=== PATIENT | male | born 1960 | race Caucasian/White ===

== ENCOUNTER 2016-10-02 20:46 | Emergency (ER) | payer BC ==
[~2016-10-02] VITALS: Ht 185.4 cm; Wt 85.0 kg
[~2016-10-02 20:46] MED LIST: OMEP10CA2 PO; PRAV10TA39 PO
[2016-10-02 20:50] VITALS: TEMP 37.3; Ht 185.4 cm; Wt 85.0 kg
[2016-10-02 20:58] VITALS: O2SAT 99
[2016-10-02] MEDS ORDERED: METOPROLOL TARTRATE 1 MG/ML VIAL ONE (21:09)
[2016-10-02] MEDS ORDERED: METOPROLOL TARTRATE 1 MG/ML VIAL IV STA ×2 (21:12→21:55)
[2016-10-02 21:28] LABS: BASO % 0.2 %; BASO ABS # 0.02 K/uL (0-0.2); COMPLETE YES; EOS % 3.9 %; HEMATOCRIT 45.5 % (42-52); IG% 0.4 %; LYMPH % 32.9 %; LYMPH ABS # 2.82 K/uL (1.2-3.4); MEAN CELL VOLUME 83.9 fL (80-100); MEAN CORPUSCULAR HEMOGLOBIN 29.9 pg (25-34); MEAN CORPUSCULAR HGB CONC 35.6 g/dl (32-36); MEAN PLATELET VOLUME 9.3 fL (7.4-10.4); MONO % 6.8 %; NEUT % 55.8 %; PLATELET COUNT 241 K/uL (130-400); RED BLOOD COUNT 5.42 M/uL (4.7-6.1); WHITE BLOOD COUNT 8.56 K/uL (4.8-10.8)
[2016-10-02 21:29] LABS: PROTHROMBIN TIME (PATIENT) 10.9 SECONDS (9.0-12.0)
[2016-10-02 21:34] LABS: CALCIUM 9.6 mg/dl (8.5-10.1); CARBON DIOXIDE 28 mmol/L (21-32); CHLORIDE 106 mmol/L (98-107); GLUCOSE 188 mg/dl (70-99); POTASSIUM 3.9 mmol/L (3.5-5.1); SODIUM 143 mmol/L (136-145)
[2016-10-02 21:37] LABS: ALT/SGPT 33 U/L (12-78); BLOOD UREA NITROGEN 27 mg/dl (7-18); BUN/CREATININE RATIO 22.1 (10-20); MAGNESIUM 2.2 mg/dl (1.8-2.4)
--- NOTE | 2016-10-02 21:43 | EMERGENCY ROOM VISIT NOTE ---
History Report prepared by Alice: Hawa Marion Under the Supervision of: Dr. Nia Mathew M.D. First contact with patient: 20:53 Chief Complaint: TACHYCARDIA Stated Complaint: TACHYCARDIA Nursing Triage Summary: Pt c/o heart fluttering since 1400. "It's done that before, but if I hold my breath it would go away". pt denies pain. "it's a weird sensation". History of Present Illness The patient is a 55 year old male who presents to the Emergency Room with complaints of constant tachycardia for the past 7 hours. He describes his symptoms as a feeling of "fluttering or racing" in his chest. He has had this sensation in the past and it has gone away if he holds his breath. This did not work today. The patient denies fever, cough, shortness of breath, congestion, and recent illness. Source of History: patient Onset: 7 hours ago Position: chest Quality: other (fluttering/racing) Timing: constant Associated Symptoms: No SOB, No cough, No fevers Review of Systems See HPI for pertinent positives & negatives. A total of 10 systems reviewed and were otherwise negative. Past Medical & Surgical Medical Problems: (1) Systolic murmur Family History Patient reports no known family medical history. Social History Smoking Status: Never Smoker Alcohol Use: none Drug Use: none Marital Status: single Housing Status: lives with family Occupation Status: employed Current/Historical Medications Scheduled Metoprolol Succinate (Toprol Xl), 25 MG PO DAILY Multiple Vitamins W/ Minerals (Preservision Areds 2), 2 CAP PO HS Omeprazole Magnesium (Prilosec Otc), 20 MG PO HS Pravastatin Sodium (Pravastatin Sodium), 10 MG PO HS Allergies Coded Allergies: Penicillins (Verified Allergy, Unknown, ., 07/22/14) Physical Exam Vital Signs Date Time Temp Pulse Resp B/P Pulse Ox O2 Delivery O2 Flow Rate FiO2 10/02/16 22:18 86 18 128/84 97 Room Air 10/02/16 21:28 104 20 131/101 99 Room Air 10/02/16 21:17 135 129/104 10/02/16 21:08 125 10/02/16 21:01 135 18 129/104 99 Room Air 10/02/16 20:59 98 Room Air 10/02/16 20:58 99 Room Air 10/02/16 20:50 37.3 128 18 174/115 98 Room Air Physical Exam Vital signs reviewed. General: Well-appearing 55 year old male, in no significant distress. HEENT: No scleral icterus, PERRLA, neck supple. Atraumatic. Cardiovascular: Rapid rate and irregular rhythm, no extra sounds. Pulmonary: Clear to auscultation bilaterally, normal work of breathing. Abdomen: Soft, nontender, nondistended, positive bowel sounds. Musculoskeletal: Atraumatic, no peripheral edema. Neurologic: Patient awake alert and oriented x 3, full strength in all 4 extremities. Cranial nerves 2 through 12 grossly intact. Skin: Warm, dry, no rash Medical Decision & Procedures ER Provider Diagnostic Interpretation: A repeat ECG revealed NSR at 89, no acute ischemic changes, no ectopy. Radiology results as stated below per my review and radiologist interpretation: SINGLE VIEW CHEST CLINICAL HISTORY: Atrial fibrillation. FINDINGS: An AP, portable, upright chest radiograph is compared to study dated 07/22/2014. The examination is mildly degraded by portable technique and patient rotation. The heart is top normal for projection. The pulmonary vasculature is noncongested. Chronic interstitial thickening is similar to previous. Minimal scarring versus atelectasis is seen at the left lung base. No airspace consolidation, large pleural effusion, or pneumothorax is seen. The bony thorax is grossly intact. IMPRESSION: No acute cardiopulmonary abnormality. Electronically signed by: Alexandre De La Cruz M.D. 10/02/2016 9:50 PM Dictated Date/Time: 10/02/2016 9:50 PM Laboratory Results 10/02/16 21:00 Red Blood Count 5.42, Mean Corpuscular Volume 83.9, Mean Corpuscular Hemoglobin 29.9, Mean Corpuscular Hemoglobin Concent 35.6, Mean Platelet Volume 9.3, Neutrophils (%) (Auto) 55.8, Lymphocytes (%) (Auto) 32.9, Monocytes (%) (Auto) 6.8, Eosinophils (%) (Auto) 3.9, Basophils (%) (Auto) 0.2, Neutrophils # (Auto) 4.78, Lymphocytes # (Auto) 2.82, Monocytes # (Auto) 0.58, Eosinophils # (Auto) 0.33, Basophils # (Auto) 0.02 10/02/16 21:00 Test 3/25/17 21:00 White Blood Count 8.56 K/uL (4.8-10.8) Red Blood Count 5.42 M/uL (4.7-6.1) Hemoglobin 16.2 g/dL (14.0-18.0) Hematocrit 45.5 % (42-52) Mean Corpuscular Volume 83.9 fL (80-100) Mean Corpuscular Hemoglobin 29.9 pg (25-34) Mean Corpuscular Hemoglobin Concent 35.6 g/dl (32-36) Platelet Count 241 K/uL (130-400) Mean Platelet Volume 9.3 fL (7.4-10.4) Neutrophils (%) (Auto) 55.8 % Lymphocytes (%) (Auto) 32.9 % Monocytes (%) (Auto) 6.8 % Eosinophils (%) (Auto) 3.9 % Basophils (%) (Auto) 0.2 % Neutrophils # (Auto) 4.78 K/uL (1.4-6.5) Lymphocytes # (Auto) 2.82 K/uL (1.2-3.4) Monocytes # (Auto) 0.58 K/uL (0.11-0.59) Eosinophils # (Auto) 0.33 K/uL (0-0.5) Basophils # (Auto) 0.02 K/uL (0-0.2) RDW Standard Deviation 40.1 fL (36.4-46.3) RDW Coefficient of Variation 13.3 % (11.5-14.5) Immature Granulocyte % (Auto) 0.4 % Immature Granulocyte # (Auto) 0.03 K/uL (0.00-0.02) Prothrombin Time 10.9 SECONDS (9.0-12.0) Prothromb Time International Ratio 1.0 (0.9-1.1) Activated Partial Thromboplast Time 27.1 SECONDS (21.0-31.0) Partial Thromboplastin Ratio 1.0 Anion Gap 9.0 mmol/L (3-11) Est Creatinine Clear Calc Drug Dose 79.5 ml/min Estimated GFR () 79.0 Estimated GFR (Non- 68.1 BUN/Creatinine Ratio 22.1 (10-20) Calcium Level 9.6 mg/dl (8.5-10.1) Magnesium Level 2.2 mg/dl (1.8-2.4) Total Bilirubin 0.5 mg/dl (0.2-1) Direct Bilirubin 0.1 mg/dl (0-0.2) Aspartate Amino Transf (AST/SGOT) 24 U/L (15-37) Alanine Aminotransferase (ALT/SGPT) 33 U/L (12-78) Alkaline Phosphatase 83 U/L (45-117) Total Creatine Kinase 331 U/L (39-308) Creatine Kinase MB 2.3 ng/ml (0.5-3.6) Creatine Kinase MB Ratio 0.7 (0-3.0) Troponin I < 0.015 ng/ml (0-0.045) Total Protein 8.0 gm/dl (6.4-8.2) Albumin 4.6 gm/dl (3.4-5.0) Thyroid Stimulating Hormone (TSH) 1.350 uIu/ml (0.300-4.500) Medications Administered Medications (Trade) Dose Ordered Sig/Mahamed Route Start Time Stop Time Status Last Admin Dose Admin Metoprolol Tartrate (Lopressor Iv) 5 mg STK-MED ONCE .ROUTE 10/02/16 21:09 10/02/16 21:13 DC 10/02/16 21:17 5 MG Aspirin (Aspirin Chew) 81 mg NOW STAT PO 10/02/16 22:08 10/02/16 22:09 DC 10/02/16 22:08 81 MG Metoprolol Succinate (Toprol Xl Tab) 25 mg NOW STAT PO 10/02/16 22:17 10/02/16 22:18 DC 10/02/16 22:17 25 MG ECG Indication: palpitations Rate (beats per minute): 144 Rhythm: atrial fibrillation Findings: no acute ischemic change, other (QTC 393) ED Course 2110: Past medical records reviewed. The patient was evaluated in room A10. A complete history and physical examination was performed. 2111: Lopressor 5 mg IV 2154: Lopressor 5 mg IV 2158: I reassessed the patient. He is doing well and I discussed the results and treatment plan with him. 2207: Aspirin 81 mg PO 2216: Toprol Xl tab 25 mg PO 2237: The patient was discharged home. Medical Decision Differential diagnosis: Etiologies such as premature contractions, electrolyte abnormality, cardiac dysrhythmia, thyroid dysfunction, pulmonary embolism, infection, gastrointestinal, as well as others were entertained. This patient was evaluated and appeared to be in no significant distress. IV access was obtained and he was placed on sales training manager. He is found be in a rapid atrial fibrillation. Patient was given 5 mg of IV metoprolol. Laboratory work is fairly unrevealing. The patient converted to a normal sinus rhythm. Chest x-ray is clear. EKG was repeated and is nonischemic and a sinus rhythm. Patient was informed of the findings. He was given aspirin. He will continue aspirin 81 mg a day and metoprolol succinate 25 mg daily. He will follow-up with his physician this week for reevaluation and consideration of further cardiac testing. He will return to the ER for worsening of symptoms or any medical concerns. Impression Primary Impression: Rapid atrial fibrillation Scribe Attestation The scribe's documentation has been prepared under my direction and personally reviewed by me in its entirety. I confirm that the note above accurately reflects all work, treatment, procedures, and medical decision making performed by me. Departure Information Dispostion Home / Self-Care Prescriptions Metoprolol Succinate (TOPROL XL) 25 Mg Tabcr 25 MG PO DAILY, #30 TAB Prov: Nia Mathew M.D. 10/02/16 Referrals Nupur Juan M.D. (PCP) Forms HOME CARE DOCUMENTATION FORM, IMPORTANT VISIT INFORMATION, WORK / SCHOOL INSTRUCTIONS Patient Instructions Atrial Fibrillation Drew, My [facility] Additional Instructions Diagnosis: Rapid atrial fibrillation Metoprolol 25 mg once daily. Aspirin 81 mg daily. Follow-up with your primary care physician within the next several days for reevaluation and further testing. Return to the emergency department for worsening of symptoms or any medical concerns.
[2016-10-02 21:47] LABS: ALKALINE PHOSPHATASE 83 U/L (45-117); AST/SGOT 24 U/L (15-37); CKMB/CK RATIO 0.7 (0-3.0)
--- NOTE | 2016-10-02 21:52 | DIAGNOSTIC IMAGING REPORT ---
SINGLE VIEW CHEST CLINICAL HISTORY: Atrial fibrillation. FINDINGS: An AP, portable, upright chest radiograph is compared to study dated 07/22/2014. The examination is mildly degraded by portable technique and patient rotation. The heart is top normal for projection. The pulmonary vasculature is noncongested. Chronic interstitial thickening is similar to previous. Minimal scarring versus atelectasis is seen at the left lung base. No airspace consolidation, large pleural effusion, or pneumothorax is seen. The bony thorax is grossly intact. IMPRESSION: No acute cardiopulmonary abnormality. Electronically signed by: Alexandre De La Cruz M.D. 10/02/2016 9:50 PM Dictated Date/Time: 10/02/2016 9:50 PM
[2016-10-02] MEDS ORDERED: MULT60CA PO (21:58)
[2016-10-02] MEDS ORDERED: OMEP20TA14 PO (21:58)
[2016-10-02] MEDS ORDERED: ASPIRIN 81 MG CHEW PO STA (22:08)
[2016-10-02] MEDS ORDERED: METOPROLOL SUCC 25MG EXT REL TAB PO STA (22:17)
[2016-10-02 22:18] VITALS: BP 128/84; PULSE 86; O2SAT 97
[2016-10-02] MEDS ORDERED: METO25TA3 PO (22:19)
== END 2016-10-02 22:38 | disposition home or self-care (01) ==
LOC: C.EDB 20:47 → C.EDA 22:38
DX: I48.91 Unspecified atrial fibrillation (principal); Z79.899 Other long term (current) drug therapy; Z88.0 Allergy status to penicillin

== ENCOUNTER 2016-10-08 16:30 | Emergency (ER) | payer BC ==
[~2016-10-08] VITALS: Ht 182.9 cm; Wt 79.4 kg
[~2016-10-08 16:30] MED LIST changes: +METO25TA3 PO; +MULT60CA PO; -OMEP10CA2 PO; +OMEP20TA14 PO
[2016-10-08 16:43] VITALS: TEMP 37.1; Ht 182.9 cm; Wt 79.4 kg
[2016-10-08] MEDS ORDERED: ASPI81TA28 PO (17:15)
[2016-10-08 17:47] LABS: MEAN CORPUSCULAR HGB CONC 35.7 g/dl (32-36); MEAN PLATELET VOLUME 9.2 fL (7.4-10.4); PLATELET COUNT 248 K/uL (130-400); RED BLOOD COUNT 5.24 M/uL (4.7-6.1)
--- NOTE | 2016-10-08 17:50 | DIAGNOSTIC IMAGING REPORT ---
CHEST ONE VIEW PORTABLE CLINICAL HISTORY: Atypical chest pain COMPARISON STUDY: 10/02/2016 FINDINGS: The cardiac and mediastinal contours are normal. There is no evidence of focal pulmonary consolidation. There is no evidence of failure. No pleural effusions are visualized.[ An electronic device projects over the left hemithorax. There is a stable linear opacity at the left lung base, likely representing subsegmental atelectasis/scar IMPRESSION: No active disease in the chest. Electronically signed by: Roberth Lyles M.D. 10/08/2016 5:48 PM Dictated Date/Time: 10/08/2016 5:48 PM
[2016-10-08 18:00] LABS: PROTHROMBIN TIME (PATIENT) 10.2 SECONDS (9.0-12.0)
[2016-10-08 18:24] LABS: CALCIUM 8.6 mg/dl (8.5-10.1); CKMB/CK RATIO 1.2 (0-3.0); CREATININE 1.3 mg/dl (0.60-1.40); POTASSIUM 3.8 mmol/L (3.5-5.1)
[2016-10-08 18:30] LABS: BUN/CREATININE RATIO 19.7 (10-20)
[2016-10-08 18:36] LABS: ALB/GLOB RATIO 1.2 (0.9-2)
--- NOTE | 2016-10-08 19:17 | EMERGENCY ROOM VISIT NOTE ---
History Report prepared by Alice: Mechelle Bell Under the Supervision of: Dr. Selvin Barboza D.O. First contact with patient: 17:50 Chief Complaint: CARDIAC ASSESSMENT Stated Complaint: MOMENTARY STABBING CHEST PAIN AROUND 3PM Nursing Triage Summary: Patient reports an episode of chest pain substernal that lasted approximatley 30 seconds. Patient was recently evaluated for Atrial fib, currently NSR. Negative SOB, nausea, vomiting, diaphoresis. History of Present Illness The patient is a 55 year old male who presents to the Emergency Room with complaints of an episode of stabbing chest pain earlier today around 1400. The pain lasted for about 10 minutes. He states that the pain might have been positional. He was diagnosed with A fib 1 week ago. He did not experience this pain with A fib. He had a heart monitor fitted this morning. He is currently not experiencing this pain anymore. He denies any other complaints. Source of History: patient Onset: 1400 today Position: chest Quality: stabbing Timing: resolved Note: Pt denies any other complaints. Review of Systems See HPI for pertinent positives & negatives. A total of 10 systems reviewed and were otherwise negative. Past Medical & Surgical Medical Problems: (1) Systolic murmur Family History Patient reports no known family medical history. Social History Smoking Status: Former Smoker Alcohol Use: none Drug Use: none Marital Status: single Housing Status: lives with family Occupation Status: employed Current/Historical Medications Scheduled Aspirin (Aspirin Ec), 81 MG PO DAILY Metoprolol Succinate (Toprol Xl), 25 MG PO DAILY Multiple Vitamins W/ Minerals (Preservision Areds 2), 2 CAP PO HS Omeprazole Magnesium (Prilosec Otc), 20 MG PO HS Pravastatin Sodium (Pravastatin Sodium), 10 MG PO HS Allergies Coded Allergies: Penicillins (Verified Allergy, Unknown, ., 07/22/14) Physical Exam Vital Signs Date Time Temp Pulse Resp B/P Pulse Ox O2 Delivery O2 Flow Rate FiO2 10/08/16 19:36 74 20 143/79 98 10/08/16 17:18 87 10/08/16 16:43 37.1 93 20 169/92 94 Room Air Physical Exam CONSTITUTIONAL/VITAL SIGNS: Reviewed / noted above. GENERAL: Non-toxic in appearance. INTEGUMENTARY: Warm, dry, and [place]. HEAD: Normocephalic. EYES: without scleral icterus or trauma. ENT/OROPHARYNX: clear and moist. LYMPHADENOPATHY/NECK: Is supple without lymphadenopathy or meningismus. RESPIRATORY: Lungs clear and equal. CARDIOVASCULAR: Regular rate and rhythm. GI/ABDOMEN: Soft and nontender. No organomegaly or pulsatile mass. No rebound or guarding. Normal bowel sounds. EXTREMITIES: Warm and well perfused. BACK: No CVA tenderness. NEUROLOGICAL: Intact without focal deficits. PSYCHIATRIC: normal affect. MUSCULOSKELETAL: Normally developed with good muscle tone. Medical Decision & Procedures ER Provider Diagnostic Interpretation: X ray results and stated below per my interpretation and radiology interpretation. CHEST ONE VIEW PORTABLE CLINICAL HISTORY: Atypical chest pain COMPARISON STUDY: 10/02/2016 FINDINGS: The cardiac and mediastinal contours are normal. There is no evidence of focal pulmonary consolidation. There is no evidence of failure. No pleural effusions are visualized.[ An electronic device projects over the left hemithorax. There is a stable linear opacity at the left lung base, likely representing subsegmental atelectasis/scar IMPRESSION: No active disease in the chest. Electronically signed by: Roberth Lyles M.D. 10/08/2016 5:48 PM Dictated Date/Time: 10/08/2016 5:48 PM Laboratory Results 10/08/16 17:02 10/08/16 17:02 Test 10/08/16 17:02 10/08/16 17:49 Red Blood Count 5.24 M/uL (4.7-6.1) Mean Corpuscular Volume 84.0 fL (80-100) Mean Corpuscular Hemoglobin 30.0 pg (25-34) Mean Corpuscular Hemoglobin Concent 35.7 g/dl (32-36) RDW Standard Deviation 38.9 fL (36.4-46.3) RDW Coefficient of Variation 12.9 % (11.5-14.5) Mean Platelet Volume 9.2 fL (7.4-10.4) Nucleated RBC Absolute Count (auto) 0.04 K/uL (0-0) Nucleated Red Blood Cells % 0.7 % Prothrombin Time 10.2 SECONDS (9.0-12.0) Prothromb Time International Ratio 1.0 (0.9-1.1) Activated Partial Thromboplast Time 26.4 SECONDS (21.0-31.0) Partial Thromboplastin Ratio 1.0 Anion Gap 8.0 mmol/L (3-11) Est Creatinine Clear Calc Drug Dose 71.3 ml/min Estimated GFR () 71.7 Estimated GFR (Non- 61.9 BUN/Creatinine Ratio 19.7 (10-20) Calcium Level 8.6 mg/dl (8.5-10.1) Total Bilirubin 0.5 mg/dl (0.2-1) Aspartate Amino Transf (AST/SGOT) 22 U/L (15-37) Alanine Aminotransferase (ALT/SGPT) 35 U/L (12-78) Alkaline Phosphatase 80 U/L (45-117) Total Creatine Kinase 101 U/L (39-308) Creatine Kinase MB 1.2 ng/ml (0.5-3.6) Creatine Kinase MB Ratio 1.2 (0-3.0) Troponin I < 0.015 ng/ml (0-0.045) Total Protein 7.7 gm/dl (6.4-8.2) Albumin 4.2 gm/dl (3.4-5.0) Globulin 3.5 gm/dl (2.5-4.0) Albumin/Globulin Ratio 1.2 (0.9-2) Chemistry Specimen Hemolysis Bedside Troponin I 0.000 ng/ml (0-0.045) Laboratory results as stated above per my review. ECG Indication: chest pain Rate (beats per minute): 83 Rhythm: normal sinus Findings: no ectopy, other (no acute injury) ED Course 175: Previous medical records were reviewed. The patient was evaluated in room B4. A complete history and physical examination was performed. 1920: On reevaluation, the patient is resting comfortably. I discussed the results and findings with the patient. He verbalized agreement of the treatment plan. He was discharged home. Medical Decision the differential was considered includes acute myocardial infarction, acute coronary syndrome, myocarditis, pericarditis, pericardial effusions /tamponad, esophageal perforation, thoracic aortic dissection, pulmonary embolism, pneumonia, pneumothorax, pancreatitis, shingles, acute cholecystitis, perforated abdominal viscus. This is a 55-year-old male who presents to the ED with a chief complaint of a transient left-sided chest pain that occurred around 2 PM. He described as a stabbing pain gutierrez eating. He recently was diagnosed with atrial fibrillation with RVR and spontaneously converted on his last ED visit. He is on a beta adrian. He currently is not having symptoms. The patient's exam was normal. Vital signs are normal. Chest x-ray was negative for acute disease. CBC is normal. Complete metabolic panel was unremarkable. The BUN is 26 and a glucose is 188. Troponin is negative. The patient was told the results the test. He is felt to be stable for discharge and outpatient follow-up. He is currently wearing a event type monitor. Impression Primary Impression: Left sided chest pain Scribe Attestation The scribe's documentation has been prepared under my direction and personally reviewed by me in its entirety. I confirm that the note above accurately reflects all work, treatment, procedures, and medical decision making performed by me. Departure Information Dispostion Home / Self-Care Referrals No Doctor, Assigned (PCP) Patient Instructions My [facility] Additional Instructions Follow-up with your doctor for further care and evaluation in 1-2 days. Return to the emergency department for worsening or new symptoms or any concerns. You have been examined and treated today on an emergency basis only. This is not a substitute for, or an effort to provide, complete comprehensive medical care. It is impossible to recognize and treat all injuries or illnesses in a single emergency department visit. It is therefore important that you follow up closely with your doctor. Call as soon as possible for an appointment.
[2016-10-08 19:36] VITALS: BP 143/79; PULSE 74; O2SAT 98
== END 2016-10-08 19:37 | disposition home or self-care (01) ==
LOC: C.EDB 16:32
DX: R07.9 Chest pain, unspecified (principal); I48.91 Unspecified atrial fibrillation; Z87.891 Personal history of nicotine dependence; Z79.82 Long term (current) use of aspirin; Z79.899 Other long term (current) drug therapy; Z88.0 Allergy status to penicillin

== ENCOUNTER 2016-11-13 01:06 | Emergency (ER) | payer BC ==
[~2016-11-13] VITALS: Ht 190.5 cm; Wt 80.5 kg
[~2016-11-13 01:06] MED LIST changes: +ASPI81TA28 PO
[2016-11-13 01:16] VITALS: TEMP 36.4; Ht 190.5 cm; Wt 80.5 kg
--- NOTE | 2016-11-13 01:32 | EMERGENCY ROOM VISIT NOTE ---
History Report prepared by Alice: Brenda Butts Under the Supervision of: Dr. Veronica Dorsey D.O. First contact with patient: :23 Chief Complaint: CARDIAC ASSESSMENT Stated Complaint: AFIB History of Present Illness The patient is a 56 year old male who presents to the Emergency Room with complaints of a sudden irregular heart rate and rhythm that began around 1929 this evening. The patient notes a history of atrial fibrillation, noting that one month ago he went into atrial fibrillation for eight hours. He states that he has been placed on Metoprolol 25 mg daily. The patient states that he was doing well and saw his cardiology on Tuesday. He states that he was instructed to taking 12.5 mg of Metoprolol daily. The patient states that he went back into atrial fibrillation this evening. He states that he tried everything to convert himself back to normal sinus rhythm, including taking metoprolol and 81 mg of Aspirin. The patient denies any chest pain, shortness of breath, cough, cold, sore throat, chills, fever, leg cramping or swelling. Source of History: patient Onset: 1929 this evening Position: other (global) Quality: other (irregular heart rate and rhythm) Timing: other (sudden) Associated Symptoms: No SOB, No chest pain, No chills, No cough, No fevers, No sorethroat Review of Systems See HPI for pertinent positives & negatives. A total of 10 systems reviewed and were otherwise negative. Past Medical & Surgical Medical Problems: (1) Atrial fibrillation (2) Systolic murmur Family History Patient reports no known family medical history. Social History Smoking Status: Former Smoker Alcohol Use: none Drug Use: none Marital Status: single Housing Status: lives with family Occupation Status: employed Current/Historical Medications Scheduled Aspirin (Aspirin Ec), 81 MG PO DAILY Metoprolol Succinate (Toprol Xl), 25 MG PO DAILY Multiple Vitamins W/ Minerals (Preservision Areds 2), 1 CAP PO HS Omeprazole Magnesium (Prilosec Otc), 20 MG PO HS Pravastatin Sodium (Pravastatin Sodium), 10 MG PO HS Allergies Coded Allergies: Penicillins (Verified Allergy, Unknown, ., 11/13/16) Physical Exam Vital Signs Date Time Temp Pulse Resp B/P Pulse Ox O2 Delivery O2 Flow Rate FiO2 11/13/16 03:53 77 18 114/68 98 11/13/16 02:56 71 11/13/16 02:55 78 11/13/16 02:30 88 101/73 11/13/16 01:42 128 11/13/16 01:16 36.4 129 18 144/92 95 Room Air Physical Exam HEENT: Head - normocephalic and atraumatic Pupils are equal, round, and reactive to light. Extraocular eye muscles are intact, and sclera are anicteric. Nose - moist nasal mucosa without discharge. Mouth - moist buccal mucosa. Oropharynx is nonerythematous and there is no tonsillar exudate or edema noted. Neck: Supple; no JVD, nuchal rigidity, cervical lymphadenopathy. Heart: Irregularly irregular and tachycardic. There is a normal S1 and S2 with no murmurs, clicks, or gallops appreciated. Lungs: Clear to auscultation bilaterally with no wheezes, rales, or rhonchi. Abdomen: Soft, completely nontender, nondistended, with good bowel sounds. There are no palpable pulsatile masses or hepatosplenomegaly. There is no guarding, rigidity, or rebound noted. Extremities: No evidence of cyanosis, clubbing, or edema. There are easily palpable peripheral pulses. Skin: warm and dry with good turgor and no rashes. Medical Decision & Procedures ER Provider Diagnostic Interpretation: 1 view chest x-ray interpreted by me: no evidence of chf no cardiomegaly Laboratory Results 11/13/16 01:36 Red Blood Count 5.58, Mean Corpuscular Volume 86.4, Mean Corpuscular Hemoglobin 30.3, Mean Corpuscular Hemoglobin Concent 35.1, Mean Platelet Volume 9.1, Neutrophils (%) (Auto) 45.3, Lymphocytes (%) (Auto) 40.7, Monocytes (%) (Auto) 10.1, Eosinophils (%) (Auto) 3.7, Basophils (%) (Auto) 0.2, Neutrophils # (Auto ) 2.90, Lymphocytes # (Auto) 2.61, Monocytes # (Auto) 0.65, Eosinophils # (Auto ) 0.24, Basophils # (Auto) 0.01 11/13/16 01:36 Test 11/13/16 01:36 White Blood Count 6.41 K/uL (4.8-10.8) Red Blood Count 5.58 M/uL (4.7-6.1) Hemoglobin 16.9 g/dL (14.0-18.0) Hematocrit 48.2 % (42-52) Mean Corpuscular Volume 86.4 fL (80-100) Mean Corpuscular Hemoglobin 30.3 pg (25-34) Mean Corpuscular Hemoglobin Concent 35.1 g/dl (32-36) Platelet Count 205 K/uL (130-400) Mean Platelet Volume 9.1 fL (7.4-10.4) Neutrophils (%) (Auto) 45.3 % Lymphocytes (%) (Auto) 40.7 % Monocytes (%) (Auto) 10.1 % Eosinophils (%) (Auto) 3.7 % Basophils (%) (Auto) 0.2 % Neutrophils # (Auto) 2.90 K/uL (1.4-6.5) Lymphocytes # (Auto) 2.61 K/uL (1.2-3.4) Monocytes # (Auto) 0.65 K/uL (0.11-0.59) Eosinophils # (Auto) 0.24 K/uL (0-0.5) Basophils # (Auto) 0.01 K/uL (0-0.2) RDW Standard Deviation 41.4 fL (36.4-46.3) RDW Coefficient of Variation 13.0 % (11.5-14.5) Immature Granulocyte % (Auto) 0.0 % Immature Granulocyte # (Auto) 0.00 K/uL (0.00-0.02) Prothrombin Time 10.4 SECONDS (9.0-12.0) Prothromb Time International Ratio 1.0 (0.9-1.1) Activated Partial Thromboplast Time 26.9 SECONDS (21.0-31.0) Partial Thromboplastin Ratio 1.0 Anion Gap 5.0 mmol/L (3-11) Est Creatinine Clear Calc Drug Dose 73.1 ml/min Estimated GFR () 71.2 Estimated GFR (Non- 61.4 BUN/Creatinine Ratio 19.6 (10-20) Calcium Level 9.1 mg/dl (8.5-10.1) Total Bilirubin 0.4 mg/dl (0.2-1) Direct Bilirubin 0.1 mg/dl (0-0.2) Aspartate Amino Transf (AST/SGOT) 16 U/L (15-37) Alanine Aminotransferase (ALT/SGPT) 36 U/L (12-78) Alkaline Phosphatase 79 U/L (45-117) Total Creatine Kinase 131 U/L (39-308) Creatine Kinase MB 1.3 ng/ml (0.5-3.6) Creatine Kinase MB Ratio 1.0 (0-3.0) Troponin I < 0.015 ng/ml (0-0.045) Pro-B-Type Natriuretic Peptide 185 pg/ml (0-900) Total Protein 7.6 gm/dl (6.4-8.2) Albumin 4.4 gm/dl (3.4-5.0) Thyroid Stimulating Hormone (TSH) 1.670 uIu/ml (0.300-4.500) Laboratory results per my review. Medications Administered Medications (Trade) Dose Ordered Sig/Mahamed Route Start Time Stop Time Status Last Admin Dose Admin Diltiazem HCl (Cardizem Inj) 20 mg NOW STAT IV 11/13/16 01:33 11/13/16 01:34 DC 11/13/16 02:09 20 MG Procedure The patient was treated with Cardizem 20 mg IV. ECG Indication: other (irregular heart rate and rhythm) Rate (beats per minute): 129 Rhythm: atrial fibrillation (with RVR) Findings: RBBB (incomplete), no acute ischemic change Change: Repeat EKG #1: Atrial fibrillation at 80 beats per minute, no ischemia, no ectopy. Repeat EKG #2: normal sinus rhythm 68 beats per minute, no ischemia no ectopy. ED Course An IV lock was initiated and labs were drawn as above. He twelve-lead EKG was obtained as described above. 0125: Past medical records reviewed. The patient was evaluated in room C4. A complete history and physical exam was performed. 0133: Ordered Cardizem Inj 20 mg IV. The patient had chest x-ray as described above. 0304: The patient had a four second sinus pause and is now in a normal sinus rhythm. 0313: I reevaluated the patient and he is resting comfortably. I discussed the exam findings with him and I discussed the treatment plan. He verbalized complete understanding and agreement. He is ready to go home. Medical Decision The patient is a 56 year old male who presents to the ED with irregular heart rate and rhythm. Differential diagnosis includes acute coronary syndrome, atrial fibrillation with RVR, congestive heart failure. Lab interpretation: no leukocytosis, stable H&H, normal TSH and LFTs, normal troponin and BNP, BUN 25 and creatinine 1.3, normal Coags. This is a 56-year-old male patient who presents to the emergency department with recurrent atrial fibrillation. The patient did try taking extra beta adrian at home with no relief. He was given IV Cardizem here in the emergency department and after a period of time, seemed to convert. Patient no evidence of fluid overload or congestive heart failure. He was symptom-free when he converted back into a normal sinus rhythm. Cardiac enzymes were negative. I have asked the patient to go back to his original 25 mg dose daily of metoprolol. He will follow up with cardiology. If he develops recurrent A. fib with RVR, he was directed to take a second dose of his metoprolol and weight 60-90 minutes. If the rate did not decrease, he should come back to the emergency department. Impression Primary Impression: Atrial fibrillation with rapid ventricular response Critical Care I have personally spent greater than 30 minutes of critical care time in the direct management of this patient. This includes bedside care, interpretation of diagnostic studies, and testing, discussion with consultants, patient, and family members, and other required patient management activities. This 30 minutes is in excess of all separately billable procedures. Scribe Attestation The scribe's documentation has been prepared under my direction and personally reviewed by me in its entirety. I confirm that the note above accurately reflects all work, treatment, procedures, and medical decision making performed by me. Departure Information Dispostion Home / Self-Care Referrals Cesario Mckeon M.D.([facility]) (PCP) Forms IMPORTANT VISIT INFORMATION Patient Instructions Atrial Fibrillation Dc, My [facility] [employer] Additional Instructions Please take a full pill of the metoprolol starting today. If you develop a rapid heart rate, you can take another dose. If rapid rate continues, return to the ER. Follow up with cardiology
[2016-11-13] MEDS ORDERED: DILTIAZEM HCL 5 MG/ML 5 ML VIAL IV STA (01:33)
[2016-11-13 01:53] LABS: BASO % 0.2 %; BASO ABS # 0.01 K/uL (0-0.2); COMPLETE YES; EOS % 3.7 %; HEMATOCRIT 48.2 % (42-52); LYMPH % 40.7 %; LYMPH ABS # 2.61 K/uL (1.2-3.4); MEAN CELL VOLUME 86.4 fL (80-100); MEAN CORPUSCULAR HEMOGLOBIN 30.3 pg (25-34); MEAN CORPUSCULAR HGB CONC 35.1 g/dl (32-36); MEAN PLATELET VOLUME 9.1 fL (7.4-10.4); MONO % 10.1 %; NEUT % 45.3 %; PLATELET COUNT 205 K/uL (130-400); RED BLOOD COUNT 5.58 M/uL (4.7-6.1); WHITE BLOOD COUNT 6.41 K/uL (4.8-10.8)
[2016-11-13 02:03] LABS: PROTHROMBIN TIME (PATIENT) 10.4 SECONDS (9.0-12.0)
[2016-11-13 02:15] LABS: ALT/SGPT 36 U/L (12-78); AST/SGOT 16 U/L (15-37); BLOOD UREA NITROGEN 25 mg/dl (7-18); BUN/CREATININE RATIO 19.6 (10-20); CALCIUM 9.1 mg/dl (8.5-10.1); CARBON DIOXIDE 30 mmol/L (21-32); CHLORIDE 108 mmol/L (98-107); GLUCOSE 185 mg/dl (70-99); SODIUM 143 mmol/L (136-145)
[2016-11-13 02:25] LABS: ALKALINE PHOSPHATASE 79 U/L (45-117)
[2016-11-13 03:53] VITALS: BP 114/68; PULSE 77; O2SAT 98
--- NOTE | 2016-11-13 06:05 | DIAGNOSTIC IMAGING REPORT ---
CHEST ONE VIEW PORTABLE CLINICAL HISTORY: a-fib cardiac arrhythmia COMPARISON STUDY: 10/08/2016 FINDINGS: The bones soft tissues and hemidiaphragms are normal. The cardiomediastinal silhouette is normal. The lungs are clear. The pulmonary vasculature is normal. IMPRESSION: Negative chest. Electronically signed by: Rivas Whyte M.D. 11/13/2016 6:03 AM Dictated Date/Time: 11/13/2016 6:03 AM
== END 2016-11-13 04:05 | disposition home or self-care (01) ==
LOC: C.EDB 01:07 → C.EDC 04:05
DX: I48.91 Unspecified atrial fibrillation (principal); Z87.891 Personal history of nicotine dependence; Z79.82 Long term (current) use of aspirin

== ENCOUNTER 2022-05-01 00:35 | Inpatient (IN) ==
[2022-05-01] MEDS ORDERED: dilTIAZem HCl 5 MG/ML 5 ML VIAL IV ONE (00:52)
[2022-05-01] MEDS ORDERED: dilTIAZem HCl 5 MG/ML 5 ML VIAL IV STA (00:54)
[2022-05-01] MEDS ORDERED: SODIUM CHLORIDE 0.9% 500 ML IV STA (00:54)
[2022-05-01 01:16] LABS: Basophils # (auto) 0.02 K/uL (0-0.2); Basophils % (auto) 0.2 %; Eosinophils # (auto) 0.12 K/uL (0-0.50); Eosinophils % (auto) 1.5 %; Hematocrit (blood only) 46.2 % (40.1-51.0); Hemoglobin 16.3 g/dl (14.0-18.0); Immature Granulocytes # (auto) 0.01 K/uL (0.00-0.02); Immature Granulocytes % (auto) 0.1 %; Lymphocytes # (auto) 2.94 K/uL (1.2-3.4); Lymphocytes % (auto) 35.9 %; Mean Corpuscular Hemoglobin 30.8 pg (25.0-34.0); Mean Corpuscular Hgb Conc 35.3 g/dL (32.0-36.0); Mean Corpuscular Volume 87.2 fL (80.0-100.0); Mean Platelet Volume 9.2 fL (9.4-12.4); Monocytes % (auto) 7.3 %; Platelet Count 239 K/uL (130-400); RDW Coefficient of Variation 12.9 % (11.5-14.5); RDW Standard Deviation 40.4 fL (36.4-46.3); White Blood Count 8.19 K/ul (4.8-10.8)
--- NOTE | 2022-05-01 01:16 | Emergency Department Note ---
History of Present Illness General Chief complaint: Tachycardia Stated complaint: A-FIB ATTACK,HEART RACING, Time Seen by Provider: 05/01/22 00:44 History of Present Illness This 61-year-old presents to the ER complaining of racing heart who is a history of A. fib Location: Chest Quality: Racing Severity: Moderate Duration: Tonight Timing: Tonight Context: Patient was concerned and came in Modifying factors: better with metoprolol; worse with activity Patient states he feels like he is back in A. fib. Patient denies fever, chills, vomiting, diarrhea, flulike illness. He does have some chest di scomfort. He sees [facility] cardiology. Home Medications Medication Instructions Recorded Confirmed Type aspirin 81 mg tablet,delayed 81 mg PO DAILY 05/01/22 05/01/22 History release escitalopram oxalate 10 mg tablet 5 mg PO DAILY 05/01/22 05/01/22 History ibuprofen 200 mg tablet (Advil) 200 mg PO DIRECTED PRN Pain 05/01/22 05/01/22 History metoprolol succinate 25 mg 25 mg PO DAILY 05/01/22 05/01/22 History tablet,extended release 24 hr omeprazole 20 mg capsule,delayed 20 mg PO DAILY 05/01/22 05/01/22 History release pravastatin 10 mg tablet 10 mg PO DAILY 05/01/22 05/01/22 History propafenone 150 mg tablet 150 mg PO BID 05/01/22 05/01/22 History tamsulosin 0.4 mg capsule 0.4 mg PO DAILY 05/01/22 05/01/22 History vit C 250 mg-vit E 90 mg-zinc 40 1 tab PO DAILY 05/01/22 05/01/22 History mg-copper 1 [id number] capsule (PreserVision AREDS-2) Allergies Allergy/AdvReac Type Severity Reaction Status Date / Time Penicillins Allergy Unknown PT'S Verified 05/01/22 01:09 FATHER HAD SEVERE REACTION Past Med/Surg History Medical History A-fib Surgical History No pertinent past surgical history Social History Smoking Status: Never smoker Preferred Language: Malawian Feels Safe at Home: Yes Review of Systems A total of 10 systems reviewed and were otherwise negative Physical Exam Vital Signs Vital Signs - 24 hr 05/01/22 00:40 05/01/22 01:03 05/01/22 01:03 Temperature 36.8 C Temperature Source Temporal Artery Scan Pulse Rate 136 H Pulse Rate [Finger] 85 Respiratory Rate 18 23 Respiratory Depth Normal Blood Pressure 181/99 H Blood Pressure [Right Arm] 133/90 Blood Pressure Mean 126 Blood Pressure Mean [Right Arm] 104 Pulse Oximetry 98 100 Oxygen Delivery Method Room Air Room Air Room Air Sepsis Recent Fever Within 48 Hours No Sepsis New/Unexplained Change in Mental Status N/A Sepsis Action Taken by Nursing No Action Required VITALS: Vitals are noted on the nurse's note and reviewed by myself. Vital signs tachycardic. GENERAL: Pleasant gentleman, in no acute distress, nondiaphoretic, well- developed well-nourished. SKIN: The skin was without rashes, erythema, edema, or bruising. There is no tenting of the skin. Capillary reflex less than 2 seconds. HEAD: Normocephalic atraumatic. EARS: External auditory canals clear, EYES: Pupils equal round and reactive to light and accommodation. Conjunctivae without injection, sclerae without icterus. Extraocular movements intact. NOSE: Patent, turbinates without inflammation or discharge. MOUTH: Mucous membranes moist. Pharynx without erythema or exudate. Uvula midline. Airway patent. Tongue does not deviate. NECK: Supple without nuchal rigidity. No lymphadenopathy. No thyromegaly. Cervical spine is nontender. No JVD. HEART: Tachycardic irregularly irregular concerning for A. fib. LUNGS: Clear to auscultation bilaterally without wheezes, rales or rhonchi. No retractions or accessory muscle use. ABDOMEN: Positive bowel sounds x 4. Normal tympanic percussion. Soft, nontender, without masses or organomegaly. Davis sign negative. No guarding or rebound tenderness. No CVA tenderness MUSCULOSKELETAL: No muscle atrophy, erythema, or edema noted. NEURO: Patient was alert and oriented to person place and time. Normal sensation to light and sharp touch. No focal neurological deficits. Course Administered Medications Diltiazem HCl 125 mg/ Dextrose 125 mls @ 5 mls/hr IV .Q24H YOSSI; Protocol Stop: 05/31/22 01:29 Last Admin: 05/01/22 01:47 Dose: 5 mg/hr, 5 mls/hr Documented By: CASEY Co-signed By: Lactated Ringer's (Lr) 1,000 mls @ 60 mls/hr IV .[id number] ONE Stop: 05/01/22 18:50 Last Admin: 05/01/22 02:21 Dose: 60 mls/hr Documented By: CASEY Discontinued Medications Diltiazem HCl (Diltiazem Hcl 5 Mg/Ml 5 Ml Vial) Confirm Administered Dose 25 mg IV .STK-MED ONE Stop: 05/01/22 00:53 Last Admin: 05/01/22 01:00 Dose: Not Given Documented By: CASEY Diltiazem HCl (Diltiazem Hcl 5 Mg/Ml 5 Ml Vial) 20 mg IV NOW STA Stop: 05/01/22 00:55 Last Admin: 05/01/22 01:00 Dose: 20 mg Documented By: CASEY Co-signed By: LISA Sodium Chloride (Nss) 500 mls @ 999 mls/hr IV .Q31M STA Stop: 05/01/22 01:24 Last Infusion: 05/01/22 01:48 Dose: 0 mls/hr Documented By: Admin: 05/01/22 01:03 Dose: 999 mls/hr Documented By: CASEY Potassium Chloride (Potassium Chloride Crtab 20 Meq Tabcr) 40 meq PO NOW STA Stop: 05/01/22 02:06 Last Admin: 05/01/22 02:11 Dose: 40 meq Documented By: CASEY Critical Care Time Critical Care Time: Yes Total Critical Care Time: 35 I have personally spent 35 minutes of critical care time in the direct management of this patient. This includes bedside care, interpretation of di agnostic studies, and testing, discussion with consultants, patient, and family members, and other required patient management activities. This 35 minutes is in excess of all separately billable procedures. Medical Decision Making Medical Records Attestation: I reviewed the patient's medical records. Home Medications Current Medication List: was personally reviewed by me Laboratory Data Attestation: I reviewed the patient's lab results. Result diagrams: 05/01/22 01:03 05/01/22 01:03 Lab Results 05/01/22 05/01/22 05/01/22 Range/Units 01:03 01:03 01:03 WBC 8.19 (4.8-10.8) K/ul RBC 5.30 (4.63-6.08) M/uL Hgb 16.3 (14.0-18.0) g/dl Hct 46.2 (40.1-51.0) % MCV 87.2 (80.0-100.0) fL MCH 30.8 (25.0-34.0) pg MCHC 35.3 (32.0-36.0) g/dL RDW Std Deviation 40.4 (36.4-46.3) fL RDW Coeff of Maverick 12.9 (11.5-14.5) % Plt Count 239 (130-400) K/uL MPV 9.2 L (9.4-12.4) fL Immature Gran % (Auto) 0.1 % Neut % (Auto) 55.0 % Lymph % (Auto) 35.9 % [place] % (Auto) 7.3 % Eos % (Auto) 1.5 % Baso % (Auto) 0.2 % Neut # (Auto) 4.50 (1.4-6.5) K/uL Lymph # (Auto) 2.94 (1.2-3.4) K/uL [place] # (Auto) 0.60 (0.24-0.82) K/uL Eos # (Auto) 0.12 (0-0.50) K/uL Baso # (Auto) 0.02 (0-0.2) K/uL Immature Gran # (Auto) 0.01 (0.00-0.02) K/uL Sodium 138 (136-145) mmol/L Potassium 3.5 (3.5-5.1) mmol/L Chloride 100 (98-107) mmol/L Carbon Dioxide 28 (21-32) mmol/L Anion Gap 10 (3-11) BUN 24 H (6-23) mg/dl Creatinine 1.12 (0.6-1.4) mg/dl Est Cr Clr Drug Dosing 77.0 ml/min Est GFR ( Amer) 82.3 ml/min Est GFR (Non-Af Amer) 71.0 ml/min BUN/Creatinine Ratio 21.4 H (10-20) Glucose 172 H (70-99(Fasting)) mg/dl Calcium 9.9 (8.5-10.1) mg/dl Magnesium 2.0 (1.7-2.4) mg/dl Total Bilirubin 0.7 (0.2-1.0) mg/dl AST 25 (13-39) U/L ALT 31 (7-52) U/L Alkaline Phosphatase 93 (34-104) U/L Troponin I High Sens 5.9 (0-20) pg/ml Total Protein 8.1 (6.0-8.3) gm/dl Albumin 4.8 (3.4-5.0) gm/dl Globulin 3.3 (2.5-4.0) gm/dl Albumin/Globulin Ratio 1.5 (0.9-2) TSH 3.234 (0.300-4.500) uIu/ml SARS-CoV-2, RNA, NAAT (NEGATIVE) 05/01/22 Range/Units 01:43 WBC (4.8-10.8) K/ul RBC (4.63-6.08) M/uL Hgb (14.0-18.0) g/dl Hct (40.1-51.0) % MCV (80.0-100.0) fL MCH (25.0-34.0) pg MCHC (32.0-36.0) g/dL RDW Std Deviation (36.4-46.3) fL RDW Coeff of Maverick (11.5-14.5) % Plt Count (130-400) K/uL MPV (9.4-12.4) fL Immature Gran % (Auto) % Neut % (Auto) % Lymph % (Auto) % [place] % (Auto) % Eos % (Auto) % Baso % (Auto) % Neut # (Auto) (1.4-6.5) K/uL Lymph # (Auto) (1.2-3.4) K/uL [place] # (Auto) (0.24-0.82) K/uL Eos # (Auto) (0-0.50) K/uL Baso # (Auto) (0-0.2) K/uL Immature Gran # (Auto) (0.00-0.02) K/uL Sodium (136-145) mmol/L Potassium (3.5-5.1) mmol/L Chloride (98-107) mmol/L Carbon Dioxide (21-32) mmol/L Anion Gap (3-11) BUN (6-23) mg/dl Creatinine (0.6-1.4) mg/dl Est Cr Clr Drug Dosing ml/min Est GFR ( Amer) ml/min Est GFR (Non-Af Amer) ml/min BUN/Creatinine Ratio (10-20) Glucose (70-99(Fasting)) mg/dl Calcium (8.5-10.1) mg/dl Magnesium (1.7-2.4) mg/dl Total Bilirubin (0.2-1.0) mg/dl AST (13-39) U/L ALT (7-52) U/L Alkaline Phosphatase (34-104) U/L Troponin I High Sens (0-20) pg/ml Total Protein (6.0-8.3) gm/dl Albumin (3.4-5.0) gm/dl Globulin (2.5-4.0) gm/dl Albumin/Globulin Ratio (0.9-2) TSH (0.300-4.500) uIu/ml SARS-CoV-2, RNA, NAAT NEGATIVE (NEGATIVE) Imaging Data Attestation: I personally reviewed and interpreted this imaging study as follows: Radiologist's Impression: Chest X-Ray 05/01/22 00:54 SINGLE VIEW CHEST CLINICAL HISTORY: Dysrhythmia FINDINGS: An AP, portable, upright chest radiograph is compared to study dated 11/13/2016. The cardiomediastinal silhouette is top normal for projection. The lungs and pleural spaces are clear noting mild bibasilar atelectasis. No pneumothorax is seen. The bony thorax is grossly intact. IMPRESSION: No acute cardiopulmonary abnormality. ACT 112: Negative or not required by law. Electronically signed by: Alexandre De La Cruz M.D. 05/01/2022 1:43 AM [facility] Narrative Prior records/ancillary studies reviewed. Triage Nursing notes reviewed. Additional history obtained from nursing. The patient's history was concerning for tachycardia and chest pain. Differential diagnosis: Etiologies such as A. fib, cardiac ischemia, aortic dissection, pulmonary embolism, pneumonia, pneumothorax, musculoskeletal, infections, pericarditis, myocarditis, esophageal rupture, gastrointestinal, as well as others were entertained. Physical examination: As above. ER treatment provided: An order was placed for continuous cardiac monitoring. The monitor shows a rate of 60-1 80 with a A. fib rhythm. Cardizem, IV fluids On reassessment the patient felt better. Diagnostic interpretation by me: The electrocardiogram was ordered for tachycardia EKG: Irregularly irregular, rate of 129, no acute ST-T wave changes, impression A. fib with RVR interpreted by myself EKG shows no interval abnormalities such as QT prolongation or WPW. There are no findings to suggest Brugada syndrome. Hypertrophic cardiomyopathy was considered but there are no clear historical elements pointing toward this. EKG is not suggestive. The QRS voltage is not extremely large The labs revealed negative troponin and repeat was ordered Imaging studies: Chest x-ray as above HEART SCORE: Hx: high/mod/low suspicion: 0 ECG: ST depression/nonspecific changes/normal: 0 Age: Greater than 65/45-64/less than 45: 1 Risk factors: (Hypertension, hyperlipidemia, diabetes, coronary disease, tobacco use, cocaine use): 1 Troponin: Greater than 2 times normal limits/1-2 times normal limits/normal: 0 Total: 2 Consultation: A consultation was placed with the hospitalist. The case was discussed and diagnostics were reviewed. The patient was evaluated in the ER for further treatment. Exam and history seem consistent with A. fib with RVR. Patient required a drip. Medicine is consulted. He will be evaluated for admission. Initial troponin was negative. Repeat was ordered. By the evaluation outlined above emergent etiologies such as aortic dissection, pulmonary embolism, pneumonia, pneumothorax, infections, pericarditis, myocarditis, gastrointestinal, as well as others were deemed relatively unlikely. The pt informed about the findings as listed above. All questions were answered and pleased with the treatment. The chart was completed utilizing [employer] Speech voice recognition software. Grammatical errors, random word insertions, pronoun errors, and incomplete sentences are an occassional consequence of this system due to software limitations, ambient noise, and hardware issues. Any formal questions or concerns about the content, text, or information contained within the body of this dictation should be directly addressed to the physician starch treating assistant for clarification. Impression & Plan Atrial fibrillation with rapid ventricular response Discharge Plan Visit Data Chief Complaint: Tachycardia Stated Complaint: A-FIB ATTACK,HEART RACING, ED Provider: Veronica Dorsey ED Midlevel Provider: Mercedes Ybarra Discharge Problem: Atrial fibrillation with rapid ventricular response Patient Disposition: Admitted As Inpatient Condition: Good Forms Stand Alone Forms: My [facility] Prescriptions Prescriptions: No Action propafenone 150 mg tablet 150 mg PO BID aspirin 81 mg Tablet,Delayed Release (Dr/Ec) 81 mg PO DAILY pravastatin 10 mg tablet 10 mg PO DAILY tamsulosin 0.4 mg capsule 0.4 mg PO DAILY ibuprofen [Advil] 200 mg Tablet 200 mg PO DIRECTED PRN (Reason: Pain) omeprazole 20 mg capsule,delayed release(DR/EC) 20 mg PO DAILY metoprolol succinate 25 mg tablet extended release 24 hr 25 mg PO DAILY escitalopram oxalate 10 mg tablet 5 mg PO DAILY PreserVision AREDS-2 250-90-40-1 mg Capsule 1 tab PO DAILY Referrals Referrals: Cesario Mckeon MD [Physician] -
[2022-05-01] MEDS ORDERED: STAT IV Infusion **Titration per Protocol STA (01:23)
[2022-05-01] MEDS ORDERED: dilTIAZem HCL 125 MG in DEXTROSE 5% 100 ML IV SCH (01:30)
--- NOTE | 2022-05-01 01:45 | XRay Report ---
SINGLE VIEW CHEST CLINICAL HISTORY: Dysrhythmia FINDINGS: An AP, portable, upright chest radiograph is compared to study dated 11/13/2016. The cardiome diastinal silhouette is top normal for projection. The lungs and pleural spaces are clear noting mild bibasilar atelectasis. No pneumothorax is seen. The bony thorax is grossly intact. IMPRESSION: No acute cardiopulmonary abnormality. ACT 112: Negative or not required by law. Electronically signed by: Alexandre De La Cruz M.D. 05/01/2022 1:43 AM
[2022-05-01 01:55] LABS: Troponin I High Sensitivity 5.9 pg/ml (0-20)
[2022-05-01 02:00] LABS: Albumin Globulin Ratio 1.5 (0.9-2); Albumin Level 4.8 gm/dl (3.4-5.0); BUN Creatinine Ratio 21.4 (10-20); Bilirubin,Total 0.7 mg/dl (0.2-1.0); Calcium 9.9 mg/dl (8.5-10.1); Est GFR (African American) 82.3 ml/min; Globulin 3.3 gm/dl (2.5-4.0); Potassium 3.5 mmol/L (3.5-5.1); Total Protein 8.1 gm/dl (6.0-8.3)
[2022-05-01] MEDS ORDERED: POTASSIUM CHLORIDE CRTAB 20 MEQ TABCR PO STA ×3 (02:05→02:55)
[2022-05-01] MEDS ORDERED: LACTATED RINGER'S 1,000 ML IV ONE (02:11)
[2022-05-01] MEDS ORDERED: METOPROLOL TARTRATE 1 MG/ML VIAL IV STA (02:34)
[2022-05-01] MEDS ORDERED: LORazepam 2 MG/2 ML SYR IV STA (02:34)
--- NOTE | 2022-05-01 02:35 | History & Physical Report ---
Date of Service May 01, 2022 Assessment & Plan (1) Atrial fibrillation: Plan: Recurrent AF Multifactorial: Missed antiarrhythmic dose Elevated BP, anxiety contributory hypertension, currently stable hyperlipidemia on statin Rx anxiety/mood disorder, suboptimal prediabetes, hemoglobin A1c of 6.1 last March 2021 hx GERD/history esophageal stricture, stable on PPI PCU Continue propafenone and beta-adrian Titrate beta-adrian as needed Wean off Cardizem drip TTE, Cardiology consult Re: Recurrent AF Hold off on therapeutic anticoagulation for thromboembolic prophylaxis for now as patient certain regarding onset of arrhythmia (less than 6 hours) Anxiolytic as needed Patient agreeable to going back to original home SSRI dose prior to patient's father's demise. Update hemoglobin A1c DVT prophylaxis per Lovenox subcu Full code Text document was generated using [employer] voice recognition software. It may contain grammatical or spelling errors. Kindly contact undersigned for clarification of any documentation item in question. History of Present Illness Chief Complaint: A. fib Primary Care Provider: TRINA Anglin History obtained from patient and records. Medical history significant for PAF, hypertension, hyperlipidemia, anxiety/mood disorder, prediabetes, GERD/history esophageal stricture, BPH. Patient noted palpitations last night reminiscent of A. fib episode. Fluttering sensation without chest pain or shortness of breath. Denies headache symptoms. Patient missed noontime dose of propafenone which usually does not happen. Some stress and anxiety over the last month with father's demise. Patient uncomfortable assuming will executor role as his sister lives out of state. Depression not the best, patient denies suicidality. Escitalopram pill decreased in half since last month after patient discussed concerns about not being able to cry over father's with PCP. A. fib confirmed by patient's personal EKG device ([employer]). Last episode may have been months ago but not as prolonged as per patient. 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 Patient consulted ER for evaluation. Initial SBP 180s. Noted to be in rapid A. fib, heart rate 130s. IV Cardizem initiated at the ER. Medical History as above Surgical History : None Family History : Dementia, hyperlipidemia, osteoporosis Personal/Social history : Non-smoker, no EtOH intake for a number of years now secondary to esophageal stricture, unemployed, prior work as a [employer] Allergies Allergy/AdvReac Type Severity Reaction Status Date / Time Penicillins Allergy Unknown PT'S Verified 05/01/22 01:09 FATHER HAD SEVERE REACTION Home Medications Medication Instructions Recorded Confirmed Type aspirin 81 mg tablet,delayed 81 mg PO DAILY 05/01/22 05/01/22 History release escitalopram oxalate 10 mg tablet 5 mg PO DAILY 05/01/22 05/01/22 History ibuprofen 200 mg tablet (Advil) 200 mg PO DIRECTED PRN Pain 05/01/22 05/01/22 History metoprolol succinate 25 mg 25 mg PO DAILY 05/01/22 05/01/22 History tablet,extended release 24 hr omeprazole 20 mg capsule,delayed 20 mg PO DAILY 05/01/22 05/01/22 History release pravastatin 10 mg tablet 10 mg PO DAILY 05/01/22 05/01/22 History propafenone 150 mg tablet 150 mg PO BID 05/01/22 05/01/22 History tamsulosin 0.4 mg capsule 0.4 mg PO DAILY 05/01/22 05/01/22 History vit C 250 mg-vit E 90 mg-zinc 40 1 tab PO DAILY 05/01/22 05/01/22 History mg-copper 1 [id number] capsule (PreserVision AREDS-2) Past Med/Surg History Medical History A-fib Surgical History No pertinent past surgical history Social History Smoking Status: Never smoker Second Hand Exposure: Yes; Do You Dip or Chew Tobacco: No; Hx Alcohol Use: Yes Hx Substance Use: No Preferred Language: Korean Communication Ability: Effective Maintenance Pipefitter Required: No Beliefs That Will Affect Care: None Current Living Situation: Family Current Living Situation Comment: lives with brother who has special needs Other Information That Helps Us Care for You: No Feels Safe at Home: Yes Assistive Devices: Glasses Review of Systems Review of Systems: As per HPI, all other systems reviewed and negative Physical Exam Physical Exam: GENERAL: Anxious, no respiratory distress SKIN: Normal color, warm HEENT: Bespectacled, Heber palpebral conjunctivae, no ptosis, dry buccal mucosa NECK : Supple, no tenderness CHEST : CTA, no tenderness HEART : Irregular, no obvious murmurs ABDOMEN: Some distention, nontender EXTREMITIES : No LE swelling/tenderness, no other conspicuous deformities noted NEUROLOGIC : Coherent, no facial asymmetry, no other gross focality Results & Data Results & Data ([facility]) Vital Signs (Past 12 Hours) Vital Signs Temp Pulse Pulse Resp BP BP Pulse Ox 05/01/22 01:03 85 23 133/90 100 05/01/22 01:03 05/01/22 00:40 36.8 C 136 H 18 181/99 H 98 O2 Del Method 05/01/22 01:03 Room Air 05/01/22 01:03 Room Air 05/01/22 00:40 Room Air Laboratory Results Laboratory Results WBC 8.19 K/ul (4.8-10.8) 05/01/22 01:03 RBC 5.30 M/uL (4.63-6.08) 05/01/22 01:03 Hgb 16.3 g/dl (14.0-18.0) 05/01/22 01:03 Hct 46.2 % (40.1-51.0) 05/01/22 01:03 MCV 87.2 fL (80.0-100.0) 05/01/22 01:03 MCH 30.8 pg (25.0-34.0) 05/01/22 01:03 MCHC 35.3 g/dL (32.0-36.0) 05/01/22 01:03 RDW Std Deviation 40.4 fL (36.4-46.3) 05/01/22 01:03 RDW Coeff of Maverick 12.9 % (11.5-14.5) 05/01/22 01:03 Plt Count 239 K/uL (130-400) 05/01/22 01:03 MPV 9.2 fL (9.4-12.4) L 05/01/22 01:03 Immature Gran % (Auto) 0.1 % 05/01/22 01:03 Neut % (Auto) 55.0 % 05/01/22 01:03 Lymph % (Auto) 35.9 % 05/01/22 01:03 [place] % (Auto) 7.3 % 05/01/22 01:03 Eos % (Auto) 1.5 % 05/01/22 01:03 Baso % (Auto) 0.2 % 05/01/22 01:03 Neut # (Auto) 4.50 K/uL (1.4-6.5) 05/01/22 01:03 Lymph # (Auto) 2.94 K/uL (1.2-3.4) 05/01/22 01:03 [place] # (Auto) 0.60 K/uL (0.24-0.82) 05/01/22 01:03 Eos # (Auto) 0.12 K/uL (0-0.50) 05/01/22 01:03 Baso # (Auto) 0.02 K/uL (0-0.2) 05/01/22 01:03 Immature Gran # (Auto) 0.01 K/uL (0.00-0.02) 05/01/22 01:03 Sodium 138 mmol/L (136-145) 05/01/22 01:03 Potassium 3.5 mmol/L (3.5-5.1) 05/01/22 01:03 Chloride 100 mmol/L (98-107) 05/01/22 01:03 Carbon Dioxide 28 mmol/L (21-32) 05/01/22 01:03 Anion Gap 10 (3-11) 05/01/22 01:03 BUN 24 mg/dl (6-23) H 05/01/22 01:03 Creatinine 1.12 mg/dl (0.6-1.4) 05/01/22 01:03 Est Cr Clr Drug Dosing 77.0 ml/min 05/01/22 01:03 Est GFR ( Amer) 82.3 ml/min 05/01/22 01:03 Est GFR (Non-Af Amer) 71.0 ml/min 05/01/22 01:03 BUN/Creatinine Ratio 21.4 (10-20) H 05/01/22 01:03 Glucose 172 mg/dl (70-99(Fasting)) H 05/01/22 01:03 Calcium 9.9 mg/dl (8.5-10.1) 05/01/22 01:03 Magnesium 2.0 mg/dl (1.7-2.4) 05/01/22 01:03 Total Bilirubin 0.7 mg/dl (0.2-1.0) 05/01/22 01:03 AST 25 U/L (13-39) 05/01/22 01:03 ALT 31 U/L (7-52) 05/01/22 01:03 Alkaline Phosphatase 93 U/L (34-104) 05/01/22 01:03 Troponin I High Sens 5.9 pg/ml (0-20) 05/01/22 01:03 Total Protein 8.1 gm/dl (6.0-8.3) 05/01/22 01:03 Albumin 4.8 gm/dl (3.4-5.0) 05/01/22 01:03 Globulin 3.3 gm/dl (2.5-4.0) 05/01/22 01:03 Albumin/Globulin Ratio 1.5 (0.9-2) 05/01/22 01:03 TSH 3.234 uIu/ml (0.300-4.500) 05/01/22 01:03 SARS-CoV-2, RNA, NAAT NEGATIVE (NEGATIVE) 05/01/22 01:43 Impressions Chest X-Ray 05/01/22 00:54 SINGLE VIEW CHEST CLINICAL HISTORY: Dysrhythmia FINDINGS: An AP, portable, upright chest radiograph is compared to study dated 11/13/2016. The cardiomediastinal silhouette is top normal for projection. The lungs and pleural spaces are clear noting mild bibasilar atelectasis. No pneumothorax is seen. The bony thorax is grossly intact. IMPRESSION: No acute cardiopulmonary abnormality. ACT 112: Negative or not required by law. Electronically signed by: Alexandre De La Cruz M.D. 05/01/2022 1:43 AM Diagnostic Findings EKG as per my interpretation :Rate 130, A. fib, LAD, LAFB, RBBB, no ischemia
[2022-05-01] MEDS ORDERED: LORazepam 0.5 MG TAB PO PRN (02:40)
[2022-05-01] MEDS ORDERED: POTASSIUM CHLORIDE CRTAB 20 MEQ TABCR PO SCH (02:55)
[2022-05-01 03:46] LABS: Partial Thromboplastin Ratio 1.5; Partial Thromboplastin Time 40.4 Seconds (21.0-31.0)
[2022-05-01] MEDS ORDERED: ACETAMINOPHEN 325 MG TAB PO PRN (04:35)
[2022-05-01] MEDS ORDERED: NITROGLYCERIN SL 0.4 MG/TAB TAB SL PRN (04:35)
[2022-05-01] MEDS ORDERED: traMADol HCL 50 MG TABLET PO PRN (04:35)
[2022-05-01] MEDS ORDERED: PROMETHAZINE HCL 12.5 MG in SODIUM CHLORIDE 0.9% 50 ML IV PRN (04:35)
[2022-05-01 08:40] LABS: Estimated Average Glucose 143 mg/dl; Hemoglobin A1C 6.6 % (4.5-5.6)
[2022-05-01] MEDS ORDERED: Flu Vaccine (Fluarix) 0.5mL SYR (Standard Dose) IM ONE (09:00)
[2022-05-01] MEDS ORDERED: PROPAFENONE HCL 150 MG TABLET PO SCH (09:00)
[2022-05-01] MEDS ORDERED: PNEUMOCOCCAL Polysaccharide Vaccine 25mcg/0.5mL vial/Syr IM ONE (09:00)
[2022-05-01] MEDS: PANTOprazole 40 MG TAB PO SCH (09:24)
[2022-05-01] MEDS: ENOXAPARIN INJ 40 MG/0.4 ML SYR SQ SCH (09:24)
[2022-05-01] MEDS: METOPROLOL SUCC 25MG EXT REL TAB PO SCH (09:24)
[2022-05-01] MEDS: ASPIRIN 81 MG ECTAB PO SCH (09:24)
[2022-05-01] MEDS: PRAVASTATIN SOD 10 MG TAB PO SCH (09:25)
[2022-05-01] MEDS: TAMSULOSIN HCL 0.4 MG CAP PO SCH (09:25)
--- NOTE | 2022-05-01 09:46 | Electrocardiogram Report ---
Test Reason : Blood Pressure : / mmHG Vent. Rate : 129 BPM Atrial Rate : 107 BPM P-R Int : 224 ms QRS Dur : 092 ms QT Int : 298 ms P-R-T Axes : 000 -25 022 degrees QTc Int : 436 ms Atrial fibrillation Incomplete right bundle branch block Nonspecific ST abnormality Abnormal ECG When compared with ECG of 13-NOV-2016 03:00, Atrial fibrillation has replaced sinus rhythm Vent. rate has increased BY [address] now depressed in Inferior leads ST now depressed in Anterolateral leads Confirmed by Sandoval Bustos ([id number]) on 05/01/2022 9:46:10 AM Referred By: REFERRED SELF Confirmed By:Chance Bustos
--- NOTE | 2022-05-01 10:24 | Cardiology Consultation ---
Date of Consultation May 01, 2022 Assessment & Plan (1) Atrial fibrillation with rapid ventricular response: Plan 61-year-old patient admitted with paroxysmal atrial fibrillation rapid ventricular response due to noncompliance with antiarrhythmic therapy. His [id number] score is 0. 4-second conversion pause noted during sleep. Remains in sinus rhythm this morning. Total duration of atrial fibrillation 5 hours. He typically monitors episodes of A. fib via cardia mobile device. Episodes typically last less than 10 seconds. Recommend titration of propafenone to 150 mg 3 times daily pending review of repeat ECG this AM. Preliminary review of bedside 2D transthoracic echocardiogram reveals normal LV systolic function, wall thickness, and no significant valvular pathology. Continue metoprolol succinate 25 mg daily. Overall stroke risk remains low. We discussed the risk versus benefit of adding DOAC. Patient would consider addition of anticoagulation in the future if episodes of atrial fibrillation become more frequent or persistent. All questions answered to patient satisfaction. Monitor telemetry this morning. If patient remains in sinus rhythm he may be discharged home this afternoon. Outpatient follow-up with Dr. Montejo in 1 to 2 weeks. History of Present Illness Reason for Consultation: Atrial fibrillation rapid ventricular Requesting Physician: Dr. Castro Attending Physician: Adriana Castro MD History of Present Illness 61-year-old patient with history of paroxysmal atrial fibrillation presented to the emergency department with palpitations and tachycardia. ECG confirming atrial fibrillation with rapid ventricular response. 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 At approximately midnight he noted palpitations and rapid heart rates. He had not taken his morning dose of p ropafenone nor his evening dose at that time. He proceeded to take 150 mg of short acting propafenone and 2 doses of 25 mg Toprol-XL. After approximately 1 hour his symptoms did not subside and he came to the emergency department for further evaluation and treatment. Treated with IV diltiazem. Subsequently converted to sinus rhythm with a 4.1-second conversion pause during sleep. Currently feeling well. Telemetry reveals sinus rhythm. Previously treated with 450 mg of propafenone daily, however, due to difficulty remembering to take his midday dose, propafenone reduced to 150 mg twice daily. Insurance will not cover the extended release formulation. He is not chronically anticoagulated. Duration of A. fib approximately 5 hours. Allergies Allergy/AdvReac Type Severity Reaction Status Date / Time Penicillins Allergy Unknown PT'S Verified 05/01/22 01:09 FATHER HAD SEVERE REACTION Home Medications Medication Instructions Recorded Confirmed Type aspirin 81 mg tablet,delayed 81 mg PO DAILY 05/01/22 05/01/22 History release escitalopram oxalate 10 mg tablet 5 mg PO DAILY 05/01/22 05/01/22 History ibuprofen 200 mg tablet (Advil) 200 mg PO DIRECTED PRN Pain 05/01/22 05/01/22 History metoprolol succinate 25 mg 25 mg PO DAILY 05/01/22 05/01/22 History tablet,extended release 24 hr omeprazole 20 mg capsule,delayed 20 mg PO DAILY 05/01/22 05/01/22 History release pravastatin 10 mg tablet 10 mg PO DAILY 05/01/22 05/01/22 History propafenone 150 mg tablet 150 mg PO BID 05/01/22 05/01/22 History tamsulosin 0.4 mg capsule 0.4 mg PO DAILY 05/01/22 05/01/22 History vit C 250 mg-vit E 90 mg-zinc 40 1 tab PO DAILY 05/01/22 05/01/22 History mg-copper 1 [id number] capsule (PreserVision AREDS-2) Patient History Medical History A-fib Surgical History No pertinent past surgical history Social History Smoking Status: Never smoker Second Hand Exposure: Yes; Do You Dip or Chew Tobacco: No; Hx Alcohol Use: Yes Hx Substance Use: No Preferred Language: Pashto Communication Ability: Effective Goring Cutter Required: No Beliefs That Will Affect Care: None Current Living Situation: Family Current Living Situation Comment: lives with brother who has special needs Other Information That Helps Us Care for You: No Feels Safe at Home: Yes Assistive Devices: Glasses Review of Systems Review of Systems: All systems reviewed & are unremarkable except as noted in Subjective Physical Exam Constitutional: well nourished; no acute distress and not ill appearing Respiratory: normal respiratory effort; no respiratory distress, no labored breathing and no retractions Auscultation: lungs clear to auscultation bilaterally; no crackles, no rales, no rhonchi and no wheezes Cardiovascular: Rate/Rhythm: regular rate and regular rhythm Heart Sounds: normal S1 and normal S2; no murmur Vessels: radial pulses present; no JVD and no carotid bruit Extremities: no edema Gastrointestinal (Abdomen): Inspection/Auscultation: abdomen normal to inspection and normal bowel sounds; abdomen not distended Percussion/Palpation: abdomen soft; abdomen nontender, no guarding and abdomen not rigid Neurologic: CN's II-XI intact bilaterally and moves all extremities; no focal motor deficits Motor/Sensory: + tremor Psychiatric: A+Ox3, euthymic affect Results & Data ([facility]) Vital Signs (Past 12 Hours) Vital Signs Temp Pulse Pulse Resp BP BP BP 05/01/22 09:20 36.8 C 64 18 101/61 05/01/22 06:11 37.4 C 59 L 20 102/50 L 05/01/22 04:35 37.4 C 86 20 137/89 05/01/22 04:35 05/01/22 04:37 37.4 C 89 20 137/89 05/01/22 03:58 109 H 22 113/80 05/01/22 01:03 85 23 133/90 05/01/22 01:03 05/01/22 00:40 36.8 C 136 H 18 181/99 H Pulse Ox Pulse Ox O2 Del Method O2 Del Method 05/01/22 09:20 98 Room Air 05/01/22 06:11 96 Room Air 05/01/22 04:35 96 Room Air 05/01/22 04:35 96 Room Air 05/01/22 04:37 96 Room Air 05/01/22 03:58 98 05/01/22 01:03 100 Room Air 05/01/22 01:03 Room Air 05/01/22 00:40 98 Room Air
[2022-05-01] MEDS: PROPAFENONE HCL 150 MG TABLET PO SCH ×2 (14:14→22:15)
--- NOTE | 2022-05-01 15:24 | Hospitalist Progress Note ---
Date of Service May 01, 2022 Assessment & Plan (1) Atrial fibrillation: Plan: Recurrent AF Multifactorial: Missed antiarrhythmic dose -- Cardiology was consulted Propafenone increased from 150 mg twice daily to 3 times daily Metoprolol XL 25 mg p.o. daily continued [id number] score 0, anticoagulation not recommended at this time Echocardiogram ordered next Continue to monitor hypertension, currently stable hyperlipidemia on statin Rx anxiety/mood disorder, suboptimal --Continue Lexapro prediabetes, hemoglobin A1c of 6.1 last March 2021 --A1c now 6.6 Follow-up as an outpatient hx GERD/history esophageal stricture, stable on PPI DVT prophylaxis per Lovenox subcu Full code Disposition Anticipate discharge to home medically stable Admission and Anticipated Discharge Date Admission Date: May 01, 2022 Subjective Follow-up for paroxysmal atrial fibrillation, etc. Back to sinus rhythm Seen resting in bed, sitting up, no distress Comfortable States he feels fine overall no chest pain, dyspnea, palpitations, dizziness No other symptoms Review of Systems Review of Systems: all noted and negative except for above Physical Exam Physical Exam: General- oriented x 3, not in distress, speaks in sentences with no effort or accessory muscle use Eyes- anicteric Neck- no JVD Lungs- clear breath sounds bilaterally, no rales/wheezes Heart- normal rate, regular rhythm; no murmurs Abdomen- normal bowel sounds, nondistended, soft, nontender Extremities- no pretibial edema, no calf tenderness Neuro- alert, oriented x 3; no gross focal neurologic deficits Skin- warm & dry Results & Data Results & Data ([facility]) Vital Signs (Past 12 Hours) Vital Signs Temp Pulse Pulse Pulse Resp BP BP 05/01/22 14:14 102/64 05/01/22 14:11 65 05/01/22 11:29 36.9 C 63 17 93/46 L 05/01/22 08:00 58 L 05/01/22 09:20 36.8 C 64 18 101/61 05/01/22 06:11 37.4 C 59 L 20 102/50 L 05/01/22 04:35 37.4 C 86 20 137/89 05/01/22 04:35 05/01/22 04:37 37.4 C 89 20 137/89 05/01/22 03:58 109 H 22 113/80 Pulse Ox Pulse Ox O2 Del Method O2 Del Method 05/01/22 14:14 05/01/22 14:11 05/01/22 11:29 97 Room Air 05/01/22 08:00 05/01/22 09:20 98 Room Air 05/01/22 06:11 96 Room Air 05/01/22 04:35 96 Room Air 05/01/22 04:35 96 Room Air 05/01/22 04:37 96 Room Air 05/01/22 03:58 98 all noted and reviewed including below
[2022-05-02] MEDS: PROPAFENONE HCL 150 MG TABLET PO SCH ×2 (06:05→14:05)
--- NOTE | 2022-05-02 07:06 | Electrocardiogram Report ---
Test Reason : Blood Pressure : / mmHG Vent. Rate : 063 BPM Atrial Rate : 063 BPM P-R Int : 174 ms QRS Dur : 096 ms QT Int : 392 ms P-R-T Axes : 069 -12 003 degrees QTc Int : 401 ms Normal sinus rhythm Incomplete right bundle branch block Borderline ECG When compared with ECG of 01-MAY-2022 00:51, Sinus rhythm has replaced Atrial fibrillation Vent. rate has decreased BY [address] no longer depressed in Anterior leads Confirmed by Sandoval Bustos ([id number]) on 05/02/2022 7:06:17 AM Referred By: REFERRED SELF Confirmed By:Chance Bustos
[2022-05-02 07:11] LABS: Basophils # (auto) 0.02 K/uL (0-0.2); Basophils % (auto) 0.4 %; Eosinophils # (auto) 0.13 K/uL (0-0.50); Eosinophils % (auto) 2.5 %; Hematocrit (blood only) 40.7 % (40.1-51.0); Hemoglobin 14.3 g/dl (14.0-18.0); Lymphocytes # (auto) 2.29 K/uL (1.2-3.4); Lymphocytes % (auto) 43.2 %; Mean Corpuscular Hemoglobin 30.3 pg (25.0-34.0); Mean Corpuscular Hgb Conc 35.1 g/dL (32.0-36.0); Mean Corpuscular Volume 86.2 fL (80.0-100.0); Monocytes % (auto) 7.5 %; Neutrophils # (auto) 2.46 K/uL (1.4-6.5); Neutrophils % (auto) 46.4 %; Platelet Count 183 K/uL (130-400); RDW Coefficient of Variation 12.8 % (11.5-14.5); RDW Standard Deviation 40.3 fL (36.4-46.3); Red Blood Count 4.72 M/uL (4.63-6.08)
[2022-05-02 07:47] LABS: BUN Creatinine Ratio 21.3 (10-20); Calcium 9.1 mg/dl (8.5-10.1); Creatinine Clr Calc Pharmacy 99.8 ml/min; Est GFR (African American) 107.7 ml/min; Est GFR (Non-African American) 92.9 ml/min
[2022-05-02] MEDS ORDERED: ESCITALOPRAM OXALATE 10 MG TAB PO SCH (09:00)
[2022-05-02] MEDS: ENOXAPARIN INJ 40 MG/0.4 ML SYR SQ SCH (09:12)
[2022-05-02] MEDS: ASPIRIN 81 MG ECTAB PO SCH (09:12)
[2022-05-02] MEDS: METOPROLOL SUCC 25MG EXT REL TAB PO SCH (09:13)
[2022-05-02] MEDS: PANTOprazole 40 MG TAB PO SCH (09:14)
[2022-05-02] MEDS: TAMSULOSIN HCL 0.4 MG CAP PO SCH (09:14)
[2022-05-02] MEDS: PRAVASTATIN SOD 10 MG TAB PO SCH (09:14)
--- NOTE | 2022-05-02 10:09 | Cardiology Progress Note ---
Date of Service May 02, 2022 Assessment & Plan (1) Atrial fibrillation with rapid ventricular response: Plan 61-year-old patient admitted with paroxysmal atrial fibrillation rapid ventricular response due to noncompliance with antiarrhythmic therapy. His [id number] score is 0. 4-second conversion pause noted during sleep. Remains in sinus rhythm overnight. Continue propafenone 150 mg 3 times daily. (Titrated from outpatient dose of 150 mg twice daily). Continue metoprolol succinate 25 mg daily. Overall stroke risk remains low. We discussed the risk versus benefit of adding DOAC. Patient would consider addition of anticoagulation in the future if episodes of atrial fibrillation become more frequent or persistent. All questions answered to patient satisfaction. Outpatient follow-up with Dr. Montejo in 1 to 2 weeks. Admission and Anticipated Discharge Date Admission Date: May 01, 2022 Subjective Patient seen examined the bedside. Feeling well overnight. Remains in sinus rhythm. No recurrent palpitations. Review of Systems Review of Systems: All systems reviewed & are unremarkable except as noted in Subjective Physical Exam Constitutional: well nourished; no acute distress and not ill appearing Respiratory: normal respiratory effort; no respiratory distress, no labored breathing and no retractions Auscultation: lungs clear to auscultation bilaterally; no crackles, no rales, no rhonchi and no wheezes Cardiovascular: Rate/Rhythm: regular rate and regular rhythm Heart Sounds: normal S1 and normal S2; no murmur Vessels: radial pulses present; no JVD and no carotid bruit Extremities: no edema Gastrointestinal (Abdomen): Inspection/Auscultation: abdomen normal to inspection and normal bowel sounds; abdomen not distended Percussion/Palpation: abdomen soft; abdomen nontender, no guarding and abdomen not rigid Neurologic: CN's II-XI intact bilaterally and moves all extremities; no focal motor deficits Motor/Sensory: + tremor Psychiatric: A+Ox3, euthymic affect Results & Data ([facility]) Vital Signs (Past 12 Hours) Vital Signs Temp Pulse Pulse Pulse Resp BP Pulse Ox 05/02/22 07:42 36.7 C 71 16 110/67 98 05/02/22 07:25 73 05/02/22 04:35 05/02/22 03:28 36.9 C 66 18 119/67 98 05/01/22 23:35 66 05/01/22 23:23 36.9 C 67 18 113/64 97 Pulse Ox O2 Del Method O2 Del Method 05/02/22 07:42 Room Air 05/02/22 07:25 05/02/22 04:35 98 Room Air 05/02/22 03:28 Room Air 05/01/22 23:35 05/01/22 23:23 Room Air
--- NOTE | 2022-05-02 14:43 | Hospitalist Progress Note ---
Date of Service May 02, 2022 Assessment & Plan (1) Atrial fibrillation: Plan: Recurrent AF Multifactorial: Missed antiarrhythmic dose -- Cardiology was consulted Propafenone increased from 150 mg twice daily to 3 times daily Metoprolol XL 25 mg p.o. daily continued [id number] score 0, anticoagulation not recommended at this time Patient would consider addition of anticoagulation in the future if episodes of atrial fibrillation become more frequent or persistent. Follow-up with production line solderer in 2 weeks hypertension, currently stable hyperlipidemia on statin Rx anxiety/mood disorder, suboptimal --Continue Lexapro prediabetes, hemoglobin A1c of 6.1 last March 2021 --A1c now 6.6 Follow-up with PCP in 1 week hx GERD/history esophageal stricture, stable on PPI DVT prophylaxis per Lovenox subcu Full code Disposition Discharge to home Follow-up with PCP in 1 week Follow-up production line solderer in 2 weeks Admission and Anticipated Discharge Date Admission Date: May 01, 2022 Subjective Follow-up for atrial fibrillation recurrence, etc. Remains in sinus rhythm Seen sitting up in bed, comfortable, not in distress in good spirits States he feels fine overall no chest pain, dyspnea, palpitations, dizziness Ambulating with no problems States he is ready for discharge today Review of Systems Review of Systems: all noted and negative except for above Physical Exam Physical Exam: General- oriented x 3, not in distress, speaks in sentences with no effort or accessory muscle use Eyes- anicteric Neck- no JVD Lungs- clear breath sounds bilaterally Heart- normal rate, regular rhythm; no murmurs Abdomen- normal bowel sounds, nondistended, soft, no tenderness Extremities- no pretibial edema, no calf tenderness Neuro- alert, oriented x 3; no gross focal neurologic deficits Skin- warm & dry Results & Data Results & Data ([facility]) Vital Signs (Past 12 Hours) Vital Signs Temp Pulse Pulse Pulse Resp BP Pulse Ox 05/02/22 12:03 36.7 C 82 18 120/77 98 05/02/22 07:42 36.7 C 71 16 110/67 98 05/02/22 07:25 73 05/02/22 04:35 05/02/22 03:28 36.9 C 66 18 119/67 98 Pulse Ox O2 Del Method O2 Del Method 05/02/22 12:03 Room Air 05/02/22 07:42 Room Air 05/02/22 07:25 05/02/22 04:35 98 Room Air 05/02/22 03:28 Room Air all noted and reviewed including below
--- NOTE | 2022-05-02 14:44 | Discharge Summary ---
Discharge Summary Date of Service May 02, 2022 Notes For Next Care Provider Propofol increased by cardiology service Cardiology follow-up in 2 weeks Medication Changes From Visit Propafenone 150 mg increased from twice daily to 3 times daily Admission HPI Per Admitting Provider History obtained from patient and records. Medical history significant for PAF, hypertension, hyperlipidemia, anxiety/mood disorder, prediabetes, GERD/history esophageal stricture, BPH. Patient noted palpitations last night reminiscent of A. fib episode. Fluttering sensation without chest pain or shortness of breath. Denies headache symptoms. Patient missed noontime dose of propafenone which usually does not happen. Some stress and anxiety over the last month with father's demise. Patient uncomfortable assuming will executor role as his sister lives out of state. Depression not the best, patient denies suicidality. Escitalopram pill decreased in half since last month after patient discussed concerns about not being able to cry over father's with PCP. A. fib confirmed by patient's personal EKG device ([employer]). Last episode may have been months ago but not as prolonged as per patient. No improvement in symptoms despite taking nighttime beta-adrian and propafenone medications followed by extra beta-adrian pill as per recommendation by patient's composition floor setter. Patient consulted ER for evaluation. Initial SBP 180s. Noted to be in rapid A. fib, heart rate 130s. IV Cardizem initiated at the ER. Medical History as above Surgical History : None Family History : Dementia, hyperlipidemia, osteoporosis Personal/Social history : Non-smoker, no EtOH intake for a number of years now secondary to esophageal stricture, unemployed, prior work as a [employer] tech Admission Exam Per Admitting Provider GENERAL: Anxious, no respiratory distress SKIN: Normal color, warm HEENT: Bespectacled, [place] palpebral conjunctivae, no ptosis, dry buccal mucosa NECK : Supple, no tenderness CHEST : CTA, no tenderness HEART : Irregular, no obvious murmurs ABDOMEN: Some distention, nontender EXTREMITIES : No LE swelling/tenderness, no other conspicuous deformities noted NEUROLOGIC : Coherent, no facial asymmetry, no other gross focality Principal Dx & Hospital Course #1 = Principal Diagnosis (1) Atrial fibrillation: Recurrent AF Multifactorial: Missed antiarrhythmic dose -- Cardiology was consulted Propafenone increased from 150 mg twice daily to 3 times daily Metoprolol XL 25 mg p.o. daily continued [id number] score 0, anticoagulation not recommended at this time Patient would consider addition of anticoagulation in the future if episodes of atrial fibrillation become more frequent or persistent. Follow-up with composition floor setter in 2 weeks hypertension, currently stable hyperlipidemia on statin Rx anxiety/mood disorder, suboptimal --Continue Lexapro prediabetes, hemoglobin A1c of 6.1 last March 2021 --A1c now 6.6 Follow-up with PCP in 1 week hx GERD/history esophageal stricture, stable on PPI DVT prophylaxis per Lovenox subcu Full code Disposition Discharge to home Follow-up with PCP in 1 week Follow-up composition floor setter in 2 weeks Discharge Exam General- oriented x 3, not in distress, speaks in sentences with no effort or accessory muscle use Eyes- anicteric Neck- no JVD Lungs- clear breath sounds bilaterally Heart- normal rate, regular rhythm; no murmurs Abdomen- normal bowel sounds, nondistended, soft, no tenderness Extremities- no pretibial edema, no calf tenderness Neuro- alert, oriented x 3; no gross focal neurologic deficits Skin- warm & dry Updated Medication List Medication Instructions Recorded Confirmed Type aspirin 81 mg tablet,delayed 81 mg PO DAILY 05/01/22 05/01/22 History release escitalopram oxalate 10 mg tablet 5 mg PO DAILY 05/01/22 05/01/22 History ibuprofen 200 mg tablet (Advil) 200 mg PO DIRECTED PRN Pain 05/01/22 05/01/22 History metoprolol succinate 25 mg 25 mg PO DAILY 05/01/22 05/01/22 History tablet,extended release 24 hr omeprazole 20 mg capsule,delayed 20 mg PO DAILY 05/01/22 05/01/22 History release pravastatin 10 mg tablet 10 mg PO DAILY 05/01/22 05/01/22 History propafenone 150 mg tablet 150 mg PO BID 05/01/22 05/01/22 History tamsulosin 0.4 mg capsule 0.4 mg PO DAILY 05/01/22 05/01/22 History vit C 250 mg-vit E 90 mg-zinc 40 1 tab PO DAILY 05/01/22 05/01/22 History mg-copper 1 er-taizyn-hzamto capsule (PreserVision AREDS-2) Hospital Stay Data Consultations 05/01/22 02:04 ED Decision to Admit Stat 05/01/22 04:35 Consult Cardiology Routine Pending Results Patient Have Any Pending Studies at Discharge: No Discharge Instructions Given to Patient (Per Discharging Provider) Increase Propafenone 150 mg to 3 times a day. Please resume your other usual medications. PLEASE CALL YOUR PRIMARY CARE PHYSICIAN OR RETURN TO THE ER IF WITH WORSENING OF SYMPTOMS, INCLUDING Chest pain, shortness of breath, palpitations, dizziness, weakness, etc. FOLLOW UP WITH PRIMARY CARE PHYSICIAN in 1 week. Follow-up with your [facility] composition floor setter in 2 weeks. The clinic will be calling you soon for the appointment. Total Time Total Time Spent Total Time Spent (In Minutes): >30 minutes
== END 2022-05-02 16:07 | disposition home or self-care (01) | DRG 310 ==
LOC: ED 00:35 → 2E 02:38 → SUATTDRO 02:38 → 2E 04:15

== ENCOUNTER 2023-04-25 18:51 | Inpatient (IN) ==
--- NOTE | 2023-04-25 18:58 | ED Triage Note ---
Date of Service April 25, 2023 History of Present Illness This patient was briefly evaluated while in triage. An abbreviated physical exam was performed. This patient is a 62-year-old Male who presents to the ED for evaluation of having an episode of afib started at 1815 this evening took Metoprolol 25 mg without relief no CP or SOB, L/D on Eliquis Physical Exam GENERAL: NAD CARDIOVASCULAR: RRR RESPIRATORY: CTA ABDOMEN: BS x 4. Nontender to palpation. Initial orders for labs and / or imaging were placed and patient was placed in the waiting area until a bed is available. Please see further documentation for the full ED course.
[2023-04-25 19:19] LABS: Basophils # (auto) 0.02 K/uL (0.00-0.20); Basophils % (auto) 0.4 %; Eosinophils # (auto) 0.13 K/uL (0.00-0.50); Eosinophils % (auto) 2.4 %; Hematocrit (blood only) 43.8 % (42.0-52.0); Hemoglobin 15.1 g/dl (14.0-18.0); Immature Granulocytes # (auto) 0.01 K/uL (0.01-0.20); Immature Granulocytes % (auto) 0.2 %; Lymphocytes # (auto) 2.01 K/uL (1.20-3.40); Lymphocytes % (auto) 37.9 %; Mean Corpuscular Hemoglobin 29.7 pg (25.0-34.0); Mean Corpuscular Hgb Conc 34.5 g/dL (32.0-36.0); Mean Corpuscular Volume 86.2 fL (80.0-100.0); Mean Platelet Volume 9.5 fL (9.4-12.4); Monocytes # (auto) 0.58 K/uL (0.11-0.59); Monocytes % (auto) 10.9 %; Neutrophils # (auto) 2.56 K/uL (1.40-6.50); Neutrophils % (auto) 48.2 %; Platelet Count 165 K/uL (130-400); RDW Coefficient of Variation 13.2 % (11.5-14.5); RDW Standard Deviation 41.5 fL (36.4-46.3); Red Blood Count 5.08 M/uL (4.70-6.10); White Blood Count 5.31 K/ul (4.8-10.8)
[2023-04-25] MEDS ORDERED: SODIUM CHLORIDE 0.9% 500 ML IV ONE ×2 (19:28→20:08)
[2023-04-25 19:38] LABS: Alanine Aminotransferase 34 U/L (7-52); Albumin Globulin Ratio 1.5 (0.9-2); Albumin Level 4.8 gm/dl (3.4-5.0); Alkaline Phosphatase 93 U/L (34-104); Anion Gap 8 (3-11); Aspartate Aminotransferase 32 U/L (13-39); BUN Creatinine Ratio 19.7 (10-20); Bilirubin,Total 0.8 mg/dl (0.2-1.0); Blood Urea Nitrogen 24 mg/dl (6-23); Carbon Dioxide 27 mmol/L (21-32); Chloride 102 mmol/L (98-107); Est GFR (African American) 73.7 ml/min; Est GFR (Non-African American) 63.6 ml/min; Globulin 3.3 gm/dl (2.5-4.0); Glucose 185 mg/dl (70-99(Fasting)); Potassium 3.8 mmol/L (3.5-5.1); Sodium 137 mmol/L (136-145); Total Protein 8.1 gm/dl (6.0-8.3)
[2023-04-25 19:44] LABS: Troponin I High Sensitivity 4.5 pg/ml (0-20)
[2023-04-25 19:53] LABS: Thyroid Stimulating Hormone 2.836 uIu/ml (0.300-4.500)
[2023-04-25 20:01] LABS: Partial Thromboplastin Ratio 1.8; Prothrombin Time 10.9 Seconds (9.0-12.0)
[2023-04-25] MEDS ORDERED: guaiFENesin 600 MG TABCR PO STA (20:06)
[2023-04-25] MEDS ORDERED: SODIUM CHLORIDE 0.65% NA SOLN 45 ML (OCEAN) ONE (20:06)
[2023-04-25 20:07] LABS: Partial Thromboplastin Time 50.3 Seconds (21.0-31.0)
[2023-04-25] MEDS ORDERED: ACETAMINOPHEN 1,000 MG/100 ML VIAL IV STA (20:08)
[2023-04-25 21:45] LABS: Adenovirus PCR Not Detected (NotDetected); Bordetella parapertussis PCR Not Detected (NotDetected); Bordetella pertussis PCR Not Detected (NotDetected); Chlamydia pneumoniae PCR Not Detected (NotDetected); Coronavirus 229E PCR Not Detected (NotDetected); Coronavirus HKU1 PCR Not Detected (NotDetected); Coronavirus NL63 PCR Not Detected (NotDetected); Coronavirus OC43PCR Not Detected (NotDetected); Human Metapneumovirus PCR Not Detected (NotDetected); Influenza A PCR Not Detected (NotDetected); Influenza B PCR Not Detected (NotDetected); Mycoplasma pneumoniae PCR Not Detected (NotDetected); Parainfluenza Virus 1 PCR Not Detected (NotDetected); Parainfluenza Virus 2 PCR Not Detected (NotDetected); Parainfluenza Virus 3 PCR Not Detected (NotDetected); Parainfluenza Virus 4 PCR Not Detected (NotDetected); Respiratory Syncytial VirusPCR Not Detected (NotDetected); Rhinovirus/Enterovirus PCR Not Detected (NotDetected)
[2023-04-25 22:00] LABS: Coronavirus CoV-2 (COVID19)PCR DETECTED (NotDetected)
[2023-04-26] MEDS ORDERED: METOPROLOL TARTRATE 1 MG/ML VIAL IV STA ×2 (00:26→01:11)
--- NOTE | 2023-04-26 00:47 | Emergency Department Note ---
Impression & Plan COVID-19, Paroxysmal atrial fibrillation with rapid ventricular response, On apixaban therapy ED Provider Note NAME: GAEL WILEY AGE: 62 SEX: M ARRIVES VIA: Walk-In INFORMANT: Patient ED PROVIDER(S): Lukasz Davis MD CHIEF COMPLAINT: Atrial fibrillation. PLAN: Disposition: Admit MEDICAL DECISION MAKING: The patient is a pleasant 62-year-old gentleman with a past medical history of paroxysmal atrial fibrillation on Eliquis, hyperlipidemia, type 2 diabetes who presents to emergency department via walk-in for evaluation of recurrence of atrial fibrillation which she felt occurred around 6 PM this evening in the setting of having upper respiratory cough and congestion over the past 6-7 days. He reports she has taken a home COVID-19 test and this has been negative. He denies any worsening of his cough congestion but has not had any significant im provement as of yet. He denies vomiting but reports some upset stomach. Denies diarrhea. He admits he may have missed dosing his medications this week due to his respiratory symptoms. The patient takes 25 mg of metoprolol succinate daily and 150 mg of propafenone three times daily. On my evaluation the patient is no acute distress, afebrile with heart rate in the 110-130s in atrial fibrillation and blood pressure and vital signs otherwise stable. He appears clinically dry. EKG demonstrates atrial fibrillation with RVR without overt acute ischemia. Chest x-ray negative for acute cardiopulmonary process. Per my preliminary review. WBC, H/H and platelets within normal limits. Chemistry without metabolic acidosis. BUN 24, consistent with the patient's clinically dry appearance. Electrolytes without significant abnormality. LFTs are unremarkable. High-sensitivity troponin 4.5, within normal limits. TSH within normal notes. Respiratory viral panel/[employer] was positive for COVID-19. On evaluation the patient was improved following IV fluid hydration, APAP, nasal saline and guaifenesin. Patient has spontaneously cardioverted to normal sinus rhythm. Given the patient's improvement reassuring valuation unlikely of emergent process at this time. Symptoms likely related to his COVID-19 infection triggering recurrence of his paroxysmal A-fib. We did agree to proceed with plan for outpatient follow-up. However prior to discharge patient was noted to return to atrial fibrillation with RVR in the 130s. Thus he was given 5 mg of IV Lopressor x 2. Patient's heart rate overall did show some improvement to the 100s-110s though intermittently to 120s and so patient agree with plan for admission for further management of his paroxysmal atrial fibrillation with RVR in the setting of COVID-19 infection. Evening home dose of propafenone ordered. Case was discussed with Dr. Heaton, [facility] hospitalist, who will evaluate the patient for admission. Further management per admitting team. Triage Nursing notes reviewed and agree them. Prior/outside medical records reviewed Vital Signs: reviewed Differential diagnosis: Premature contractions, electrolyte abnormality, cardiac dysrhythmia, thyroid dysfunction, pulmonary embolism, infection, gastrointestinal, as well as other pathologies. ER treatment provided: See below. Diagnostics interpreted by me: ECG 2238: Normal sinus rhythm, 82 bpm, no ectopy, no overt ST elevation or depression, incomplete right bundle branch block, QTc 14, qrs 96 Cardiac Monitoring: An order for continuous cardiac monitoring was placed and demonstrated Normal sinus rhythm, 82 bpm, no ectopy. Laboratory studies: See below Imaging studies: See below Consultation(s): [facility]. HPI: The patient is a pleasant 62-year-old gentleman with a past medical history of paroxysmal atrial fibrillation on Eliquis, hyperlipidemia, type 2 diabetes who presents to emergency department via walk-in for evaluation of recurrence of atrial fibrillation which she felt occurred around 6 PM this evening in the setting of having upper respiratory cough and congestion over the past 6-7 days. He reports she has taken a home COVID-19 test and this has been negative. He denies any worsening of his cough congestion but has not had any significant improvement as of yet. He denies vomiting but reports some upset stomach. Denies diarrhea. He admits he may have missed dosing his medications this week due to his respiratory symptoms. The patient takes 25 mg of metoprolol succinate daily and 150 mg of propafenone three times daily. ROS: See above HPI for pertinent positives & negatives. A total of 10 systems reviewed and were otherwise negative. VITALS:See Below PHYSICAL EXAMINATION: GENERAL: Awake, alert, fatigued but well-appearing, in no distress HENT: Normocephalic, atraumatic. Boggy nasal turbinates. Oropharynx with dry mucous membranes and otherwise unremarkable. EYES: Normal conjunctiva. Sclera non-icteric. NECK: Supple. No nuchal rigidity. FROM. No JVD. RESPIRATORY: Clear to auscultation. CARDIAC: Tachycardic rate, irregular rhythm. Extremities warm and well perfused. Pulses equal. ABDOMEN: Soft, non-distended. No tenderness to palpation. No rebound or guarding. No masses. RECTAL: Deferred. MUSCULOSKELETAL: Chest examination reveals no tenderness. The back is symmetr ical on inspection without obvious abnormality. There is no CVA tenderness to palpation. No joint edema. LOWER EXTREMITIES: Calves are equal size bilaterally and non-tender. No edema. No discoloration. NEURO: Normal sensorium. No sensory or motor deficits noted. SKIN: No rash or jaundice noted. ED COURSE: Critical Care: I have personally spent greater than 45 minutes of critical care time in the direct management of this patient. This includes bedside care, interpretation of diagnostic studies, and testing, discussion with consultants, patient, and family members, and other required patient management activities. This 45 minutes is in excess of all separately billable procedures. Lukasz Davis MD Past Med/Surg History Medical History A-fib Hyperlipidemia On apixaban therapy Surgical History No pertinent past surgical history Social History Smoking Status: Never smoker Second Hand Exposure: Yes; Do You Dip or Chew Tobacco: No; Hx Alcohol Use: No Hx Substance Use: No Preferred Language: Chilean Communication Ability: Effective Technical Writer Required: No Beliefs That Will Affect Care: Spiritual Current Living Situation: Family Current Living Situation Comment: lives with brother who has special needs Feels Safe at Home: Yes Assistive Devices: Glasses Allergies Allergies Allergy/AdvReac Type Severity Reaction Status Date / Time Penicillins Allergy Unknown PT'S Verified 01/28/23 10:15 FATHER HAD SEVERE REACTION grass pollen Allergy Rash Verified 01/28/23 10:15 Home Meds Home Medications Medication Instructions Recorded Confirmed aspirin 81 mg tablet,delayed 81 mg PO DAILY 05/01/22 04/26/23 release ibuprofen 200 mg tablet (Advil) 200 mg PO DIRECTED PRN Pain 05/01/22 04/26/23 metoprolol succinate 25 mg 25 mg PO DAILY 05/01/22 04/26/23 tablet,extended release 24 hr omeprazole 20 mg capsule,delayed 20 mg PO DAILY 05/01/22 04/26/23 release pravastatin 10 mg tablet 10 mg PO QPM 05/01/22 04/26/23 tamsulosin 0.4 mg capsule 0.4 mg PO DAILY 05/01/22 04/26/23 vit C 250 mg-vit E 90 mg-zinc 40 1 tab PO DAILY 05/01/22 04/26/23 mg-copper 1 [id number] capsule (PreserVision AREDS-2) metformin 500 mg tablet,extended 500 mg PO DAILY 01/28/23 04/26/23 release 24 hr propafenone 150 mg tablet 150 mg PO BID 01/28/23 04/26/23 sertraline 100 mg tablet 100 mg PO HS 01/28/23 04/26/23 apixaban 5 mg tablet (Eliquis) 5 mg PO AMHS 04/26/23 04/26/23 Results & Data (ED) Vital Signs Vital Signs - 24 hr 04/25/23 18:55 04/25/23 19:24 04/25/23 19:24 Temperature 36.5 C Temperature Source Temporal Artery Scan Pulse Rate 122 H 106 H Pulse Rate [Left Apical] 118 H Pulse Rate from SpO2 Sensor Respiratory Rate 20 15 16 Respiratory Effort / Characteristics Non-Labored Respiratory Depth Normal Respiratory Pattern Blood Pressure 135/71 144/88 H Blood Pressure [Right Arm] 144/88 H Blood Pressure Mean 92 106 Blood Pressure Mean [Right Arm] 106 Pulse Oximetry 99 98 96 Oxygen Delivery Method Room Air Room Air Room Air Sepsis Recent Fever Within 48 Hours No Sepsis New/Unexplained Change in Mental Status N/A Sepsis Action Taken by Nursing No Action Required 04/25/23 19:30 04/25/23 20:00 04/25/23 20:30 Temperature Temperature Source Pulse Rate 131 H 108 H 105 H Pulse Rate [Left Apical] Pulse Rate from SpO2 Sensor Respiratory Rate 21 18 19 Respiratory Effort / Characteristics Respiratory Depth Respiratory Pattern Blood Pressure 120/87 105/72 112/82 Blood Pressure [Right Arm] Blood Pressure Mean 98 83 92 Blood Pressure Mean [Right Arm] Pulse Oximetry 95 99 99 Oxygen Delivery Method Room Air Room Air Room Air Sepsis Recent Fever Within 48 Hours Sepsis New/Unexplained Change in Mental Status Sepsis Action Taken by Nursing 04/25/23 21:10 04/25/23 21:31 04/25/23 22:00 Temperature Temperature Source Pulse Rate 97 H 80 81 Pulse Rate [Left Apical] Pulse Rate from SpO2 Sensor Respiratory Rate 17 22 22 Respiratory Effort / Characteristics Respiratory Depth Respiratory Pattern Blood Pressure 110/86 134/61 124/69 Blood Pressure [Right Arm] Blood Pressure Mean 94 85 87 Blood Pressure Mean [Right Arm] Pulse Oximetry 99 98 97 Oxygen Delivery Method Room Air Room Air Room Air Sepsis Recent Fever Within 48 Hours Sepsis New/Unexplained Change in Mental Status Sepsis Action Taken by Nursing 04/25/23 22:30 04/25/23 23:00 04/26/23 00:00 Temperature Temperature Source Pulse Rate 80 80 Pulse Rate [Left Apical] 70 Pulse Rate from SpO2 Sensor Respiratory Rate 21 21 16 Respiratory Effort / Characteristics Non-Labored Respiratory Depth Normal Respiratory Pattern Regular Blood Pressure 122/61 126/72 Blood Pressure [Right Arm] 123/75 Blood Pressure Mean 81 90 Blood Pressure Mean [Right Arm] 91 Pulse Oximetry 97 97 97 Oxygen Delivery Method Room Air Room Air Room Air Sepsis Recent Fever Within 48 Hours Sepsis New/Unexplained Change in Mental Status Sepsis Action Taken by Nursing 04/26/23 00:29 04/25/23 23:10 04/25/23 23:20 Temperature Temperature Source Pulse Rate 134 H 77 81 Pulse Rate [Left Apical] Pulse Rate from SpO2 Sensor 77 81 Respiratory Rate 20 17 Respiratory Effort / Characteristics Respiratory Depth Respiratory Pattern Blood Pressure 143/95 H Blood Pressure [Right Arm] Blood Pressure Mean Blood Pressure Mean [Right Arm] Pulse Oximetry 97 98 Oxygen Delivery Method Sepsis Recent Fever Within 48 Hours Sepsis New/Unexplained Change in Mental Status Sepsis Action Taken by Nursing 04/25/23 23:30 04/25/23 23:30 04/25/23 23:40 Temperature Temperature Source Pulse Rate 76 73 Pulse Rate [Left Apical] Pulse Rate from SpO2 Sensor 75 73 Respiratory Rate 23 22 Respiratory Effort / Characteristics Respiratory Depth Respiratory Pattern Blood Pressure 114/62 Blood Pressure [Right Arm] Blood Pressure Mean 80 Blood Pressure Mean [Right Arm] Pulse Oximetry 97 98 Oxygen Delivery Method Sepsis Recent Fever Within 48 Hours Sepsis New/Unexplained Change in Mental Status Sepsis Action Taken by Nursing 04/25/23 23:50 04/26/23 00:00 04/26/23 00:00 Temperature Temperature Source Pulse Rate 71 70 Pulse Rate [Left Apical] Pulse Rate from SpO2 Sensor 71 69 Respiratory Rate 23 17 Respiratory Effort / Characteristics Respiratory Depth Respiratory Pattern Blood Pressure 123/75 Blood Pressure [Right Arm] Blood Pressure Mean 94 Blood Pressure Mean [Right Arm] Pulse Oximetry 98 97 Oxygen Delivery Method Sepsis Recent Fever Within 48 Hours Sepsis New/Unexplained Change in Mental Status Sepsis Action Taken by Nursing 04/26/23 00:10 04/26/23 00:20 04/26/23 00:29 Temperature Temperature Source Pulse Rate 70 71 Pulse Rate [Left Apical] Pulse Rate from SpO2 Sensor 69 71 Respiratory Rate 19 21 Respiratory Effort / Characteristics Respiratory Depth Respiratory Pattern Blood Pressure 143/95 H Blood Pressure [Right Arm] Blood Pressure Mean 103 Blood Pressure Mean [Right Arm] Pulse Oximetry 98 98 Oxygen Delivery Method Sepsis Recent Fever Within 48 Hours Sepsis New/Unexplained Change in Mental Status Sepsis Action Taken by Nursing 04/26/23 00:29 04/26/23 00:30 04/26/23 00:30 Temperature Temperature Source Pulse Rate 133 H 134 H Pulse Rate [Left Apical] Pulse Rate from SpO2 Sensor 134 H 135 H Respiratory Rate 18 16 Respiratory Effort / Characteristics Respiratory Depth Respiratory Pattern Blood Pressure 132/93 Blood Pressure [Right Arm] Blood Pressure Mean 109 Blood Pressure Mean [Right Arm] Pulse Oximetry 99 99 Oxygen Delivery Method Sepsis Recent Fever Within 48 Hours Sepsis New/Unexplained Change in Mental Status Sepsis Action Taken by Nursing 04/26/23 00:40 04/26/23 00:40 04/26/23 00:50 Temperature Temperature Source Pulse Rate 87 102 H Pulse Rate [Left Apical] Pulse Rate from SpO2 Sensor 116 H 105 H Respiratory Rate 17 20 Respiratory Effort / Characteristics Respiratory Depth Respiratory Pattern Blood Pressure 152/108 H Blood Pressure [Right Arm] Blood Pressure Mean 113 Blood Pressure Mean [Right Arm] Pulse Oximetry 95 97 Oxygen Delivery Method Sepsis Recent Fever Within 48 Hours Sepsis New/Unexplained Change in Mental Status Sepsis Action Taken by Nursing 04/26/23 00:51 04/26/23 00:51 04/26/23 01:00 Temperature Temperature Source Pulse Rate 119 H 103 H Pulse Rate [Left Apical] Pulse Rate from SpO2 Sensor 121 H 105 H Respiratory Rate 18 16 Respiratory Effort / Characteristics Respiratory Depth Respiratory Pattern Blood Pressure 126/83 Blood Pressure [Right Arm] Blood Pressure Mean 107 Blood Pressure Mean [Right Arm] Pulse Oximetry 98 94 Oxygen Delivery Method Sepsis Recent Fever Within 48 Hours Sepsis New/Unexplained Change in Mental Status Sepsis Action Taken by Nursing 04/26/23 01:01 04/26/23 01:01 04/26/23 01:17 Temperature Temperature Source Pulse Rate 114 H 120 H Pulse Rate [Left Apical] Pulse Rate from SpO2 Sensor 98 H Respiratory Rate 18 Respiratory Effort / Characteristics Respiratory Depth Respiratory Pattern Blood Pressure 124/94 108/88 Blood Pressure [Right Arm] Blood Pressure Mean 108 Blood Pressure Mean [Right Arm] Pulse Oximetry 97 Oxygen Delivery Method Sepsis Recent Fever Within 48 Hours Sepsis New/Unexplained Change in Mental Status Sepsis Action Taken by Nursing 04/26/23 00:44 04/26/23 01:53 04/25/23 19:15 Temperature Temperature Source Pulse Rate 108 H 119 H 110 H Pulse Rate [Left Apical] Pulse Rate from SpO2 Sensor Respiratory Rate Respiratory Effort / Characteristics Respiratory Depth Respiratory Pattern Blood Pressure 135/95 Blood Pressure [Right Arm] Blood Pressure Mean Blood Pressure Mean [Right Arm] Pulse Oximetry Oxygen Delivery Method Sepsis Recent Fever Within 48 Hours Sepsis New/Unexplained Change in Mental Status Sepsis Action Taken by Nursing 04/25/23 23:15 04/26/23 01:10 04/26/23 01:10 Temperature Temperature Source Pulse Rate 76 108 H Pulse Rate [Left Apical] Pulse Rate from SpO2 Sensor 108 H Respiratory Rate 15 Respiratory Effort / Characteristics Respiratory Depth Respiratory Pattern Blood Pressure 108/88 Blood Pressure [Right Arm] Blood Pressure Mean 102 Blood Pressure Mean [Right Arm] Pulse Oximetry 98 Oxygen Delivery Method Sepsis Recent Fever Within 48 Hours Sepsis New/Unexplained Change in Mental Status Sepsis Action Taken by Nursing 04/26/23 01:20 04/26/23 01:21 04/26/23 01:21 Temperature Temperature Source Pulse Rate 103 H 99 H Pulse Rate [Left Apical] Pulse Rate from SpO2 Sensor 101 H 120 H Respiratory Rate 15 18 Respiratory Effort / Characteristics Respiratory Depth Respiratory Pattern Blood Pressure 131/69 Blood Pressure [Right Arm] Blood Pressure Mean 100 Blood Pressure Mean [Right Arm] Pulse Oximetry 96 98 Oxygen Delivery Method Sepsis Recent Fever Within 48 Hours Sepsis New/Unexplained Change in Mental Status Sepsis Action Taken by Nursing 04/26/23 01:30 04/26/23 01:30 04/26/23 01:40 Temperature Temperature Source Pulse Rate 113 H Pulse Rate [Left Apical] Pulse Rate from SpO2 Sensor 105 H Respiratory Rate 17 Respiratory Effort / Characteristics Respiratory Depth Respiratory Pattern Blood Pressure 106/88 123/86 Blood Pressure [Right Arm] Blood Pressure Mean 98 105 Blood Pressure Mean [Right Arm] Pulse Oximetry 94 Oxygen Delivery Method Sepsis Recent Fever Within 48 Hours Sepsis New/Unexplained Change in Mental Status Sepsis Action Taken by Nursing 04/26/23 01:40 04/26/23 01:50 04/26/23 01:50 Temperature Temperature Source Pulse Rate 116 H 111 H Pulse Rate [Left Apical] Pulse Rate from SpO2 Sensor 96 H 105 H Respiratory Rate 18 22 Respiratory Effort / Characteristics Respiratory Depth Respiratory Pattern Blood Pressure 135/95 Blood Pressure [Right Arm] Blood Pressure Mean 109 Blood Pressure Mean [Right Arm] Pulse Oximetry 95 96 Oxygen Delivery Method Sepsis Recent Fever Within 48 Hours Sepsis New/Unexplained Change in Mental Status Sepsis Action Taken by Nursing 04/26/23 02:00 04/26/23 02:00 04/26/23 02:10 Temperature Temperature Source Pulse Rate 135 H Pulse Rate [Left Apical] Pulse Rate from SpO2 Sensor 110 H Respiratory Rate 19 Respiratory Effort / Characteristics Respiratory Depth Respiratory Pattern Blood Pressure 115/77 117/82 Blood Pressure [Right Arm] Blood Pressure Mean 80 92 Blood Pressure Mean [Right Arm] Pulse Oximetry 95 Oxygen Delivery Method Sepsis Recent Fever Within 48 Hours Sepsis New/Unexplained Change in Mental Status Sepsis Action Taken by Nursing 04/26/23 02:10 04/26/23 02:20 04/26/23 02:20 Temperature Temperature Source Pulse Rate 114 H 130 H Pulse Rate [Left Apical] Pulse Rate from SpO2 Sensor 93 H 135 H Respiratory Rate 17 14 Respiratory Effort / Characteristics Respiratory Depth Respiratory Pattern Blood Pressure 102/75 Blood Pressure [Right Arm] Blood Pressure Mean 89 Blood Pressure Mean [Right Arm] Pulse Oximetry 97 97 Oxygen Delivery Method Sepsis Recent Fever Within 48 Hours Sepsis New/Unexplained Change in Mental Status Sepsis Action Taken by Nursing 04/26/23 02:30 04/26/23 02:40 04/26/23 02:50 Temperature Temperature Source Pulse Rate 97 H Pulse Rate [Left Apical] Pulse Rate from SpO2 Sensor 92 H Respiratory Rate 20 Respiratory Effort / Characteristics Respiratory Depth Respiratory Pattern Blood Pressure 105/64 105/69 Blood Pressure [Right Arm] Blood Pressure Mean 82 74 Blood Pressure Mean [Right Arm] Pulse Oximetry 97 Oxygen Delivery Method Sepsis Recent Fever Within 48 Hours Sepsis New/Unexplained Change in Mental Status Sepsis Action Taken by Nursing 04/26/23 02:50 04/26/23 03:00 Temperature Temperature Source Pulse Rate 97 H 98 H Pulse Rate [Left Apical] Pulse Rate from SpO2 Sensor 95 H 94 H Respiratory Rate 17 17 Respiratory Effort / Characteristics Respiratory Depth Respiratory Pattern Blood Pressure 106/76 Blood Pressure [Right Arm] Blood Pressure Mean 86 Blood Pressure Mean [Right Arm] Pulse Oximetry 97 96 Oxygen Delivery Method Room Air Sepsis Recent Fever Within 48 Hours Sepsis New/Unexplained Change in Mental Status Sepsis Action Taken by Nursing Laboratory Data Attestation: I reviewed the patient's lab results. 04/25/23 19:03 04/25/23 19:03 Lab Results 04/25/23 04/25/23 04/25/23 Range/Units 19:03 19:03 19:03 WBC 5.31 (4.8-10.8) K/ul RBC 5.08 (4.70-6.10) M/uL Hgb 15.1 (14.0-18.0) g/dl Hct 43.8 (42.0-52.0) % MCV 86.2 (80.0-100.0) fL MCH 29.7 (25.0-34.0) pg MCHC 34.5 (32.0-36.0) g/dL RDW Std Deviation 41.5 (36.4-46.3) fL RDW Coeff of [place]ver[place] 13.2 (11.5-14.5) % Plt Count 165 (130-400) K/uL MPV 9.5 (9.4-12.4) fL Immature Gran % (Auto) 0.2 % Neut % (Auto) 48.2 % Lymph % (Auto) 37.9 % [place] % (Auto) 10.9 % Eos % (Auto) 2.4 % Baso % (Auto) 0.4 % Neut # (Auto) 2.56 (1.40-6.50) K/uL Lymph # (Auto) 2.01 (1.20-3.40) K/uL [place] # (Auto) 0.58 (0.11-0.59) K/uL Eos # (Auto) 0.13 (0.00-0.50) K/uL Baso # (Auto) 0.02 (0.00-0.20) K/uL Immature Gran # (Auto) 0.01 (0.01-0.20) K/uL PT 10.9 (9.0-12.0) Seconds INR 1.0 (0.9-1.1) APTT 50.3 H* (21.0-31.0) Seconds PTT Ratio 1.8 Sodium 137 (136-145) mmol/L Potassium 3.8 (3.5-5.1) mmol/L Chloride 102 (98-107) mmol/L Carbon Dioxide 27 (21-32) mmol/L Anion Gap 8 (3-11) BUN 24 H (6-23) mg/dl Creatinine 1.22 (0.6-1.4) mg/dl Est Cr Clr Drug Dosing Not Reportable Est GFR ( Amer) 73.7 ml/min Est GFR (Non-Af Amer) 63.6 ml/min BUN/Creatinine Ratio 19.7 (10-20) Glucose 185 H (70-99(Fasting)) mg/dl Calcium 10.0 (8.6-10.3) mg/dl Magnesium 2.0 (1.7-2.4) mg/dl Total Bilirubin 0.8 (0.2-1.0) mg/dl AST 32 (13-39) U/L ALT 34 (7-52) U/L Alkaline Phosphatase 93 (34-104) U/L Troponin I High Sens 4.5 (0-20) pg/ml Total Protein 8.1 (6.0-8.3) gm/dl Albumin 4.8 (3.4-5.0) gm/dl Globulin 3.3 (2.5-4.0) gm/dl Albumin/Globulin Ratio 1.5 (0.9-2) TSH 2.836 (0.300-4.500) uIu/ml Adenovirus (PCR) (NotDetected) B. pertussis DNA (PCR) (NotDetected) B.parapertussis DNA PCR (NotDetected) C. pneumoniae DNA (PCR) (NotDetected) Coronavirus OC43 (PCR) (NotDetected) Coronavirus HKU1 (PCR) (NotDetected) Coronavirus 229E (PCR) (NotDetected) SARS-CoV-2 (PCR) (NotDetected) Coronavirus NL63 (PCR) (NotDetected) Human Metapneumovir PCR (NotDetected) Influenza Type A (PCR) (NotDetected) Influenza Type B (PCR) (NotDetected) M. pneumoniae (PCR) (NotDetected) Parainfluenza 1 (PCR) (NotDetected) Parainfluenza 2 (PCR) (NotDetected) Parainfluenza 3 (PCR) (NotDetected) Parainfluenza 4 (PCR) (NotDetected) RSV (PCR) (NotDetected) Entero/Rhino (PCR) (NotDetected) 04/25/23 Range/Units 20:33 WBC (4.8-10.8) K/ul RBC (4.70-6.10) M/uL Hgb (14.0-18.0) g/dl Hct (42.0-52.0) % MCV (80.0-100.0) fL MCH (25.0-34.0) pg MCHC (32.0-36.0) g/dL RDW Std Deviation (36.4-46.3) fL RDW Coeff of [place] (11.5-14.5) % Plt Count (130-400) K/uL MPV (9.4-12.4) fL Immature Gran % (Auto) % Neut % (Auto) % Lymph % (Auto) % [place] % (Auto) % Eos % (Auto) % Baso % (Auto) % Neut # (Auto) (1.40-6.50) K/uL Lymph # (Auto) (1.20-3.40) K/uL [place] # (Auto) (0.11-0.59) K/uL Eos # (Auto) (0.00-0.50) K/uL Baso # (Auto) (0.00-0.20) K/uL Immature Gran # (Auto) (0.01-0.20) K/uL PT (9.0-12.0) Seconds INR (0.9-1.1) APTT (21.0-31.0) Seconds PTT Ratio Sodium (136-145) mmol/L Potassium (3.5-5.1) mmol/L Chloride (98-107) mmol/L Carbon Dioxide (21-32) mmol/L Anion Gap (3-11) BUN (6-23) mg/dl Creatinine (0.6-1.4) mg/dl Est Cr Clr Drug Dosing Est GFR ( Amer) ml/min Est GFR (Non-Af Amer) ml/min BUN/Creatinine Ratio (10-20) Glucose (70-99(Fasting)) mg/dl Calcium (8.6-10.3) mg/dl Magnesium (1.7-2.4) mg/dl Total Bilirubin (0.2-1.0) mg/dl AST (13-39) U/L ALT (7-52) U/L Alkaline Phosphatase (34-104) U/L Troponin I High Sens (0-20) pg/ml Total Protein (6.0-8.3) gm/dl Albumin (3.4-5.0) gm/dl Globulin (2.5-4.0) gm/dl Albumin/Globulin Ratio (0.9-2) TSH (0.300-4.500) uIu/ml Adenovirus (PCR) Not Detected (NotDetected) B. pertussis DNA (PCR) Not Detected (NotDetected) B.parapertussis DNA PCR Not Detected (NotDetected) C. pneumoniae DNA (PCR) Not Detected (NotDetected) Coronavirus OC43 (PCR) Not Detected (NotDetected) Coronavirus HKU1 (PCR) Not Detected (NotDetected) Coronavirus 229E (PCR) Not Detected (NotDetected) SARS-CoV-2 (PCR) DETECTED A* (NotDetected) Coronavirus NL63 (PCR) Not Detected (NotDetected) Human Metapneumovir PCR Not Detected (NotDetected) Influenza Type A (PCR) Not Detected (NotDetected) Influenza Type B (PCR) Not Detected (NotDetected) M. pneumoniae (PCR) Not Detected (NotDetected) Parainfluenza 1 (PCR) Not Detected (NotDetected) Parainfluenza 2 (PCR) Not Detected (NotDetected) Parainfluenza 3 (PCR) Not Detected (NotDetected) Parainfluenza 4 (PCR) Not Detected (NotDetected) RSV (PCR) Not Detected (NotDetected) Entero/Rhino (PCR) Not Detected (NotDetected) Administered Medications Discontinued Medications Guaifenesin (Guaifenesin 600 Mg Tabcr) 1,200 mg PO NOW STA Stop: 04/25/23 20:07 Last Admin: 04/25/23 21:10 Dose: 1,200 mg Documented By: KEISHA Sodium Chloride (Nss) 500 mls @ 999 mls/hr IV .Q31M ONE Stop: 04/25/23 19:58 Last Infusion: 04/25/23 20:24 Dose: 0 mls/hr Documented By: Admin: 04/25/23 19:53 Dose: 999 mls/hr Documented By: CLAYTON Acetaminophen (Ofirmev) 1,000 mg in 100 mls @ 400 mls/hr IV NOW STA Stop: 04/25/23 20:22 Last Infusion: 04/25/23 21:26 Dose: 0 mls/hr Documented By: Admin: 04/25/23 21:11 Dose: 400 mls/hr Documented By: KEISHA Sodium Chloride (Nss) 500 mls @ 999 mls/hr IV .Q31M ONE Stop: 04/25/23 20:38 Last Infusion: 04/25/23 21:44 Dose: 0 mls/hr Documented By: Admin: 04/25/23 21:13 Dose: 999 mls/hr Documented By: KEISHA Metoprolol Tartrate (Metoprolol Tartrate 1 Mg/Ml Vial) 5 mg IV NOW STA Stop: 04/26/23 00:27 Last Admin: 04/26/23 00:29 Dose: 5 mg Documented By: KENNY Metoprolol Tartrate (Metoprolol Tartrate 1 Mg/Ml Vial) 5 mg IV NOW STA Stop: 04/26/23 01:12 Last Admin: 04/26/23 01:17 Dose: 5 mg Documented By: KENNY Propafenone HCl (Propafenone Hcl 150 Mg Tablet) 150 mg PO NOW STA Stop: 04/26/23 01:54 Last Admin: 04/26/23 02:10 Dose: 150 mg Documented By: DANIEL Sodium Chloride (Sodium Chloride 0.65% Na Soln 45 Ml ([place])) 2 sprays NA NOW ONE Stop: 04/25/23 20:07 Last Admin: 04/25/23 21:10 Dose: 2 sprays Documented By: KEISHA Discharge Plan Visit Data Chief Complaint: Arrhythmia/Palpitations Stated Complaint: AFIB ED Provider: Lukasz Davis Discharge Problem: COVID-19, Paroxysmal atrial fibrillation with rapid ventricular response, On apixaban therapy Patient Disposition: Home - Self-Care Discharge Instructions Interventions: ED Discharge Assessment Last Done: 04/26/23 03:57
[2023-04-26] MEDS ORDERED: PROPAFENONE HCL 150 MG TABLET PO STA (01:53)
[2023-04-26] MEDS ORDERED: ACETAMINOPHEN 325 MG TAB PO PRN (03:58)
[2023-04-26] MEDS ORDERED: NITROGLYCERIN SL 0.4 MG/TAB TAB SL PRN (03:58)
[2023-04-26] MEDS ORDERED: guaiFENesin/CODEINE 100MG/10MG 5ML UDC PO PRN (03:58)
[2023-04-26] MEDS ORDERED: METOPROLOL TARTRATE 1 MG/ML VIAL IV PRN (03:58)
[2023-04-26] MEDS ORDERED: SODIUM CHLORIDE 0.9% 1,000 ML IV SCH (03:58)
--- NOTE | 2023-04-26 07:41 | XRay Report ---
XR chest 1V not portable HISTORY: 62 years-old Male afib acute chest pain with atrial fibrillation COMPARISON: 01/28/2023 TECHNIQUE: AP view of the chest FINDINGS: Cardiomediastinal and hilar silhouettes are unchanged. No pneumothorax, pleural effusion, airspace co nsolidation or pulmonary edema. Bones appear grossly intact. IMPRESSION: No acute process. ACT 112: Negative or not required by law. The above report was generated using voice recognition software. It may contain grammatical, syntax o r spelling errors. Electronically signed by: Edil Marrero M.D. 04/26/2023 7:39 AM
[2023-04-26 08:08] LABS: Basophils # (auto) 0.01 K/uL (0.00-0.20); Basophils % (auto) 0.2 %; Eosinophils # (auto) 0.15 K/uL (0.00-0.50); Eosinophils % (auto) 3.3 %; Hematocrit (blood only) 39.6 % (42.0-52.0); Hemoglobin 13.8 g/dl (14.0-18.0); Immature Granulocytes # (auto) 0.01 K/uL (0.01-0.20); Immature Granulocytes % (auto) 0.2 %; Lymphocytes # (auto) 2.14 K/uL (1.20-3.40); Lymphocytes % (auto) 46.4 %; Mean Corpuscular Hemoglobin 29.8 pg (25.0-34.0); Mean Corpuscular Hgb Conc 34.8 g/dL (32.0-36.0); Mean Corpuscular Volume 85.5 fL (80.0-100.0); Mean Platelet Volume 9.2 fL (9.4-12.4); Monocytes # (auto) 0.52 K/uL (0.11-0.59); Monocytes % (auto) 11.3 %; Neutrophils # (auto) 1.78 K/uL (1.40-6.50); Neutrophils % (auto) 38.6 %; Platelet Count 142 K/uL (130-400); RDW Coefficient of Variation 13.2 % (11.5-14.5); RDW Standard Deviation 40.9 fL (36.4-46.3); Red Blood Count 4.63 M/uL (4.70-6.10); White Blood Count 4.61 K/ul (4.8-10.8)
[2023-04-26] MEDS: ASPIRIN 81 MG ECTAB PO SCH (08:17)
[2023-04-26] MEDS: PANTOprazole 40 MG TAB PO SCH (08:17)
[2023-04-26] MEDS: CEROVITE ADV FORMULA TAB PO SCH (08:17)
[2023-04-26] MEDS: TAMSULOSIN HCL 0.4 MG CAP PO SCH (08:17)
[2023-04-26] MEDS: APIXABAN 5 MG TABLET PO SCH ×2 (08:17→22:34)
--- NOTE | 2023-04-26 08:22 | Electrocardiogram Report ---
Test Reason : Blood Pressure : / mmHG Vent. Rate : 136 BPM Atrial Rate : 000 BPM P-R Int : 000 ms QRS Dur : 086 ms QT Int : 294 ms P-R-T Axes : 000 -43 008 degrees QTc Int : 442 ms Atrial fibrillation with rapid ventricular response Left axis deviation Pulmonary disease pattern Abnormal ECG When compared with ECG of 28-JAN-2023 12:56, Atrial fibrillation has replaced Sinus rhythm Vent. rate has increased BY 58 BPM Confirmed by Marcus Arriola ([id number]) on 04/26/2023 8:21:42 AM Referred By: REFERRED SELF Confirmed By:Marcus Arriola
[2023-04-26 08:24] LABS: BUN Creatinine Ratio 26.4 (10-20); Calcium 8.9 mg/dl (8.6-10.3); Creatinine Clr Calc Pharmacy 97.9 ml/min; Est GFR (Non-African American) 93.2 ml/min; Potassium 4.3 mmol/L (3.5-5.1)
[2023-04-26 08:30] LABS: Troponin I High Sensitivity 5.6 pg/ml (0-20)
--- NOTE | 2023-04-26 08:47 | History & Physical Report ---
Date of Service April 26, 2023 Assessment & Plan (1) Atrial fibrillation with rapid ventricular response: Plan: 62-year-old male with past medical significant for type 2 diabetes, hyperlipidemia, paroxysmal atrial fibrillation, history of sinus bradycardia, hypertension, history of oesophageal stricture, GERD, BPH, depression, generalized anxiety disorder, presents with palpitations and found to be in rapid A-fib and also COVID came back positive. Rapid A-fib Improved after IV Lopressor in the ER Continue with home metoprolol succinate and Eliquis and propafenone IV Lopressor as needed Monitor telemetry Echo Cardiac consult COVID-19 States vaccinated and boosted but did not took current booster Saturating okay COVID precautions Diabetes Hold metformin Sliding scale Follow blood sugars and HbA1c levels Hyperlipidemia On statin Hypertension On Toprol XL GERD omeprazole BPH Flomax Depression Zoloft DVT prophylaxis Eliquis Disposition Telemetry floor Full code History of Present Illness Chief Complaint: Rapid A-fib and COVID Primary Care Provider: TRINA Anglin 62-year-old male with past medical significant for type 2 diabetes, hyperlipidemia, paroxysmal atrial fibrillation, history of sinus bradycardia, hypertension, history of oesophageal stricture, GERD, BPH, depression, generalized anxiety disorder, presents with palpitations and found to be in rapid A-fib and also COVID came back positive. Patient states he had some runny nose cough feeling weak for about a week. He checked last Tuesday at home for COVID and was negative. Last Tuesday and Tuesday for 1 day he had a fever but that got resolved. Tuesday 6 PM he started to feel palpitations which prompted h im to come to the ER. Denies any chest pain or shortness of breath. No nausea or vomiting. No abdominal pain. No diarrhea or constipation. Normal bladder movements. No headaches. No blurred visions. Past medical history. As mentioned above Past surgical history. Colonoscopy. Esophageal dilatation. Social history. No smoking. Alcohol occasional wine. No drug use. Family history. Father elevated cholesterol. Mother history of elevated cholesterol. Dementia. Osteoporosis. Allergies Allergy/AdvReac Type Severity Reaction Status Date / Time Penicillins Allergy Unknown PT'S Verified 01/28/23 10:15 FATHER HAD SEVERE REACTION grass pollen Allergy Rash Verified 01/28/23 10:15 Home Medications Medication Instructions Recorded Confirmed Type aspirin 81 mg tablet,delayed 81 mg PO DAILY 05/01/22 04/26/23 History release ibuprofen 200 mg tablet (Advil) 200 mg PO DIRECTED PRN Pain 05/01/22 04/26/23 History metoprolol succinate 25 mg 25 mg PO DAILY 05/01/22 04/26/23 History tablet,extended release 24 hr omeprazole 20 mg capsule,delayed 20 mg PO DAILY 05/01/22 04/26/23 History release pravastatin 10 mg tablet 10 mg PO QPM 05/01/22 04/26/23 History tamsulosin 0.4 mg capsule 0.4 mg PO DAILY 05/01/22 04/26/23 History vit C 250 mg-vit E 90 mg-zinc 40 1 tab PO DAILY 05/01/22 04/26/23 History mg-copper 1 mp-wklipe-eeltmi capsule (PreserVision AREDS-2) metformin 500 mg tablet,extended 500 mg PO DAILY 01/28/23 04/26/23 History release 24 hr propafenone 150 mg tablet 150 mg PO BID 01/28/23 04/26/23 History sertraline 100 mg tablet 100 mg PO HS 01/28/23 04/26/23 History apixaban 5 mg tablet (Eliquis) 5 mg PO AMHS 04/26/23 04/26/23 History Past Med/Surg History Medical History A-fib Hyperlipidemia On apixaban therapy Surgical History No pertinent past surgical history Social History Smoking Status: Never smoker Second Hand Exposure: Yes; Do You Dip or Chew Tobacco: No; Hx Alcohol Use: No Hx Substance Use: No Preferred Language: Kiswahili Communication Ability: Effective Home Inspector Required: No Beliefs That Will Affect Care: Spiritual Current Living Situation: Family Current Living Situation Comment: lives with brother who has special needs Feels Safe at Home: Yes Assistive Devices: Glasses Review of Systems Review of Systems: All systems reviewed & are unremarkable except as noted in HPI & below Physical Exam Physical Exam: General- Not in distress Head- atraumatic Eyes- PERRL. ENT- oropharynx clear Neck- supple, no JVD Lungs- clear to auscultation no wheezing or crackles Heart- irregular rhythm; no murmur, no gallop,. Abdomen- normal bowel sounds, soft, nontender, no distension Extremities- no pretibial edema, no erythema seen. Neuro- alert, oriented x 3; PERRL, no facial palsy; no dysarthria; moves extremities Skin- warm & dry Results & Data Results & Data Vital Signs (Past 12 Hours) Vital Signs Temp Pulse Pulse Resp BP BP Pulse Ox 04/26/23 02:50 97 H 17 97 04/26/23 02:50 105/69 04/26/23 02:40 105/64 04/26/23 02:30 97 H 20 97 04/26/23 02:20 130 H 14 97 04/26/23 02:20 102/75 04/26/23 02:10 114 H 17 97 04/26/23 02:10 117/82 04/26/23 02:00 135 H 19 95 04/26/23 02:00 115/77 04/26/23 01:50 111 H 22 96 04/26/23 01:50 135/95 04/26/23 01:40 116 H 18 95 04/26/23 01:40 123/86 04/26/23 01:30 113 H 17 94 04/26/23 01:30 106/88 04/26/23 01:21 99 H 18 98 04/26/23 01:21 131/69 04/26/23 01:20 103 H 15 96 04/26/23 01:10 108 H 15 98 04/26/23 01:10 108/88 04/25/23 23:15 76 04/25/23 19:15 110 H 04/26/23 01:53 119 H 135/95 04/26/23 00:44 108 H 04/26/23 01:17 120 H 108/88 04/26/23 01:01 124/94 04/26/23 01:01 114 H 18 97 04/26/23 01:00 103 H 16 94 04/26/23 00:51 119 H 18 98 04/26/23 00:51 126/83 04/26/23 00:50 102 H 20 97 04/26/23 00:40 87 17 95 04/26/23 00:40 152/108 H 04/26/23 00:30 134 H 16 99 04/26/23 00:30 132/93 04/26/23 00:29 133 H 18 99 04/26/23 00:29 143/95 H 04/26/23 00:20 71 21 98 04/26/23 00:10 70 19 98 04/26/23 00:00 70 17 97 04/26/23 00:00 123/75 04/25/23 23:50 71 23 98 04/25/23 23:40 73 22 98 04/25/23 23:30 76 23 97 04/25/23 23:30 114/62 04/25/23 23:20 81 17 98 04/25/23 23:10 77 20 97 04/26/23 00:29 134 H 143/95 H 04/26/23 00:00 70 16 123/75 97 04/25/23 23:00 80 21 126/72 97 04/25/23 22:30 80 21 122/61 97 04/25/23 22:00 81 22 124/69 97 04/25/23 21:31 80 22 134/61 98 04/25/23 21:10 97 H 17 110/86 99 04/25/23 20:30 105 H 19 112/82 99 04/25/23 20:00 108 H 18 105/72 99 04/25/23 19:30 131 H 21 120/87 95 04/25/23 19:24 106 H 16 144/88 H 96 04/25/23 19:24 118 H 15 144/88 H 98 04/25/23 18:55 36.5 C 122 H 20 135/71 99 O2 Del Method 04/26/23 02:50 04/26/23 02:50 04/26/23 02:40 04/26/23 02:30 04/26/23 02:20 04/26/23 02:20 04/26/23 02:10 04/26/23 02:10 04/26/23 02:00 04/26/23 02:00 04/26/23 01:50 04/26/23 01:50 04/26/23 01:40 04/26/23 01:40 04/26/23 01:30 04/26/23 01:30 04/26/23 01:21 04/26/23 01:21 04/26/23 01:20 04/26/23 01:10 04/26/23 01:10 04/25/23 23:15 04/25/23 19:15 04/26/23 01:53 04/26/23 00:44 04/26/23 01:17 04/26/23 01:01 04/26/23 01:01 04/26/23 01:00 04/26/23 00:51 04/26/23 00:51 04/26/23 00:50 04/26/23 00:40 04/26/23 00:40 04/26/23 00:30 04/26/23 00:30 04/26/23 00:29 04/26/23 00:29 04/26/23 00:20 04/26/23 00:10 04/26/23 00:00 04/26/23 00:00 04/25/23 23:50 04/25/23 23:40 04/25/23 23:30 04/25/23 23:30 04/25/23 23:20 04/25/23 23:10 04/26/23 00:29 04/26/23 00:00 Room Air 04/25/23 23:00 Room Air 04/25/23 22:30 Room Air 04/25/23 22:00 Room Air 04/25/23 21:31 Room Air 04/25/23 21:10 Room Air 04/25/23 20:30 Room Air 04/25/23 20:00 Room Air 04/25/23 19:30 Room Air 04/25/23 19:24 Room Air 04/25/23 19:24 Room Air 04/25/23 18:55 Room Air Diagnostic Findings Laboratory Results WBC 4.61 K/ul (4.8-10.8) L 04/26/23 07:48 RBC 4.63 M/uL (4.70-6.10) L 04/26/23 07:48 Hgb 13.8 g/dl (14.0-18.0) L 04/26/23 07:48 Hct 39.6 % (42.0-52.0) L 04/26/23 07:48 MCV 85.5 fL (80.0-100.0) 04/26/23 07:48 MCH 29.8 pg (25.0-34.0) 04/26/23 07:48 MCHC 34.8 g/dL (32.0-36.0) 04/26/23 07:48 RDW Std Deviation 40.9 fL (36.4-46.3) 04/26/23 07:48 RDW Coeff of [place] 13.2 % (11.5-14.5) 04/26/23 07:48 Plt Count 142 K/uL (130-400) 04/26/23 07:48 MPV 9.2 fL (9.4-12.4) L 04/26/23 07:48 Immature Gran % (Auto) 0.2 % 04/26/23 07:48 Neut % (Auto) 38.6 % 04/26/23 07:48 Lymph % (Auto) 46.4 % 04/26/23 07:48 [place] % (Auto) 11.3 % 04/26/23 07:48 Eos % (Auto) 3.3 % 04/26/23 07:48 Baso % (Auto) 0.2 % 04/26/23 07:48 Neut # (Auto) 1.78 K/uL (1.40-6.50) 04/26/23 07:48 Lymph # (Auto) 2.14 K/uL (1.20-3.40) 04/26/23 07:48 [place] # (Auto) 0.52 K/uL (0.11-0.59) 04/26/23 07:48 Eos # (Auto) 0.15 K/uL (0.00-0.50) 04/26/23 07:48 Baso # (Auto) 0.01 K/uL (0.00-0.20) 04/26/23 07:48 Immature Gran # (Auto) 0.01 K/uL (0.01-0.20) 04/26/23 07:48 PT 10.9 Seconds (9.0-12.0) 04/25/23 19:03 INR 1.0 (0.9-1.1) 04/25/23 19:03 APTT 50.3 Seconds (21.0-31.0) H* 04/25/23 19:03 PTT Ratio 1.8 04/25/23 19:03 Sodium 139 mmol/L (136-145) 04/26/23 07:48 Potassium 4.3 mmol/L (3.5-5.1) 04/26/23 07:48 Chloride 107 mmol/L (98-107) 04/26/23 07:48 Carbon Dioxide 26 mmol/L (21-32) 04/26/23 07:48 Anion Gap 6 (3-11) 04/26/23 07:48 BUN 23 mg/dl (6-23) 04/26/23 07:48 Creatinine 0.87 mg/dl (0.6-1.4) D 04/26/23 07:48 Est Cr Clr Drug Dosing 97.9 ml/min 04/26/23 07:48 Est GFR ( Amer) 108.0 ml/min 04/26/23 07:48 Est GFR (Non-Af Amer) 93.2 ml/min 04/26/23 07:48 BUN/Creatinine Ratio 26.4 (10-20) H 04/26/23 07:48 Glucose 170 mg/dl (70-99(Fasting)) H 04/26/23 07:48 Calcium 8.9 mg/dl (8.6-10.3) 04/26/23 07:48 Magnesium 2.0 mg/dl (1.7-2.4) 04/26/23 07:48 Total Bilirubin 0.8 mg/dl (0.2-1.0) 04/25/23 19:03 AST 32 U/L (13-39) 04/25/23 19:03 ALT 34 U/L (7-52) 04/25/23 19:03 Alkaline Phosphatase 93 U/L (34-104) 04/25/23 19:03 Troponin I High Sens 5.6 pg/ml (0-20) 04/26/23 07:48 Total Protein 8.1 gm/dl (6.0-8.3) 04/25/23 19:03 Albumin 4.8 gm/dl (3.4-5.0) 04/25/23 19:03 Globulin 3.3 gm/dl (2.5-4.0) 04/25/23 19:03 Albumin/Globulin Ratio 1.5 (0.9-2) 04/25/23 19:03 TSH 2.836 uIu/ml (0.300-4.500) 04/25/23 19:03 Adenovirus (PCR) Not Detected (NotDetected) 04/25/23 20:33 B. pertussis DNA (PCR) Not Detected (NotDetected) 04/25/23 20:33 B.parapertussis DNA PCR Not Detected (NotDetected) 04/25/23 20:33 C. pneumoniae DNA (PCR) Not Detected (NotDetected) 04/25/23 20:33 Coronavirus OC43 (PCR) Not Detected (NotDetected) 04/25/23 20:33 Coronavirus HKU1 (PCR) Not Detected (NotDetected) 04/25/23 20:33 Coronavirus 229E (PCR) Not Detected (NotDetected) 04/25/23 20:33 SARS-CoV-2 (PCR) DETECTED (NotDetected) A* 04/25/23 20:33 Coronavirus NL63 (PCR) Not Detected (NotDetected) 04/25/23 20:33 Human Metapneumovir PCR Not Detected (NotDetected) 04/25/23 20:33 Influenza Type A (PCR) Not Detected (NotDetected) 04/25/23 20:33 Influenza Type B (PCR) Not Detected (NotDetected) 04/25/23 20:33 M. pneumoniae (PCR) Not Detected (NotDetected) 04/25/23 20:33 Parainfluenza 1 (PCR) Not Detected (NotDetected) 04/25/23 20:33 Parainfluenza 2 (PCR) Not Detected (NotDetected) 04/25/23 20:33 Parainfluenza 3 (PCR) Not Detected (NotDetected) 04/25/23 20:33 Parainfluenza 4 (PCR) Not Detected (NotDetected) 04/25/23 20:33 RSV (PCR) Not Detected (NotDetected) 04/25/23 20:33 Entero/Rhino (PCR) Not Detected (NotDetected) 04/25/23 20:33 Impressions Chest X-Ray 04/25/23 18:57 XR chest 1V not portable HISTORY: 62 years-old Male afib acute chest pain with atrial fibrillation COMPARISON: 01/28/2023 TECHNIQUE: AP view of the chest FINDINGS: Cardiomediastinal and hilar silhouettes are unchanged. No pneumothorax, pleural effusion, airspace consolidation or pulmonary edema. Bones appear grossly intact. IMPRESSION: No acute process. ACT 112: Negative or not required by law. The above report was generated using voice recognition software. It may contain grammatical, syntax or spelling errors. Electronically signed by: Edil Marrero M.D. 04/26/2023 7:39 AM ECG Additional Comments: ECG. Atrial fibrillation with rapid ventricle response rate of 136. Left axis deviation. Code Status & VTE Plan VTE Prophylaxis Plan VTE Prophylaxis will be ordered: Yes
--- NOTE | 2023-04-26 08:50 | Electrocardiogram Report ---
Test Reason : Blood Pressure : / mmHG Vent. Rate : 082 BPM Atrial Rate : 082 BPM P-R Int : 172 ms QRS Dur : 096 ms QT Int : 358 ms P-R-T Axes : 054 -35 002 degrees QTc Int : 418 ms Normal sinus rhythm Left axis deviation Pulmonary disease pattern Incomplete right bundle branch block Abnormal ECG When compared with ECG of 28-JAN-2023 12:56, No significant change was found Confirmed by Marcus Arriola ([id number] on 04/26/2023 8:50:25 AM Referred By: REFERRED SELF Confirmed By:Marcus Arriola
[2023-04-26] MEDS ORDERED: METOPROLOL SUCC 25MG EXT REL TAB PO SCH (09:00)
[2023-04-26] MEDS ORDERED: PROPAFENONE HCL 150 MG TABLET PO SCH (09:00)
--- NOTE | 2023-04-26 09:10 | Cardiology Consultation ---
Date of Consultation April 26, 2023 Assessment & Plan (1) Paroxysmal atrial fibrillation with rapid ventricular response: (2) COVID-19: Plan Patient seen/examined today in collaboration with attending utility engineer, Dr. Eric Guallpa. See supervising physician's documentation for recommendations and plan of care. Emily Robles PA-C [facility] Supervising Physician Co-Signing Physician Notes Pt seen and examined with AP Staff Concur with observations and plans 62 yo man presenting with palpitations + fever + sinus congestion * COVID -19 + * No hypoxia - 96% on RA * CXR - no major Pulmonary Edema; no infiltrates * Noted to be in afib * Rx with Lopressor * Conversion to NSR; ultimately reverted to Afib c/w Paroxysmal Afib * Hx of afib * On DOAC + Metoprolol + Propafenone * LVEF 60-65% (01/2023); No , No major MR * K+ -3.8 on admission * Mag on admission 2.0 * TSH - 2.8 Plans: * Pt has reverted to NSR * Pt has Paroxysmal Afib * Change Propafenone to 150 mg po TID * K+ goal 4.5-5 * Mag goal > 2 * TSH - WNL * Continue Apixiban 5 mg po BID - no major bleeding reported * No evidence of CHF on examination * Continue Toprol XL - increase to 25 mg po BID * Pt should follow up with Dr Gray - consideration for afib ablation as an outpt * Supportive treatment for COVID-19 infection Eric Guallpa History of Present Illness Reason for Consultation: Atrial fibrillation with RVR Requesting Physician: Dr. Heaton Attending Physician: Dr. Eric Guallpa History of Present Illness Patient is a 62 year old male known to [facility], Dr. Gray History includes: 1. pAF, newly diagnosed 10/02/2016;started on metoprolol [id number] 1 (DM II); recurrent episode 11/12/2016 went to [facility] ED had 3.5 second conversion pause with IV bolus of cardizem; started on Rythmol 11/2016, again 01/28/23 at [facility] treated with DCCV 2. HLD 3. Dyslipidemia 4. DM type II 5. HTN Patient reports cough, weakness and sinus congestion x1 week. Had a fever over the weekend for several days. Home COVID was negative last week. yesterday patient began to notice increased palpitations and came to the ER for evaluation. Upon arrival to the ER he was found to be COVID positive. He was started on IV fluids due to dehydration. HS troponin negative. EKG demonstrated atrial fibrillation with RVR. he was treated with several doses of IV Lopressor and converted spontaneously to NSR. He was to be discharged but then reverted back to afib, so admission recommended to aid with arrhythmia. The patient takes 25 mg of metoprolol succinate daily and 150 mg of propafenone three times daily. He is anticoagulated with Eliquis. upon admission he was only prescribed Rythmol BID. This was increased to home dose. At time of consult, patient was back in NSR in the 70's on telemetry Given COVID + status and limit exposure, chart and telemetry rounds only completed at this time. Allergies Allergy/AdvReac Type Severity Reaction Status Date / Time Penicillins Allergy Unknown PT'S Verified 01/28/23 10:15 FATHER HAD SEVERE REACTION grass pollen Allergy Rash Verified 01/28/23 10:15 Home Medications Medication Instructions Recorded Confirmed Type aspirin 81 mg tablet,delayed 81 mg PO DAILY 05/01/22 04/26/23 History release ibuprofen 200 mg tablet (Advil) 200 mg PO DIRECTED PRN Pain 05/01/22 04/26/23 History metoprolol succinate 25 mg 25 mg PO DAILY 05/01/22 04/26/23 History tablet,extended release 24 hr omeprazole 20 mg capsule,delayed 20 mg PO DAILY 05/01/22 04/26/23 History release pravastatin 10 mg tablet 10 mg PO QPM 05/01/22 04/26/23 History tamsulosin 0.4 mg capsule 0.4 mg PO DAILY 05/01/22 04/26/23 History vit C 250 mg-vit E 90 mg-zinc 40 1 tab PO DAILY 05/01/22 04/26/23 History mg-copper 1 qe-jiphik-hllovd capsule (PreserVision AREDS-2) metformin 500 mg tablet,extended 500 mg PO DAILY 01/28/23 04/26/23 History release 24 hr propafenone 150 mg tablet 150 mg PO BID 01/28/23 04/26/23 History sertraline 100 mg tablet 100 mg PO HS 01/28/23 04/26/23 History apixaban 5 mg tablet (Eliquis) 5 mg PO AMHS 04/26/23 04/26/23 History Patient History Medical History A-fib Hyperlipidemia On apixaban therapy Surgical History No pertinent past surgical history Social History Smoking Status: Never smoker Second Hand Exposure: Yes; Do You Dip or Chew Tobacco: No; Hx Alcohol Use: No Hx Substance Use: No Preferred Language: Tristanian Communication Ability: Effective Bung Driver Required: No Beliefs That Will Affect Care: Spiritual Current Living Situation: Family Current Living Situation Comment: lives with brother who has special needs Feels Safe at Home: Yes Assistive Devices: Glasses Review of Systems Review of Systems: Not performed due to COVID + status Results & Data Vital Signs (Past 12 Hours) Vital Signs Pulse Pulse Resp BP BP Pulse Ox O2 Del Method 04/26/23 07:32 74 16 115/72 96 Room Air 04/26/23 06:30 65 15 105/75 97 04/26/23 06:00 66 17 97/68 L 97 04/26/23 05:30 69 19 104/77 96 Room Air 04/26/23 05:01 80 17 128/84 98 Room Air 04/26/23 04:30 122 H 19 105/79 97 Room Air 04/26/23 03:40 132 H 23 102/77 98 Room Air 04/26/23 03:31 108 H 23 105/72 98 Room Air 04/26/23 03:40 132 H 04/26/23 03:21 127 H 18 115/82 97 Room Air 04/26/23 03:00 98 H 17 106/76 96 Room Air 04/26/23 02:50 97 H 17 97 04/26/23 02:50 105/69 04/26/23 02:40 105/64 04/26/23 02:30 97 H 20 97 04/26/23 02:20 130 H 14 97 04/26/23 02:20 102/75 04/26/23 02:10 114 H 17 97 04/26/23 02:10 117/82 04/26/23 02:00 135 H 19 95 04/26/23 02:00 115/77 04/26/23 01:50 111 H 22 96 04/26/23 01:50 135/95 04/26/23 01:40 116 H 18 95 04/26/23 01:40 123/86 04/26/23 01:30 113 H 17 94 04/26/23 01:30 106/88 04/26/23 01:21 99 H 18 98 04/26/23 01:21 131/69 04/26/23 01:20 103 H 15 96 04/26/23 01:10 108 H 15 98 04/26/23 01:10 108/88 04/25/23 23:15 76 04/26/23 01:53 119 H 135/95 04/26/23 00:44 108 H 04/26/23 01:17 120 H 108/88 04/26/23 01:01 124/94 04/26/23 01:01 114 H 18 97 04/26/23 01:00 103 H 16 94 04/26/23 00:51 119 H 18 98 04/26/23 00:51 126/83 04/26/23 00:50 102 H 20 97 04/26/23 00:40 87 17 95 04/26/23 00:40 152/108 H 04/26/23 00:30 134 H 16 99 04/26/23 00:30 132/93 04/26/23 00:29 133 H 18 99 04/26/23 00:29 143/95 H 04/26/23 00:20 71 21 98 04/26/23 00:10 70 19 98 04/26/23 00:00 70 17 97 04/26/23 00:00 123/75 04/25/23 23:50 71 23 98 04/25/23 23:40 73 22 98 04/25/23 23:30 76 23 97 04/25/23 23:30 114/62 04/25/23 23:20 81 17 98 04/25/23 23:10 77 20 97 04/26/23 00:29 134 H 143/95 H 04/26/23 00:00 70 16 123/75 97 Room Air 04/25/23 23:00 80 21 126/72 97 Room Air 04/25/23 22:30 80 21 122/61 97 Room Air 04/25/23 22:00 81 22 124/69 97 Room Air 04/25/23 21:31 80 22 134/61 98 Room Air 04/25/23 21:10 97 H 17 110/86 99 Room Air Laboratory Results Cardiac Enzymes 04/25/23 04/26/23 Range/Units 19:03 07:48 AST 32 (13-39) U/L Troponin I High Sens 4.5 5.6 (0-20) pg/ml Coagulation 04/25/23 Range/Units 19:03 PT 10.9 (9.0-12.0) Seconds APTT 50.3 H* (21.0-31.0) Seconds CBC 04/25/23 04/26/23 Range/Units 19:03 07:48 WBC 5.31 4.61 L (4.8-10.8) K/ul RBC 5.08 4.63 L (4.70-6.10) M/uL Hgb 15.1 13.8 L (14.0-18.0) g/dl Hct 43.8 39.6 L (42.0-52.0) % Plt Count 165 142 (130-400) K/uL Neut # (Auto) 2.56 1.78 (1.40-6.50) K/uL Lymph # (Auto) 2.01 2.14 (1.20-3.40) K/uL C[place]shaw # (Auto) 0.58 0.52 (0.11-0.59) K/uL Eos # (Auto) 0.13 0.15 (0.00-0.50) K/uL Baso # (Auto) 0.02 0.01 (0.00-0.20) K/uL Comprehensive Metabolic Panel 04/25/23 04/26/23 Range/Units 19:03 07:48 Sodium 137 139 (136-145) mmol/L Potassium 3.8 4.3 (3.5-5.1) mmol/L Chloride 102 107 (98-107) mmol/L Carbon Dioxide 27 26 (21-32) mmol/L BUN 24 H 23 (6-23) mg/dl Creatinine 1.22 0.87 D (0.6-1.4) mg/dl Glucose 185 H 170 H (70-99(Fasting)) mg/dl Calcium 10.0 8.9 (8.6-10.3) mg/dl AST 32 (13-39) U/L ALT 34 (7-52) U/L Alkaline Phosphatase 93 (34-104) U/L Total Protein 8.1 (6.0-8.3) gm/dl Albumin 4.8 (3.4-5.0) gm/dl Intake and Output 04/25/23 04/26/23 04/26/23 22:59 06:59 14:59 Intake Total 1100 / 1100 Output Total 400 / 400 Balance 1100 / 1100 -400 / -400 Intake: IV 1100 / 1100 Acetaminophen 1,000 mg In 100 100 / 100 ml @ 400 mls/hr IV NOW STA Rx#: [id number] Sodium Chloride 0.9% 500 ml @ 1000 / 1000 999 mls/hr IV .Q31M ONE Rx#: [id number] Output: Urine 400 / 400 Other: Weight 78.2 kg 78.2 kg Weight Measurement Method Chair Scale Diagnostic Findings Telemetry reviewed: Converted to NSR this morning. Currently NSR in the 70s EKG reviewed 04/25/23: NSR at 82 bmp LAD incomplete RBBB No change from previous EKG reviewed from 04/25/23 on admission; Atrial fibrillation with RVR LAD Incomplete RBBB Chest xray report reviewed 04/25/23: IMPRESSION: No acute process SANTIAGO report reviewed dated January 2023: Normal wall motion. Normal LV size Borderline concentric LVH EF 60-65% LA size is normal No thrombus in LA appendage No valvular disease Medications Administered Current Inpatient Medications Acetaminophen (Acetaminophen 325 Mg Tab) 650 mg PO Q4H PRN PRN Reason: Pain or Fever Stop: 05/26/23 03:57 Apixaban (Apixaban 5 Mg Tablet) 5 mg PO AMHS [facility] Stop: 05/26/23 08:59 Last Admin: 04/26/23 08:17 Dose: 5 mg Aspirin (Aspirin 81 Mg Ectab) 81 mg PO DAILY [facility] Stop: 05/26/23 08:59 Last Admin: 04/26/23 08:17 Dose: 81 mg Guaifenesin/Codeine Phosphate (Guaifenesin/Codeine 100mg/10mg 5ml Udc) 5 ml PO Q6H PRN PRN Reason: Cough Stop: 05/26/23 03:57 Sodium Chloride (Nss) 1,000 mls @ 75 mls/hr IV .[id number] [facility]OSSI Stop: 04/26/23 17:17 Last Admin: 04/26/23 04:30 Dose: 75 mls/hr Metoprolol Succinate (Metoprolol Succ 25mg Ext Rel Tab) 25 mg PO DAILY [facility]OS[facility] Stop: 05/26/23 08:59 Last Admin: 04/26/23 08:17 Dose: 25 mg Metoprolol Tartrate (Metoprolol Tartrate 1 Mg/Ml Vial) 5 mg IV Q6 PRN PRN Reason: Tachycardia Stop: 05/26/23 03:57 Multivitamins/Minerals (Cerovite Adv Formula Tab) 1 tab PO DAILY [facility]OSSI Stop: 05/26/23 08:59 Last Admin: 04/26/23 08:17 Dose: 1 tab Nitroglycerin (Nitroglycerin Sl 0.4 Mg/Tab Tab) 0.4 mg SL Q5M PRN PRN Reason: Chest Pain Stop: 05/26/23 03:57 Pantoprazole Sodium (Pantoprazole 40 Mg Tab) 40 mg PO DAILY [facility]OSSI Stop: 05/26/23 08:59 Last Admin: 04/26/23 08:17 Dose: 40 mg Pravastatin Sodium (Pravastatin Sod 10 Mg Tab) 10 mg PO QPM [facility]OS[facility] Stop: 05/26/23 20:59 Propafenone HCl (Propafenone Hcl 150 Mg Tablet) 150 mg PO BID [facility]OSSI Stop: 05/26/23 08:59 Last Admin: 04/26/23 08:17 Dose: 150 mg Sertraline HCl (Sertraline Hcl 100 Mg Tablet) 100 mg PO HS [facility]OSSI Stop: 05/26/23 20:59 Tamsulosin HCl (Tamsulosin Hcl 0.4 Mg Cap) 0.4 mg PO DAILY [facility] Stop: 05/26/23 08:59 Last Admin: 04/26/23 08:17 Dose: 0.4 mg
--- NOTE | 2023-04-26 14:31 | Electrocardiogram Report ---
Test Reason : Blood Pressure : / mmHG Vent. Rate : 067 BPM Atrial Rate : 067 BPM P-R Int : 174 ms QRS Dur : 096 ms QT Int : 378 ms P-R-T Axes : 066 014 008 degrees QTc Int : 399 ms Normal sinus rhythm Cannot rule out Old Anterior infarct Abnormal ECG When compared with ECG of 25-APR-2023 22:38, Borderline Criteria for Anterior infarct is now Present Confirmed by Marcus Arriola ([id number] on 04/26/2023 2:31:49 PM Referred By: REFERRED SELF Confirmed By:Marcus Arriola
[2023-04-26] MEDS: PROPAFENONE HCL 150 MG TABLET PO SCH ×2 (17:21→22:34)
[2023-04-26] MEDS ORDERED: PRAVASTATIN SOD 10 MG TAB PO SCH (21:00)
[2023-04-26] MEDS ORDERED: SERTRALINE HCL 100 MG TABLET PO SCH (21:00)
[2023-04-26] MEDS: METOPROLOL SUCC 25MG EXT REL TAB PO SCH (22:33)
[2023-04-27 07:27] LABS: Hematocrit (blood only) 39.7 % (42.0-52.0); Hemoglobin 13.5 g/dl (14.0-18.0); Mean Corpuscular Hemoglobin 29.6 pg (25.0-34.0); Mean Corpuscular Volume 87.1 fL (80.0-100.0); Mean Platelet Volume 9.4 fL (9.4-12.4); Platelet Count 144 K/uL (130-400); RDW Coefficient of Variation 13.2 % (11.5-14.5); RDW Standard Deviation 42.2 fL (36.4-46.3); Red Blood Count 4.56 M/uL (4.70-6.10); White Blood Count 4.77 K/ul (4.8-10.8)
[2023-04-27 07:37] LABS: BUN Creatinine Ratio 24.2 (10-20); Calcium 8.9 mg/dl (8.6-10.3); Creatinine Clr Calc Pharmacy 89.6 ml/min; Est GFR (African American) 99.7 ml/min; Est GFR (Non-African American) 86.1 ml/min; Magnesium 2.1 mg/dl (1.7-2.4); Phosphorus 3.1 mg/dl (2.5-4.9); Potassium 4.3 mmol/L (3.5-5.1)
[2023-04-27] MEDS: PROPAFENONE HCL 150 MG TABLET PO SCH ×2 (08:28→13:57)
[2023-04-27] MEDS: TAMSULOSIN HCL 0.4 MG CAP PO SCH (08:28)
[2023-04-27] MEDS: APIXABAN 5 MG TABLET PO SCH (08:28)
[2023-04-27] MEDS: CEROVITE ADV FORMULA TAB PO SCH (08:28)
[2023-04-27] MEDS: PANTOprazole 40 MG TAB PO SCH (08:29)
[2023-04-27] MEDS: ASPIRIN 81 MG ECTAB PO SCH (08:29)
[2023-04-27] MEDS: METOPROLOL SUCC 25MG EXT REL TAB PO SCH (08:29)
--- NOTE | 2023-04-27 09:10 | Cardiology Progress Note ---
Date of Service April 27, 2023 Assessment & Plan Admission and Anticipated Discharge Date Admission Date: April 26, 2023 Supervising Physician Co-Signing Physician Notes Pt seen and examined with AP Staff Concur with observations and plans 62 yo man presenting with palpitations + fever + sinus congestion * COVID -19 + * No hypoxia - 96% on RA * CXR - no major Pulmonary Edema; no infiltrates * Noted to be in afib * Rx with Lopressor * Conversion to NSR; ultimately reverted to Afib c/w Paroxysmal Afib * Hx of afib * On DOAC + Metoprolol + Propafenone * LVEF 60-65% (01/2023); No , No major MR * K+ -3.8 on admission * Mag on admission 2.0 * TSH - 2.8 Plans: * Pt has reverted to NSR * Pt has Paroxysmal Afib * Change Propafenone to 150 mg po TID * K+ goal 4.5-5 * Mag goal > 2 * TSH - WNL * Continue Apixiban 5 mg po BID - no major bleeding reported * No evidence of CHF on examination * Continue Toprol XL - increase to 25 mg po BID * Pt should follow up with Dr Gray - consideration for afib ablation as an outpt * Supportive treatment for COVID-19 infection Eric Guallpa Subjective Events overnight: Subjective: Review of Systems Review of Systems: All systems reviewed & are unremarkable except as noted in HPI & below Results & Data Vital Signs (Past 12 Hours) Vital Signs Temp Pulse Pulse Resp BP Pulse Ox O2 Del Method 04/27/23 08:25 36.6 C 80 18 111/66 98 Room Air 04/27/23 03:40 37.1 C 66 20 121/78 98 Room Air 04/26/23 23:04 71 04/26/23 22:32 36.9 C 81 20 142/77 H 97 Room Air Laboratory Results Cardiac Enzymes 04/26/23 Range/Units 12:58 Troponin I High Sens 4.5 (0-20) pg/ml CBC 04/27/23 Range/Units 06:50 WBC 4.77 L (4.8-10.8) K/ul RBC 4.56 L (4.70-6.10) M/uL Hgb 13.5 L (14.0-18.0) g/dl Hct 39.7 L (42.0-52.0) % Plt Count 144 (130-400) K/uL Comprehensive Metabolic Panel 04/27/23 Range/Units 06:50 Sodium 139 (136-145) mmol/L Potassium 4.3 (3.5-5.1) mmol/L Chloride 106 (98-107) mmol/L Carbon Dioxide 30 (21-32) mmol/L BUN 23 (6-23) mg/dl Creatinine 0.95 (0.6-1.4) mg/dl Glucose 143 H (70-99(Fasting)) mg/dl Calcium 8.9 (8.6-10.3) mg/dl Intake and Output 04/26/23 04/27/23 04/27/23 22:59 06:59 14:59 Intake Total 1000 / 1000 Output Total 400 / 800 Balance 1000 / 200 -400 / 200 Intake: IV 1000 / 1000 Sodium Chloride 0.9% 1,000 ml @ 1000 / 1000 75 mls/hr IV .[id number] [facility] Rx#: [id number] Output: Urine 400 / 800 Other: Weight 85.4 kg Weight Measurement Method [facility] Medications Administered Current Inpatient Medications Acetaminophen (Acetaminophen 325 Mg Tab) 650 mg PO Q4H PRN PRN Reason: Pain or Fever Stop: 05/26/23 03:57 Apixaban (Apixaban 5 Mg Tablet) 5 mg PO AMHS [facility] Stop: 05/26/23 08:59 Last Admin: 04/27/23 08:28 Dose: 5 mg Aspirin (Aspirin 81 Mg Ectab) 81 mg PO DAILY [facility] Stop: 05/26/23 08:59 Last Admin: 04/27/23 08:29 Dose: 81 mg Guaifenesin/Codeine Phosphate (Guaifenesin/Codeine 100mg/10mg 5ml Udc) 5 ml PO Q6H PRN PRN Reason: Cough Stop: 05/26/23 03:57 Metoprolol Succinate (Metoprolol Succ 25mg Ext Rel Tab) 25 mg PO BID [facility] Stop: 05/26/23 20:59 Last Admin: 04/27/23 08:29 Dose: 25 mg Metoprolol Tartrate (Metoprolol Tartrate 1 Mg/Ml Vial) 5 mg IV Q6 PRN PRN Reason: Tachycardia Stop: 05/26/23 03:57 Multivitamins/Minerals (Cerovite Adv Formula Tab) 1 tab PO DAILY [facility] Stop: 05/26/23 08:59 Last Admin: 04/27/23 08:28 Dose: 1 tab Nitroglycerin (Nitroglycerin Sl 0.4 Mg/Tab Tab) 0.4 mg SL Q5M PRN PRN Reason: Chest Pain Stop: 05/26/23 03:57 Pantoprazole Sodium (Pantoprazole 40 Mg Tab) 40 mg PO DAILY [facility] Stop: 05/26/23 08:59 Last Admin: 04/27/23 08:29 Dose: 40 mg Pravastatin Sodium (Pravastatin Sod 10 Mg Tab) 10 mg PO QPM [facility] Stop: 05/26/23 20:59 Last Admin: 04/26/23 22:34 Dose: 10 mg Propafenone HCl (Propafenone Hcl 150 Mg Tablet) 150 mg PO TID [facility] Stop: 05/26/23 13:59 Last Admin: 04/27/23 08:28 Dose: 150 mg Sertraline HCl (Sertraline Hcl 100 Mg Tablet) 100 mg PO HS [facility] Stop: 05/26/23 20:59 Last Admin: 04/26/23 22:34 Dose: 100 mg Tamsulosin HCl (Tamsulosin Hcl 0.4 Mg Cap) 0.4 mg PO DAILY [facility] Stop: 05/26/23 08:59 Last Admin: 04/27/23 08:28 Dose: 0.4 mg
--- NOTE | 2023-04-27 11:55 | Discharge Summary ---
Date of Service April 27, 2023 Admission HPI Per Admitting Provider 62-year-old male with past medical significant for type 2 diabetes, hyperlipidemia, paroxysmal atrial fibrillation, history of sinus bradycardia, hypertension, history of oesophageal stricture, GERD, BPH, depression, generalized anxiety disorder, presents with palpitations and found to be in rapid A-fib and also COVID came back positive. Patient states he had some runny nose cough feeling weak for about a week. He checked last Tuesday at home for COVID and was negative. Last Tuesday and Tuesday for 1 day he had a fever but that got resolved. Tuesday 6 PM he started to feel palpitations which prompted him to come to the ER. Denies any chest pain or shortness of breath. No nausea or vomiting. No abdominal pain. No diarrhea or constipation. Normal bladder movements. No headaches. No blurred visions. Past medical history. As mentioned above Past surgical history. Colonoscopy. Esophageal dilatation. Social history. No smoking. Alcohol occasional wine. No drug use. Family history. Father elevated cholesterol. Mother history of elevated cholesterol. Dementia. Osteoporosis. Admission Exam Per Admitting Provider General- Not in distress Head- atraumatic Eyes- PERRL. ENT- oropharynx clear Neck- supple, no JVD Lungs- clear to auscultation no wheezing or crackles Heart- irregular rhythm; no murmur, no gallop,. Abdomen- normal bowel sounds, soft, nontender, no distension Extremities- no pretibial edema, no erythema seen. Neuro- alert, oriented x 3; PERRL, no facial palsy; no dysarthria; moves extremities Skin- warm & dry Principal Diagnosis Atrial fibrillation w/ RVR + COVID Discharge Exam General- WD/WN M in NAD Head- atraumatic Eyes- PERRL. ENT- oropharynx clear Neck- supple, no JVD Lungs- clear to auscultation no wheezing , rhonchi or crackles Heart- rrr, no murmur, no gallop,. Abdomen- normal bowel sounds, soft, nontender, no distension Extremities- no pretibial edema, no erythema seen. Neuro- alert, oriented x 3; PERRL, no facial palsy; no dysarthria; moves e xtremities Skin- warm & dry Discharge Data Allergies Allergy/AdvReac Type Severity Reaction Status Date / Time Penicillins Allergy Unknown PT'S Verified 01/28/23 10:15 FATHER HAD SEVERE REACTION grass pollen Allergy Rash Verified 01/28/23 10:15 Consultations 04/26/23 01:53 ED Decision to Admit Stat 04/26/23 08:00 Consult Cardiology Routine Hospital Course (1) Atrial fibrillation with rapid ventricular response: 62-year-old male with past medical significant for type 2 diabetes, hyperlipidemia, paroxysmal atrial fibrillation, history of sinus bradycardia, hypertension, history of oesophageal stricture, GERD, BPH, depression, generalized anxiety disorder, presents with palpitations and found to be in rapid A-fib and also COVID came back positive. Rapid A-fib in ED Improved after IV Lopressor in the ER Converted to NSR Echo obtained - no significant change from prior study. EF 60-65%. There is borderline concentric LVH. Mild mitral regurg. Mild tricuspid regur. Doppler findings do not suggest pulmonary hypertension. Cardiology consulted - recommend increase Propafenone to 150 mg TID and Toprol XL to 25 mg po BID. Continue Eliquis. Pt should follow up with Dr. Gray - consideration for afib ablation as an outpt. +COVID-19 / sinus congestion States vaccinated and boosted but did not took current booster Saturating well on RA CXR w/o any opacity or pulm. edema COVID precautions Diabetes Held metformin while inpt Sliding scale Current HbA1c level 6.5% Follow blood sugars Hyperlipidemia On statin Hypertension On Toprol XL GERD omeprazole BPH Flomax Depression Zoloft Total Time Total Time Spent Total Time Spent (In Minutes): 40 Discharge Plan Discharge Items Patient Disposition: Home - Self-Care Reason For Visit: RAPID AFIB, COVID Discharge Diagnosis: Atrial fibrillation w/ RVR + COVID Activity: Per Instructions section Non-emergency contact: Primary Care Provider and Hardboard Supervisor Call non-emergency contact if: you have any medication questions and your symptoms worsen Follow-up/Referrals: Osiris Estrada CRNP [Primary Care Provider] - (Date & Time 05/03/2023 8:40 AM Provider [facility] Department [facility] ) Diet: Carb Consistent or DM2 and Heart Healthy Addtl Attending Provider Instructions: Follow up with your primary care physician and foxpro developer. The appointment was scheduled for you for May 03. Your heart medication was adjusted - take metoprolol 25 mg twice a day (instead of daily), and propafenone 150 mg three times a day (instead of twice a day). It is recommended that you follow up with cardiology - Dr. Gray - for possible Afib ablation. To help with symptoms of congestion/ covid - recommend taking guaifenesin/mucinex , and continue using a nasal spray for next several days. Addtl Import Dispatcher Provider Instructions: Home Isolation COVID-19 Instructions The following information about Home Isolation is from the CDC Website: https://www.cdc.gov/coronavirus/2019-ncov/hcp/jtkjyyqu-kltdnzf-rcppaq.html Stay home except to get medical care People who are mildly ill with COVID-19 are able to isolate at home during their illness. You should restrict activities outside your home, except for getting medical care. Do not go to work, school, or public areas. Avoid using public transportation, ride-sharing, or taxis. Separate yourself from other people and animals in your home People: As much as possible, you should stay in a specific room and away from other people in your home. Also, you should use a separate bathroom, if available. Animals: You should restrict contact with pets and other animals while you are sick with COVID-19, just like you would around other people. Although there have not been reports of pets or other animals becoming sick with COVID-19, it is still recommended that people sick with COVID-19 limit contact with animals until more information is known about the virus. When possible, have another member of your household care for your animals while you are sick. If you are sick with COVID-19, avoid contact with your pet, including petting, snuggling, being kissed or licked, and sharing food. If you must care for your pet or be around animals while you are sick, wash your hands before and after you interact with pets and wear a face mask. Call ahead before visiting your doctor If you have a medical appointment, call the healthcare provider and tell them that you have or may have COVID-19. This will help the healthcare providers office take steps to keep other people from getting infected or exposed. Wear a face mask You should wear a face mask when you are around other people (e.g., sharing a room or vehicle) or pets and before you enter a healthcare providers office. If you are not able to wear a face mask (for example, because it causes trouble breathing), then people who live with you should not stay in the same room with you, or they should wear a face mask if they enter your room. Cover your coughs and sneezes Cover your mouth and nose with a tissue when you cough or sneeze. Throw used tissues in a lined trash can. Immediately wash your hands with soap and water for at least 20 seconds or, if soap and water are not available, clean your hands with an alcohol-based hand professor of sport management that contains at least 60% alcohol. Clean your hands often Wash your hands often with soap and water for at least 20 seconds, especially after blowing your nose, coughing, or sneezing; going to the bathroom; and before eating or preparing food. If soap and water are not readily available, use an alcohol-based hand professor of sport management with at least 60% alcohol, covering all surfaces of your hands and rubbing them together until they feel dry. Soap and water are the best option if hands are visibly dirty. Avoid touching your eyes, nose, and mouth with unwashed hands. Avoid sharing personal household items You should not share dishes, drinking glasses, cups, eating utensils, towels, or bedding with other people or pets in your home. After using these items, they should be washed thoroughly with soap and water. Clean all high-touch surfaces everyday High touch surfaces include counters, tabletops, doorknobs, bathroom fixtures, toilets, phones, keyboards, tablets, and bedside tables. Also, clean any surfaces that may have blood, stool, or body fluids on them. Use a household cleaning spray or wipe, according to the label instructions. Labels contain instructions for safe and effective use of the cleaning product including precautions you should take when applying the product, such as wearing gloves and making sure you have good ventilation during use of the product. Monitor your symptoms Seek prompt medical attention if your illness is worsening (e.g., difficulty breathing).Beforeseeking care, call your healthcare provider and tell them that you have, or are being evaluated for, COVID-19. Put on a face mask before you enter the facility. These steps will help the healthcare providers office to keep other people in the office or waiting room from getting infected or exposed. Ask your healthcare provider to call the local or state health department. Persons who are placed under active monitoring or facilitated self- monitoring should follow instructions provided by their local health department or occupational health professionals, as appropriate. When working with your local health department check their available hours. If you have a medical emergency and need to call 911, notify the dispatch personnel that you have, or are being evaluated for COVID-19. If possible, put on a face mask before emergency medical services arrive. Discontinuing home isolation Patients with confirmed COVID-19 should remain under home isolation precautions until the risk of secondary transmission to others is thought to be low. The decision to discontinue home isolation precautions should be made on a [id number] basis, in consultation with healthcare providers and state and local health departments. Coronavirus disease 2019 (COVID-19) is a virus that causes a respiratory illness. It is caused by a coronavirus called 2019 novel coronavirus (2019- nCoV). There are many types of coronavirus. Coronaviruses are a very common cause of bronchitis. They may sometimes cause lung infection(pneumonia). Symptoms can range from mild to severe respiratory illness. These viruses are also foundin some animals. COVID-19 was first found in people in [facility], in late 2019. In 2020, several cases of COVID-19 have been confirmed in the [place] Public health officials are working to find the source. How the virus spreads is not yet fully known. It may be spread through droplets of fluid that a person coughs or sneezes into the air. It may be spread if you touch a surface with virus on it, such as a handle or object, and then touch your mouth. What are the symptoms of COVID-19? Some people have no symptoms or mild symptoms. Symptoms may appear 2 to 14 days after contact with the virus. Symptoms can include: Fever Coughing Trouble breathing What are possible complications from COVID-19? In many cases, this virus can cause infection (pneumonia) in both lungs. In some cases, this can cause . How is COVID-19 diagnosed? Your healthcare provider will ask about your symptoms. He or she will also ask about your recent travel and contact with sick people. Testing for the virus is only done through the [facility]. If yourhealthcare provider thinks you may have COVID- 19, he or she will work with your local health department and the CDC on testing. Follow all instructions from your healthcare provider. COVID-19 is diagnosed by: Nasal and throat swab. A cotton-tipped swab is wiped inside your nose or throat. This is done to check for viruses in your nasal mucus. Sputum culture. A small sample of mucus coughed from your lungs (sputum) is collected if you have a cough. It is checked for the virus. How is COVID-19 treated? There is currently no medicine to treat the virus. Treatment is done to help you r body while it fights the virus. This is known as supportive care. Supportive care may include: Pain medicine. These include acetaminophen and ibuprofen. They are used to help ease pain and reduce fever. Bed rest. This helps your body fight the illness. For severe illness, you may need to stay in the hospital. Care during severe illness may include: IV (intravenous) fluids.These are given through a vein to help keep your body hydrated. Oxygen. Supplemental oxygen or ventilation with a breathing machine (ventilator) may be given. This is done to keep enough oxygen in your body. Are you at risk for COVID-19? If youve been to a place where people have been sick with this virus, you are at risk for infection. You are at risk if you: Recently traveled to an affected area Had contact with a sick person who recently traveled to this area Had contact with a person who was diagnosed with COVID-19 How can COVID-19 be prevented? There is no vaccine yet. The best prevention is to not have contact with the virus. The CDC advises that people should not travel to areas where there are COVID-19 outbreaks right now for any reason that is not urgent. To help prevent spreading the infection, wash your hands often, or use an alcohol-basedhand professor of sport management. If you are in an area with COVID-19: Wash your hands often. Or use an alcohol-based hand professor of sport management often. Only touch your eyes, nose, or mouth with clean hands. Dont have contact with people who are sick. Follow local instructions about being in public. For example, you may be told to not use public transport for a period of time. Stay away from markets that have live or animals. Wash your hands after touching any animals. Don't touch animals that may be sick. Dont share eating or drinking tools with sick people. Dont kiss someone who is sick. Clean surfaces often with disinfectant. If you were in an area with COVID-19 in the last 14 days: Call your healthcare provider. He or she can talk with local health staff to see what action may be needed. Follow all instructions from your provider. Take your temperature every morning and evening for at least 14 days. This is to check for fever. Keep a record of the readings. Keep watch for symptoms of the virus. Tell your provider right away if you have symptoms. If you were in an area with COVID-19 and have a fever or other symptoms: Dont panic. Keep in mind that other illnesses can cause similar symptoms. Stay away from work, school, and public places. Limit physical contact with family members. Don't kiss anyone or share eating or drinking utensils. Clean surfaces you touch with disinfectant. This is to help prevent the virus from spreading. Call your healthcare provider. Explain that you have been exposed to COVID-19 and have symptoms. Do this before going to any hospital. Wait for instructions. Keep in mind that healthcare staff may wear protective equipment such as masks, gowns, gloves, and eye protection. You may be put in a separate room. This is to prevent the possible virus from spreading. Tell the healthcare staff about recent travel. This includes local travel on p ublic transport. Staff may need to find other people you have been in contact with. Follow all instructions the healthcare staff give you. If you have been diagnosed with COVID-19 Follow all instructions from your healthcare provider. Dont leave your home, except to get medical care. Call your healthcare providers office before going. They can prepare and give you instructions. This will help prevent the virus from spreading. Dont go to work, school, or public areas. Dont use public transport or taxis. Stay away from other people in your home. Have them wear face masks around you. Dont share household items or food. Wear a face mask if you can. This includes at home or in a medical facility. Cover your face with a tissue when you cough or sneeze. Throw the tissue away. Wash your hands. Wash your hands often. Caregivers should: Follow all instructions from healthcare staff. Wear a face mask and protective clothing as advised. Wash hands often. Keep track of the sick persons symptoms. Clean surfaces, fabrics, and laundry thoroughly. Keep other people away from the sick person. When to call your healthcare provider Call your healthcare provider: If youve recently traveled and have symptoms If you have been diagnosed with COVID-19 and your symptoms are worse To learn more To find out more about COVID-19, visit the CDC website at www.cdc.gov/coronavirus/2019-ncov/index.html. 8258-[address] [employer]. [address] [place] [address], [place] [address]. All rights reserved. This information is not intended as a substitute for professional medical care. Always follow your healthcare professional's instructions. This information has been adapted from [employer] Pending Studies at Discharge: No Stand-Alone Forms: My [facility] [employer], Smoking Cessation Medications and DC Order Prescriptions: New metoprolol succinate 25 mg Tablet Extended Release 24 Hr 25 mg PO BID 30 Days Qty: 60 0RF propafenone 150 mg Tablet 150 mg PO TID 30 Days Qty: 90 0RF guaifenesin 600 mg tablet extended release 12hr 600 mg PO BID 7 Days Qty: 14 0RF Continued aspirin 81 mg Tablet,Delayed Release (Dr/Ec) 81 mg PO DAILY pravastatin 10 mg tablet 10 mg PO QPM tamsulosin 0.4 mg capsule 0.4 mg PO DAILY ibuprofen [Advil] 200 mg Tablet 200 mg PO DIRECTED PRN (Reason: Pain) omeprazole 20 mg capsule,delayed release(DR/EC) 20 mg PO DAILY PreserVision AREDS-2 250-90-40-1 mg Capsule 1 tab PO DAILY sertraline 100 mg tablet 100 mg PO HS metformin 500 mg tablet extended release 24 hr 500 mg PO DAILY Eliquis 5 mg tablet 5 mg PO AMHS Discontinued metoprolol succinate 25 mg tablet extended release 24 hr 25 mg PO DAILY propafenone 150 mg tablet 150 mg PO BID Discharge Orders: Discharge Order (Routine); Ordered 04/27/23 Ordered By: Gabe Carney Admission Data Admit Date/Time: 04/26/23 03:10 Attending Provider: Gabe Carney Admit Provider: Jaspreet Heaton Primary Care Provider: Osiris Estrada Other Providers: Jaspreet Heaton ; Cyndi Corbett ; Aristeo Cuello ; Monty Guzman ; Noah Barahona ; Jerardo Buck. ; Rivas Hicks ; Emily Robles ; Ashly Gray ; Cyndi Anderson ; Romel Funk ; Noé Alonzo ; Jazzy Negron ; Ivy Gonzalez ; Delio Alicea ; Eric Guallpa
--- NOTE | 2023-04-27 16:42 | Electrocardiogram Report ---
Test Reason : Blood Pressure : / mmHG Vent. Rate : 063 BPM Atrial Rate : 063 BPM P-R Int : 188 ms QRS Dur : 100 ms QT Int : 396 ms P-R-T Axes : 053 -27 000 degrees QTc Int : 405 ms Normal sinus rhythm Incomplete right bundle branch block Borderline ECG When compared with ECG of 26-APR-2023 07:27, QRS axis Shifted left Criteria for Anterior infarct are no longer Present Confirmed by Caleb Avila ([id number]) on 04/27/2023 4:41:46 PM Referred By: REFERRED SELF Confirmed By:Caleb Avila
== END 2023-04-27 14:27 | disposition home or self-care (01) | DRG 308 ==
LOC: ED 18:51 → EDINP 04-26 03:10 → 2S 04-26 03:57

== ENCOUNTER 2023-05-21 20:08 | Observation (INO) ==
[2023-05-21 20:55] LABS: Basophils # (auto) 0.01 K/uL (0.00-0.20); Basophils % (auto) 0.1 %; Eosinophils # (auto) 0.18 K/uL (0.00-0.50); Eosinophils % (auto) 2.7 %; Hematocrit (blood only) 44.4 % (42.0-52.0); Hemoglobin 15.2 g/dl (14.0-18.0); Immature Granulocytes # (auto) 0.01 K/uL (0.01-0.20); Immature Granulocytes % (auto) 0.1 %; Lymphocytes # (auto) 1.99 K/uL (1.20-3.40); Lymphocytes % (auto) 29.4 %; Mean Corpuscular Hemoglobin 29.7 pg (25.0-34.0); Mean Corpuscular Hgb Conc 34.2 g/dL (32.0-36.0); Mean Corpuscular Volume 86.7 fL (80.0-100.0); Mean Platelet Volume 9.3 fL (9.4-12.4); Monocytes # (auto) 0.57 K/uL (0.11-0.59); Monocytes % (auto) 8.4 %; Neutrophils # (auto) 4.02 K/uL (1.40-6.50); Neutrophils % (auto) 59.3 %; Platelet Count 183 K/uL (130-400); RDW Coefficient of Variation 13.4 % (11.5-14.5); RDW Standard Deviation 42.5 fL (36.4-46.3); Red Blood Count 5.12 M/uL (4.70-6.10); White Blood Count 6.78 K/ul (4.8-10.8)
[2023-05-21 21:06] LABS: Albumin Globulin Ratio 1.7 (0.9-2); BUN Creatinine Ratio 22.8 (10-20); Bilirubin,Total 0.7 mg/dl (0.2-1.0); Creatinine Clr Calc Pharmacy 84.3 ml/min; Est GFR (African American) 92.6 ml/min; Est GFR (Non-African American) 79.9 ml/min; Potassium 3.7 mmol/L (3.5-5.1)
[2023-05-21] MEDS ORDERED: dilTIAZem HCl 5 MG/ML 5 ML VIAL IV STA (21:12)
[2023-05-21] MEDS ORDERED: POTASSIUM CHLORIDE / WTR 10 MEQ/100 ML PLCT IV ONE (21:12)
[2023-05-21 21:19] LABS: Magnesium 1.9 mg/dl (1.7-2.4)
[2023-05-21 21:31] LABS: Partial Thromboplastin Ratio 1.6; Prothrombin Time 11.1 Seconds (9.0-12.0)
[2023-05-21 21:42] LABS: Partial Thromboplastin Time 45.3 Seconds (21.0-31.0)
--- NOTE | 2023-05-21 21:42 | Emergency Department Note ---
Impression & Plan Atrial fibrillation with rapid ventricular response, Hypokalemia ED Provider Note HISTORY OF PRESENT ILLNESS: Patient is a 62-year-old male presenting with palpitations. Patient reports that around 7 PM he was in the shower when he felt like his heart was racing. He used an at home monitor and it said that he was in sinus rhythm and his heart rate was normal. He states that this occurred multiple times over the next hour, but around 9 PM he had persistent palpitations on his monitor showed A-fib with RVR. He is on Eliquis. He has a history of paroxysmal A-fib. He took an extra dose of metoprolol 25 mg prior to coming into the hospital. Denies any recent cough or fevers. Denies any chest pain. Denies any DVT or PE history. He reports that since his heart rate has been elevated, anytime he walks he does feel short of breath. ROS: as above PHYSICAL EXAM: Constitutional: Patient appears in no acute distress. HENT: Head: Normocephalic and atraumatic. Eyes: EOMI, PERRL Mouth/Throat: Mucous membranes moist. Neck: Trachea midline. Neck supple. Cardiovascular: Tachycardic with irregularly irregular rhythm. No murmurs, rubs or gallops. Intact distal pulses. Pulmonary/Chest: No respiratory distress. Breath sounds clear and equal bilaterally. No wheezes or rales. No chest wall tenderness to palpation. Abdominal: Abdomen soft, no tenderness, rebound or guarding. Musculoskeletal: No edema, tenderness or deformity noted. Skin: Warm and dry. No rash, erythema, pallor or cyanosis Psychiatric: Appropriate mood and affect for situation. Neurological: Alert and keenly responsive. CN II-XII grossly intact, moving all extremities equally and fully. MDM: - Vitals signs showed tachycardia - History obtained via patient. Patient presents with palpitations. Patient reports that he believes he flipped into atrial fibrillation earlier this evening. He was having intermittent palpitations for about an hour and then on his home monitoring and evaluation advisor was seen to be in A-fib with RVR. He is on Eliquis and has not missed any doses. He took an extra dose of metoprolol 25 mg prior to coming into the ER. Denies any chest pain. Reports short of breath with exertion. - Chronic conditions affecting care: paroxysmal Afib; HLD - Differential diagnoses include, but are not limited to: electrolyte abnormality; ACS; pneumonia; pneumothorax; PE - Order placed for continuous cardiac monitoring. At this time, monitor showed rate of 120 bpm with irregular rhythm, per my interpretation. - External medical records reviewed. Cardiology progress note dated 04/27/2023 was reviewed. Patient was diagnosed with paroxysmal A-fib. Potassium goal 4.5- 5. Mag goal greater than 2. He was prescribed Toprol XL 25 mg twice daily. - EKG reviewed by myself showed atrial fibrillation. Rate rapid at 124 bpm. QTc 393. No acute ischemic changes. - Laboratory workup interpreted by myself showed normal WBC; stable electrolytes, but potassium is below goal at 3.7; normal troponin - CXR negative for pneumonia, per my interpretation - Patient initially given 1L NS and 10 mg IV cardizem bolus. However, his HR remained tachycardic and irregular. - Cardizem drip ordered. - 10 mEq IV potassium ordered for replacement. - Discussion was had with social science teacher about patient's case and need for admission - Hospitalist consulted for admission - Patient admitted to [facility] Hospitalist service for further evaluation and management. I provided 36 minutes of critical care time to this patient's care outside of billable procedures. ASSESSMENT AND PLAN: Diagnosis: A-fib with RVR; hypokalemia Plan: Admit Past Med/Surg History Medical History A-fib Hyperlipidemia On apixaban therapy Surgical History No pertinent past surgical history Social History Smoking Status: Never smoker Second Hand Exposure: Yes; Do You Dip or Chew Tobacco: No; Hx Alcohol Use: No Hx Substance Use: No Preferred Language: Khmer Communication Ability: Effective Chair Required: No Beliefs That Will Affect Care: None Current Living Situation: Family Current Living Situation Comment: lives with brother who has special needs Feels Safe at Home: Yes Assistive Devices: Glasses Allergies Allergies Allergy/AdvReac Type Severity Reaction Status Date / Time grass pollen Allergy Intermediate Rash Verified 05/21/23 21:06 Penicillins Allergy Unknown PT'S Verified 05/21/23 21:06 FATHER HAD SEVERE REACTION Home Meds Home Medications Medication Instructions Recorded Confirmed ibuprofen 200 mg tablet (Advil) 200 mg PO DIRECTED PRN Pain 05/01/22 05/21/23 omeprazole 20 mg capsule,delayed 20 mg PO DAILY 05/01/22 05/21/23 release pravastatin 10 mg tablet 10 mg PO QPM 05/01/22 05/21/23 tamsulosin 0.4 mg capsule 0.4 mg PO DAILY 05/01/22 05/21/23 vit C 250 mg-vit E 90 mg-zinc 40 1 tab PO DAILY 05/01/22 05/21/23 mg-copper 1 [id number]-[id number] capsule (PreserVision AREDS-2) metformin 500 mg tablet,extended 500 mg PO DAILY 01/28/23 05/21/23 release 24 hr sertraline 100 mg tablet 100 mg PO HS 01/28/23 05/21/23 apixaban 5 mg tablet (Eliquis) 5 mg PO AMHS 04/26/23 05/21/23 ciclopirox 8 % topical solution 1 applic topical DIRECTED 05/21/23 05/21/23 guaifenesin 600 mg tablet, 600 mg PO DAILY 05/21/23 05/21/23 extended release 12 hr metoprolol succinate 25 mg 25 mg PO DAILY 05/21/23 05/21/23 tablet,extended release 24 hr zkbjoupjucrk-cbczmitg-dxibhi tablet 1 tab PO DAILY 05/21/23 05/21/23 Previous Rx's Medication Instructions Recorded propafenone 150 mg tablet 150 mg PO TID 30 days #90 tabs 04/27/23 Results & Data (ED) Vital Signs Vital Signs - 24 hr 05/21/23 20:11 05/21/23 20:32 05/21/23 21:19 Temperature 36.7 C Temperature Source Temporal Artery Scan Pulse Rate 130 H Pulse Rate [Apical] 121 H 117 H Respiratory Rate 20 18 18 Respiratory Effort / Characteristics Non-Labored Spontaneous Respiratory Depth Normal Respiratory Pattern Regular Blood Pressure 169/96 H Blood Pressure [Right Arm] 130/98 137/84 Blood Pressure Mean 120 Blood Pressure Mean [Right Arm] 108 101 Pulse Oximetry 99 99 95 Oxygen Delivery Method Room Air Room Air Room Air Sepsis Recent Fever Within 48 Hours No Sepsis New/Unexplained Change in Mental Status No Sepsis Action Taken by Nursing No Action Required 05/21/23 21:47 Temperature Temperature Source Pulse Rate Pulse Rate [Apical] 121 H Respiratory Rate 16 Respiratory Effort / Characteristics Respiratory Depth Respiratory Pattern Blood Pressure Blood Pressure [Right Arm] 140/105 H Blood Pressure Mean Blood Pressure Mean [Right Arm] 116 Pulse Oximetry 99 Oxygen Delivery Method Room Air Sepsis Recent Fever Within 48 Hours Sepsis New/Unexplained Change in Mental Status Sepsis Action Taken by Nursing Laboratory Data 05/21/23 20:20 05/21/23 20:20 Lab Results 05/21/23 Range/Units 20:20 WBC 6.78 (4.8-10.8) K/ul RBC 5.12 (4.70-6.10) M/uL Hgb 15.2 (14.0-18.0) g/dl Hct 44.4 (42.0-52.0) % MCV 86.7 (80.0-100.0) fL MCH 29.7 (25.0-34.0) pg MCHC 34.2 (32.0-36.0) g/dL RDW Std Deviation 42.5 (36.4-46.3) fL RDW Coeff of Maverick 13.4 (11.5-14.5) % Plt Count 183 (130-400) K/uL MPV 9.3 L (9.4-12.4) fL Immature Gran % (Auto) 0.1 % Neut % (Auto) 59.3 % Lymph % (Auto) 29.4 % [place] % (Auto) 8.4 % Eos % (Auto) 2.7 % Baso % (Auto) 0.1 % Neut # (Auto) 4.02 (1.40-6.50) K/uL Lymph # (Auto) 1.99 (1.20-3.40) K/uL [place] # (Auto) 0.57 (0.11-0.59) K/uL Eos # (Auto) 0.18 (0.00-0.50) K/uL Baso # (Auto) 0.01 (0.00-0.20) K/uL Immature Gran # (Auto) 0.01 (0.01-0.20) K/uL PT 11.1 (9.0-12.0) Seconds INR 1.0 (0.9-1.1) APTT 45.3 H* (21.0-31.0) Seconds PTT Ratio 1.6 Sodium 136 (136-145) mmol/L Potassium 3.7 (3.5-5.1) mmol/L Chloride 100 (98-107) mmol/L Carbon Dioxide 26 (21-32) mmol/L Anion Gap 10 (3-11) BUN 23 (6-23) mg/dl Creatinine 1.01 (0.6-1.4) mg/dl Est Cr Clr Drug Dosing 84.3 ml/min Est GFR ( Amer) 92.6 ml/min Est GFR (Non-Af Amer) 79.9 ml/min BUN/Creatinine Ratio 22.8 H (10-20) Glucose 217 H (70-99(Fasting)) mg/dl Calcium 10.0 (8.6-10.3) mg/dl Magnesium 1.9 (1.7-2.4) mg/dl Total Bilirubin 0.7 (0.2-1.0) mg/dl AST 28 (13-39) U/L ALT 35 (7-52) U/L Alkaline Phosphatase 100 (34-104) U/L Troponin I High Sens 4.0 (0-20) pg/ml Total Protein 8.0 (6.0-8.3) gm/dl Albumin 5.0 (3.4-5.0) gm/dl Globulin 3.0 (2.5-4.0) gm/dl Albumin/Globulin Ratio 1.7 (0.9-2) Administered Medications Discontinued Medications Diltiazem HCl (Diltiazem Hcl 5 Mg/Ml 5 Ml Vial) 10 mg IV NOW STA Stop: 05/21/23 21:13 Last Admin: 05/21/23 21:22 Dose: 10 mg Documented By: EVELYN Co-signed By: FERNANDO Potassium Chloride ([place] / Wtr) 10 meq in 100 mls @ 100 mls/hr IV ONE ONE Stop: 05/21/23 22:11 Last Admin: 05/21/23 21:23 Dose: 100 mls/hr Documented By: EVELYN Discharge Plan Visit Data Chief Complaint: Arrhythmia/Palpitations Stated Complaint: AFIB ED Provider: Chanel Chambers Discharge Problem: Atrial fibrillation with rapid ventricular response, Hypokalemia Forms Stand Alone Forms: [facility] Prescriptions Prescriptions: No Action pravastatin 10 mg tablet 10 mg PO QPM tamsulosin 0.4 mg capsule 0.4 mg PO DAILY ibuprofen [Advil] 200 mg Tablet 200 mg PO DIRECTED PRN (Reason: Pain) omeprazole 20 mg capsule,delayed release(DR/EC) 20 mg PO DAILY PreserVision AREDS-2 250-90-40-1 mg Capsule 1 tab PO DAILY sertraline 100 mg tablet 100 mg PO HS metformin 500 mg tablet extended release 24 hr 500 mg PO DAILY ciclopirox 8 % solution 1 applic TOPICAL DIRECTED Centrum Silver Tablet 1 tab PO DAILY guaifenesin 600 mg Tablet Extended Release 12hr 600 mg PO DAILY metoprolol succinate 25 mg tablet extended release 24 hr 25 mg PO DAILY Rx Instructions: PER PT "TOOK A SECOND DOSE THIS PM"05/21/23. Eliquis 5 mg tablet 5 mg PO AMHS propafenone 150 mg Tablet 150 mg PO TID 30 Days Qty: 90 0RF Referrals Referrals: Osiris Estrada CRNP [Primary Care Provider] -
[2023-05-21] MEDS ORDERED: STAT IV Infusion **Titration per Protocol STA (21:49)
[2023-05-21] MEDS ORDERED: dilTIAZem HCL 125 MG in DEXTROSE 5% 100 ML IV SCH (22:00)
--- NOTE | 2023-05-21 22:45 | XRay Report ---
XR chest 1V portable HISTORY: Chest pain, nonspecific COMPARISON: Chest 04/25/2023. FINDINGS: There are low lung volumes. A few bibasilar linear densities favor subsegmental atelectasis or scarring. Otherwise, lungs are clear. The heart remains mildly enlarged. No pleural effusions. No pneumothorax. No evidence for pulmonary edema. IMPRESSION: No significant change compared to the prior study. No acute process. ACT 112: Negative or not required by law. Electronically signed by: Jan Quijano M.D. 05/21/2023 10:43 PM
--- NOTE | 2023-05-22 01:19 | History & Physical Report ---
Date of Service May 22, 2023 Assessment & Plan (1) Atrial fibrillation with rapid ventricular response: Plan: 62-year-old male with past medical history significant for type 2 diabetes, hyperlipidemia, paroxysmal atrial fibrillation, history of sinus bradycardia, hypertension, history of oesophageal stricture, GERD, BPH, depression, generalized anxiety disorder, presents with palpitations and found to be in rapid A-fib. Rapid A-fib Er started on Cardizem drip which continued Continue home propoxyphene and metoprolol succinate and Eliquis Follow labs N.p.o. for now Cardiology consult in a.m. Later had long pause and converted to sinus rhythm. Stopped Cardizem. He was somewhat lightheaded when he had pause. Type 2 diabetes Hold metformin Insulin sliding scale Hyperlipidemia On statin Hypertension On metoprolol We will monitor BPH Flomax Depression GERD anxiety disorder On Zoloft GERD On omeprazole DVT prophylaxis On Eliquis Disposition Telemetry floor Full code History of Present Illness Chief Complaint: Rapid A-fib Primary Care Provider: TRINA Anglin 62-year-old male with past medical history significant for type 2 diabetes, hyperlipidemia, paroxysmal atrial fibrillation, history of sinus bradycardia, hypertension, history of oesophageal stricture, GERD, BPH, depression, generalized anxiety disorder, presents with palpitations and found to be in rapid A-fib. Patient was having palpitations at home when he checked initially was in sinus rhythm later was in A-fib. He took his extra dose of metoprolol and also took his propafenone but did not subsided so came to the ER. Currently is on Cardizem drip. Denies any chest pain. Was short of breath earlier. No fevers. No cough. No runny nose. No headaches. No nausea. No abdominal pain. Normal bowel and bladder movements. Stools where darker today. Currently resting comfortably and hemodynamic stable. Patient was recently in the hospital in April with rapid A-fib. At that time is his propafenone was increased to 150 mg 3 times daily and Toprol-XL was increased to twice daily. He followed outpatient with EP and is Toprol-XL was reduced back to once daily as he was having some side effects and also there is plan for ablation if happens again. Last admission he was tested COVID-positive on April 25. Currently has no COVID symptoms. Past medical history. As mentioned above. Past surgical history. Colonoscopy. Esophageal dilatation. Social history. No smoking. Alcohol occasional wine. No drug use. Family history. Father elevated cholesterol. Mother history of elevated cholesterol. Dementia. Osteoporosis. Allergies Allergy/AdvReac Type Severity Reaction Status Date / Time grass pollen Allergy Intermediate Rash Verified 05/21/23 21:06 Penicillins Allergy Unknown PT'S Verified 05/21/23 21:06 FATHER HAD SEVERE REACTION Home Medications Medication Instructions Recorded Confirmed Type ibuprofen 200 mg tablet (Advil) 200 mg PO DIRECTED PRN Pain 05/01/22 05/21/23 History omeprazole 20 mg capsule,delayed 20 mg PO DAILY 05/01/22 05/21/23 History release pravastatin 10 mg tablet 10 mg PO QPM 05/01/22 05/21/23 History tamsulosin 0.4 mg capsule 0.4 mg PO DAILY 05/01/22 05/21/23 History vit C 250 mg-vit E 90 mg-zinc 40 1 tab PO DAILY 05/01/22 05/21/23 History mg-copper 1 pe-qofgxh-grdvpp capsule (PreserVision AREDS-2) metformin 500 mg tablet,extended 500 mg PO DAILY 01/28/23 05/21/23 History release 24 hr sertraline 100 mg tablet 100 mg PO HS 01/28/23 05/21/23 History apixaban 5 mg tablet (Eliquis) 5 mg PO AMHS 04/26/23 05/21/23 History propafenone 150 mg tablet 150 mg PO TID 30 days #90 tabs 04/27/23 05/21/23 Rx ciclopirox 8 % topical solution 1 applic topical DIRECTED 05/21/23 05/21/23 History guaifenesin 600 mg tablet, 600 mg PO DAILY 05/21/23 05/21/23 History extended release 12 hr metoprolol succinate 25 mg 25 mg PO DAILY 05/21/23 05/21/23 History tablet,extended release 24 hr aukgfmkbnisn-xzqqurxv-akmcnm tablet 1 tab PO DAILY 05/21/23 05/21/23 History Past Med/Surg History Medical History A-fib Hyperlipidemia On apixaban therapy Surgical History No pertinent past surgical history Social History Smoking Status: Never smoker Second Hand Exposure: No; Do You Dip or Chew Tobacco: No; Tobacco Cessation Education Requested by Patient: No Hx Alcohol Use: No Hx Substance Use: No Preferred Language: Irish Communication Ability: Effective Refrigeration Brazer/Solderer Required: No Beliefs That Will Affect Care: None Current Living Situation: Family Current Living Situation Comment: lives with his brother Other Information That Helps Us Care for You: No Feels Safe at Home: No Is there a partner from a previous relationship who is making you feel unsafe now?: No Any Concerns about Your Family Situation: Yes (sibling turmoil causing stress) Would You Like to Speak to Someone About Your Situation: No Safety Concerns: Feels Safe At This Time Assistive Devices: None Review of Systems Review of Systems: All systems reviewed & are unremarkable except as noted in HPI & below Physical Exam Constitutional: General-Not in distress. Head- atraumatic Eyes- PERRL. ENT- oropharynx clear Neck- supple, no JVD. Lungs- clear to auscultation no wheezing or crackles. Heart- irregular rhythm; no murmur, no gallop. Abdomen- normal bowel sounds, soft, nontender, no distension. Extremities- no pretibial edema, no erythema seen. Neuro- alert, oriented x 3; PERRL, no facial palsy; no dysarthria. Skin- warm & dry Results & Data Results & Data Vital Signs (Past 12 Hours) Vital Signs Temp Pulse Pulse Resp BP BP Pulse Ox 05/22/23 00:00 127 H 14 135/93 98 05/21/23 23:30 128 H 16 136/93 99 05/21/23 23:00 102 H 18 133/98 99 05/21/23 22:55 97 H 18 137/87 100 05/21/23 22:31 104 H 22 115/98 100 05/21/23 21:47 121 H 16 140/105 H 99 05/21/23 21:19 117 H 18 137/84 95 05/21/23 20:32 121 H 18 130/98 99 05/21/23 20:30 138 H 05/21/23 20:11 36.7 C 130 H 20 169/96 H 99 O2 Del Method 05/22/23 00:00 Room Air 05/21/23 23:30 Room Air 05/21/23 23:00 Room Air 05/21/23 22:55 Room Air 05/21/23 22:31 Room Air 05/21/23 21:47 Room Air 05/21/23 21:19 Room Air 05/21/23 20:32 Room Air 05/21/23 20:30 05/21/23 20:11 Room Air Diagnostic Findings Laboratory Results WBC 6.78 K/ul (4.8-10.8) 05/21/23 20:20 RBC 5.12 M/uL (4.70-6.10) 05/21/23 20:20 Hgb 15.2 g/dl (14.0-18.0) 05/21/23 20:20 Hct 44.4 % (42.0-52.0) 05/21/23 20:20 MCV 86.7 fL (80.0-100.0) 05/21/23 20:20 MCH 29.7 pg (25.0-34.0) 05/21/23 20:20 MCHC 34.2 g/dL (32.0-36.0) 05/21/23 20:20 RDW Std Deviation 42.5 fL (36.4-46.3) 05/21/23 20:20 RDW Coeff of Maverick 13.4 % (11.5-14.5) 05/21/23 20:20 Plt Count 183 K/uL (130-400) 05/21/23 20:20 MPV 9.3 fL (9.4-12.4) L 05/21/23 20:20 Immature Gran % (Auto) 0.1 % 05/21/23 20:20 Neut % (Auto) 59.3 % 05/21/23 20:20 Lymph % (Auto) 29.4 % 05/21/23 20:20 [place] % (Auto) 8.4 % 05/21/23 20:20 Eos % (Auto) 2.7 % 05/21/23 20:20 Baso % (Auto) 0.1 % 05/21/23 20:20 Neut # (Auto) 4.02 K/uL (1.40-6.50) 05/21/23 20:20 Lymph # (Auto) 1.99 K/uL (1.20-3.40) 05/21/23 20:20 [place] # (Auto) 0.57 K/uL (0.11-0.59) 05/21/23 20:20 Eos # (Auto) 0.18 K/uL (0.00-0.50) 05/21/23 20:20 Baso # (Auto) 0.01 K/uL (0.00-0.20) 05/21/23 20:20 Immature Gran # (Auto) 0.01 K/uL (0.01-0.20) 05/21/23 20:20 PT 11.1 Seconds (9.0-12.0) 05/21/23 20:20 INR 1.0 (0.9-1.1) 05/21/23 20:20 APTT 45.3 Seconds (21.0-31.0) H* 05/21/23 20:20 PTT Ratio 1.6 05/21/23 20:20 Sodium 136 mmol/L (136-145) 05/21/23 20:20 Potassium 3.7 mmol/L (3.5-5.1) 05/21/23 20:20 Chloride 100 mmol/L (98-107) 05/21/23 20:20 Carbon Dioxide 26 mmol/L (21-32) 05/21/23 20:20 Anion Gap 10 (3-11) 05/21/23 20:20 BUN 23 mg/dl (6-23) 05/21/23 20:20 Creatinine 1.01 mg/dl (0.6-1.4) 05/21/23 20:20 Est Cr Clr Drug Dosing 84.3 ml/min 05/21/23 20:20 Est GFR ( Amer) 92.6 ml/min 05/21/23 20:20 Est GFR (Non-Af Amer) 79.9 ml/min 05/21/23 20:20 BUN/Creatinine Ratio 22.8 (10-20) H 05/21/23 20:20 Glucose 217 mg/dl (70-99(Fasting)) H 05/21/23 20:20 Calcium 10.0 mg/dl (8.6-10.3) 05/21/23 20:20 Magnesium 1.9 mg/dl (1.7-2.4) 05/21/23 20:20 Total Bilirubin 0.7 mg/dl (0.2-1.0) 05/21/23 20:20 AST 28 U/L (13-39) 05/21/23 20:20 ALT 35 U/L (7-52) 05/21/23 20:20 Alkaline Phosphatase 100 U/L (34-104) 05/21/23 20:20 Troponin I High Sens 4.0 pg/ml (0-20) 05/21/23 20:20 Total Protein 8.0 gm/dl (6.0-8.3) 05/21/23 20:20 Albumin 5.0 gm/dl (3.4-5.0) 05/21/23 20:20 Globulin 3.0 gm/dl (2.5-4.0) 05/21/23 20:20 Albumin/Globulin Ratio 1.7 (0.9-2) 05/21/23 20:20 Impressions Chest X-Ray 05/21/23 20:16 XR chest 1V portable HISTORY: Chest pain, nonspecific COMPARISON: Chest 04/25/2023. FINDINGS: There are low lung volumes. A few bibasilar linear densities favor subsegmental atelectasis or scarring. Otherwise, lungs are clear. The heart remains mildly enlarged. No pleural effusions. No pneumothorax. No evidence for pulmonary edema. IMPRESSION: No significant change compared to the prior study. No acute process. ACT 112: Negative or not required by law. Electronically signed by: Jan Quijano M.D. 05/21/2023 10:43 PM Code Status & VTE Plan VTE Prophylaxis Plan VTE Prophylaxis will be ordered: Yes
[2023-05-22] MEDS ORDERED: GLUCAGON FOR INJ 1 MG VIAL SQ PRN (03:30)
[2023-05-22] MEDS ORDERED: NITROGLYCERIN SL 0.4 MG/TAB TAB SL PRN (03:30)
[2023-05-22] MEDS ORDERED: POLYETHYLENE (MIRALAX) 17 GM PACK PO PRN (03:30)
[2023-05-22] MEDS ORDERED: CARBOHYDRATES FOR HYPOGLYCEMIA PO PRN (03:30)
[2023-05-22] MEDS ORDERED: GLUCOSE 40% GEL 15 GM TUBE PO PRN (03:30)
[2023-05-22] MEDS ORDERED: DEXTROSE 50% 50 ML SYRINGE IV PRN (03:30)
[2023-05-22] MEDS ORDERED: GLUCOSE 10 TAB/TUBE PO PRN (03:30)
[2023-05-22] MEDS ORDERED: ACETAMINOPHEN 325 MG TAB PO PRN (03:30)
[2023-05-22] MEDS: INSULIN ASPART PER UNIT CHARGE SC SCH ×3 (04:31→14:28)
[2023-05-22] MEDS ORDERED: PNEUMOCOCCAL VACCINE (PCV20) 20-VAL CONJ-DIP CRM/PF 0.5 ML SYR IM ONE (04:36)
[2023-05-22 04:54] LABS: Basophils # (auto) 0.02 K/uL (0.00-0.20); Basophils % (auto) 0.3 %; Eosinophils # (auto) 0.19 K/uL (0.00-0.50); Eosinophils % (auto) 2.9 %; Hematocrit (blood only) 41.4 % (42.0-52.0); Hemoglobin 14.6 g/dl (14.0-18.0); Immature Granulocytes # (auto) 0.02 K/uL (0.01-0.20); Immature Granulocytes % (auto) 0.3 %; Lymphocytes # (auto) 2.52 K/uL (1.20-3.40); Lymphocytes % (auto) 37.9 %; Mean Corpuscular Hemoglobin 29.7 pg (25.0-34.0); Mean Corpuscular Hgb Conc 35.3 g/dL (32.0-36.0); Mean Corpuscular Volume 84.1 fL (80.0-100.0); Mean Platelet Volume 9.1 fL (9.4-12.4); Neutrophils % (auto) 49.6 %; Platelet Count 169 K/uL (130-400); RDW Coefficient of Variation 13.5 % (11.5-14.5); RDW Standard Deviation 41.4 fL (36.4-46.3); Red Blood Count 4.92 M/uL (4.70-6.10); White Blood Count 6.65 K/ul (4.8-10.8)
[2023-05-22 05:00] LABS: Calcium 9.5 mg/dl (8.6-10.3); Creatinine Clr Calc Pharmacy 100.2 ml/min; Magnesium 2.1 mg/dl (1.7-2.4); Potassium 4.2 mmol/L (3.5-5.1)
[2023-05-22 05:04] LABS: Troponin I High Sensitivity 6.6 pg/ml (0-20)
[2023-05-22] MEDS ORDERED: PANTOprazole 40 MG TAB PO SCH (09:00)
[2023-05-22] MEDS ORDERED: APIXABAN 5 MG TABLET PO SCH (09:00)
[2023-05-22] MEDS ORDERED: TAMSULOSIN HCL 0.4 MG CAP PO SCH (09:00)
[2023-05-22] MEDS ORDERED: CEROVITE ADV FORMULA TAB PO SCH (09:00)
[2023-05-22] MEDS ORDERED: guaiFENesin 600 MG TABCR PO SCH (09:00)
[2023-05-22] MEDS ORDERED: METOPROLOL SUCC 25MG EXT REL TAB PO SCH (09:00)
[2023-05-22] MEDS ORDERED: NON-FORMULARY MEDICATION (Vit C,E-Zn-Coppr-Lutein-Zeaxan [Preservision Areds-2] 250-90-40- PO SCH (09:00)
[2023-05-22] MEDS: PROPAFENONE HCL 150 MG TABLET PO SCH ×2 (09:17→17:26)
--- NOTE | 2023-05-22 13:16 | Cardiology Consultation ---
Date of Consultation May 22, 2023 Assessment & Plan (1) Paroxysmal atrial fibrillation with rapid ventricular response: * highly symptomatic recurrent AF , RVR * now in SR after conversion on dilitazem infusion * advance diet * Stable for discharge in [employer] dose of metoprolol, propafenone, and eliquis. * add KCL 10 meq daily. Outpt EP follow up with Dr Gray. PVI ablation has previously been discussed. History of Present Illness Attending Physician: Gabe Carney MD History of Present Illness Mr Puckett is a 62 year male seen in cardiology consultation per the request of Dr Heaton for the evaluation of atrial fibrillation. He states he was feeling relatively well until just after 6 PM last evening when he started noticing some flutters. He had a shower and a snack and by 730 his symptoms progressed and he noted a rapid and irregular heart rate on his home pvc monitor. He presented to the emergency department and his initial EKG which was performed last evening at 20: 18 hours revealed atrial fibrillation with rapid ventricular response at 124 bpm with mild nonspecific repolarization changes. The patient was noted to have a potassium level of 3.7 mmol/L. He received a dose of IV potassium replacement and was placed on IV diltiazem with a 10 mg bolus followed by an infusion and at 2:05 AM he spontaneously converted to sinus rhythm and remains in sinus rhythm in the 60s. This is the patient's fourth recent hospital stay in the last calendar year at this institution for atrial fibrillation having been assessed in April,, he underwent direct-current cardioversion in January,, and presented again in April,. At the time of his most recent visit last month he had been counseled to increase his metoprolol to 25 mg twice daily however this was met with debilitating fatigue and in the meantime he had reduced his dose back to its previous dose of 25 mg 1 time per day. In the past he had been on extended release propafenone on a 2 time per day schedule. Due to a change in his insurance however due to cost concerns that he had to transition to short acting propafenone which he is to take 150 mg 3 times per day and he notes that he has been used to the 2 times per day regimen for so long but sometimes he has missed the middle of the day dose. Allergies Allergy/AdvReac Type Severity Reaction Status Date / Time grass pollen Allergy Intermediate Rash Verified 05/21/23 21:06 Penicillins Allergy Unknown PT'S Verified 05/21/23 21:06 FATHER HAD SEVERE REACTION Home Medications Medication Instructions Recorded Confirmed Type ibuprofen 200 mg tablet (Advil) 200 mg PO DIRECTED PRN Pain 05/01/22 05/21/23 History omeprazole 20 mg capsule,delayed 20 mg PO DAILY 05/01/22 05/21/23 History release pravastatin 10 mg tablet 10 mg PO QPM 05/01/22 05/21/23 History tamsulosin 0.4 mg capsule 0.4 mg PO DAILY 05/01/22 05/21/23 History vit C 250 mg-vit E 90 mg-zinc 40 1 tab PO DAILY 05/01/22 05/21/23 History mg-copper 1 up-affpsb-neygtl capsule (PreserVision AREDS-2) metformin 500 mg tablet,extended 500 mg PO DAILY 01/28/23 05/21/23 History release 24 hr sertraline 100 mg tablet 100 mg PO HS 01/28/23 05/21/23 History apixaban 5 mg tablet (Eliquis) 5 mg PO AMHS 04/26/23 05/21/23 History propafenone 150 mg tablet 150 mg PO TID 30 days #90 tabs 04/27/23 05/21/23 Rx ciclopirox 8 % topical solution 1 applic topical DIRECTED 05/21/23 05/21/23 History guaifenesin 600 mg tablet, 600 mg PO DAILY 05/21/23 05/21/23 History extended release 12 hr metoprolol succinate 25 mg 25 mg PO DAILY 05/21/23 05/21/23 History tablet,extended release 24 hr spyxqmktnayw-witogoos-vihefh tablet 1 tab PO DAILY 05/21/23 05/21/23 History Patient History Medical History Hyperlipidemia On apixaban therapy A-fib Surgical History No pertinent past surgical history Social History Smoking Status: Never smoker Second Hand Exposure: No; Do You Dip or Chew Tobacco: No; Tobacco Cessation Education Requested by Patient: No Hx Alcohol Use: No Hx Substance Use: No Preferred Language: Turkmen Communication Ability: Effective Needle Grader Required: No Beliefs That Will Affect Care: None Current Living Situation: Family Current Living Situation Comment: lives with his brother Other Information That Helps Us Care for You: No Feels Safe at Home: No Is there a partner from a previous relationship who is making you feel unsafe now?: No Any Concerns about Your Family Situation: Yes (sibling turmoil causing stress) Would You Like to Speak to Someone About Your Situation: No Safety Concerns: Feels Safe At This Time Assistive Devices: None Review of Systems Review of Systems: All systems reviewed & are unremarkable except as noted in HPI & below Physical Exam Constitutional: WD/WN, vitals as above Eyes: PERRL, conjunctivae normal, anicteric sclerae Respiratory: normal respiratory effort, lungs clear to auscultation Cardiovascular: RRR, no murmur, no edema Gastrointestinal (Abdomen): normal bowel sounds, soft, nontender, no hepatosplenomegaly Neurologic: PERRL, EOMI, accommodation nl, no face palsy, no dysarthria Results & Data Vital Signs (Past 12 Hours) Vital Signs Temp Pulse Pulse Resp BP BP Pulse Ox 05/22/23 09:15 36.8 C 63 16 106/55 L 97 05/22/23 06:57 62 05/22/23 06:00 104/59 L 05/22/23 06:00 66 18 97 05/22/23 05:30 64 12 97 05/22/23 05:00 94/56 L 05/22/23 05:00 70 18 98 05/22/23 04:30 66 18 99 05/22/23 04:00 120/79 05/22/23 04:00 66 15 97 05/22/23 03:30 66 13 96 05/22/23 03:00 124/79 05/22/23 03:00 63 21 98 05/22/23 02:30 60 22 99 05/22/23 02:27 120/72 05/22/23 02:27 57 L 19 99 05/22/23 02:05 0 L 05/22/23 02:00 119/66 05/22/23 02:00 65 16 98 05/22/23 01:30 111/59 L 05/22/23 01:30 79 15 97 O2 Del Method 05/22/23 09:15 Room Air 05/22/23 06:57 05/22/23 06:00 05/22/23 06:00 05/22/23 05:30 05/22/23 05:00 05/22/23 05:00 05/22/23 04:30 05/22/23 04:00 05/22/23 04:00 05/22/23 03:30 05/22/23 03:00 05/22/23 03:00 05/22/23 02:30 05/22/23 02:27 05/22/23 02:27 05/22/23 02:05 05/22/23 02:00 05/22/23 02:00 05/22/23 01:30 05/22/23 01:30 Laboratory Results Cardiac Enzymes 05/21/23 05/22/23 05/22/23 Range/Units 20:20 04:29 10:55 AST 28 (13-39) U/L Troponin I High Sens 4.0 6.6 5.3 (0-20) pg/ml Coagulation 05/21/23 Range/Units 20:20 PT 11.1 (9.0-12.0) Seconds APTT 45.3 H* (21.0-31.0) Seconds CBC 05/21/23 05/22/23 Range/Units 20:20 04:29 WBC 6.78 6.65 (4.8-10.8) K/ul RBC 5.12 4.92 (4.70-6.10) M/uL Hgb 15.2 14.6 (14.0-18.0) g/dl Hct 44.4 41.4 L (42.0-52.0) % Plt Count 183 169 (130-400) K/uL Neut # (Auto) 4.02 3.30 (1.40-6.50) K/uL Lymph # (Auto) 1.99 2.52 (1.20-3.40) K/uL Emery # (Auto) 0.57 0.60 H (0.11-0.59) K/uL Eos # (Auto) 0.18 0.19 (0.00-0.50) K/uL Baso # (Auto) 0.01 0.02 (0.00-0.20) K/uL Comprehensive Metabolic Panel 05/21/23 05/22/23 Range/Units 20:20 04:29 Sodium 136 139 (136-145) mmol/L Potassium 3.7 4.2 (3.5-5.1) mmol/L Chloride 100 108 H (98-107) mmol/L Carbon Dioxide 26 24 (21-32) mmol/L BUN 23 17 (6-23) mg/dl Creatinine 1.01 0.85 (0.6-1.4) mg/dl Glucose 217 H 123 H (70-99(Fasting)) mg/dl Calcium 10.0 9.5 (8.6-10.3) mg/dl AST 28 (13-39) U/L ALT 35 (7-52) U/L Alkaline Phosphatase 100 (34-104) U/L Total Protein 8.0 (6.0-8.3) gm/dl Albumin 5.0 (3.4-5.0) gm/dl Intake and Output 05/21/23 05/22/23 05/22/23 22:59 06:59 14:59 Intake Total 100 / 128.083 28.083 / 128.083 Balance 100 / 128.083 28.083 / 128.083 Intake: IV 100 / 128.083 28.083 / 128.083 Potassium Chloride / Wtr 10 meq 100 / 100 In 100 ml @ 100 mls/hr IV ONE ONE Rx#:[id number] dilTIAZem HCL 125 mg In 28.083 / 28.083 Dextrose 5% 100 ml @ 5 MG/HR 5 mls/hr IV .Q24H [facility] Rx#: [id number] Other: Weight 90.7 kg 90.9 kg Weight Measurement Method Built in [facility] Diagnostic Findings TTecho: LVEF 60-65% , borderline concentric LVH mild MR, Mild TR EKG at 2:24 am: sinus bradycardia incomplete RBBB, QTc 384 ms.
--- NOTE | 2023-05-22 14:11 | Discharge Summary ---
Date of Service May 22, 2023 Admission HPI Per Admitting Provider 62-year-old male with past medical history significant for type 2 diabetes, hyperlipidemia, paroxysmal atrial fibrillation, history of sinus bradycardia, hypertension, history of oesophageal stricture, GERD, BPH, depression, generalized anxiety disorder, presents with palpitations and found to be in rapid A-fib. Patient was having palpitations at home when he checked initially was in sinus rhythm later was in A-fib. He took his extra dose of metoprolol and also took his propafenone but did not subsided so came to the ER. Currently is on Cardizem drip. Denies any chest pain. Was short of breath earlier. No fevers. No cough. No runny nose. No headaches. No nausea. No abdominal pain. Normal bowel and bladder movements. Stools where darker today. Currently resting comfortably and hemodynamic stable. Patient was recently in the hospital in April with rapid A-fib. At that time is his propafenone was increased to 150 mg 3 times daily and Toprol-XL was increased to twice daily. He followed outpatient with EP and is Toprol-XL was reduced back to once daily as he was having some side effects and also there is plan for ablation if happens again. Last admission he was tested COVID-positive on April 25. Currently has no COVID symptoms. Past medical history. As mentioned above. Past surgical history. Colonoscopy. Esophageal dilatation. Social history. No smoking. Alcohol occasional wine. No drug use. Family history. Father elevated cholesterol. Mother history of elevated cholesterol. Dementia. Osteoporosis. Admission Exam Per Admitting Provider General-Not in distress. Head- atraumatic Eyes- PERRL. ENT- oropharynx clear Neck- supple, no JVD. Lungs- clear to auscultation no wheezing or crackles. Heart- irregular rhythm; no murmur, no gallop. Abdomen- normal bowel sounds, soft, nontender, no distension. Extremities- no pretibial edema, no erythema seen. Neuro- alert, oriented x 3; PERRL, no facial palsy; no dysarthria. Skin- warm & dry Principal Diagnosis Afib w/ RVR Discharge Exam General- elderly WD/WN in NAD Head- atraumatic Eyes- PERRL. ENT- oropharynx clear Neck- supple, no JVD. Lungs- clear to auscultation no wheezing or crackles. Heart- RRR; no murmur, no gallop. Abdomen- normal bowel sounds, soft, nontender, no distension. Extremities- no pretibial edema, no erythema seen. Neuro- alert, oriented x 3; PERRL, no facial palsy; no dysarthria, moves extremities. Skin- warm & dry Discharge Data Allergies Allergy/AdvReac Type Severity Reaction Status Date / Time grass pollen Allergy Intermediate Rash Verified 05/21/23 21:06 Penicillins Allergy Unknown PT'S Verified 05/21/23 21:06 FATHER HAD SEVERE REACTION Consultations 05/21/23 22:12 ED Decision to Admit Stat 05/22/23 08:00 Consult Cardiology Routine Hospital Course (1) Atrial fibrillation with rapid ventricular response: 62-year-old male with past medical history significant for type 2 diabetes, hyperlipidemia, paroxysmal atrial fibrillation, history of sinus bradycardia, hypertension, history of oesophageal stricture, GERD, BPH, depression, generalized anxiety disorder, presents with palpitations and found to be in rapid A-fib. Rapid A-fib ER started on Cardizem drip -> patient converted to NSR Continue home propoxyphene and metoprolol succinate and Eliquis Cardiology consulted and discussed with - plan to discharge home on home medications. Add potassium supplement. Close follow up with Dr. Gray - EP cardiology. 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 Gray. You will be contacted about the appointment. Continue your current medications as prescribed - metoprolol succinate 25 mg daily, propafenone 150 mg three times a day and eliquis 5 mg twice a day. In addition, it was recommended to take potassium supplement - take it as prescribed. Pending Studies at Discharge: No Stand-Alone Forms: My [facility], Smoking Cessation Medications and DC Order Prescriptions: New potassium chloride 10 mEq Tablet,Er Particles/Crystals 10 meq PO DAILY Qty: 30 0RF Continued pravastatin 10 mg tablet 10 mg PO QPM tamsulosin 0.4 mg capsule 0.4 mg PO DAILY ibuprofen [Advil] 200 mg Tablet 200 mg PO DIRECTED PRN (Reason: Pain) omeprazole 20 mg capsule,delayed release(DR/EC) 20 mg PO DAILY PreserVision AREDS-2 250-90-40-1 mg Capsule 1 tab PO DAILY sertraline 100 mg tablet 100 mg PO HS metformin 500 mg tablet extended release 24 hr 500 mg PO DAILY ciclopirox 8 % solution 1 applic TOPICAL DIRECTED Centrum Silver Tablet 1 tab PO DAILY guaifenesin 600 mg Tablet Extended Release 12hr 600 mg PO DAILY metoprolol succinate 25 mg tablet extended release 24 hr 25 mg PO DAILY Rx Instructions: PER PT "TOOK A SECOND DOSE THIS PM"05/21/23. Eliquis 5 mg tablet 5 mg PO AMHS propafenone 150 mg Tablet 150 mg PO TID 30 Days Qty: 90 0RF Discharge Orders: Discharge Order (Routine); Ordered 05/22/23 Ordered By: Gabe Carney Admission Data Admit Date/Time: 05/22/23 01:07 Attending Provider: Gabe Carney Admit Provider: Jaspreet Heaton Primary Care Provider: Osiris Estrada Other Providers: Jaspreet Heaton; Aristeo Cuello
[2023-05-22] MEDS ORDERED: SERTRALINE HCL 100 MG TABLET PO SCH (21:00)
[2023-05-22] MEDS ORDERED: PRAVASTATIN SOD 10 MG TAB PO SCH (21:00)
--- NOTE | 2023-05-23 05:57 | Electrocardiogram Report ---
Test Reason : Blood Pressure : / mmHG Vent. Rate : 124 BPM Atrial Rate : 000 BPM P-R Int : 000 ms QRS Dur : 092 ms QT Int : 274 ms P-R-T Axes : 000 -25 038 degrees QTc Int : 393 ms Atrial fibrillation with rapid ventricular response Nonspecific ST abnormality Abnormal ECG When compared with ECG of 27-APR-2023 05:09, Atrial fibrillation has replaced Sinus rhythm Vent. rate has increased BY 61 BPM T wave inversion no longer evident in Inferior leads Confirmed by Caleb Avila ([id number]) on 05/23/2023 5:56:51 AM Referred By: REFERRED SELF Confirmed By:Caleb Avila
--- NOTE | 2023-05-23 06:03 | Electrocardiogram Report ---
Test Reason : Blood Pressure : / mmHG Vent. Rate : 058 BPM Atrial Rate : 058 BPM P-R Int : 172 ms QRS Dur : 098 ms QT Int : 392 ms P-R-T Axes : 013 -31 007 degrees QTc Int : 384 ms Sinus bradycardia Left axis deviation Incomplete right bundle branch block Anterior infarct , age undetermined Abnormal ECG When compared with ECG of 27-APR-2023 05:09, No significant change was found Confirmed by Caleb Avila ([id number]) on 05/23/2023 6:02:48 AM Referred By: REFERRED SELF Confirmed By:Caleb Avila
[2023-05-23] MEDS ORDERED: POTASSIUM CHLORIDE 10 MEQ TABCR PO SCH (09:00)
--- OUTSIDE RECORDS SUMMARY | 2023-05-24 21:31 | External Medical Summary | Summary of Care ---
Author Name Unknown Organization [facility] Address [address] [place] [address] Phone [phone] Care Team Providers Care Catapult And Arresting Gear Officer Name Role Phone Osiris Estrada Tawanna TRINA Primary Care Provider Reason for Visit * Reason Onset Date Comments [facility] Care Coordination Services 05/19/2023 Encounter Details Date Type Department Care Team (Late st Contact Info) Description 05/19/2023 Telephone Care Coordination [address], [place] [id number] Kendra Bahena, [facility] Aircraft Refueler [address], [place] [phone] [facility] Care Coordination Services Allergies Active Allergy Reactions Criticality Noted Date Comments Pollen 01/31/2023 Grass pollen - rash Penicillins 05/25/2006 Father was allergic Other Reaction(s): PT'S FATHER HAD SEVERE REACTION documented as of this encounter (statuses as of 05/19/2023) Medications Medication Sig Dispensed Refills Start Date End Date Status Multiple Vitamins-Minerals (PRESERVISION AREDS 2) Capsule Take 1 Capsule by mouth at bedtime. 0 Active Ibuprofen 200 MG Oral Tablet Take 1 Tablet by mouth every 4 hours as needed for Pain. 0 Active Tamsulosin HCl 0.4 MG Oral Capsule (Flomax)Indication s:Urinary urgency,Weak urinary stream,Nocturia TAKE 1 CAPSULE BY MOUTH EVERY DAY IN THE MORNING 90 Capsule 3 06/23/2022 Active Additional Information Patient taking differently: HS, Reported on 04/04/2023 Ciclopirox 8 % External Solution Apply over nail and surrounding skin. Apply daily over previous coat. After seven (7) days, may remove with alcohol and continue cycle. 6.6 mL 3 12/23/2022 Active Sertraline HCl 100 MG Oral Tablet (Zoloft) Take 1.5 Tablets by mouth in the morning. 90 Tablet 3 12/23/2022 Active Additional Information Patient taking differently:150 mg OralHS, Reported on 04/04/2023 Omeprazole 20 MG Oral Capsule Delayed Release (PriLOSEC)Indicati ons:Esophageal stricture TAKE 1 CAPSULE BY MOUTH EVERY DAY 90 Capsule 3 01/12/2023 Active Additional Information Patient taking differently: HS, Reported on 04/04/2023 Eliquis 5 MG Oral Tablet Take 1 Tablet by mouth in the morning and 1 Tablet before bedtime. 180 Tablet 1 03/04/2023 Active Propafenone HCl 150 MG Oral Tablet (Rythmol)Indicatio ns:PAF (paroxysmal atrial fibrillation) (HCC) TAKE 1 TABLET BY MOUTH IN THE MORNING AND 1 TABLET AT AT NOON AND 1 TABLET BEFORE BEDTIME 270 Tablet 3 03/19/2023 Active Centrum Silver 50+Men Oral TabletIndications: in am Take by mouth. 0 Active metFORMIN HCl ER 500 MG Oral Tablet Extended Release 24 Hour (Glucophage XR) TAKE 1 TABLET BY MOUTH EVERY DAY IN THE MORNING 90 Tablet 1 04/29/2023 Active Pravastatin Sodium 10 MG Oral Tablet (Pravachol)Indicat ions:Dyslipidemia, goal LDL below 100 TAKE ONE TABLET BY MOUTH EVERY DAY FOR CHOLESTEROL 90 Tablet 1 04/29/2023 Active guaiFENesin ER 600 MG Oral Tablet Extended Release 12 Hour (Humibid LA) 1 Tablet. 0 04/27/2023 Active Metoprolol Succinate ER 25 MG Oral Tablet Extended Release 24 Hour (toPROL XL)Indications:PAF (paroxysmal atrial fibrillation) (HCC) Take 1 Tablet by mouth daily. 90 Tablet 3 05/10/2023 Active documented as of this encounter (statuses as of 05/19/2023) Active Problems Problem Noted Date Diagnosed Date Atrial fibrillation with RVR 05/03/2023 COVID-19 virus infection 05/03/2023 Hypokalemia 02/03/2023 Hospital discharge follow-up 02/03/2023 Type 2 diabetes mellitus without complication Severe episode of recurrent major depressive disorder, without psychotic features 11/23/2022 Essential (primary) hypertension 11/23/2022 Moderate episode of recurrent major depressive d isorder 05/11/2022 Type 2 diabetes mellitus wit h diabetic mononeuropathy, without long-term current use of insulin 05/11/2022 ASHISH (generalized anxiety disorder) 03/19/2021 Need for prophylactic vaccin ation and inoculation against influenza 03/19/2021 Gastroesophageal reflux disease without esophagi tis 03/19/2021 BPH with obstruction/lower urinary tract symptom s 02/19/2020 Bradycardia, sinus 04/20/2019 Incomplete RBBB 04/20/2019 PAF (paroxysmal atrial fibrillation) 10/08/2016 Depression 05/10/2012 Dyslipidemia, goal LDL below 100 10/24/2009 Esophageal stricture documented as of this encounter (statuses as of 05/19/2023) Resolved Problems Problem Noted Date Diagnosed Date Resolved Date Prediabetes 03/18/2020 05/11/2022 Overview: Per Prediabetes protocol Metabolon Quantose IR Resear Study*[id number] 02/06/2014 05/01/2014 Overview: METABOLON QUANTOSE IR STUDY. PROJECT: #[id number], PROGRAM ARRANGER: Hector Lundy MD/ Monty Guzman MD. SUMMARY: The Use of a Novel Insulin Resistance Test as a Monitoring Indicator of Glycemic Control in Prediabetics and Diabetics treated with metformin combined with lifestyle intervention. CONTACTS: During normal business hours, contact Medina Ruano RN, BSN at ; after hours Sterile Tech via the [facility] head stock operator Dyslipidemia, goal to be determined 06/26/2009 10/24/2009 Overview: Per Lipid Taxonomy. PURE HYPERCHOLESTEROLEM 06/10 Overview: Per Lipid Taxonomy. documented as of this encounter (statuses as of 05/19/2023) Immunizations Name Administration Dates Next Due COVID-19 mRNA, LNP-s, No Pre serve, 2-Dose Series ([employer]) 06/17/2021,10/01/2020,09/10/2020 Covid-19, Mrna, Lnp-s, Pf, B ivalent, 30 Mcg, IM, 12 yrs and above (Pfizer) 05/26/2022 SEASONAL INFLUENZA, PF, 6 M & Above, IM , (FLULAVAL or FLUZONE) 03/25/2023,03/19/2021,04/12/2020,2018,04/14/2018 Seasonal Influenza Virus Vac cine, Unspecified Formulation 05/05/2022,03/19/2021,04/27/2020,2019,03/30/2019,04/14/2018,03/22/2017,1 ,03/20/2014,08/13/2013, 012,04/10/2011,05/29/2007,05/25/2006,,07/25/2002 Seasonal Influenza, Quadriva lent, No Preserve, IM 03/22/2017,04/14/2016,04/22/2015 Seasonal Influenza, Split, I IV3, With Preserve, Inj 03/20/2014,08/13/2013,03/25/2012,2010,05/29/2007,05/25/2006 TD, Preservative Free 05/11/2022,09/22/2001 TDAP (age 11 and older)(Adacel) 09/21/2011 Varicella Zoster Vaccine (Adult) 06/20/2015 documented as of this encounter Social History Tobacco Use Types Packs/Day Years Used Date Smoking Tobacco: Never Smokeless Tobacco: Never Alcohol Use Standard Drinks/Week Comments Yes 0 (1 standard drink = 0.6 oz pur e alcohol) occ wine PHQ-2 Answer Date Recorded PHQ Adult Total Score 0 11/23/2022 Hunger Vital Sign Answer Date Recorded Within the past 12 months, y ou worried that your food would run out before you got the money to buy more. Never true 12/10/19 23 Within the past 12 months, t he food you bought just didn't last and you didn't have money to get more. Never true 12/09/2022 Sex and Gender Information Value Date Recorded Sex Assigned at Male 03/18/2021 12:55 PM EDT Gender Identity Male 03/18/2021 12:55 PM EDT Sexual Orientation Straight 03/18/2021 12 :55 PM EDT Job Start Date Occupation Industry Not on file Not on file Not on file documented as of this encounter Miscellaneous Notes * Telephone Encounter - Kendra Bahena, [facility] Aircraft Refueler - 05/19/2023 2:22 PM EST PAULINO-A: - Disenrolling from [facility]. Enrollment completed. GOLDIE Gaston PAULINO-A [phone] documented in this encounter Plan of Treatment Upcoming Encounters Date Type Department Care Team (Late st Contact Info) Description 06/24/2023 1:00 PM EST Office Visit Family [facility] [address] [facility] [place] [address] Osiris Estrada CRNP [address] [facility] [place] [address] 08/03/2023 2:20 PM EST Office Visit [facility] [place] [address] Osiris Estrada CRNP [address] [facility] [place] [address] 08/09/2023 2:30 PM EST Office Visit Cardiology, [facility] [address] [facility] [place] [address] Cyndi Corbett CRNP [address] [place] [address] 01/05/2024 3:00 PM EDT Office Visit Allergy/Immunology [facility] [place] [address] [place] [address] Ian Schilling MD [address] [place] [address] Scheduled Procedures Name Priority Associated Diagnoses Date/Ti me COLONOSCOPY FLEXIBLE PROXIMA L DIAGNOSTIC Recall History of colonic polyps Health Maintenance Due Date Last Done Comments Pneumococcal Vaccine: Pediatrics (0 to 5 Years) and At-Risk Patients (6 to 64 Years) (1 - PCV) 11/06/1967 Diabetic Foot Exam 11/06/1979 Zoster Vaccines (2 of 3) 08/15/2015 06/20/2015 Hepatitis B (1 of 3 - Risk 3-dose series) 2021 COVID-19 Vaccine ( - season) 2023 05/26/2022, 06/17/2021, 10/01/2020, Additional history exists HbA1c 05/26/2023 11/23/2022, 090 03/2021, 02/22/2020, Additional history exists Albumin/Creatinine Ratio 11/24/2023 11/23/2022 Depression Screening 11/24/2023 11/23/2022, 10/22/19 15 GFR 02/04/2024 02/03/2023, 11/08, 03/19/2021, Additional history exists Diabetic Eye Exam 05/03/2024 05/03/2023, 05/11/2022 Lipid Panel 11/24/2027 11/23/2022, 09/0 03/2021, 02/22/2020, Additional history exists COLONOSCOPY-EVERY 5 YRS AGES 18-100 04/05/2028 04/05/2023, 04/05/2023, 11/29/2011 DTaP,Tdap,and Td Vaccines (3 - Td or Tdap) 05/11/2032 05/11/2022, 09/21/2011, 09/22/2001, Additional history exists Influenza Vaccine (FLU shot) Completed 03/25/2023, 05/05/2022, 03/19/2021, Additional history exists Colonoscopy Discontinued 04/05/2023, 03/12, 11/29/2011 Colorectal Cancer Screening Discontinued Fecal Occult Blood Test Discontinued 04/07/2023 Cologuard Discontinued GARDASIL-HPV IMMUNIZATION SERIES Aged Out No longer eligible based on patient's age to complete this topic MENINGOCOCCAL (MENACTRA/MENVEO) Aged Out No longer eligible based on patient's age to complete this topic Sigmoidoscopy Discontinued documented as of this encounter Medical Devices Not on filedocumented as of this encounter Care Teams Catapult And Arresting Gear Officer Relationship Specialty Start Date End Date Osiris Estrada CRNP [address] [place] [address] PCP - General Nurse Practitioner 12/03/21 documented as of this encounter
--- OUTSIDE RECORDS SUMMARY | 2023-05-24 21:32 | External Medical Summary | Summary of Care ---
Author Name Unknown Organization [facility] Address [address] [place] [address] Phone [phone] Care Team Providers Care Inspector Aide Name Role Phone Osiris Estrada Tawanna TRINA Primary Care Provider Encounter Details Date Type Department Care Team Description 04/29/2023 Computer Field Technician Care Coordination [address], [place] [phone] Renee Yusuf LPN [address] [place], [place] [phone] Medical home patient encounter* Allergies Active Allergy Reactions Severity Noted Date Comments Pollen 01/31/2023 Grass pollen - rash Penicillins 05/25/2006 Father was allergic Other Reaction(s): PT'S FATHER HAD SEVERE REACTION documented as of this encounter (statuses as of 04/29/2023) Medications Medication Sig Dispensed Refills Start Date End Date Status Multiple Vitamins-Minerals (PRESERVISION AREDS 2) Capsule Take 1 Capsule by mouth at bedtime. 0 Active Ibuprofen 200 MG Oral Tablet Take 1 Tablet by mouth every 4 hours as needed for Pain. 0 Active Tamsulosin HCl 0.4 MG Oral Capsule (Flomax)Indications: Urinary urgency,Weak urinary stream,Nocturia TAKE 1 CAPSULE BY [...] Omeprazole 20 MG Oral Capsule Delayed Release (PriLOSEC)Indication s:Esophageal stricture TAKE 1 CAPSULE BY MOUTH EVERY DAY 90 Capsule 3 01/12/2023 Active Additional Information Patient taking differently: HS, Reported on 04/04/2023 Metoprolol Succinate ER 25 MG Oral Tablet Extended Release 24 Hour (toPROL XL)Indications:PAF (paroxysmal atrial fibrillation) (HCC) TAKE 1 TABLET BY MOUTH EVERY DAY 90 Tablet 3 01/14/2023 Active Additional Information Patient taking differently: HS, Reported on 04/04/2023 Eliquis 5 MG Oral Tablet Take 1 Tablet by mouth in the morning and 1 Tablet before bedtime. 180 Tablet 1 03/04/2023 Active Propafenone HCl 150 MG Oral Tablet (Rythmol)Indications :PAF (paroxysmal atrial fibrillation) (HCC) TAKE 1 TABLET BY MOUTH IN THE MORNING AND 1 TABLET AT AT NOON AND 1 TABLET BEFORE BEDTIME 270 Tablet 3 03/19/2023 Active diazePAM 5 MG Oral Tablet (Valium)Indications: Memory loss,Balance disorder Take 1 Tablet by mouth every 6 hours as needed for Anxiety. TAKE 1 TABLET 30-60 MINUTES BEFORE PROCEDURE 1 Tablet 0 03/25/2023 Active Additional Information Patient not taking.Reported on 04/04/2023 Zoster Vac Recomb Adjuvanted 50 MCG/0.5ML Intramuscular Suspension Reconstituted (Shingrix) Inject 0.5 mL into a large muscle now and repeat dose in 60 to 180 days 1 Each 1 03/25/2023 Active Centrum Silver 50+Men Oral TabletIndications:in am Take by mouth. 0 Active metFORMIN HCl ER 500 MG Oral Tablet Extended Release 24 Hour (Glucophage XR) TAKE 1 TABLET BY MOUTH EVERY DAY IN THE MORNING 90 Tablet 1 04/29/2023 Active Pravastatin Sodium 10 MG Oral Tablet (Pravachol)Indicatio ns:Dyslipidemia, goal LDL below 100 TAKE ONE TABLET BY MOUTH EVERY DAY FOR CHOLESTEROL 90 Tablet 1 04/29/2023 Active guaiFENesin ER 600 MG Oral Tablet Extended Release 12 Hour (Humibid LA) 1 Tablet. 0 04/27/2023 Active documented as of this encounter (statuses as of 04/29/2023) Active Problems Problem Noted Date Hypokalemia 02/03/2023 Type 2 diabetes mellitus without complic ation 11/23/2022 Severe episode of recurrent major depressive disorder, without psychotic features 11/23/2022 Essential (primary) hypertension 023 Moderate episode of recurrent major depr essive disorder 05/11/2022 Type 2 diabetes mellitus wit h diabetic mononeuropathy, without long-term current use of insulin 05/11/2022 ASHISH (generalized anxiety disorder) 03/19 Need for prophylactic vaccination and in oculation against influenza 03/19/2021 Gastroesophageal reflux disease without esophagitis 03/19/2021 BPH with obstruction/lower urinary tract symptoms 02/19/2020 Bradycardia, sinus 04/20/2019 Incomplete RBBB 04/20/2019 PAF (paroxysmal atrial fibrillation) Depression 05/10/2012 Dyslipidemia, goal LDL below 100 010 Esophageal stricture documented as of this encounter (statuses as of 04/29/2023) Resolved Problems Problem Noted Date Resolved Date Hospital discharge follow-up 02/03/2023 Prediabetes 03/18/2020 05/11/2022 Overview: Per Prediabetes protocol Metabolon Quantose IR Research Study*[id number] 02/06/2014 05/01/2014 Overview: METABOLON QUANTOSE IR STUDY. PROJECT: #[id number], MUSKRAT TRAPPER: Hector Lundy MD/ Monty Guzman MD. SUMMARY: The Use of a Novel Insulin Resistance Test as a Monitoring Indicator of Glycemic Control in Prediabetics and Diabetics treated with metformin combined with lifestyle intervention. CONTACTS: During normal business hours, contact Medina Ruano RN, BSN at ; after hours Hogshead Stripper via the [facility] hospital laser printing operator Dyslipidemia, goal to be determined 06/26/2009 10/24/2009 Overview: Per Lipid Taxonomy. PURE HYPERCHOLESTEROLEM 06/26/20 Overview: Per Lipid Taxonomy. documented as of this encounter (statuses as of 04/29/2023) Immunizations Name Administration Dates Next Due COVID-19 mRNA, LNP-s, No Pre serve, 2-Dose Series (Pfizer) 06/17/2021,10/01/2020,09/10/2020 Covid-19, Mrna, Lnp-s, Pf, B ivalent, [...] 0.6 oz pur e alcohol) occ wine Food Insecurity Answer Date Recorded Within the past 12 months, y ou worried that your food would run out before you got money to buy more. Never true 12/09/2022 Within the past 12 months, t he food you bought just didn't last and you didn't have money to get more. Never true 12/09/2022 Sex Assigned at Date Recorded Male 03/18/2021 12:55 PM EDT Job Start Date Occupation Industry Not on file Not on file Not on file documented as of this encounter Progress Notes * Renee Yusuf LPN - 04/29/2023 10:37 AM EDT Is this call for a hospital, alf or rehab facility discharge to home? Yes Ziggy Nelson; 04/26-04/27 Summary of Call: Dx: A-fib Contacted Pt, says he is fine. Has no issues with a-fib. Says he still has cough and congestion; tested positive for Covid. Says he still did not get meds as he was having a hard time "adding Mucinexto my cart". Advised to just call over and speak with them. Pt state he has decreased appetite, taste has changed, but he has not lost it. Denies nausea, vomiting, or diarrhea. Pt encouraged to push f luids and do deep breathing exercises. Pt did not want to get up to do med rec. Pt to call CM back to review. Discussed red flag sx's and Pt was able to teach back. Placing in IVR for the remainder of the PAULINO period. Has PCP appt 05/06. Red flags patient will report: Red Flag 1: worsening of cough or congestion Red Flag 2: fever Red Flag 3: chest tightness/pain in ribs Transition Plan: PCP or specialty appointment reviewed, Medication management follow-up, Follow-up (labs, DME, OT, OT), and IVR Enrollment Contact information provided and will follow-up in: As needed for IVR triggers documented in this encounter Plan of Treatment Upcoming Encounters Date Type Specialty Care Team Description 05/03/2023 Office Visit Family Medicine Osiris Estrada CRNP [address] [place] [address] 05/05/2023 Imaging Radiology 05/31/2023 Office Visit Cardiology Cyndi Corbett CRNP [address] [facility] [place] [address] 06/24/2023 Office Visit Family Medicine Osiris Estrada CRNP [address] [place] [address] 08/09/2023 Office Visit Cardiology Cyndi Corebtt CRNP [address] [place] [address] 01/05/2024 Office Visit Allergy & Immunology Ian Schilling MD [address] [place] [address] Scheduled Procedures Name Priority Associated Diagnoses Date/Ti me COLONOSCOPY FLEXIBLE PROXIMA L DIAGNOSTIC Recall History of colonic polyps Health Maintenance Due Date Last Done Comments Pneumococcal Vaccine: Pediatrics (0 to 5 Years) and At-Risk Patients (6 to 64 Years) (1 - PCV) 11/06/1967 Diabetic Foot Exam 11/06/1979 Zoster Vaccines (2 of 3) 08/15/2015 06/20/2015 COVID-19 Vaccine ( - 2022- season) 2023 05/26/2022, 06/17/2021, 10/01/2020, Additional history exists DIABETES-EYE EXAM 05/11/2023 05/11/2022 HbA1c 05/26/2023 11/23/2022, 0 03/2021, 02/22/2020, Additional history exists Albumin/Creatinine Ratio 11/24/2023 11/23/2022 Depression Screening 11/24/2023 11/23/2022, 10/22/19 15 GFR 02/04/2024 02/03/2023, 11/08, 03/19/2021, Additional history exists Lipid Panel 11/24/2027 11/23/2022, 090 03/2021, 02/22/2020, Additional history exists COLONOSCOPY-EVERY 5 [...] on patient's age to complete this topic Hepatitis B Aged Out No longer eligi ble based on patient's age to complete this topic MENINGOCOCCAL (MENACTRA/MENVEO) Aged Out No longer eligible based on patient's age to complete this topic Sigmoidoscopy Discontinued documented as of this encounter Medical Devices Not on filedocumented as of this encounter Visit Diagnoses Diagnosis Medical home patient encounter- Primary Other specified examination documented in this encounter Care Teams Inspector Aide Relationship Specialty Start Date End Date Osiris Estrada CRNP [address] [place] [address] PCP - General Nurse Practitioner 12/03/21 documented as of this encounter
--- OUTSIDE RECORDS SUMMARY | 2023-05-24 21:32 | External Medical Summary | Summary of Care ---
Author Name Unknown Organization [facility] Address [address] [place] [address] Phone [phone] Care Team Providers Care Soft Sugar Operator Head Name Role Phone Osiris Estrada Tawanna TRINA Primary Care Provider Reason for Visit * Reason Onset Date Comments Appointment 05/02/2023 Encounter Details Date Type Department Care Team (Late st Contact Info) Description 05/02/2023 Telephone Rad[address] [place] [address] Silvina Allison TECH Appointment Allergies Active Allergy Reactions Criticality Noted Date Comments Pollen 01/31/2023 Grass pollen - rash Penicillins 05/25/2006 Father was allergic Other Reaction(s): PT'S FATHER HAD SEVERE REACTION documented as of this encounter (statuses as of 05/02/2023) Medications Medication Sig Dispensed Refills Start Date [...] 24 Hour (toPROL XL)Indications:PAF (paroxysmal atrial fibrillation) ([facility]) TAKE 1 TABLET BY MOUTH EVERY DAY 90 Tablet 3 01/14/2023 Active Additional Information Patient taking differently: HS, Reported on 04/04/2023 Eliquis 5 MG Oral Tablet Take 1 Tablet by mouth in the morning and 1 Tablet before bedtime. 180 Tablet 1 03/04/2023 Active Propafenone HCl 150 MG Oral Tablet (Rythmol)Indications :PAF (paroxysmal atrial fibrillation) ([facility]) TAKE 1 TABLET BY MOUTH IN THE [...] as of this encounter (statuses as of 05/02/2023) Active Problems Problem Noted Date Diagnosed Date Hypokalemia 02/03/2023 Type 2 diabetes mellitus without complication [...] as of this encounter (statuses as of 05/02/2023) Resolved Problems Problem Noted Date Diagnosed Date Resolved Date Hospital discharge follow-up 02/03/2023 03/25/2023 Prediabetes 03/18/2020 05/11/2022 Overview: Per Prediabetes protocol Metabolon Quantose IR Resear Study*[id number] 02/06/2014 05/01/2014 Overview: METABOLON QUANTOSE IR STUDY. PROJECT: #[id number], SPECIAL PROCEDURES TECH: Hector Lundy MD/ Monty Guzman MD. SUMMARY: The Use of a Novel Insulin Resistance Test as a Monitoring Indicator of Glycemic Control in Prediabetics and Diabetics treated with metformin combined with lifestyle intervention. CONTACTS: During normal business hours, contact Medina Ruano RN, BSN at ; after hours Journeyman Apprentice Electricians via the [facility] high energy forming equipment operator Dyslipidemia, goal to be determined 06/26/2009 10/24/2009 Overview: Per Lipid Taxonomy. PURE HYPERCHOLESTEROLEM 06/10 Overview: Per Lipid Taxonomy. documented as of this encounter (statuses as of 05/02/2023) Immunizations Name Administration Dates Next Due COVID-19 [...] encounter Miscellaneous Notes * Telephone Encounter - HENOK Robbins - 05/02/2023 4:47 PM EDT Name: Giovanni Puckett Do you have any of the following: Pacemaker, stents, heart valves, aneurysm clips? No Have you ever worked with metal or have you ever gotten metal in your eyes? No Have you had a colonoscopy in the last 30 days? Yes-2-3 weeks ago On dialysis? No Do you have any dermals or body piercing's? No or ? Do you wear an insulin pump or diabetic monitor? no HENOK Robbins documented in this encounter Plan of Treatment Upcoming Encounters Date Type Department Care Team (Late st Contact Info) Description 05/03/2023 8:40 AM EDT Office Visit Family Practice [facility] [address] [facility] [place] [address] Osiris Estrada CRNP [address] [place] [address] 05/05/2023 3:15 PM EDT Imaging Radiology [facility] [address] [facility] [address] [place] [address] 05/31/2023 8:00 AM EST Office Visit Cardiology, [facility] [address] [facility] [place] [address] Cyndi Corbett CRNP [address] [place] [address] 06/24/2023 1:00 PM EST Office Visit Family [facility] [address] [facility] [id number] 08/09/2023 2:30 PM EST Office Visit Cardiology, [facility] [address] Cyndi Corbett CRNP [address] [facility] [place] [phone] 01/05/2024 3:00 PM EDT Office Visit Allergy/Immunology [facility] 200 [facility] [address] Ian Schilling MD [address] [place] [address] Scheduled Procedures Name Priority Associated Diagnoses Date/Ti [...] Risk 3-dose series) 2021 COVID-19 Vaccine ( season) 2023 05/26/2022, 06/17/2021, 10/01/2020, Additional history exists DIABETES-EYE EXAM 05/11/2023 05/11/2022 HbA1c 05/26/2023 11/23/2022, 09/0 03/2021, 02/22/2020, Additional history exists Albumin/Creatinine Ratio [...] filedocumented as of this encounter Care Teams Soft Sugar Operator Head Relationship Specialty Start Date End Date Osiris Estrada CRNP [address] [place] [address] PCP - General Nurse Practitioner 12/03/21 documented as of this encounter
--- OUTSIDE RECORDS SUMMARY | 2023-05-24 21:32 | External Medical Summary | Summary of Care ---
Author Name Unknown Organization [facility] Address [address] [place] [address] Phone [phone] Care Team Providers Care Hop Weigher Name Role Phone Osiris Estrada Tawanna MENA Primary Care Provider Encounter Details Date Type Department Care Team (Late st Contact Info) Description 04/28/2023 Exchange Administrator Care Coordination [address], [place] [phone] Renee Yusuf LPN [address] [place], [place] [phone] Medical home patient encounter* Allergies Active Allergy Reactions Criticality Noted Date [...] TabletIndications:in am Take by mouth. 0 Active documented as of this encounter (statuses [...] Per Prediabetes protocol Metabolon Quantose IR Resear Study*[id number] 02/06/2014 05/01/2014 Overview: METABOLON QUANTOSE IR STUDY. PROJECT: #[id number], ENVIRONMENTAL PROTECTION INSPECTOR: Hector Lundy MD/ Monty Guzman MD. SUMMARY: The Use of a Novel Insulin Resistance Test as a Monitoring Indicator of Glycemic Control in Prediabetics and Diabetics treated with metformin combined with lifestyle intervention. CONTACTS: During normal business hours, contact Medina Ruano RN, BSN at ; after hours Parking Meter Servicer via the [facility] hospital flame annealing machine operator Dyslipidemia, goal to be determined 06/26/2009 10/24/2009 Overview: Per Lipid Taxonomy. PURE HYPERCHOLESTEROLEM 06/10 Overview: Per Lipid Taxonomy. documented as of this encounter (statuses as of 05/02/2023) Immunizations Name Administration Dates Next Due COVID-19 mRNA, LNP-s, No Pre serve, 2-Dose Series ([employer]) 06/17/2021,10/01/2020,09/10/2020 Covid-19, Mrna, Lnp-s, Pf, B ivalent, [...] Progress Notes * Renee Yusuf LPN - 04/28/2023 2:43 PM EDT Contacted Pt, says he is having a stressful day. Says it feels like "everything is against him". Isstruggling with getting his brother to an appt at 4 pm and getting his medications delivered from [facility] and having computer difficulties. CM to return call at later time. documented in this encounter Plan of Treatment Upcoming Encounters Date Type Department Care Team (Late st Contact Info) Description 05/03/2023 8:40 AM EDT Office Visit Family [facility] [address] [facility] [place] [address] Osiris Estrada CRNP [address] [place] [address] 05/05/2023 3:15 PM EDT Imaging Radiology [facility] 1st Floor, [place] [address] [place] [address] 05/31/2023 8:00 AM EST Office Visit Cardiology, [facility] [address] [facility] [place] [address] Cyndi Corbett CRNP [address] [place] [address] [place] [phone] 06/24/2023 1:00 PM EST Office Visit [facility] [address] [facility] [place] [address] Osiris Estrada CRNP [address] [place] [address] 08/09/2023 2:30 PM EST Office Visit Cardiology, [facility] [address] [place] [address] Cyndi Corbett CRNP [address] [facility] [place] [address] 01/05/2024 3:00 PM EDT Office Visit Allergy/Immunology [facility] [address] [facility] [place] [address] Ian Schilling MD [address] [facility] [place] [address] Scheduled Procedures Name Priority Associated Diagnoses Date/Ti [...] - Risk 3-dose series) 2021 COVID-19 Vaccine (2022- season) 2023 05/26/2022, 06/17/2021, 10/01/2020, Additional history exists DIABETES-EYE EXAM 05/11/2023 05/11/2022 HbA1c 05/26/2023 11/23/2022, 03/2021, 02/22/2020, Additional history exists Albumin/Creatinine Ratio 11/24/2023 11/23/2022 Depression Screening 11/24/2023 11/23/2022, 10/22/19 15 GFR 02/04/2024 02/03/2023, 11/08, 03/19/2021, Additional history exists Lipid Panel 11/24/2027 11/23/2022, 03/2021, 02/22/2020, Additional history exists COLONOSCOPY-EVERY 5 [...] examination documented in this encounter Care Teams Hop Weigher Relationship Specialty Start Date End Date Osiris Estrada CRNP [address] [place] [address] PCP - General Nurse Practitioner 12/03/21 documented as of this encounter
--- OUTSIDE RECORDS SUMMARY | 2023-05-24 21:32 | External Medical Summary | Summary of Care ---
Author Name Unknown Organization [facility] Address [address] [place] [address] Phone [phone] Care Team Providers Care Operators Teacher Name Role Phone Osiris Estrada Tawanna TRINA Primary Care Provider Reason for Visit * Reason Onset Date Comments [facility] Care Coordination Services 05/19/2023 Encounter Details Date Type Department Care Team (Late st Contact Info) Description 05/19/2023 Telephone Care Coordination [address] [place], [place] [phone] Kendra Bahena, Community Health Recreation Programmer [address] [place], [place] [phone] [facility] Care Coordination Services Allergies Active [...] Per Prediabetes protocol Metabolon Quantose IR Resear Study*[id number] 02/06/2014 05/01/2014 Overview: METABOLON QUANTOSE IR STUDY. PROJECT: #[id number], PACKAGING COORDINATOR: Hector Lundy MD/ Monty Guzman MD. SUMMARY: The Use of a Novel Insulin Resistance Test as a Monitoring Indicator of Glycemic Control in Prediabetics and Diabetics treated with metformin combined with lifestyle intervention. CONTACTS: During normal business hours, contact Medina Ruano RN, BSN at ; after hours Imaging Account Manager via the [facility] carroting machine operator Dyslipidemia, goal to be determined 06/26/2009 10/24/2009 Overview: Per Lipid Taxonomy. PURE HYPERCHOLESTEROLEM 06/10 Overview: Per Lipid Taxonomy. documented as of this encounter (statuses as of 05/19/2023) Immunizations Name Administration Dates Next Due COVID-19 mRNA, LNP-s, No Pre serve, 2-Dose Series ([email or web address]) 06/17/2021,10/01/2020,09/10/2020 Covid-19, Mrna, Lnp-s, Pf, B ivalent, [...] Telephone Encounter - Kendra Bahena, Community Health Recreation Programmer - 05/19/2023 2:22 PM EST [facility]: - Disenrolling from [facility]. Enrollment completed. GOLDIE Gaston PAUL[facility]-A [phone] documented in this encounter Plan of Treatment Upcoming Encounters Date Type Department Care Team (Late st Contact Info) Description 06/24/2023 1:00 PM EST Office Visit Family [facility] [address] [facility] [place] [address] Osiris Estrada CRNP [address] [facility] [place] [address] 08/03/2023 2:20 PM EST Office [facility] [place] [address] Osiris Estrada CRNP [address] [facility] [place] [address] 08/09/2023 2:30 PM EST Office Visit Cardiology, [facility] [address] [facility] [place] [address] Cyndi Corbett CRNP [address] [place] [address] 01/05/2024 3:00 PM EDT Office Visit Allergy/Immunology [facility] [address] [place] [address] Ian Schilling MD [address] [place] [address] Scheduled Procedures Name Priority Associated Diagnoses Date/Ti [...] filedocumented as of this encounter Care Teams Operators Teacher Relationship Specialty Start Date End Date Osiris Estrada CRNP [address] [place] [address] PCP - General Nurse Practitioner 12/03/21 documented as of this encounter
--- OUTSIDE RECORDS SUMMARY | 2023-05-24 21:32 | External Medical Summary | Summary of Care ---
Author Name Unknown Organization [facility] Address [address] [place] [address] Phone [phone] Care Team Providers Care Supervisor Fleshing Name Role Phone Osiris Estrada Tawanna MENA Primary Care Provider Reason for Visit * Reason Onset Date Comments Advice 05/09/2023 Issues with incr ease dosage of Metoprolol Encounter Details Date Type Department Care Team (Late st Contact Info) Description 05/09/2023 Telephone Cardiology Danny Martin [address] [place] [address] Ashly Gray DO [address] [place] [phone] Advice (Issues with increase dosage of Met... Allergies Active Allergy Reactions Criticality Noted Date Comments Pollen 01/31/2023 Grass pollen - rash Penicillins 05/25/2006 Father was allergic Other Reaction(s): PT'S FATHER HAD SEVERE REACTION documented as of this encounter (statuses as of 05/17/2023) Medications Medication Sig Dispensed Refills Start Date [...] as of this encounter (statuses as of 05/17/2023) Active Problems Problem Noted Date Diagnosed Date [...] as of this encounter (statuses as of 05/17/2023) Resolved Problems Problem Noted Date Diagnosed Date Resolved Date Prediabetes 03/18/2020 05/11/2022 Overview: Per Prediabetes protocol Metabolon Quantose IR Resear Study*[id number] 02/06/2014 05/01/2014 Overview: METABOLON QUANTOSE IR STUDY. PROJECT: #[id number], SCALE OPERATOR: Hector Lundy MD/ Monty Guzman MD. SUMMARY: The Use of a Novel Insulin Resistance Test as a Monitoring Indicator of Glycemic Control in Prediabetics and Diabetics treated with metformin combined with lifestyle intervention. CONTACTS: During normal business hours, contact Medina Ruano RN, BSN at ; after hours Grain Manager via the [facility] hospital bullet slug casting machine operator Dyslipidemia, goal to be determined 06/26/2009 10/24/2009 Overview: Per Lipid Taxonomy. PURE HYPERCHOLESTEROLEM 06/10 Overview: Per Lipid Taxonomy. documented as of this encounter (statuses as of 05/17/2023) Immunizations Name Administration Dates Next Due COVID-19 mRNA, LNP-s, No Pre serve, 2-Dose Series ([employer]) 06/17/2021,10/01/2020,09/10/2020 Covid-19, Mrna, Lnp-s, Pf, B ivalent, [...] encounter Miscellaneous Notes * Telephone Encounter - Hawa Trevino LPN - 05/17/2023 12:27 PM EST Reduced at 05/10/23 office visit. Spoke to patient by phone feeling much better on reduced dose. * Telephone Encounter - Arti Daily OSA - 05/09/2023 12:23 PM EDT Pt calling looking for advise. A couple of weeks ago was admitted with covid and afib issues. They increased his metoprolol from once a day to twice. He states the increase in dose has made him extremely tired. Looking for some directions regarding this. Please call him at [phone]. CHRISTIANO, pt does have an appt with Phyllis on 05/31 but nothing sooner avail. Thanks, ALINA Merchant documented in this encounter Plan of Treatment Upcoming Encounters Date Type Department Care Team (Late st Contact Info) Description 06/24/2023 1:00 PM EST Office Visit [facility] [address] Osiris Estrada CRNP [address] [place] [address] 08/03/2023 2:20 PM EST Office Visit [facility] [address] [facility] [place] [address] Osiris Estrada CRNP [address] [place] [address] 08/09/2023 2:30 PM EST Office Visit Cardiology, [facility] [address] [place] [address] Cyndi Corbett CRNP [address] [facility] [place] [address] 01/05/2024 3:00 PM EDT Office Visit [facility]Immun[facility] 200 [facility] [place] [address] Ian Schilling MD 200 [facility] [place] [address] Scheduled Procedures Name Priority Associated Diagnoses Date/Ti [...] 10/01/2020, Additional history exists HbA1c 05/26/2023 11/23/2022, 03/2021, 02/22/2020, Additional history exists Albumin/Creatinine Ratio 11/24/2023 11/23/2022 Depression Screening 11/24/2023 11/23/2022, 10/22/19 15 GFR 02/04/2024 02/03/2023, 11/08, 03/19/2021, Additional history exists Diabetic Eye Exam 05/03/2024 05/03/2023, 05/11/2022 Lipid Panel 11/24/2027 11/23/2022, 03/2021, 02/22/2020, Additional [...] filedocumented as of this encounter Care Teams Supervisor Fleshing Relationship Specialty Start Date End Date Osiris Estrada CRNP [address] [place] [address] PCP - General Nurse Practitioner 12/03/21 documented as of this encounter
--- OUTSIDE RECORDS SUMMARY | 2023-05-24 21:32 | External Medical Summary | Summary of Care ---
Author Name Unknown Organization [facility] Address [address] [place] [address] Phone [phone] Care Team Providers Care Bingo Attendant Name Role Phone Osiris Estrada Primary Care Provider Reason for Referral * Evaluate & Treat - Unlimited Visits (Within 3 days (urgent)) - Authorized Specialty Diagnoses / Procedures Referred By Clementine sandoval Referred To Contact Wheel Installer Diagnoses A-fib ([facility]) [facility] Medical Certification Specialist [address] [place] [address] Referral ID Status Reason Start Date Expiration Date Visits Requested Visits Authorized [id number] Authorized Specialty Services Required 3 [phone] Question Answer Referral Priority Within 3 days (urgent) Where should this appointment be scheduled? [facility] Program Type Case Management Complex Case Management [facility] Device(s) Requested Other (See Comment) Reason for Visit * Reason Comments [facility] Care Coordination Services Encounter Details Date Type Department Care Team Description 04/29/2023 Documentation Care Coordination [address] [place], [place] [phone] [facility] Medical Certification Specialist [address] [place] [address] A-fib ([facility])* Allergies Active Allergy Reactions Severity Noted Date [...] 24 Hour (toPROL XL)Indications:PAF (paroxysmal atrial fibrillation) ([facility]) TAKE 1 TABLET BY MOUTH EVERY [...] Per Prediabetes protocol Metabolon Quantose IR Research Study*[id number] 02/06/2014 05/01/2014 Overview: METABOLON QUANTOSE IR STUDY. PROJECT: #[id number], CROSSING SUPERVISOR: Hector Lundy MD/ Monty Guzman MD. SUMMARY: The Use of a Novel Insulin Resistance Test as a Monitoring Indicator of Glycemic Control in Prediabetics and Diabetics treated with metformin combined with lifestyle intervention. CONTACTS: During normal business hours, contact Medina Ruano RN, BSN at ; after hours Sharepoint Analyst via the [facility] hospital asphalt paving machine operator Dyslipidemia, goal to be determined 06/26/2009 10/24/2009 Overview: Per Lipid Taxonomy. PURE HYPERCHOLESTEROLEM 06/26/20 Overview: Per Lipid Taxonomy. documented as of this encounter (statuses as of 04/29/2023) Immunizations Name Administration Dates Next Due COVID-19 mRNA, LNP-s, No Pre serve, 2-Dose Series ([employer]) 06/17/2021,10/01/2020,09/10/2020 Covid-19, Mrna, Lnp-s, Pf, B ivalent, 30 Mcg, IM, 12 yrs and above ([employer]) 05/26/2022 SEASONAL INFLUENZA, PF, 6 M & [...] as of this encounter Progress Notes * [facility] Medical Certification Specialist - 04/29/2023 1:47 PM EDT PAUL[facility] - A Please Enroll in NON-COMPLEX [facility] IVR weekly x 3 weeks. Begin calls the week of 05/04/23. CTN: [phone] PCP: Osiris Estrada Dx: a-fib Thank you. documented in this encounter Plan of Treatment Upcoming Encounters Date Type Specialty Care Team Description 05/03/2023 Office Visit Family Medicine Osiris Estrada CRNP [address] [place] [address] 05/05/2023 Imaging Radiology 05/31/2023 Office Visit Cardiology Cyndi Corbett CRNP [address] [place] [address] 06/24/2023 Office Visit Family Medicine Osiris Estrada CRNP [address] [place] [phone] 08/09/2023 Office Visit Cardiology Cyndi Corbett CRNP [address] [place] [address] 01/05/2024 Office Visit Allergy & Immunology Ian Schilling MD 200 [place] [address] Scheduled Procedures Name Priority Associated Diagnoses Date/Ti me COLONOSCOPY FLEXIBLE PROXIMA L DIAGNOSTIC Recall History of colonic polyps Scheduled Referrals Name Type Priority Associated Diagnoses Orde r Schedule REMOTE PATIENT MONITORING REFERRAL Referral Within 3 days (urgent) A-fib (HCC) Ordered: 04/29/2023 Health Maintenance Due Date Last Done Comments [...] as of this encounter Visit Diagnoses Diagnosis A-fib (HCC)- Primary Atrial fibrillation documented in this encounter Care Teams Bingo Attendant Relationship Specialty Start Date End Date Osiris Estrada CRNP [address] [place] [address] PCP - General Nurse Practitioner 12/03/21 documented as of this encounter
--- OUTSIDE RECORDS SUMMARY | 2023-05-24 21:32 | External Medical Summary | Summary of Care ---
Author Name Unknown Organization [facility] Address [address] [place] [address] Phone [phone] Care Team Providers Care Inside Horticultural Specialty Grower Name Role Phone Osiris Estrada Primary Care Provider Reason for Visit * Reason Comments Hospital Follow-Up WAS IN HOSPITAL FOR A-FIB AND WHILE THERE FOUND OUT HE HAD COVID. HE WAS NEGATIVE AT HOME, BUT AT HOSPITAL TESTED POSITIVE, BUT NOT THE SAME DAY. Encounter Details Date Type Department Care Team (Late st Contact Info) Description 05/03/2023 8:40 AM EDT Office Visit Family Practice [facility] [place] [address] [place] [address] Osiris Estrada CRNP [address] [facility] [address] Hospital discharge follow-up*; Atrial fibrillation with RVR ([facility]); COVID-19 virus infection; Type 2 diabetes mellitus with diabetic mononeuropathy, without long-term current use of insulin ([facility]); DM type 2 nursing care encounter ([facility]) Allergies Active Allergy Reactions Criticality Noted Date Comments Pollen 01/31/2023 Grass pollen - rash Penicillins 05/25/2006 Father was allergic Other Reaction(s): PT'S FATHER HAD SEVERE REACTION documented as of this encounter (statuses as of 05/03/2023) Medications Medication Sig Dispensed Refills Start Date [...] DAY IN THE MORNING 90 Capsule 3 2 Active Additional Information Patient taking differently: HS, Reported on 04/04/2023 Ciclopirox 8 % External Solution Apply over nail and surrounding skin. Apply daily over previous coat. After seven (7) days, may remove with alcohol and continue cycle. 6.6 mL 3 3 Active Sertraline HCl 100 MG Oral Tablet (Zoloft) Take 1.5 Tablets by mouth in the morning. 90 Tablet 3 3 Active Additional Information Patient taking differently:150 mg OralHS, Reported on 04/04/2023 Omeprazole 20 MG Oral Capsule Delayed Release (PriLOSEC)Indicati ons:Esophageal stricture TAKE 1 CAPSULE BY MOUTH EVERY DAY 90 Capsule 3 3 Active Additional Information Patient taking differently: HS, Reported on 04/04/2023 Metoprolol Succinate ER 25 MG Oral Tablet Extended Release 24 Hour (toPROL XL)Indications:PAF (paroxysmal atrial fibrillation) (HCC) TAKE 1 TABLET BY MOUTH EVERY DAY 90 Tablet 3 3 Active Additional Information Patient taking differently: BID (.AM/PM), Reported on 05/03/2023 Eliquis 5 MG Oral Tablet Take 1 Tablet by mouth in the morning and 1 Tablet before bedtime. 180 Tablet 1 3 Active Propafenone HCl 150 MG Oral Tablet (Rythmol)Indicatio ns:PAF (paroxysmal atrial fibrillation) (HCC) TAKE 1 TABLET BY MOUTH IN THE MORNING AND 1 TABLET AT AT NOON AND 1 TABLET BEFORE BEDTIME 270 Tablet 3 3 Active Centrum Silver 50+Men Oral TabletIndications: in am Take by mouth. 0 Active metFORMIN HCl ER 500 MG Oral Tablet Extended Release 24 Hour (Glucophage XR) TAKE 1 TABLET BY MOUTH EVERY DAY IN THE MORNING 90 Tablet 1 3 Active Pravastatin Sodium 10 MG Oral Tablet (Pravachol)Indicat ions:Dyslipidemia, goal LDL below 100 TAKE ONE TABLET BY MOUTH EVERY DAY FOR CHOLESTEROL 90 Tablet 1 3 Active guaiFENesin ER 600 MG Oral Tablet Extended Release 12 Hour (Humibid LA) 1 Tablet. 0 3 Active diazePAM 5 MG Oral Tablet (Valium)Indication s:Memory loss,Balance disorder Take 1 Tablet by mouth every 6 hours as needed for Anxiety. TAKE 1 TABLET 30-60 MINUTES BEFORE PROCEDURE 1 Tablet 0 3 05/03/20 23 Discontinued Zoster Vac Recomb Adjuvanted 50 MCG/0.5ML Intramuscular Suspension Reconstituted (Shingrix) Inject 0.5 mL into a large muscle now and repeat dose in 60 to 180 days 1 Each 1 3 05/03/20 23 Discontinued documented as of this encounter (statuses as of 05/03/2023) Active Problems Problem Noted Date Diagnosed Date [...] as of this encounter (statuses as of 05/03/2023) Resolved Problems Problem Noted Date Diagnosed Date Resolved Date Prediabetes 03/18/2020 05/11/2022 Overview: Per Prediabetes protocol Metabolon Quantose IR Resear ch Study*[id number] 02/06/2014 05/01/2014 Overview: METABOLON QUANTOSE IR STUDY. PROJECT: #[id number], RECONNAISSANCE CREWMEMBER: Hector Lundy MD/ Monty Guzman MD. SUMMARY: The Use of a Novel Insulin Resistance Test as a Monitoring Indicator of Glycemic Control in Prediabetics and Diabetics treated with metformin combined with lifestyle intervention. CONTACTS: During normal business hours, contact Medina Ruano RN, BSN at ; after hours Environmental Education Specialist via the [facility] hospital corrugated box machine operator Dyslipidemia, goal to be determined 06/26/2009 10/24/2009 Overview: Per Lipid Taxonomy. PURE HYPERCHOLESTEROLEM 06/10 Overview: Per Lipid Taxonomy. documented as of this encounter (statuses as of 05/03/2023) Immunizations Name Administration Dates Next Due COVID-19 mRNA, LNP-s, No Pre serve, 2-Dose Series ([employer]) 06/17/2021,10/01/2020,09/10/2020 Covid-19, Mrna, Lnp-s, Pf, B ivalent, 30 Mcg, IM, 12 yrs and above ([employer]) 05/26/2022 SEASONAL INFLUENZA, PF, 6 M & [...] on file documented as of this encounter Last Filed Vital Signs Vital Sign Reading Time Taken Comments Blood Pressure 102/60 05/03/2023 8:40 AM EDT Pulse 64 05/03/2023 8:40 AM EDT Temperature - - Respiratory Rate - - Oxygen Saturation - - Inhaled Oxygen Concentration - - Weight 88.6 kg (195 lb 5 oz) 05/03/2023 8:40 AM EDT Height - - Body Mass Index 26.49 04/05/2023 10:10 AM EDT documented in this encounter Patient Instructions * Patient Instructions* Shyann Martinez LPN - 05/03/2023 8:57 AM EDT Dear Giovanni Puckett, The care of your Diabetes is very important to us. A yearly diabetic eye exam is important to protect your vision. If youre getting an eye exam done outside of [facility] please tell your Eye Doctor to fax or mail us the results of your Diabetic Eye Exam at your next visit. Our Address and Fax Number are listed below to help. Thank you for helping us to improve your Diabetes Care Our Office Address and Fax Number: TRINA Mai [address] [place] [address] Diabetic Retinopathy: Evaluating Your Eyes Diabetic retinopathy is a condition that happens when diabetes damages blood vessels in the rear ofthe eye. It can lead to vision loss. To help catch it early, have a complete dilated eye exam at least once a year. During the exam, the eye healthcare provider will review your medical history, examine your eyes, and check your vision. Women who are and have pre-existing type 1 or type 2 diabetes have an increased risk of retinopathy. Women with diabetes should have an eye exam before or in the first trimester. They should continue to be monitored every trimester and for 1 year after delivery, depending on the severity of the retinopathy. The retina is the light-sensitive part of the eye that allows you to see. High blood sugar can damage blood vessels of the retina and cause them to leak or bleed. This damage can lead to abnormal blood vessel growth. This condition is called diabetic retinopathy. You may not have symptoms early in the disease. Later, there may be floaters, blurred vision, or poor night vision. There may also be partial or complete vision loss. Early cases of diabetic retinopathy can be treated by carefully controlling blood sugar, blood pressure, and cholesterol. Surgery or laser treatments may help restore lost vision. Laser surgery can shrink abnormal blood vessels or close ones that are leaking. Medicines injected in the eye can help decrease swelling of the retina. Home care Take all medicines, including insulin or oral diabetic medicine, exactly as prescribed. Follow the diet advised by your healthcare provider. If you have high cholesterol, follow a low-fat, low-cholesterol diet. Monitor blood sugars as advised. Try to achieve your ideal weight. If you smoke, quit smoking. Tobacco use worsens the effect of diabetes on your blood vessels. If you have high blood pressure, consider buying an automatic blood pressure machine. These are available at most pharmacies. Use this to monitor your blood pressure. Report your blood pressure readings to your healthcare provider. Exercise regularly. Follow-up care Follow up with your healthcare provider, or as advised. You must have a complete eye exam at least once a year, more often if needed. Untreated diabetic retinopathy can lead to complete loss of vision. Occupational therapists can help you adapt to any vision loss you have, including learning techniques to safely administer insulin. When to seek medical advice Call your healthcare provider right away if any of these occur. Increasing blurriness or any sudden changes in your vision Sudden flashes of light inside your eye New floaters (small dots or strings that seem to be moving across your field of vision) Eye pain, redness, or discharge from your eyelid New dark spots appearing in your field of vision Halos around lights Dimness of vision Partial or complete loss of vision Women with diabetes should have a complete eye exam before becoming , or as soon as possible when they find out they are . Retinopathy sometimes worsens during . Your eye exam Your eye healthcare provider uses an eye chart and other tools to check your vision. Then he or sheexamines your eyes for signs of disease. You are given eye drops to widen (dilate) your pupils. Youmay have one or more of the following tests: Tonometry to measure fluid pressure inside the eye. Slit lamp exam to allow the healthcare provider to view the structures of your eye. Ultrasound to create an image of the eye using sound waves. Ultrasound may be used if blood is found in the clear gel that fills the eye (vitreous). Ocular coherence tomography (OCT) to create an image of the retina using light waves. This shows ifthere is fluid leaking into certain parts of the eye. It can also measure the thickness of the retina. Fluorescein angiography This test may be done to check the health of the inside lining of the eye (retina). It also checks the tiny blood vessels (capillaries) that carry blood to the retina. During the test: Photographs are taken of the retina. A dye is then injected into the bloodstream through the arm or hand. The dye travels to the capillaries in the eye. More photographs are taken of the retina. The dye causes the capillaries to stand out on the photographs. You may feel brief nausea during the procedure. For a few hours after the test, your skin, eyes, and urine may appear yellow. Talk with your healthcare provider for more information about this test. Date Last Reviewed: 12/10/201519993427-7523 [employer]. [address] [place] [address], [place] [address]. All rights reserved. This information is not intended as a substitute for professional medical care. Always follow your healthcare professional's instructions. documented in this encounter Progress Notes * Shyann Martinez LPN - 05/03/2023 8:57 AM EDT The importance of having a yearly diabetic eye exam has been discussed with patient. Order and/or Referral placed along with patient instructions. Provider made aware. Shyann Martinez LPN * TRINA Perdue - 05/03/2023 8:40 AM EDT Hospital Follow up Family Medicine Visit CC:HOSPITAL DISCHARGE History of Present Illness: Giovanni Puckett is a 62 year old male presenting for hospital follow up. He was admitted to [facility] on 04/26/2023 for a fib with RVR in the setting of covid infection. Treated with IV lopressor. Increased metoprolol and profenone. He is to follow up with Isaac for possible ablation. Converted to NSR while inpatient. Covid with no evidence of pneumonia. Oxygen sats were normal. Since discharge denies new heart palpitaitons or sob. Feels tired after covid. Social History Socioeconomic History Marital status: Single Spouse name: Not on file Number of children: Not on file Years of education: Not on file Highest education level: Not on file Occupational History Occupation: [employer] Comment: [employer] Tobacco Use Smoking status: Never Smokeless tobacco: Never Vaping Use Vaping Use: Never used Substance and Sexual Activity Alcohol use: Yes Comment: occ wine Drug use: No Sexual activity: Not on file Other Topics Concern Service Not Asked Blood Transfusions Not Asked Caffeine Concern Not Asked Occupational Exposure Not Asked Hobby Hazards Not Asked Sleep Concern Not Asked Stress Concern Not Asked Weight Concern Not Asked Special Diet Not Asked Back Care Not Asked Exercise Not Asked Bike Helmet Not Asked Seat Belt Not Asked Self-Exams Not Asked Social History Narrative Not on file Social Determinants of Health Financial Resource Strain: Not on file Food Insecurity: No Food Insecurity (12/09/2022) Hunger Vital Sign Worried About Running Out of Food in the Last Year: Never true Ran Out of Food in the Last Year: Never true Transportation Needs: Not on file Physical Activity: Not on file Stress: Not on file Social Connections: Not on file Intimate Partner Violence: Not on file Housing Stability: Not on file PMH: Past Medical History: Diagnosis Date Esophageal stricture Herpes zoster 08/19 Past Surgical History: Procedure Laterality Date COLONOSCOPY 11/09/2011 normal-repeat in 10 years COLONOSCOPY, DIAGNOSTIC (RECTUM) 04/05/2023 biopsies show hyperplastic polyps/recall 5 years/COLONOSCOPY FLEXIBLE PROXIMAL DIAGNOSTIC performedby Diana Arboleda, DO at ENDOSCOPY [facility]CHO 10/09/2005 Negative test FLUORO ESOPHAGEAL DILATION 1992, 1996 due to stricture- Dr. Odonnell FLUORO ESOPHAGEAL DILATION 10/09/2001 Jessica's ring dilated FLUORO ESOPHAGEAL DILATION 08/11/2003 dilation accomplished FLUORO UPPER GI W KUB 08/31/2001 distal esophageal scarring and proximal nodularity No outpatient medications have been marked as taking for the 05/03/23 encounter (Appointment) with TRINA Perdue. Review of patient's allergies indicates: Allergen Reactions Environmental [Pollen] Grass pollen - rash Penicillins Father was allergic Other Reaction(s): PT'S FATHER HAD SEVERE REACTION Most Recent Immunizations Administered Date(s) Administered COVID-19 mRNA, LNP-s, No Preserve, 2-Dose Series ([employer]) 06/17/2021 Covid-19, Mrna, Lnp-s, Pf, Bivalent, 30 Mcg, IM, 12 yrs and above ([employer]) 05/26/2022 SEASONAL INFLUENZA, PF, 6 M & Above, IM , (FLULAVAL or FLUZONE) 03/25/2023 Seasonal Influenza Virus Vaccine, Unspecified Formulation 05/05/2022 Seasonal Influenza, Quadrivalent, No Preserve, IM 03/22/2017 Seasonal Influenza, Split, IIV3, With Preserve, Inj 03/20/2014 TD - Tetanus/Diptheria (ADULT) 09/22/2001 TD, Preservative Free 05/11/2022 TDAP (age 11 and older)(Adacel) 09/21/2011 Varicella Zoster Vaccine (Adult) 06/20/2015 Review of Systems: Review of Systems Constitutional: Negative for fatigue and fever. HENT: Positive for congestion and postnasal drip. Negative for sore throat. Respiratory: Positive for cough. Negative for shortness of breath and wheezing. Cardiovascular: Positive for palpitations. Negative for chest pain and leg swelling. Gastrointestinal: Negative for abdominal pain. Psychiatric/Behavioral: Negative for sleep disturbance. Physical Exam: Filed Vitals: 05/03/23 0840 BP: 102/60 Pulse: 64 Weight: 88.6 kg (195 lb 5 oz) Physical Exam HENT: Head: Normocephalic. Right Ear: A middle ear effusion is present. Left Ear: A middle ear effusion is present. Cardiovascular: Rate and Rhythm: Normal rate and regular rhythm. Pulmonary: Effort: Pulmonary effort is normal. Breath sounds: Normal breath sounds. Neurological: General: No focal deficit present. Mental Status: He is alert and oriented to person, place, and time. Psychiatric: Mood and Affect: Mood normal. Behavior: Behavior normal. Thought Content: Thought content normal. Judgment: Judgment normal. Assessment and Plan: 1. Hospital discharge follow-up MED REQ complete 2. Atrial fibrillation with RVR (HCC) Rate now controlled and converted to NSR On eliquis On rythmol On metroprolol 3. COVID-19 virus infection Stable No increased symptoms 4. Type 2 diabetes mellitus with diabetic mononeuropathy, without long-term current use of insulin (HCC) Due for dm eye exam I have advised the patient to call our office incase of any worsening or new symptoms. I spent a total of 40-54 minutes (exact time 40 mins) on the date of service in preparation, delivery, and documentation of the care provided to Giovanni Puckett excluding any time spent in the performance of separately billed services. Jose, REYNA, TRINA [facility] documented in this encounter Plan of Treatment Upcoming Encounters Date Type Department Care Team (Late st Contact Info) Description 05/05/2023 3:15 PM EDT Imaging Radiology [facility] [address] [facility] [place] [address] 05/31/2023 8:00 AM EST Office Visit Cardiology, [address] [place] [address] Cyndi Corbett CRNP [address] [place] [phone] 06/24/2023 1:00 PM EST Office Visit Family Practice [facility] [place] [address] [facility] [place] [address] Osiris Estrada CRNP [address] [facility] [place] [address] 08/03/2023 2:20 PM EST Office Visit Family Practice [facility] [place] [address] [place] [address] Osiris Estrada CRNP [address] [place] [address] 08/09/2023 2:30 PM EST Office Visit Cardiology, [facility] [place] [address] [facility] [place] [address] Cyndi Corbett CRNP [address] [place] [phone] 01/05/2024 3:00 PM EDT Office Visit Allergy/Immunology [facility] [address] [place] [address] [place] [address] Ian Schilling MD [address] [place] [address] Scheduled Procedures Name Priority Associated Diagnoses Date/Ti [...] - Risk 3-dose series) 2021 COVID-19 Vaccine (5 - season) 2023 05/26/2022, 06/17/2021, 10/01/2020, Additional history exists HbA1c 05/26/2023 11/23/2022, 09/0 03/2021, 02/22/2020, Additional history exists Albumin/Creatinine Ratio 11/24/2023 11/23/2022 Depression Screening 11/24/2023 11/23/2022, 10/22/19 15 GFR 02/04/2024 02/03/2023, 11/08, 03/19/2021, Additional history exists DIABETES-EYE EXAM 05/03/2024 05/03/2023, 05/11/2022 Lipid Panel 11/24/2027 11/23/2022, [...] Not on filedocumented as of this encounter Procedures Procedure Name Priority Date/Time Associated Diagnosis Comments TELEMEDICINE DIABETIC EYE Routine 05/03/2023 DM type 2 nursing care encounter (HCC) documented in this encounter Results * TELEMEDICINE DIABETIC EYE (05/03/2023) 05/03/2023 Osiris MENA DIGITAL PHOTOG TAYLOR documented in this encounter Visit Diagnoses Diagnosis Hospital discharge follow-up- Primary Other follow-up examination Atrial fibrillation with RVR (HCC) Atrial fibrillation COVID-19 virus infection Type 2 diabetes mellitus with diabetic mononeuropathy, without long-term current use of insulin (HCC) DM type 2 nursing care encounter (HCC) Type II or unspecified type diabetes mellitus without mention of complication, not stated as uncontrolled documented in this encounter Care Teams Inside Horticultural Specialty Grower Relationship Specialty Start Date End Date Osiris Estrada CRNP [address] [place] [address] PCP - General Nurse Practitioner 12/03/21 documented as of this encounter
--- OUTSIDE RECORDS SUMMARY | 2023-05-24 21:32 | External Medical Summary | Summary of Care ---
Author Name Unknown Organization [facility] Address [address] [place] [address] Phone [phone] Care Team Providers Care Coal Crusher Operator Name Role Phone Osirsi Estrada Tawanna MENA Primary Care Provider Reason for Visit * Reason Comments Follow Up Encounter Details Date Type Department Care Team (Late st Contact Info) Description 05/10/2023 3:30 PM EDT Office Visit Cardiology, [facility] [address] [place] [address] Cyndi Corbett CRNP [address] [place] [address] PAF (paroxysmal atrial fibrillation) ([facility])*; Incomplete RBBB; Type 2 diabetes mellitus with hemoglobin A1c goal of less than 7.0% ([facility]); ASHISH (generalized anxiety disorder); Hyperlipidemia, unspecified hyperlipidemia type Allergies Active Allergy Reactions Criticality Noted Date Comments Pollen 01/31/2023 Grass pollen - rash Penicillins 05/25/2006 Father was allergic Other Reaction(s): PT'S FATHER HAD SEVERE REACTION documented as of this encounter (statuses as of 05/15/2023) Medications Medication Sig Dispensed Refills Start Date End Date Status Multiple Vitamins-Mineral s (PRESERVISION AREDS 2) Capsule Take 1 Capsule by mouth at bedtime. 0 Active Ibuprofen 200 MG Oral Tablet Take 1 Tablet by mouth every 4 hours as needed for Pain. 0 Active Tamsulosin HCl 0.4 MG Oral Capsule (Flomax)Indicati ons:Urinary urgency,Weak urinary stream,Nocturia TAKE 1 CAPSULE BY [...] Omeprazole 20 MG Oral Capsule Delayed Release (PriLOSEC)Indica tions:Esophageal stricture TAKE 1 CAPSULE BY MOUTH EVERY DAY 90 Capsule 3 01/12/2023 Active Additional Information Patient taking differently: HS, Reported on 04/04/2023 Eliquis 5 MG Oral Tablet Take 1 Tablet by mouth in the morning and 1 Tablet before bedtime. 180 Tablet 1 03/04/2023 Active Propafenone HCl 150 MG Oral Tablet (Rythmol)Indicat ions:PAF (paroxysmal atrial fibrillation) ([facility]) TAKE 1 TABLET BY MOUTH IN THE MORNING AND 1 TABLET AT AT NOON AND 1 TABLET BEFORE BEDTIME 270 Tablet 3 03/19/2023 Active Centrum Silver 50+Men Oral TabletIndication s:in am Take by mouth. 0 Active metFORMIN HCl ER 500 MG Oral Tablet Extended Release 24 Hour (Glucophage XR) TAKE 1 TABLET BY MOUTH EVERY DAY IN THE MORNING 90 Tablet 1 04/29/2023 Active Pravastatin Sodium 10 MG Oral Tablet (Pravachol)Indic ations:Dyslipide mira, goal LDL below 100 TAKE ONE TABLET BY MOUTH EVERY DAY FOR CHOLESTEROL 90 Tablet 1 04/29/2023 Active guaiFENesin ER 600 MG Oral Tablet Extended Release 12 Hour (Humibid LA) 1 Tablet. 0 04/27/2023 Active Metoprolol Succinate ER 25 MG Oral Tablet Extended Release 24 Hour (toPROL XL)Indications:P AF (paroxysmal atrial fibrillation) (HCC) Take 1 Tablet by mouth daily. 90 Tablet 3 05/10/2023 Active Metoprolol Succinate ER 25 MG Oral Tablet Extended Release 24 Hour (toPROL XL)Indications:P AF (paroxysmal atrial fibrillation) (HCC) TAKE 1 TABLET BY MOUTH EVERY DAY 90 Tablet 3 01/14/2023 3 Discontinue d(Refill) documented as of this encounter (statuses as of 05/15/2023) Active Problems Problem Noted Date Diagnosed Date [...] as of this encounter (statuses as of 05/15/2023) Resolved Problems Problem Noted Date Diagnosed Date Resolved Date Prediabetes 03/18/2020 05/11/2022 Overview: Per Prediabetes protocol Metabolon Quantose IR [facility] Study*[id number] 02/06/2014 05/01/2014 Overview: METABOLON QUANTOSE IR STUDY. PROJECT: #[id number], MEDICAL STAFFING COORDINATOR: Hector Lundy MD/ Monty Guzman MD. SUMMARY: The Use of a Novel Insulin Resistance Test as a Monitoring Indicator of Glycemic Control in Prediabetics and Diabetics treated with metformin combined with lifestyle intervention. CONTACTS: During normal business hours, contact Medina Ruano RN, BSN at ; after hours [employer] Machine Operator via the [facility] hospital baler operator Dyslipidemia, goal to be determined 06/26/2009 10/24/2009 Overview: Per Lipid Taxonomy. PURE HYPERCHOLESTEROLEM 06/10 Overview: Per Lipid Taxonomy. documented as of this encounter (statuses as of 05/15/2023) Immunizations Name Administration Dates Next Due COVID-19 [...] Sign Reading Time Taken Comments Blood Pressure 108/60 05/10/2023 3:24 PM EDT Pulse 80 05/10/2023 3:24 PM EDT Temperature - - Respiratory Rate 14 05/10/2023 3:24 PM EDT Oxygen Saturation - - Inhaled Oxygen Concentration - - Weight 88.9 kg (196 lb) 05/10/2023 3:24 PM EDT Height - - Body Mass Index 26.58 04/05/2023 10:10 AM EDT documented in this encounter Patient Instructions * Patient Instructions* Cyndi Corbett CRNP - 05/10/2023 4:05 PM EDT Can decrease Toprol back down to 25 mg per day Reach out an let us know if you would like to move forward with the ablation. We can assist with scheduling this. documented in this encounter Progress Notes * Ashly Gray DO - 05/15/2023 12:31 PM EST I have reviewed the advanced practitioner documentation and agree. I saw and evaluated the patient on date of service referenced in note and have performed the following medically appropriate historyand/or exam: Pt seen in EP f/u due to pAF and recent hospitalization for pAF in the setting of COVID. Pt has had 2 episodes this year of pAF one was in the setting of COVID; if he has more episodes I would recommend proceeding with PVI ablation With this most recent episode his BB was increased-I would decrease this back down given his markedSB and faituge and CONTRERAS Continue propafenone-QRS is ok Continue eliquis EP f/u as scheduled in 3 months Ashly Gray DO Department of Cardiology [facility] [place] [address] * Cyndi Corbett CRNP - 05/10/2023 3:21 PM EDT Subjective Giovanni Puckett is a 62 year old male. Chief Complaint Patient presents with Follow Up Cardiac Problems pAF, newly diagnosed 10/02/2016;started on metoprolol [id number] 1 (DM II); recurrent episode 11/12/2016 went to [facility] ED had 3.5 second conversion pause with IV bolus of cardizem; started on Rythmol 11/2016, again 01/28/23 at [facility] treated with DCCV, 04/2023 managed medically HLD Recent COVID 19 04/2023 HPI: 62-year-old male presents today for routine EP follow-up post hospitalization. He was admitted at [facility] 04/26 for A Fib RVR. Also was diagnosed with COVID during that hospital stay. He was having symptoms at home and his brother was sick also just prior to this. During his inpatient hospitalization he was treated with IV Lopressor and was able to self convert back to normal sinus rhythm without any intervention outside of medication management. Has occasional fluttering feeling but no persistent atrial fibrillation since his hospital discharge. He was discharged on higher dose of metoprolol and has noticed increasing fatigue and shortness of breath with activity along with this increased dosing. Denies chest pain, palpitations, dizziness, syncope, edema, orthopnea and PND. No change in activity tolerance. Reports compliance with medications without any untoward side effects, or difficulty with affordability. PMH: Patient Active Problem List Diagnosis Code Esophageal stricture K22.2 Dyslipidemia, goal LDL below 100 E78.5 Depression F32.A PAF (paroxysmal atrial fibrillation) (HCC) I48.0 Bradycardia, sinus R00.1 Incomplete RBBB I45.10 BPH with obstruction/lower urinary tract symptoms N40.1, N13.8 ASHISH (generalized anxiety disorder) F41.1 Need for prophylactic vaccination and inoculation against influenza Z23 Gastroesophageal reflux disease without esophagitis K21.9 Moderate episode of recurrent major depressive disorder ([facility]) F33.1 Type 2 diabetes mellitus with diabetic mononeuropathy, without long-term current use of insulin ([facility]) E11.41 Type 2 diabetes mellitus without complication ([facility]) E11.9 Severe episode of recurrent major depressive disorder, without psychotic features ([facility]) F33.2 Essential (primary) hypertension I10 Hypokalemia E87.6 Hospital discharge follow-up Z09 Atrial fibrillation with RVR ([facility]) I48.91 COVID-19 virus infection U07.1 Current Outpatient Medications Medication Sig Dispense Refill Multiple Vitamins-Minerals (PRESERVISION AREDS 2) Capsule Take 1 Capsule by mouth at bedtime. Ibuprofen 200 MG Oral Tablet Take 1 Tablet by mouth every 4 hours as needed for Pain. Tamsulosin HCl 0.4 MG Oral Capsule (Flomax) TAKE 1 CAPSULE BY MOUTH EVERY DAY IN THE MORNING (Patient taking differently: at bedtime.) 90 Capsule 3 Ciclopirox 8 % External Solution Apply over nail and surrounding skin. Apply daily over previous coat. After seven (7) days, may remove with alcohol and continue cycle. 6.6 mL 3 Sertraline HCl 100 MG Oral Tablet (Zoloft) Take 1.5 Tablets by mouth in the morning. (Patient taking differently: Take 1.5 Tablets by mouth at bedtime.) 90 Tablet 3 Omeprazole 20 MG Oral Capsule Delayed Release (PriLOSEC) TAKE 1 CAPSULE BY MOUTH EVERY DAY (Patienttaking differently: at bedtime.) 90 Capsule 3 Metoprolol Succinate ER 25 MG Oral Tablet Extended Release 24 Hour (toPROL XL) TAKE 1 TABLET BY MOUTH EVERY DAY (Patient taking differently: 2 times a day.) 90 Tablet 3 Eliquis 5 MG Oral Tablet Take 1 Tablet by mouth in the morning and 1 Tablet before bedtime. 180 Tablet 1 Propafenone HCl 150 MG Oral Tablet (Rythmol) TAKE 1 TABLET BY MOUTH IN THE MORNING AND 1 TABLET AT AT NOON AND 1 TABLET BEFORE BEDTIME 270 Tablet 3 Centrum Silver 50+Men Oral Tablet Take by mouth. metFORMIN HCl ER 500 MG Oral Tablet Extended Release 24 Hour (Glucophage XR) TAKE 1 TABLET BY MOUTHEVERY DAY IN THE MORNING 90 Tablet 1 Pravastatin Sodium 10 MG Oral Tablet (Pravachol) TAKE ONE TABLET BY MOUTH EVERY DAY FOR [id number] Tablet 1 guaiFENesin ER 600 MG Oral Tablet Extended Release 12 Hour (Humibid LA) 1 Tablet. No current facility-administered medications for this visit. Past Medical History: Diagnosis Date Esophageal stricture Herpes zoster 08/19 Past Surgical History: Procedure Laterality Date COLONOSCOPY 11/09/2011 normal-repeat in 10 years COLONOSCOPY, DIAGNOSTIC (RECTUM) 04/05/2023 biopsies show hyperplastic polyps/recall 5 years/COLONOSCOPY FLEXIBLE PROXIMAL DIAGNOSTIC performedby [facility]eda DO [facility] 10/09/2005 Negative test FLUORO ESOPHAGEAL DILATION 1992, 1996 due to stricture- Dr. Odonnell FLUORO ESOPHAGEAL DILATION 10/09/2001 Schtzmarlene's ring dilated FLUORO ESOPHAGEAL DILATION 08/11/2003 dilation accomplished FLUORO UPPER GI W KUB 08/31/2001 distal esophageal scarring and proximal nodularity Review of patient's allergies indicates: Allergen Reactions Environmental [Pollen] Grass pollen - rash Penicillins Father was allergic Other Reaction(s): PT'S FATHER HAD SEVERE REACTION Family History Problem Relation Age of Onset Musculo-skeletal Disorder Mother age 75- ostoeporosis Endocrine Disorder Mother Elevated cholesterol Mental Disorder Mother dementia diagnosed - age 89 Endocrine Disorder Father Elevated cholesterol No Past Hx Brother No Past Hx Sister Family Status Relation Status Mo (Not Specified) Fa (Not Specified) Bro (Not Specified) Sis (Not Specified) Social History Socioeconomic History Marital status: Single Spouse name: Not on file Number of children: Not on file Years of education: Not on file Highest education level: Not on file Occupational History Occupation: [email or web address] Comment: [employer] Tobacco Use Smoking status: [...] on file Housing Stability: Not on file Review of Systems Constitutional: Positive for activity change and fatigue. Negative for unexpected weight change. Eyes: Negative for visual disturbance. Respiratory: Positive for shortness of breath. Negative for wheezing. Cardiovascular: Positive for palpitations. Negative for chest pain and leg swelling. Gastrointestinal: Negative for blood in stool, constipation, diarrhea, nausea and vomiting. Genitourinary: Negative for hematuria. Musculoskeletal: Negative for arthralgias and gait problem. Skin: Negative for wound. Neurological: Negative for dizziness and syncope. Objective BP 108/60 | Pulse 80 | Resp 14 | Wt 88.9 kg (196 lb) | BMI 26.58 kg/m | BSA 2.13 m Physical Exam Vitals and nursing note reviewed. Constitutional: General: He is awake. He is not in acute distress. Appearance: Normal appearance. He is well-developed and well-groomed. He is not ill-appearing. HENT: Head: Normocephalic and atraumatic. Eyes: General: No scleral icterus. Extraocular Movements: Extraocular movements intact. Conjunctiva/sclera: Conjunctivae normal. Pupils: Pupils are equal, round, and reactive to light. Neck: Thyroid: No thyromegaly. Vascular: No carotid bruit or JVD. Cardiovascular: Rate and Rhythm: Normal rate and regular rhythm. Pulses: Normal pulses. Carotid pulses are 2+ on the right side and 2+ on the left side. Radial pulses are 2+ on the right side and 2+ on the left side. Posterior tibial pulses are 2+ on the right side and 2+ on the left side. Heart sounds: Normal heart sounds, S1 normal and S2 normal. No murmur heard. Pulmonary: Effort: Pulmonary effort is normal. No respiratory distress. Breath sounds: Normal breath sounds. No wheezing, rhonchi or rales. Abdominal: General: Bowel sounds are normal. There is no distension. Palpations: Abdomen is soft. There is no mass. Tenderness: There is no abdominal tenderness. Musculoskeletal: General: No swelling. Cervical back: Neck supple. Right lower leg: No edema. Left lower leg: No edema. Skin: General: Skin is warm and dry. Capillary Refill: Capillary refill takes less than 2 seconds. Findings: No rash or wound. Neurological: General: No focal deficit present. Mental Status: He is alert and oriented to person, place, and time. Psychiatric: Attention and Perception: Attention and perception normal. Behavior: Behavior is cooperative. Judgment: Judgment normal. Results ECGs: 04/27/23 at [facility] NSR iRBBB 63 bpm QTc 405 ms 04/26/23 at [facility] NSR 67 bpm QTc 399 ms 04/25/23 at [facility] NSR 82 bpm QTc 418 ms 04/25/23 at [facility] A Fib RVR 136 bpm QTc 442 ms 01/28/23 - post cardioversion 1548 NSR 78 bpm QRS 94 ms QTc 417 ms 01/28/23 - 1228 A Fib RVR 118 bpm 01/08/22 SR 69bpm Incomplete RBBB QRS 112ms QTc 407ms 05/09/2020: SB 59bpm Incomplete RBBB QRS 108ms QTc 394ms 04/20/2019: SR 61bpm Incomplete RBBB QRS 110ms QTc 382ms 04/14/2018: SR 63bpm QRS 106ms QTc 392ms 12/17/2016: SR 62bpm Incomplete RBBB QRS 108ms QTc 379ms 11/13/2016 at [facility]: SR 68bpm Incomplete RBBB QRS 96ms QTc 380ms 11/13/2016 at [facility] AF 80bpm 11/13/2016 at [facility] AF 129bpm Telemetry Strips [facility] 11/13/2016: 3.5 second conversion pause pt asymptomatic 10/02/2016 at [facility]: AF 144bpm QRS 88ms QTc 393ms 10/02/2016 at [facility] after metoprolol IV: SR 89bpm QTc 403ms QRS 88ms 10/2011: SR Incomplete RBBB Telemetry Strip from [facility] 10/02/2016: AF RVR 150bpm Echocardiograms: 04/26/23 at [facility] EF 60-65 % There is borderline concentric LVH Mild MR Mild TR Doppler findings do not suggest pulmonary hypertension Normal biatrial size SANTIAGO at [facility] 01/28/23 The left ventricle was normal in size. Normal left ventricular wall motion. There is borderline concentric LVH. Ejection fraction 60-65 percent. Left atrial size is normal No thrombus detected in the left atrial appendage. No valvular disease. Exercise Echocardiogram Stress Test 2011: The stress echo is negative for inducible ischemia. No symptoms suggestive of angina were noted with patient having achieved an above average workload of 10 METS. EF normal Non-dilated cardiac chambers No significant valvular pathology Exercise Echocardiogram Stress Test: 05/20/2020: The stress echo is negative for inducible ischemia. Exercise capacity is above average . Heart rate response to stress was normal. Blood pressure response to exercise was normal. The stress EKG response showed no evidence of ischemia. No arrhythmias were noted with stress. The left ventricular wall motion is normal. The left ventricular wall motion with stress is normal. The left ventricular ejection fraction increases normally with stress. The left ventricular systolic function is normal. The qualitative LV ejection fraction is 60-64% (normal). 2006: STRESS EK. Resting EKG--normal. 2. The patient had no chest pain or other anginal symptoms. Exercise limited by generalized fatigue. 3. The patient was exercised using a standard Jorge protocol for a total of nine minutes with maximum exercise for three minutes at 3.4 mph and 14% grade. Maximum heart rate achieved 169 BPM representing 96% of the maximum age predicted heart rate. Maximum BP with exercise 210/90. 4. No arrhythmia detected. 5. No significant ST-T wave abnormalities. 6. Conclusion - negative stress EKG at moderate and adequate levels of exercise. Laboratory Data Review: From [facility] 04/27/23 Na 139 K 4.3 BUN 23 Cr 0.95 Ca 8.9 Glucose 143 Mg 2.1 WBC 4.77 Hgb 13.5 Hct 39.7 Plt 144 Latest Reference Range & Units 11/23/22 15:49 Triglycerides <=174 mg/dL 379 (H) Cholesterol <200 mg/dL 231 (H) Non-HDL Cholesterol <=159 mg/dL 194 (H) HDL Cholesterol >39 mg/dL 37 (L) LDL Cholesterol <=129 mg/dL 118 Sodium 135 - 146 mmol/L 141 Potassium 3.5 - 5.1 mmol/L 4.9 Chloride 98 - 107 mmol/L 103 CO2 22 - 32 mmol/L 27 BUN 6 - 20 mg/dL 18 Creatinine 0.6 - 1.2 mg/dL 0.9 Estimated Glomerular Filtration Rate >=60 mL/min >90 Anion Gap 7 - 15 mmol/L 11 Glucose 70 - 120 mg/dL 116 Calcium 8.4 - 10.2 mg/dL 9.8 Magnesium 1.5 - 2.6 mg/dL 2.2 Protein 6.0 - 8.3 g/dL 7.2 Estimated Average Glucose <126 mg/dL 143 (H) Hemoglobin A1C 4.0 - 5.6 % 6.6 (H) CBC Rpt CBC WITH WBC DIFFERENTIAL Rpt WBC 4.00 - 10.80 K/uL 5.81 HGB 14.0 - 16.8 g/dL 15.2 HCT 40.0 - 48.4 % 46.5 MCV 82.0 - 99.5 fL 92.1 PLT 140 - 400 K/uL 231 Absolute Neutrophils 1.80 - 7.70 K/uL 3.54 Absolute Lymphocytes 1.00 - 4.80 K/ul 1.56 Absolute Monocytes 0.00 - 1.10 K/uL 0.51 Absolute Eosinophils 0.00 - 0.70 K/uL 0.15 Absolute Basophils 0.00 - 0.20 K/uL 0.01 Vitamin B12 232 - 1,245 pg/mL 1,040 ESR <20 mm/hour 18 ANTINUCLEAR ANTIBODY (BIMAL) EIA SCREEN WITH REFLEX AB QUANT Rpt ANTINUCLEAR ANTIBODY (BIMAL) SCREEN, TESSY Rpt ANAPLASMA PHAGOCYTOPHILUM DNA, QL REAL-TIME PCR Rpt Albumin 3.8 - 5.0 g/dL 5.2 (H) AST 10 - 50 U/L 28 ALT 10 - 50 U/L 37 Alkaline Phosphatase 35 - 130 U/L 106 Bilirubin, Total <=1.2 mg/dL 0.6 Albumin / Creatinine Ratio, Urine <30 mg/g Creat 18 ALBUMIN / CREATININE RATIO, URINE Rpt Albumin, Random Urine mg/dL 2.46 Creatinine, Random Urine mg/dL 134 BIMAL Screen Negative Negative dsDNA Antibody Value <20 IU/mL 0.9 YM Antibodies Screen Interpretation Negative Negative MY Antibodies Screen Value <0.7 Ratio 0.1 Impression pAF, [id number] 1 (DM II) DM II HLD Increased Stressors Anxiety Recent COVID 19 04/2023 Plan: -HR and BP well controlled -was recently back in the hospital with A Fib RVR -also was found to be COVID + at that time -Toprol was increased but he is not tolerating the higher dose of medication he is feeling fatiguedand SOB -will decrease this down to 25 mg daily in the evening -discussed ablation procedure for A Fib -continue propafenone, metoprolol, and apixaban -Educated patient on caution with change in positions to minimize symptomatic orthostatic hypotension -Discussed importance of diet & exercise with the patient. -Discussed with patient subtle changes in how they are feeling or completing daily activities to contact us sooner; don't wait days or weeks. Patient care discussed and coordinated with Dr. Gray. Please refer to Dr. Gray's notes for further recommendations. DISPOSITION: Follow up 3 months or if symptoms worsen/fail to improve. All questions were answered to the patients satisfaction. Patient advised to report to ED with any and all emergencies. The patient agrees to the above plan and will call with additional questions or concerns. [facility] [address] [address] This chart was completed in part utilizing [employer] Speech Voice Recognition Software. Grammatical errors, random word insertions, pronoun errors, and incomplete sentences are an occasional consequence of this system due to software limitations, ambient noise, and hardware issues. Any formal questions or concerns about the content, text, or information contained within the body of this dictation should be directly addressed to the provider for clarification. documented in this encounter Nursing Notes * Hawa Trevino LPN - 05/10/2023 3:23 PM EDT Examination Room: 11 Name: Giovanni Puckett Date of : 1960 Reason for Visit: Follow up Problems/Concerns: Metoprolol making him tired Interim Hosp(s): Denies since 04/27/23 afib Chest Pain/SOB: denies MyChart Discussed: ALREADY ACTIVE Patient was instructed to not get up on the exam table until directed and assisted by their provider; patient is to remain seated in the chair/ wheelchair/ exam table for fall prevention and safety reasons. Patient is aware to have assistance to step down off exam table with personnel. documented in this encounter Plan of Treatment Upcoming Encounters Date Type Department Care Team (Late st Contact Info) Description 06/24/2023 1:00 PM EST Office Visit [facility] [address] [facility] [place] [address] Osiris Estrada CRNP 132 [facility] [place] [address] 08/03/2023 2:20 PM EST Office Visit [facility] [address] [facility] [place] [address] Osiris Estrada CRNP [address] [facility] [place] [address] 08/09/2023 2:30 PM EST Office Visit Cardiology, [facility] [address] [facility] [place] [address] [facility]di [facility] [phone] 01/05/2024 3:00 PM EDT Office Visit Allergy/Immunology [facility] [address] [facility] [place] [address] Ian Schilling MD [address] [facility] [place] [address] Scheduled Procedures Name Priority Associated Diagnoses Date/Ti [...] as of this encounter Visit Diagnoses Diagnosis PAF (paroxysmal atrial fibrillation) (HCC)- Primary Atrial fibrillation Incomplete RBBB Right bundle branch block Type 2 diabetes mellitus with hemoglobin A1c goal of less than 7.0% (HCC) ASHISH (generalized anxiety disorder) Generalized anxiety disorder Hyperlipidemia, unspecified hyperlipidemia type documented in this encounter Care Teams Coal Crusher Operator Relationship Specialty Start Date End Date sOiris Estrada CRNP [address] [place] [address] PCP - General Nurse Practitioner 12/03/21 documented as of this encounter"
--- OUTSIDE RECORDS SUMMARY | 2023-05-24 21:32 | External Medical Summary | Summary of Care ---
Author Name Unknown Organization [facility] Address [address] [place] [address] Phone [phone] Care Team Providers Care Medicine Teacher Name Role Phone Osiris Estrada Primary Care Provider Reason for Visit * Reason Onset Date Comments Scan To Read 05/03/2023 Encounter Details Date Type Department Care Team (Late st Contact Info) Description 05/03/2023 Telephone Family Practice [facility] [address] [place] [address] Osiris Estrada CRNP [address] [place] [address] Scan To Read Allergies Active Allergy Reactions Criticality Noted Date Comments Pollen 01/31/2023 Grass pollen - rash Penicillins 05/25/2006 Father was allergic Other Reaction(s): PT'S FATHER HAD SEVERE REACTION documented as of this encounter (statuses as of 05/13/2023) Medications Medication Sig Dispensed Refills Start Date [...] as of this encounter (statuses as of 05/13/2023) Active Problems Problem Noted Date Diagnosed Date [...] as of this encounter (statuses as of 05/13/2023) Resolved Problems Problem Noted Date Diagnosed Date Resolved Date Prediabetes 03/18/2020 05/11/2022 Overview: Per Prediabetes protocol Metabolon Quantose IR Resear Study*[id number] 02/06/2014 05/01/2014 Overview: METABOLON QUANTOSE IR STUDY. PROJECT: #[id number], BROKER IN CHARGE: Hector Lundy MD/ Monty Guzman MD. SUMMARY: The Use of a Novel Insulin Resistance Test as a Monitoring Indicator of Glycemic Control in Prediabetics and Diabetics treated with metformin combined with lifestyle intervention. CONTACTS: During normal business hours, contact Medina Ruano RN, BSN at ; after hours Barrel Rifler via the [facility] hospital band sawing machine operator Dyslipidemia, goal to be determined 06/26/2009 10/24/2009 Overview: Per Lipid Taxonomy. PURE HYPERCHOLESTEROLEM 06/10 Overview: Per Lipid Taxonomy. documented as of this encounter (statuses as of 05/13/2023) Immunizations Name Administration Dates Next Due COVID-19 mRNA, LNP-s, No Pre serve, 2-Dose Series (Hut[employer]rip) 06/17/2021,10/01/2020,09/10/2020 Covid-19, Mrna, Lnp-s, Pf, B ivalent, [...] encounter Miscellaneous Notes * Telephone Encounter - Brennen Washburn MD - 05/03/2023 10:16 AM EDT Retinal Scan Imaging Giovanni Puckett [id number] Retinal Scan Interpretation: There is no retinopathy in both eyes Diabetes Retinal Imaging Care Plan: The retinal scan results are normal - I will forward this encounter to the Ophthalmology DM Letter Pool [[id number]], they will send a normal retinal scan letter to the patient, and the patient will be seen back for a yearly scan. Brennen Washburn MD 05/03/2023 10:16 AM * Telephone Encounter - Shyann Martinez LPN - 05/03/2023 9:16 AM EDT A Diabetic Telemed Eye image was taken and requires your interpretation for Osiris MENA. Please check your inbasket for image. Patient prefers to be seen at [facility] if a follow-up appointment is needed. documented in this encounter Plan of Treatment Upcoming Encounters Date Type Department Care Team (Late st Contact Info) Description 06/24/2023 1:00 PM EST Office Visit [facility] [address] [facility] [place] [address] Osiris Estrada CRNP [address] [place] [address] 08/03/2023 2:20 PM EST Office Visit [facility] [address] [place] [address] Osiris Estrada CRNP [address] [place] [address] 08/09/2023 2:30 PM EST Office Visit Cardiology, [facility] [address] [place] [address] Cyndi Corbett CRNP [address] [facility] [place] [phone] 01/05/2024 3:00 PM EDT Office Visit Allergy/Immunology [facility] [address] [facility] [place] [address] Ian Schilling MD [address] [facility] [place] [address] Scheduled Procedures Name Priority Associated Diagnoses Date/Ti [...] filedocumented as of this encounter Care Teams Medicine Teacher Relationship Specialty Start Date End Date Osiris Estrada CRNP [address] [place] [address] PCP - General Nurse Practitioner 12/03/21 documented as of this encounter
--- OUTSIDE RECORDS SUMMARY | 2023-05-24 21:33 | External Medical Summary | Summary of Care ---
Author Name Unknown Organization [facility] Address [address] [place] [address] Phone [phone] Care Team Providers Care Director Telehealth Name Role Phone Osiris Estrada Primary Care Provider Reason for Referral * Precert (Within 10 days (routine)) - Pending Review Specialty Diagnoses / Procedures Referred By Clementine sandoval Referred To Contact Radiology Diagnoses Memory loss Balance disorder Procedures MRI BRAIN W WO CONTRAST Osiris Estrada CRNP [address] [place] [address] Referral ID Status Reason Start Date Expiration Date V isits Requested Visits Authorized [id number] Pending Review 03/25/2023 999 [id number] Reason for Visit * Reason Comments Follow Up Patient presents in office today for a 3m follow-up visit. Encounter Details Date Type Department Care Team Description 03/25/2023 Office Visit Family Practice [facility] [address] [place] [address] Osiris Estrada CRNP [address] [place] [address] Memory loss*; Balance disorder; Type 2 diabetes mellitus with diabetic mononeuropathy, without long-term current use of insulin (HCC); PAF (paroxysmal atrial fibrillation) (HCC); Need for influenza vaccination; Essential (primary) hypertension Allergies Active Allergy Reactions Severity Noted Date Comments Pollen 01/31/2023 Grass pollen - rash Penicillins 05/25/2006 Father was allergic Other Reaction(s): PT'S FATHER HAD SEVERE REACTION documented as of this encounter (statuses as of 03/25/2023) Medications Medication Sig Dispensed Refills Start Date End Date Status Multiple Vitamins-Minerals (PRESERVISION AREDS 2) Capsule Take 1 Capsule by mouth in the morning. 0 Active Ibuprofen 200 MG Oral Tablet Take 1 Tablet by mouth every 4 hours as needed for Pain. 0 Active metFORMIN HCl ER 500 MG Oral Tablet Extended Release 24 Hour (Glucophage XR) Take by mouth 1 Tablet in the morning. 90 Tablet 3 05/11/2022 Active Tamsulosin HCl 0.4 MG Oral Capsule (Flomax)Indications: Urinary urgency,Weak urinary stream,Nocturia TAKE 1 CAPSULE BY MOUTH EVERY DAY IN THE MORNING 90 Capsule 3 06/23/2022 Active Pravastatin Sodium 10 MG Oral Tablet (Pravachol)Indicatio ns:Dyslipidemia, goal LDL below 100 TAKE ONE TABLET BY MOUTH EVERY DAY FOR CHOLESTEROL 90 Tablet 1 12/08/2022 Active Ciclopirox 8 % External Solution Apply over nail and surrounding skin. Apply daily over previous coat. After seven (7) days, may remove with alcohol and continue cycle. 6.6 mL 3 12/23/2022 Active Sertraline HCl 100 MG Oral Tablet (Zoloft) Take 1.5 Tablets by mouth in the morning. 90 Tablet 3 12/23/2022 Active Omeprazole 20 MG Oral Capsule Delayed Release (PriLOSEC)Indication s:Esophageal stricture TAKE 1 CAPSULE BY MOUTH EVERY DAY 90 Capsule 3 01/12/2023 Active Metoprolol Succinate ER 25 MG Oral Tablet Extended Release 24 Hour (toPROL XL)Indications:PAF (paroxysmal atrial fibrillation) ([facility]) TAKE 1 TABLET BY MOUTH EVERY DAY 90 Tablet 3 01/14/2023 Active Eliquis 5 MG Oral Tablet Take 1 Tablet by mouth in the morning and 1 Tablet before bedtime. 180 Tablet 1 03/04/2023 Active Propafenone HCl 150 MG Oral Tablet (Rythmol)Indications :PAF (paroxysmal atrial fibrillation) ([facility]) TAKE 1 TABLET BY MOUTH IN THE MORNING AND 1 TABLET AT AT NOON AND 1 TABLET BEFORE BEDTIME 270 Tablet 3 03/19/2023 Active diazePAM 5 MG Oral Tablet (Valium)Indications: Memory loss,Balance disorder Take 1 Tablet by mouth every 6 hours as needed for Anxiety. TAKE 1 TABLET 30-60 MINUTES BEFORE PROCEDURE 1 Tablet 0 03/25/2023 Active Zoster Vac Recomb Adjuvanted 50 MCG/0.5ML Intramuscular Suspension Reconstituted (Shingrix) Inject 0.5 mL into a large muscle now and repeat dose in 60 to 180 days 1 Each 1 03/25/2023 Active documented as of this encounter (statuses as of 03/25/2023) Active Problems Problem Noted Date Hypokalemia 02/03/2023 [...] as of this encounter (statuses as of 03/25/2023) Resolved Problems Problem Noted Date Resolved Date Hospital discharge follow-up 02/03/2023 Prediabetes 03/18/2020 05/11/2022 Overview: Per Prediabetes protocol Metabolon Quantose IR Research Study*[id number] 02/06/2014 05/01/2014 Overview: METABOLON QUANTOSE IR STUDY. PROJECT: #[id number], CLOUD SECURITY ARCHITECT: Hector Lundy MD/ Monty Guzman MD. SUMMARY: The Use of a Novel Insulin Resistance Test as a Monitoring Indicator of Glycemic Control in Prediabetics and Diabetics treated with metformin combined with lifestyle intervention. CONTACTS: During normal business hours, contact Medina Ruano RN, BSN at ; after hours Wire Inspector via the [facility] hospital forming press operator Dyslipidemia, goal to be determined 06/26/2009 10/24/2009 Overview: Per Lipid Taxonomy. PURE HYPERCHOLESTEROLEM 06/26/20 Overview: Per Lipid Taxonomy. documented as of this encounter (statuses as of 03/25/2023) Immunizations Name Administration Dates Next Due COVID-19 mRNA, LNP-s, No Pre serve, 2-Dose Series (Pfizer) 06/17/2021,10/01/2020,09/10/2020 Covid-19, Mrna, Lnp-s, Pf, B ivalent, 30 Mcg, IM, 12 yrs and above (Pfizer) 05/26/2022 Seasonal Influenza Virus Vac cine, Unspecified Formulation 05/05/2022,03/19/2021,04/27/2020,2019,03/30/2019,04/14/2018,03/22/2017,1 ,03/20/2014,08/13/2013, 012,04/10/2011,05/29/2007,05/25/2006,,07/25/2002 Seasonal Influenza, PF, 6 mo ns & Above, IM , (Flulaval) 03/25/2023,03/19/2021,04/12/2020,2018,04/14/2018 Seasonal Influenza, Quadriva lent, No Preserve, IM [...] Sign Reading Time Taken Comments Blood Pressure 116/66 03/25/2023 1:36 PM EDT Pulse 78 03/25/2023 1:36 PM EDT Temperature - - Respiratory Rate 18 03/25/2023 1:36 PM EDT Oxygen Saturation - - Inhaled Oxygen Concentration - - Weight 89.3 kg (196 lb 14.4 oz) 03/25/2023 1:36 PM EDT Height 182.9 cm (6') 03/25/2023 1:36 PM EDT Body Mass Index 26.7 03/25/2023 1:36 PM EDT documented in this encounter Progress Notes * JAN Glover - 03/25/2023 2:35 PM EDT Pre-Administration Time Out Procedure Performed: Yes Patient Identified (Ask Name/Date of ): Yes Does the patient have a fever greater than 101 degrees today? No Patient allergic to latex? No Has the patient ever fainted after receiving an injection? No VFC Stock: No Immunization(s) verified: Yes, Immunization Name: Flu, VIS Sheet(s) given: Yes Verified Side and Site: Yes Verified Shot(s) with Parent(s)/Patient: Yes * TRINA Perdue - 03/25/2023 1:55 PM EDT Follow up Family Medicine Visit CC: Chief Complaint Patient presents with Follow Up Patient presents in office today for a 3m follow-up visit. History of Present Illness: Giovanni Puckett is a 62 year old male presenting for 3 month follow up. Sometimes moves to the left when walking. Feels a little off balance. Denies dizziness. Not worse with turning head or changing positions. Last episode of balance disturbance 2-3 times per day. Denies room spinning. Denies nausea or vomiting. Balance changes have been for about 6-12 months. Feels some memory changes. Recent memory mostly. A fib: feels fluttering every other day. Denies associated chest pain, sob or fatigue. ON ELIQUIS AND BB. Mood is stable. Feels anxiety is improved. Sleeping well. Social History Socioeconomic History Marital status: Single Spouse name: Not on file Number of children: Not on file Years of education: Not on file Highest education level: Not on file Occupational History Occupation: [employer] Comment: [employer] Tobacco Use Smoking status: Never Smokeless [...] on file Food Insecurity: No Food Insecurity Worried About Running Out of Food in [...] Past Surgical History: Procedure Laterality Date COLONOSCOPY 11/2011 normal-repeat in 10 years EXERCISE ECHO 10/14 Negative test FLUORO ESOPHAGEAL DILATION 1992, 1996 due to stricture- Dr. Odonnell FLUORO ESOPHAGEAL DILATION 10/10 Schfreddyki's ring dilated FLUORO ESOPHAGEAL DILATION 08/14 dilation accomplished FLUORO UPPER GI W KUB 08/31/01 distal esophageal scarring and proximal nodularity Outpatient Medications Marked as Taking for the 03/25/23 encounter (Office Visit) with TRINA Perdue Medication Sig Propafenone HCl 150 MG Oral Tablet (Rythmol) TAKE 1 TABLET BY MOUTH IN THE MORNING AND 1 TABLET AT AT NOON AND 1 TABLET BEFORE BEDTIME Eliquis 5 MG Oral Tablet Take 1 Tablet by mouth in the morning and 1 Tablet before bedtime. Metoprolol Succinate ER 25 MG Oral Tablet Extended Release 24 Hour (toPROL XL) TAKE 1 TABLET BY MOUTH EVERY DAY Omeprazole 20 MG Oral Capsule Delayed Release (PriLOSEC) TAKE 1 CAPSULE BY MOUTH EVERY DAY Ciclopirox 8 % External Solution Apply over nail and surrounding skin. Apply daily over previous coat. After seven (7) days, may remove with alcohol and continue cycle. Sertraline HCl 100 MG Oral Tablet (Zoloft) Take 1.5 Tablets by mouth in the morning. Pravastatin Sodium 10 MG Oral Tablet (Pravachol) TAKE ONE TABLET BY MOUTH EVERY DAY FOR CHOLESTEROL Tamsulosin HCl 0.4 MG Oral Capsule (Flomax) TAKE 1 CAPSULE BY MOUTH EVERY DAY IN THE MORNING metFORMIN HCl ER 500 MG Oral Tablet Extended Release 24 Hour (Glucophage XR) Take by mouth 1 Tabletin the morning. Ibuprofen 200 MG Oral Tablet Take 1 Tablet by mouth every 4 hours as needed for Pain. Multiple Vitamins-Minerals (PRESERVISION AREDS 2) Capsule Take 1 Capsule by mouth in the morning. Review of patient's allergies indicates: Allergen Reactions Environmental [Pollen] Grass pollen - rash Penicillins Father was allergic Other Reaction(s): PT'S FATHER HAD SEVERE REACTION Most Recent Immunizations Administered Date(s) Administered COVID-19 mRNA, LNP-s, No Preserve, 2-Dose Series (Ophis Vape) 06/17/2021 Covid-19, Mrna, Lnp-s, Pf, Bivalent, 30 Mcg, IM, 12 yrs and above (Pfizer) 05/26/2022 Seasonal Influenza Virus Vaccine, Unspecified Formulation 05/05/2022 Seasonal Influenza, PF, 6 mons & Above, IM , (Flulaval) 03/19/2021 Seasonal Influenza, Quadrivalent, No Preserve, IM 03/22/2017 Seasonal Influenza, Split, IIV3, With Preserve, Inj 03/20/2014 TD - Tetanus/Diptheria (ADULT) 09/22/2001 TD, Preservative Free 05/11/2022 TDAP (age 11 and older)(Adacel) 09/21/2011 Varicella Zoster Vaccine (Adult) 06/20/2015 Review of Systems: Review of Systems Constitutional: Negative for fatigue. Respiratory: Negative for shortness of breath. Cardiovascular: Negative for chest pain. Gastrointestinal: Negative for abdominal pain, anal bleeding, constipation and diarrhea. Neurological: Negative for dizziness and syncope. Physical Exam: BP 116/66 | Pulse 78 | Resp 18 | Ht 1.829 m (6') | Wt 89.3 kg (196 lb 14.4 oz) | BMI 26.70 kg/m |BSA 2.13 m Physical Exam Vitals and nursing note reviewed. Constitutional: Appearance: Normal appearance. HENT: Head: Normocephalic. Right Ear: Tympanic membrane normal. Left Ear: Tympanic membrane normal. Nose: Nose normal. Eyes: Pupils: Pupils are equal, round, and reactive to light. Cardiovascular: Rate and Rhythm: Normal rate. Pulmonary: Effort: Pulmonary effort is normal. Breath sounds: Normal breath sounds. Abdominal: General: Bowel sounds are normal. Palpations: Abdomen is soft. There is no mass. Tenderness: There is no abdominal tenderness. Musculoskeletal: General: Normal range of motion. Cervical back: Normal range of motion. Skin: General: Skin is warm and dry. Neurological: General: No focal deficit present. Mental Status: He is alert and oriented to person, place, and time. Cranial Nerves: Cranial nerves 2-12 are intact. Motor: Motor function is intact. Coordination: Coordination is intact. Gait: Gait is intact. Psychiatric: Mood and Affect: Mood normal. Behavior: Behavior normal. Thought Content: Thought content normal. Judgment: Judgment normal. Assessment and Plan: 1. Memory loss Slums exam Neuro exam reassuring - diazePAM 5 MG Oral Tablet (Valium); Take 1 Tablet by mouth every 6 hours as needed for Anxiety. TAKE 1 TABLET 30-60 MINUTES BEFORE PROCEDURE Dispense: 1 Tablet; Refill: 0 2. Balance disorder X 6-12 months - diazePAM 5 MG Oral Tablet (Valium); Take 1 Tablet by mouth every 6 hours as needed for Anxiety. TAKE 1 TABLET 30-60 MINUTES BEFORE PROCEDURE Dispense: 1 Tablet; Refill: 0 3. Type 2 diabetes mellitus with diabetic mononeuropathy, without long-term current use of insulin ([facility]) Stable 4. PAF (paroxysmal atrial fibrillation) (HCC) ON ELIQUIS RATE CONTROLLED 5. Need for influenza vaccination - INFLUENZA VACC, QUAD, PF, 6 MONTHS & UP, 0.5 ML, IM 6. Essential (primary) hypertension stable I have advised the patient to call our office incase of any worsening or new symptoms. I spent a total of 40-54 minutes (exact time 40 mins) on the date of service in preparation, delivery, and documentation of the care provided to Giovanni Puckett excluding any time spent in the performance of separately billed services. Jose, REYNA, TRINA [facility] [place][note 2] documented in this encounter Nursing Notes * JAN Glover - 03/25/2023 1:34 PM EDT The patient has been properly identified by confirmation of name and date of . Chief Complaint Patient presents with Follow Up Patient presents in office today for a 3m follow-up visit. documented in this encounter Plan of Treatment Upcoming Encounters Date Type Specialty Care Team Description 04/05/2023 Hospital Encounter Endoscopy Diana Arboleda, DO [address] [place] [address] 04/05/2023 Surgery Endoscopy Diana Arboleda, DO [address] [place] [address] COLONOSCOPY FLEXIBLE PROXIMAL DIAGNOSTIC 05/02/2023 Imaging Radiology 06/24/2023 Office Visit Family Medicine Osiris Estrada CRNP [address] [place] [address] 08/09/2023 Office Visit Cardiology Cyndi Corbett CRNP [address] [place] [phone] 01/05/2024 Office Visit Allergy & Immunology Ian Schilling MD [address] [facility] [place] [address] Scheduled Orders Name Type Priority Associated Diagnoses Orde r Schedule MRI BRAIN W WO CONTRAST Medical Imaging Routine Memory loss Balance disorder Expected: 03/25/2023, Expires: 04/24/2024 Scheduled Procedures Name Priority Associated Diagnoses Date/Ti me COLONOSCOPY FLEXIBLE PROXIMAL DIAGNOSTIC Special screening for malignant neoplasms, colon 04/05/2023 10:45 AM EDT Health Maintenance Due Date Last Done Comments Pneumococcal Vaccine: Pediatrics (0 to 5 Years) and At-Risk Patients (6 to 64 Years) (1 - PCV) 11/06/1967 Diabetic Foot Exam 11/06/1979 Cologuard 2006 Fecal Occult Blood Test 2006 Sigmoidoscopy 2006 Zoster Vaccines (2 of 3) 08/15/2015 06/20/2015 Colonoscopy 11/28/2021 11/29/2011 Colorectal Cancer Screening 11/28/2021 DIABETES-EYE EXAM 05/11/2023 05/11/2022 HbA1c 05/26/2023 11/23/2022, 09/0 03/2021, 02/22/2020, Additional history exists Albumin/Creatinine Ratio 11/24/2023 11/23/2022 Depression Screening 11/24/2023 11/23/2022, 10/22/19 15 GFR 02/04/2024 02/03/2023, 11/08, 03/19/2021, Additional history exists Lipid Panel 11/24/2027 11/23/2022, 09/0 03/2021, 02/22/2020, Additional history exists DTaP,Tdap,and Td Vaccines (3 - Td or Tdap) 05/11/2032 05/11/2022, 09/21/2011, 09/22/2001, Additional history exists COVID-19 Vaccine Completed 05/26/2022, 02/2021, 10/01/2020, Additional history exists Influenza Vaccine (FLU shot) Completed , 05/05/2022, 03/19/2021, Additional history exists GARDASIL-HPV IMMUNIZATION SERIES Aged Out No longer eligible based on patient's age to complete this topic Hepatitis B Aged Out No longer eligi ble based on patient's age to complete this topic MENINGOCOCCAL (MENACTRA/MENVEO) Aged Out No longer eligible based on patient's age to complete this topic documented as of this encounter Medical Devices Not on filedocumented as of this encounter Visit Diagnoses Diagnosis Memory loss- Primary Balance disorder Other symptoms involving nervous and musculoskeletal systems Type 2 diabetes mellitus with diabetic mononeuropathy, without long-term current use of insulin (HCC) PAF (paroxysmal atrial fibrillation) (HCC) Atrial fibrillation Need for influenza vaccination Need for prophylactic vaccination and inoculation against influenza Essential (primary) hypertension Unspecified essential hypertension Special screening for malignant neoplasms, colon documented in this encounter Care Teams Director Telehealth Relationship Specialty Start Date End Date Osiris Estrada CRNP [address] [place] [address] PCP - General Nurse Practitioner 12/03/21 documented as of this encounter"
--- OUTSIDE RECORDS SUMMARY | 2023-05-24 21:33 | External Medical Summary | Summary of Care ---
Author Name Unknown Organization [facility] Address [address] [place] [address] Phone [phone] Care Team Providers Care Cad Developer Name Role Phone Osiris Estrada Tawanna MENA Primary Care Provider Reason for Visit * Reason Comments eRx-Medication Refill Encounter Details Date Type Department Care Team Description 07/29/2022 Refill [facility] [address] [facility] [address] [facility] Tillman [facility] [address] [facility] [place] [id number] Dyslipidemia, goal LDL below 100 Allergies Active Allergy Reactions Severity Noted Date Comments Pollen 01/31/2023 Grass pollen - rash Penicillins 05/25/2006 Father was allergic Other Reaction(s): PT'S FATHER HAD SEVERE REACTION documented as of this encounter (statuses as of 04/17/2023) Medications Medication Sig Dispensed Refills Start Date [...] Tablet in the morning. 90 Tablet 3 05/11/20 22 Active Additional Information Patient taking differently:500 mg OralHS, Reported on 04/04/2023 Tamsulosin HCl 0.4 MG Oral Capsule (Flomax)Indications: Urinary urgency,Weak urinary stream,Nocturia TAKE 1 CAPSULE BY MOUTH EVERY DAY IN THE MORNING 90 Capsule 3 06/23/20 22 Active Additional Information Patient taking differently: HS, Reported on 04/04/2023 aspirin enteric coated 81 MG TBECIndications:PSVT (paroxysmal supraventricular tachycardia) Take 1 Tablet by mouth in the morning. 100 Tab 3 10/05/19 17 023 Discontinued(Me dication/Dose Changed) Metoprolol Succinate ER 25 MG Oral Tablet Extended Release 24 Hour (toPROL XL)Indications:PAF (paroxysmal atrial fibrillation) (HCC) TAKE 1 TABLET BY MOUTH EVERY DAY 90 Tablet 3 01/15/20 22 023 Discontinued Propafenone HCl 150 MG Oral Tablet (Rythmol)Indications :PAF (paroxysmal atrial fibrillation) (HCC) Take by mouth 1 Tablet in the morning AND 1 Tablet at noon AND 1 Tablet before bedtime. 270 Tablet 3 03/24/20 22 023 Discontinued Pravastatin Sodium 10 MG Oral Tablet (Pravachol)Indicatio ns:Dyslipidemia, goal LDL below 100 TAKE ONE TABLET BY MOUTH EVERY DAY FOR CHOLESTEROL 90 Tablet 0 05/07/20 22 023 Discontinued Zoster Vac Recomb Adjuvanted 50 MCG/0.5ML Intramuscular Suspension Reconstituted (Shingrix) Inject 0.5 mL into a large muscle now and repeat dose in 60 to 180 days 1 Each 1 05/11/20 22 023 Discontinued(Me dication List Clean Up) Sertraline HCl 100 MG Oral Tablet (Zoloft) Take 1 Tablet by mouth at bedtime. 30 Tablet 1 07/07/20 22 023 Discontinued Omeprazole 20 MG Oral Capsule Delayed Release (PriLOSEC)Indication s:Esophageal stricture TAKE 1 CAPSULE BY MOUTH EVERY DAY 90 Capsule 1 07/16/19 23 023 Discontinued Pravastatin Sodium 10 MG Oral Tablet (Pravachol)Indicatio ns:Dyslipidemia, goal LDL below 100 TAKE ONE TABLET BY MOUTH EVERY DAY FOR CHOLESTEROL 90 Tablet 0 07/30/19 23 023 Discontinued documented as of this encounter (statuses as of 04/17/2023) Active Problems Problem Noted Date Hypokalemia 02/03/2023 [...] as of this encounter (statuses as of 04/17/2023) Resolved Problems Problem Noted Date Resolved Date Hospital discharge follow-up 02/03/2023 Prediabetes 03/18/2020 05/11/2022 Overview: Per Prediabetes protocol Metabolon Quantose IR Research Study*[id number] 02/06/2014 05/01/2014 Overview: METABOLON QUANTOSE IR STUDY. PROJECT: #[id number], TYRE RETREADER: Hector Lundy MD/ Monty Guzman MD. SUMMARY: The Use of a Novel Insulin Resistance Test as a Monitoring Indicator of Glycemic Control in Prediabetics and Diabetics treated with metformin combined with lifestyle intervention. CONTACTS: During normal business hours, contact Medina Ruano RN, BSN at ; after hours Psychiatric Cns via the [facility] hospital burrer operator Dyslipidemia, goal to be determined 06/26/2009 10/24/2009 Overview: Per Lipid Taxonomy. PURE HYPERCHOLESTEROLEM 06/26/20 Overview: Per Lipid Taxonomy. documented as of this encounter (statuses as of 04/17/2023) Immunizations Name Administration Dates Next Due COVID-19 mRNA, LNP-s, No Pre serve, 2-Dose Series ([employer]) 06/17/2021,10/01/2020,09/10/2020 Covid-19, Mrna, Lnp-s, Pf, B ivalent, 30 Mcg, IM, 12 yrs and above (Pfizer) 05/26/2022 SEASONAL INFLUENZA, PF, 6 M & Above, IM , (FLULAVAL or FLUZONE) 03/25/2023,03/19/2021,04/12/2020,2018,04/14/2018 Seasonal Influenza Virus Vac cine, Unspecified Formulation 05/05/2022,03/19/2021,04/27/2020,2019,03/30/2019,04/14/2018,03/22/2017,1 ,03/20/2014,08/13/2013, 012,04/10/2011,05/29/2007,05/25/2006,,07/25/2002 Seasonal Influenza, Quadriva lent, No Preserve, IM 03/22/2017,04/14/2016,04/22/2015 Seasonal Influenza, Split, I IV3, With Preserve, Inj 03/20/2014,08/13/2013,03/25/2012,2010,05/29/2007,05/25/2006,06/12/2003,0 07/25/2002 TD - Tetanus/Diptheria (ADULT) 09/22/2001 TD, Preservative Free 05/11/2022,09/22/2001 TDAP (age 11 and older)(Adacel) 09/21/2011 Varicella Zoster Vaccine (Adult) 06/20/2015 documented as of this encounter Social History Tobacco Use Types Packs/Day Years Used Date Smoking Tobacco: Never Smokeless Tobacco: Never Alcohol Use Standard Drinks/Week Comments Yes 0 (1 standard drink = 0.6 oz pure alcohol) As of 2..2006, the last noted alcohol intake was 2 ounces. Food Insecurity Answer Date Recorded Within the [...] encounter Miscellaneous Notes * Telephone Encounter - Gian Interiano CPhT - 04/17/2023 9:47 AM EDT Received message from [facility] regarding patient needing labs. Placed call to patient to advise. Pt had ordered labs completed on 11/23/2022; no follow-up is needed. Thank you, William Interiano ([facility]) Film Casting Operator III [facility] (formerly Telepharm[facility]) 04/17/2023, 9:47 AM * Telephone Encounter - Karey Velásquez [facility] - 07/30/2022 12:46 PM ESTSigned Prescriptions: Disp Refills Pravastatin Sodium 10 MG Oral Tablet (Prav*90 Tab*0 Sig: TAKE ONE TABLET BY MOUTH EVERY DAY FOR CHOLESTEROLAuthorizing Provider: IVAN TILLMAN User: KAREY MAX * Telephone Encounter - Karey Velásquez [facility] - 07/30/2022 12:45 PM EST 2nd attempt Provided 90 days supply with 0 refill(s). Per refill protocol patient should have Lipid panel on file within past year. Reviewed AMP report, Care Gaps/Health Maintenance, medications list, and for any routine labs typically ordered for this patient. Lab orders placed. Please contact patient to advise of labs ordered for blood draw.. Fasting is not required. Advise to obtain labs before requesting the next refill. Thank You, Karey Max [facility] Staff Pharmacist Pharmacy Refill Call Center 07/30/2022, 12:45 PM * Telephone Encounter - Karey Velásquez [facility] - 07/30/2022 12:45 PM EST Pending Prescriptions: Disp Refills Pravastatin Sodium 10 MG Oral Tablet (Pra*90 Tab*0 Sig: TAKE ONE TABLET BY MOUTH EVERY DAY FOR CHOLESTEROL Last Visit: 07/07/2022 (in office), Visit date not found (telemedicine) Next Visit: Visit date not found If no future appointments scheduled, and last appointment is greater than a year ago, please schedule patient for a follow-up appointment Last date the medication was ordered: 05/07/22 Pharmacy: [facility] [id number] [place] [address] Is this request for a controlled substance? No Urine Drug Screen:No results found for this or any previous visit. Patient Phone Numbers Labs: Lab Results Component Value Date/Time CREAT 1.0 03/19/2021 12:45 PM CREAT 1.0 02/22/2020 08:08 AM POTASSIUM 4.2 03/19/2021 12:45 PM POTASSIUM 4.1 02/22/2020 08:08 AM TSH 1.11 03/19/2021 12:45 PM TSH 1.40 02/22/2020 08:08 AM LDLCALC 100 03/19/2021 12:45 PM LDLCALC 101 02/22/2020 08:08 AM LDLDIRECT NOT APPLICABLE 02/22/2020 08:08 AM LDLDIRECT 186 (H) 11/26/2003 08:54 AM ALT 41 03/19/2021 12:45 PM ALT 25 02/22/2020 08:08 AM HGBA1C 6.1 (H) 03/19/2021 12:45 PM HGBA1C 6.1 (H) 02/22/2020 08:08 AM documented in this encounter Plan of Treatment Upcoming Encounters Date Type Specialty Care Team Description 05/05/2023 Imaging Radiology 06/24/2023 Office Visit Family Medicine Osiris Estrada CRNP [address] [place] [address] 08/09/2023 Office Visit Cardiology Cyndi Corbett CRNP [address] [place] [address] 01/05/2024 Office Visit Allergy & Immunology Ian Schilling MD [address] [place] [facility] [address] Scheduled Procedures Name Priority Associated Diagnoses Date/Ti me COLONOSCOPY FLEXIBLE PROXIMA L DIAGNOSTIC Recall History of colonic polyps Health Maintenance Due Date Last Done Comments Pneumococcal Vaccine: Pediatrics (0 to 5 Years) and At-Risk Patients (6 to 64 Years) (1 - PCV) 11/06/1967 Diabetic Foot Exam 11/06/1979 Zoster Vaccines (2 of 3) 08/15/2015 06/20/2015 COVID-19 Vaccine ( - season) 2023 05/26/2022, [...] as of this encounter Visit Diagnoses Diagnosis Dyslipidemia, goal LDL below 100 Other and unspecified hyperlipidemia documented in this encounter Care Teams Cad Developer Relationship Specialty Start Date End Date Osiris Estrada CRNP [address] [place] [address] PCP - General Nurse Practitioner 12/03/21 documented as of this encounter
--- OUTSIDE RECORDS SUMMARY | 2023-05-24 21:33 | External Medical Summary | Summary of Care ---
Author Name Unknown Organization [facility] Address [address] [place] [address] Phone [phone] Care Team Providers Care Vessel Builder Name Role Phone Osiris Estradalle TRINA Primary Care Provider Reason for Visit * Reason Onset Date Comments Pre Op Discussion 03/30/2023 Encounter Details Date Type Department Care Team Description 03/30/2023 Telephone OR [facility], Operating Room [facility] [address] [place] [address] Kristyn Espinal, KATIE Pre Op Discussion Allergies Active Allergy Reactions Severity Noted Date Comments Pollen 01/31/2023 Grass pollen - rash Penicillins 05/25/2006 Father was allergic Other Reaction(s): PT'S FATHER HAD SEVERE REACTION documented as of this encounter (statuses as of 04/04/2023) Medications Medication Sig Dispensed Refills Start Date [...] the morning. 90 Tablet 3 05/11/2022 Active Additional Information Patient taking differently:500 mg OralHS, Reported on 04/04/2023 Tamsulosin HCl 0.4 MG Oral Capsule (Flomax)Indications: Urinary urgency,Weak urinary stream,Nocturia TAKE 1 CAPSULE BY MOUTH EVERY DAY IN THE MORNING 90 Capsule 3 06/23/2022 Active Additional Information Patient taking differently: HS, Reported on 04/04/2023 Pravastatin Sodium 10 MG Oral Tablet (Pravachol)Indicatio ns:Dyslipidemia, goal LDL below 100 TAKE ONE TABLET BY MOUTH EVERY DAY FOR CHOLESTEROL 90 Tablet 1 12/08/2022 Active Additional Information Patient taking differently: QPM-1999, Reported on 04/04/2023 Ciclopirox 8 % External [...] as of this encounter (statuses as of 04/04/2023) Active Problems Problem Noted Date Hypokalemia 02/03/2023 [...] as of this encounter (statuses as of 04/04/2023) Resolved Problems Problem Noted Date Resolved Date Hospital discharge follow-up 02/03/2023 Prediabetes 03/18/2020 05/11/2022 Overview: Per Prediabetes protocol Metabolon Quantose IR Research Study*[id number] 02/06/2014 05/01/2014 Overview: METABOLON QUANTOSE IR STUDY. PROJECT: #[id number], FUR SEWER: Hector Lundy MD/ Monty Guzman MD. SUMMARY: The Use of a Novel Insulin Resistance Test as a Monitoring Indicator of Glycemic Control in Prediabetics and Diabetics treated with metformin combined with lifestyle intervention. CONTACTS: During normal business hours, contact Medina Ruano RN, BSN at ; after hours Polymerization Kettle Operator via the [facility] hospital elevator operator Dyslipidemia, goal to be determined 06/26/2009 10/24/2009 Overview: Per Lipid Taxonomy. PURE HYPERCHOLESTEROLEM 06/26/20 Overview: Per Lipid Taxonomy. documented as of this encounter (statuses as of 04/04/2023) Immunizations Name Administration Dates Next Due COVID-19 [...] on file documented as of this encounter Plan of Treatment Upcoming Encounters Date Type Specialty Care Team Description 04/05/2023 Hospital Encounter Endoscopy Diana Arboleda, DO [address] [place] [address] 04/05/2023 Surgery Endoscopy Diana Arboleda, DO [address] [place] [address] COLONOSCOPY FLEXIBLE PROXIMAL DIAGNOSTIC 05/05/2023 Imaging Radiology 06/24/2023 Office Visit Family Medicine Osiris Estrada CRNP [address] [place] [address] 08/09/2023 Office Visit Cardiology Cyndi Corbett CRNP [address] [place] [phone] 01/05/2024 Office Visit Allergy & Immunology Ian Schilling MD [address] [place] [address] Scheduled Procedures Name Priority Associated Diagnoses Date/Ti [...] 11/24/2027 11/23/2022, 03/2021, 02/22/2020, Additional history exists DTaP,Tdap,and Td [...] filedocumented as of this encounter Care Teams Vessel Builder Relationship Specialty Start Date End Date Osiris Estrada CRNP [address] [place] [address] PCP - General Nurse Practitioner 12/03/21 documented as of this encounter
--- OUTSIDE RECORDS SUMMARY | 2023-05-24 21:33 | External Medical Summary | Summary of Care ---
Author Name Unknown Organization [facility] Address [address] [place] [address] Phone [phone] Care Team Providers Care Floor Finisher Name Role Phone Osiris Estrada Primary Care Provider Reason for Visit * Reason Comments eRx-Medication Refill Encounter Details Date Type Department Care Team Description 03/17/2023 Refill Cardiology, [facility] [address] [facility] [place] [address] Ashly Daniels, DO [address] [place] [address] PAF (paroxysmal atrial fibrillation) ([facility]) Allergies Active Allergy Reactions Severity Noted Date Comments Pollen 01/31/2023 Grass pollen - rash documented as of this encounter (statuses as of 03/19/2023) Medications Medication Sig Dispensed Refills Start Date [...] Hour (toPROL XL)Indications:P AF (paroxysmal atrial fibrillation) ([facility]) TAKE 1 TABLET BY MOUTH EVERY DAY 90 Tablet 3 01/14/2023 Active Eliquis 5 MG Oral Tablet Take 1 Tablet by mouth in the morning and 1 Tablet before bedtime. 180 Tablet 1 03/04/2023 Active Propafenone HCl 150 MG Oral Tablet (Rythmol)Indicat ions:PAF (paroxysmal atrial fibrillation) ([facility]) TAKE 1 TABLET BY MOUTH IN THE MORNING AND 1 TABLET AT AT NOON AND 1 TABLET BEFORE BEDTIME 270 Tablet 3 03/19/2023 Active Propafenone HCl 150 MG Oral Tablet (Rythmol)Indicat ions:PAF (paroxysmal atrial fibrillation) ([facility]) Take by mouth 1 Tablet in the morning AND 1 Tablet at noon AND 1 Tablet before bedtime. 270 Tablet 3 03/24/2022 3 Discontinued documented as of this encounter (statuses as of 03/19/2023) Active Problems Problem Noted Date Hypokalemia 02/03/2023 Hospital discharge follow-up 02/03/2023 Type 2 diabetes mellitus without complic [...] as of this encounter (statuses as of 03/19/2023) Resolved Problems Problem Noted Date Resolved Date Prediabetes 03/18/2020 05/11/2022 Overview: Per Prediabetes protocol Metabolon Quantose IR Research Study*[id number] 02/06/2014 05/01/2014 Overview: METABOLON QUANTOSE IR STUDY. PROJECT: #[id number], DELINQUENT TAX COLLECTION ASSISTANT: Hector Lundy MD/ Monty Guzman MD. SUMMARY: The Use of a Novel Insulin Resistance Test as a Monitoring Indicator of Glycemic Control in Prediabetics and Diabetics treated with metformin combined with lifestyle intervention. CONTACTS: During normal business hours, contact Medina Ruano RN, BSN at ; after hours Heart Specialist via the [facility] hospital rubbing bed operator Dyslipidemia, goal to be determined 06/26/2009 10/24/2009 Overview: Per Lipid Taxonomy. PURE HYPERCHOLESTEROLEM 06/26/20 Overview: Per Lipid Taxonomy. documented as of this encounter (statuses as of 03/19/2023) Immunizations Name Administration Dates Next Due COVID-19 mRNA, LNP-s, No Pre serve, 2-Dose Series ([employer]) 06/17/2021,10/01/2020,09/10/2020 Covid-19, Mrna, Lnp-s, Pf, B ivalent, 30 Mcg, IM, 12 yrs and above ([employer]) 05/26/2022 Seasonal Influenza Virus Vac cine, Unspecified Formulation 05/05/2022,03/19/2021,04/27/2020,2019,03/30/2019,04/14/2018,03/22/2017,1 ,03/20/2014,08/13/2013, 012,04/10/2011,05/29/2007,05/25/2006,,07/25/2002 Seasonal Influenza, PF, 6 mo ns & Above, IM , (Flulaval) 03/19/2021,04/12/2020,03/30/2019,2017 Seasonal Influenza, Quadriva lent, No Preserve, IM [...] encounter Miscellaneous Notes * Telephone Encounter - Ashly Daniels DO - 03/19/2023 4:47 PM EDTSigned Prescriptions: Disp Refills Propafenone HCl 150 MG Oral Tablet (Rythmo*270 Ta*3 Sig: TAKE 1 TABLET BY MOUTH IN THE MORNING AND 1 TABLET AT AT NOON AND 1 TABLET BEFORE BEDTIMEAuthorizing Provider: ASHLY DANIELS * Telephone Encounter - Elena Valdez CMA - 03/17/2023 9:17 AM EDTPending Prescriptions: Disp Refills Propafenone HCl 150 MG Oral Tablet [Pharma*270 Ta*3 Sig: TAKE 1 TABLET BY MOUTH IN THE MORNING AND 1 TABLET AT AT NOON AND 1 TABLET BEFORE BEDTIME * Telephone Encounter - Elena Valdez CMA - 03/17/2023 9:17 AM EDT Did you pend patient's preferred pharmacy and medication before forwarding?yes Pharmacy: [facility] [id number] [place] [address] [place] Pending Prescriptions: Disp Refills Propafenone HCl 150 MG Oral Tablet (Rythm*270 Ta*3 Sig: TAKE 1 TABLET BY MOUTH IN THE MORNING AND 1 TABLET AT AT NOON AND 1 TABLET BEFORE BEDTIME Last Visit: 01/08/2022 (in office), Visit date not found (telemedicine) Next Visit: 08/09/2023 If no future appointments scheduled, and last appointment is greater than a year ago, please schedule patient for a follow-up appointment Last date the medication was ordered: Is this request for a controlled substance?No Urine Drug Screen:No results found for this or any previous visit. Patient Phone Numbers Labs: Lab Results Component Value Date/Time CREAT 1.0 02/03/2023 03:43 PM CREAT 1.0 02/22/2020 08:08 AM POTASSIUM 5.1 02/03/2023 03:43 PM POTASSIUM 4.1 02/22/2020 08:08 AM TSH 1.11 03/19/2021 12:45 PM TSH 1.40 02/22/2020 08:08 AM LDLCALC 118 11/23/2022 03:49 PM LDLCALC 101 02/22/2020 08:08 AM LDLDIRECT NOT APPLICABLE 02/22/2020 08:08 AM LDLDIRECT 186 (H) 11/26/2003 08:54 AM ALT 37 11/23/2022 03:49 PM ALT 25 02/22/2020 08:08 AM HGBA1C 6.6 (H) 11/23/2022 03:49 PM HGBA1C 6.1 (H) 02/22/2020 08:08 AM documented in this encounter Plan of Treatment Upcoming Encounters Date Type Specialty Care Team Description 03/25/2023 Office Visit Family Medicine Osiris Estrada CRNP [address] [place] [address] 04/05/2023 Hospital Encounter Endoscopy Diana Arboleda, DO [address] [place] [address] 04/05/2023 Surgery Endoscopy Diana Arboleda, DO [address] [place] [address] COLONOSCOPY FLEXIBLE PROXIMAL DIAGNOSTIC 08/09/2023 Office Visit Cardiology Cyndi Corbett CRNP [address] [place] [phone] 01/05/2024 [facility] Visit [facility] [address] [facility] [address] Scheduled Procedures Name Priority Associated Diagnoses Date/Ti [...] Colonoscopy 11/28/2021 11/29/2011 Colorectal Cancer Screening 11/28/2021 Influenza Vaccine (FLU shot) (#1) 2023 05/05/2022, 03/19/2021, 03/19/2021, Additional history exists DIABETES-EYE EXAM 05/11/2023 05/11/2022 [...] Completed 05/26/2022, 02/2021, 10/01/2020, Additional history exists GARDASIL-HPV IMMUNIZATION SERIES Aged [...] Visit Diagnoses Diagnosis PAF (paroxysmal atrial fibrillation) (HCC) Atrial fibrillation Special screening for malignant neoplasms, colon documented in this encounter Care Teams Floor Finisher Relationship Specialty Start Date End Date Osiris Estrada CRNP [address] [place] [address] PCP - General Nurse Practitioner 12/03/21 documented as of this encounter
--- OUTSIDE RECORDS SUMMARY | 2023-05-24 21:33 | External Medical Summary ---
Author Name Unknown Address Unknown Organization : Laboratory Report Ordering Provider Test Date Status [place] 04/05/2023 10:18:26 Final Observation Date Value Abnormality Reference (Units ) Status Glucose Point of Care 04/05/2023 10:18:26 169 Above high normal 70-120 (mg/dL) Final Performing Location
--- OUTSIDE RECORDS SUMMARY | 2023-05-24 21:33 | External Medical Summary | Summary of Care ---
Author Name Unknown Organization [facility] Address [address] [place] [address] Phone [phone] Care Team Providers Care Food Science Technician Name Role Phone Osiris Estrada Primary Care Provider Reason for Visit * Reason Onset Date Comments Med Request 03/04/2023 Encounter Details Date Type Department Care Team Description 03/04/2023 Telephone Family Practice [facility] [address] [facility] [place] [address] Osiris Estrada CRNP [address] [facility] [place] [place] [address] Med Request Allergies Active Allergy Reactions Severity Noted Date Comments Pollen 01/31/2023 Grass pollen - rash documented as of this encounter (statuses as of 03/04/2023) Medications Medication Sig Dispensed Refills Start Date End Date Status Multiple Vitamins-Mineral s (PRESERVISION AREDS 2) Capsule Take 1 Capsule by mouth in the morning. 0 Active Ibuprofen 200 MG Oral Tablet Take 1 Tablet by mouth every 4 hours as needed for Pain. 0 Active Propafenone HCl 150 MG Oral Tablet (Rythmol)Indicat ions:PAF (paroxysmal atrial fibrillation) (HCC) Take by mouth 1 Tablet in the morning AND 1 Tablet at noon AND 1 Tablet before bedtime. 270 Tablet 3 03/24/2022 Active metFORMIN HCl ER 500 MG Oral [...] before bedtime. 180 Tablet 1 03/04/2023 Active Eliquis 5 MG Oral Tablet Take 1 Tablet by mouth in the morning and 1 Tablet before bedtime. 0 01/28/2023 3 Discontinue d(Refill) documented as of this encounter (statuses as of 03/04/2023) Active Problems Problem Noted Date Hypokalemia 02/03/2023 [...] as of this encounter (statuses as of 03/04/2023) Resolved Problems Problem Noted Date Resolved Date Prediabetes 03/18/2020 05/11/2022 Overview: Per Prediabetes protocol Metabolon Quantose IR Research Study*[id number] 02/06/2014 05/01/2014 Overview: METABOLON QUANTOSE IR STUDY. PROJECT: #[id number], REAL ESTATE CONSULTANT: Hector Lundy MD/ Monty Guzman MD. SUMMARY: The Use of a Novel Insulin Resistance Test as a Monitoring Indicator of Glycemic Control in Prediabetics and Diabetics treated with metformin combined with lifestyle intervention. CONTACTS: During normal business hours, contact Medina Ruano RN, BSN at ; after hours Police Captain via the [facility] hospital pickling operator Dyslipidemia, goal to be determined 06/26/2009 10/24/2009 Overview: Per Lipid Taxonomy. PURE HYPERCHOLESTEROLEM 06/26/20 Overview: Per Lipid Taxonomy. documented as of this encounter (statuses as of 03/04/2023) Immunizations Name Administration Dates Next Due COVID-19 mRNA, LNP-s, No Pre serve, 2-Dose Series (vivio) 06/17/2021,10/01/2020,09/10/2020 Covid-19, Mrna, Lnp-s, Pf, B ivalent, 30 Mcg, IM, 12 yrs and above (vivio) 05/26/2022 Seasonal Influenza Virus Vac cine, Unspecified [...] Miscellaneous Notes * Telephone Encounter - Brennen Eldridge MD - 03/04/2023 3:41 PM EDT Refill sent * Telephone Encounter - JAN Glover - 03/04/2023 3:17 PM EDT Medication pended w. Pharmacy. Per message patient needs sent in today. * Telephone Encounter - Nahomy Ramires CPhT - 03/04/2023 2:36 PM EDT Sophia from [facility] calling requesting the following medication below that is listed as "Historical". The following information was provided: PATIENT NEEDS ORDERED TODAY Medication Name: Eliquis Strength:5mg Directions: 1 tablet BID Preferred Quantity: 60 Previous Prescriber: Preferred Pharmacy: [facility] Please review and approve if appropriate. Thank you, Nahomy Ramires Corporate Specialist II [facility] ([facility]PS) (formerly Telepharmacy) 03/04/2023 2:39 PM documented in this encounter Plan of Treatment Upcoming Encounters Date Type Specialty Care Team Description 03/25/2023 Office Visit Family Medicine Osiris Estrada CRNP [address] [place] [address] 04/05/2023 Hospital Encounter Endoscopy Diana Arboleda, DO [address] [place] [address] 04/05/2023 Surgery Endoscopy Diana Arboleda, DO [address] [place] [address] COLONOSCOPY FLEXIBLE PROXIMAL DIAGNOSTIC 08/09/2023 Office Visit Cardiology Cyndi Corbett CRNP [address] [place] [address] 01/05/2024 Office Visit Allergy & Immunology Ian Schilling MD [address] [place], [place] [address] [address] Scheduled Procedures Name Priority Associated Diagnoses Date/Ti me COLONOSCOPY FLEXIBLE PROXIMAL DIAGNOSTIC Special screening for malignant neoplasms, colon 04/05/2023 10:45 AM EDT Health Maintenance Due Date Last Done Comments Pneumococcal Vaccine: Pediatrics (0 to 5 Years) and At-Risk Patients (6 to 64 Years) (1 - PCV) 11/06/1967 DIABETES-FOOT EXAM 11/06/1979 Cologuard 2006 Fecal Occult Blood Test 2006 Sigmoidoscopy 2006 Zoster Vaccines (2 of 3) 08/15/2015 06/20/2015 Colonoscopy 11/28/2021 11/29/2011 Colorectal Cancer Screening 11/28/2021 Influenza Vaccine (FLU shot) (#1) 2023 05/05/2022, 03/19/2021, 03/19/2021, Additional history exists DIABETES-EYE EXAM 05/11/2023 05/11/2022 HbA1c 05/26/2023 11/23/2022, 03/2021, 02/22/2020, Additional history exists Albumin/Creatinine Ratio 11/24/2023 11/23/2022 Depression Screening, Annual for Pts 12 and Over 11/24/2023 11/23/2022, 10/21/2014 GFR 02/04/2024 02/03/2023, 11/08, 03/19/2021, Additional history exists Lipid Panel 11/24/2027 11/23/2022, 0 03/2021, 02/22/2020, Additional history exists DTaP,Tdap,and Td [...] filedocumented as of this encounter Care Teams Food Science Technician Relationship Specialty Start Date End Date Osiris Estrada CRNP [address] [place] [address] PCP - General Nurse Practitioner 12/03/21 documented as of this encounter
--- OUTSIDE RECORDS SUMMARY | 2023-05-24 21:33 | External Medical Summary | Summary of Care ---
Author Name Unknown Organization [facility] Address [address] [place] [address] Phone [phone] Care Team Providers Care Acrobatic Dancer Name Role Phone Osiris Estrada Primary Care Provider Encounter Details Date Type Department Care Team Description 02/03/2023 Butt Maker Care Coordination [address] [place], [place] [id number] Renee Yusuf LPN [address] [place], [place] [id number] Medical home patient encounter* Allergies Active Allergy Reactions Severity Noted Date Comments Pollen 01/31/2023 Grass pollen - rash documented as of this encounter (statuses as of 02/03/2023) Medications Medication Sig Dispensed Refills Start Date End Date Status Multiple Vitamins-Minerals (PRESERVISION AREDS 2) Capsule Take 1 Capsule by mouth in the morning. 0 Active Ibuprofen 200 MG Oral Tablet Take 1 Tablet by mouth every 4 hours as needed for Pain. 0 Active Propafenone HCl 150 MG Oral Tablet (Rythmol)Indicatio ns:PAF (paroxysmal atrial fibrillation) (HCC) Take by mouth [...] (toPROL XL)Indications:PAF (paroxysmal atrial fibrillation) ([facility]) TAKE 1 TABLET BY MOUTH EVERY DAY 90 Tablet 3 01/14/2023 Active Eliquis 5 MG Oral Tablet Take 1 Tablet by mouth in the morning and 1 Tablet before bedtime. 0 01/28/2023 Active documented as of this encounter (statuses as of 02/03/2023) Active Problems Problem Noted Date Type 2 diabetes mellitus without complic ation [...] as of this encounter (statuses as of 02/03/2023) Resolved Problems Problem Noted Date Resolved Date Prediabetes 03/18/2020 05/11/2022 Overview: Per Prediabetes protocol Metabolon Quantose IR Research Study*[id number] 02/06/2014 05/01/2014 Overview: METABOLON QUANTOSE IR STUDY. PROJECT: #[id number], PHYSICAL EDUCATION PROFESSOR: Hector Lundy MD/ Monty Guzman MD. SUMMARY: The Use of a Novel Insulin Resistance Test as a Monitoring Indicator of Glycemic Control in Prediabetics and Diabetics treated with metformin combined with lifestyle intervention. CONTACTS: During normal business hours, contact Medina Ruano RN, BSN at ; after hours Network Communications Engineer via the [facility] wet process operator Dyslipidemia, goal to be determined 06/26/2009 10/24/2009 Overview: Per Lipid Taxonomy. PURE HYPERCHOLESTEROLEM 06/26/20 Overview: Per Lipid Taxonomy. documented as of this encounter (statuses as of 02/03/2023) Immunizations Name Administration Dates Next Due COVID-19 mRNA, LNP-s, No Pre serve, 2-Dose Series (AlchemyAPI) 06/17/2021,10/01/2020,09/10/2020 Covid-19, Mrna, Lnp-s, Pf, B ivalent, 30 Mcg, IM, 12 yrs and above (AlchemyAPI) 05/26/2022 Seasonal Influenza Virus Vac cine, Unspecified Formulation 05/05/2022,03/19/2021,04/27/2020,2019,03/30/2019,04/14/2018,03/22/2017,1 ,03/20/2014,08/13/2013, 012,04/10/2011,05/29/2007,05/25/2006,,07/25/2002 Seasonal Influenza, Quadriva lent, No Preserve, 6 Mons & Above, IM 03/19/2021,04/12/2020,03/30/2019,2017 Seasonal Influenza, Quadriva lent, No Preserve, [...] Progress Notes * Renee Yusuf LPN - 02/03/2023 9:42 AM EDT 1. Follow-up Post Discharge 2. Attempted Phone Call Second Attempt 3. Call Outcome Left Voicemail/Message 4. Plan To attempt another outreach documented in this encounter Plan of Treatment Upcoming Encounters Date Type Specialty Care Team Description 02/03/2023 Office Visit Family Medicine Osiris Estrada CRNP [address] [place] [address] 03/25/2023 Office Visit Family Medicine Osiris Estrada CRNP [address] [place] [address] 04/05/2023 Hospital Encounter Endoscopy Diana Arboleda DO [address] [place] [address] 04/05/2023 Surgery Endoscopy Diana Arboleda, DO [address] [place] [address] COLONOSCOPY FLEXIBLE PROXIMAL DIAGNOSTIC 08/09/2023 Office Visit [facility] [address] [facility] [address] 01/05/2024 Office Visit Allergy & Immunology Ian Schilling MD [address] [place] [address] Scheduled Procedures Name Priority Associated Diagnoses Date/Ti [...] 12 and Over 11/24/2023 11/23/2022, 10/21/2014 GFR 11/24/2023 11/23/2022, 09/0 03/2021, 02/22/2020, Additional history exists Lipid Panel 11/24/2027 11/23/2022, [...] home patient encounter- Primary Other specified examination Special screening for malignant neoplasms, colon documented in this encounter Care Teams Acrobatic Dancer Relationship Specialty Start Date End Date Osiris Estrada CRNP [address] [place] [address] PCP - General Nurse Practitioner 12/03/21 documented as of this encounter
--- OUTSIDE RECORDS SUMMARY | 2023-05-24 21:33 | External Medical Summary | Summary of Care ---
Author Name Unknown Organization [facility] Address [address] [place] [address] Phone [phone] Care Team Providers Care Local Coordinator Name Role Phone Osiris Estrada Primary Care Provider Reason for Visit * Reason Comments Outpatient Testing Encounter Details Date Type Department Care Team Description 02/03/2023 Laboratory Laboratory, [facility] [address] [place] [address] [facility] [address] [place] [address] Hypokalemia Allergies Active Allergy Reactions Severity Noted Date [...] 24 Hour (toPROL XL)Indications:PAF (paroxysmal atrial fibrillation) ([facility]) TAKE 1 TABLET BY MOUTH EVERY DAY 90 Tablet 3 01/14/2023 Active Eliquis 5 MG Oral Tablet Take 1 Tablet by mouth in the morning and 1 Tablet before bedtime. 0 01/28/2023 Active documented as of this encounter (statuses as of 02/03/2023) Active Problems Problem Noted Date Hypokalemia 02/03/2023 [...] Per Prediabetes protocol Metabolon Quantose IR Research Study*[id number] 02/06/2014 05/01/2014 Overview: METABOLON QUANTOSE IR STUDY. PROJECT: #[id number], INDUSTRIAL MAINTENANCE ELECTRICIAN: eHctor Lundy MD/ Monty Guzman MD. SUMMARY: The Use of a Novel Insulin Resistance Test as a Monitoring Indicator of Glycemic Control in Prediabetics and Diabetics treated with metformin combined with lifestyle intervention. CONTACTS: During normal business hours, contact Medina Ruano RN, BSN at ; after hours Manager Category via the [facility] hospital single wire saw operator Dyslipidemia, goal to be determined 06/26/2009 10/24/2009 Overview: Per Lipid Taxonomy. PURE HYPERCHOLESTEROLEM 06/26/20 Overview: Per Lipid Taxonomy. documented as of this encounter (statuses as of 02/03/2023) Immunizations Name Administration Dates Next Due COVID-19 mRNA, LNP-s, No Pre serve, 2-Dose Series (Aloqa) 06/17/2021,10/01/2020,09/10/2020 Covid-19, Mrna, Lnp-s, Pf, B ivalent, 30 Mcg, IM, 12 yrs and above (Aloqa) 05/26/2022 Seasonal Influenza Virus Vac cine, Unspecified [...] Estrada CRNP [address] [place] [address] 04/05/2023 Hospital Encounter Endoscopy Diana Arboleda, DO [address] [place] [address] 04/05/2023 Surgery Endoscopy Diana Arboleda, DO [address] [place] [address] COLONOSCOPY FLEXIBLE PROXIMAL DIAGNOSTIC 08/09/2023 Office Visit Cardiology Cyndi Corbett CRNP [address] [place] [address] 01/05/2024 Office Visit Allergy & Immunology Ian Schilling MD [address] [facility], [place] [address] Pending Results Name Type Priority Associated Diagnoses Date /Time BASIC METABOLIC PANEL Lab Routine Hypokalemia 02/03/2023 3:43 PM EDT Scheduled Procedures Name Priority Associated Diagnoses Date/Ti [...] as of this encounter Visit Diagnoses Diagnosis Hypokalemia Hypopotassemia Special screening for malignant neoplasms, colon documented in this encounter Care Teams Local Coordinator Relationship Specialty Start Date End Date Osiris Estrada CRNP [address] [place] [address] PCP - General Nurse Practitioner 12/03/21 documented as of this encounter
--- OUTSIDE RECORDS SUMMARY | 2023-05-24 21:33 | External Medical Summary | Summary of Care ---
Author Name Unknown Organization [facility] Address [address] [place] [address] Phone [phone] Care Team Providers Care Chemical Process Project Engineer Name Role Phone Osiris Estrada Tawanna MENA Primary Care Provider Reason for Visit * Reason Comments Acute Cough, congestion Encounter Details Date Type Department Care Team Description 04/25/2023 Telemedicine Family Practice [facility] [address] [place] [address] Paloma Mckeon MD [address] [place] [address] Viral respiratory illness*; Type 2 diabetes mellitus without complication, without long-term current use of insulin ([facility]) Allergies Active Allergy Reactions Severity Noted Date Comments Pollen 01/31/2023 Grass pollen - rash Penicillins 05/25/2006 Father was allergic Other Reaction(s): PT'S FATHER HAD SEVERE REACTION documented as of this encounter (statuses as of 04/25/2023) Medications Medication Sig Dispensed Refills Start Date [...] as of this encounter (statuses as of 04/25/2023) Active Problems Problem Noted Date Hypokalemia 02/03/2023 [...] as of this encounter (statuses as of 04/25/2023) Resolved Problems Problem Noted Date Resolved Date Hospital discharge follow-up 02/03/2023 Prediabetes 03/18/2020 05/11/2022 Overview: Per Prediabetes protocol Metabolon Quantose IR Research Study*[id number] 02/06/2014 05/01/2014 Overview: METABOLON QUANTOSE IR STUDY. PROJECT: #[id number], CONSUMER INSIGHT ANALYST: Hector Lundy MD/ Monty Guzman MD. SUMMARY: The Use of a Novel Insulin Resistance Test as a Monitoring Indicator of Glycemic Control in Prediabetics and Diabetics treated with metformin combined with lifestyle intervention. CONTACTS: During normal business hours, contact Medina Ruano RN, BSN at ; after hours Corporate Staff Accountant via the [facility] hospital squaring shear operator Dyslipidemia, goal to be determined 06/26/2009 10/24/2009 Overview: Per Lipid Taxonomy. PURE HYPERCHOLESTEROLEM 06/26/20 Overview: Per Lipid Taxonomy. documented as of this encounter (statuses as of 04/25/2023) Immunizations Name Administration Dates Next Due COVID-19 [...] as of this encounter Progress Notes * Paloma Mckeon MD - 04/25/2023 1:51 PM EDT Patient location: HOME. I was in a hospital or clinic location. After connecting through Telov[employer],patient was verified with two unique identifiers. Patient (or authorized legal textile machinery sales representative) was then informed that this was a Telemedicine visit and being conducted confidentially over secure lines. Methods to assure confidentiality were taken. Patient acknowledged consent and understanding of pr ivacy and security of the Telemedicine visit. The patient agreed to participate. Subjective Chief Complaint Patient presents with Acute Cough, congestion HPI: Giovanni Puckett is a 62 year old male. The following issues were addressed today: Patient started with congestion, dry cough, and severe body aches last Tuesday. Thinks he had fever on Tuesday night but did not check his temperature. Checked today and it was 98.2 F. COVID test on Tuesday was negative. Slowly getting better compared to last week. Body aches are not as bad. Has been taking Advil. He denies chest pain or shortness of breath. His biggest concern today is "clogged sinuses." He has not been using any kind of nasal spray. Had the flu shot a month ago. Wondering when he can get his COVID booster. Review of Systems: See HPI Objective There were no vitals taken for this visit. Wt Readings from Last 3 Encounters: 04/05/23 87.5 kg (193 lb) 03/25/23 89.3 kg (196 lb 14.4 oz) 02/03/23 88.6 kg (195 lb 5 oz) BP Readings from Last 3 Encounters: 04/05/23 135/77 03/25/23 116/66 02/03/23 114/60 General: Well-appearing, no acute distress Respiratory: No conversational dyspnea Neurological: Alert and oriented Psychiatric: Appropriate mood and affect Assessment & Plan 1. Viral respiratory illness 2. Type 2 diabetes mellitus without complication, without long-term current use of insulin (HCC) Low clinical suspicion for PNA. Evaluation somewhat limited by telemedicine. Continue supportive care. Patient encouraged to rest and maintain adequate hydration. Can use OTC pain relievers and saline nasal rinse as needed. Patient advised to monitor symptoms and seek medicalattention if experiencing high fever, difficulty breathing, or chest pain. We discussed he is at higher risk of infection and slow recovery due to diabetes. The importance of infection control measures to prevent spread were reviewed. No antibiotics currently indicated. Follow Up: Return if symptoms worsen or fail to improve. This note was electronically signed by Paloma Mckeon MD documented in this encounter Plan of Treatment Upcoming Encounters Date Type Specialty Care Team Description 05/05/2023 Imaging Radiology 06/24/2023 Office Visit Family Medicine [facility] [address] [facility] [address] 08/09/2023 Office Visit [facility] [address] [facility] [place] [address] 01/05/2024 Office Visit Allergy & Immunology Ian Schilling MD [address] [place] [address] Scheduled Procedures Name Priority Associated Diagnoses Date/Ti me COLONOSCOPY FLEXIBLE PROXIMA L DIAGNOSTIC Recall History of colonic polyps Health Maintenance Due Date Last Done Comments Pneumococcal Vaccine: Pediatrics (0 to 5 Years) and At-Risk Patients (6 to 64 Years) (1 - PCV) 11/06/1967 Diabetic Foot Exam 11/06/1979 Zoster Vaccines (2 of 3) 08/15/2015 06/20/2015 COVID-19 Vaccine (5 - 2022- season) 2023 05/26/2022, 06/17/2021, 10/01/2020, [...] as of this encounter Visit Diagnoses Diagnosis Viral respiratory illness- Primary Unspecified viral infection, in conditions classified elsewhere and of unspecified site Type 2 diabetes mellitus without complication, without long-term current use of insulin (HCC) documented in this encounter Care Teams Chemical Process Project Engineer Relationship Specialty Start Date End Date Osiris Estrada CRNP [address] [place] [address] PCP - General Nurse Practitioner 12/03/21 documented as of this encounter
--- OUTSIDE RECORDS SUMMARY | 2023-05-24 21:33 | External Medical Summary ---
Author Name Unknown Address Unknown Organization K1[facility] - [address] [place] [id number] Laboratory Report Ordering Provider Test Date Status CHANELL YOSUIF 04/07/2023 14:14:00 Final Observation Date Value Abnormality Reference (Units ) Status Occult Blood (EIA) 04/07/2023 14:14:00 Negative N egative Final This testing was performed a s part of a [facility] fulfillment initiative Performing Location [facility] - [address] [facility] [address]
--- OUTSIDE RECORDS SUMMARY | 2023-05-24 21:33 | External Medical Summary | Summary of Care ---
Author Name Unknown Organization [facility] Address [address] [place] [address] Phone [phone] Care Team Providers Care Jewel Bearing Polisher Name Role Phone Osiris Estrada Primary Care Provider Reason for Visit * Reason Onset Date Comments [facility] Care Coordination Services 02/08/2023 Encounter Details Date Type Department Care Team Description 02/08/2023 Telephone Care Coordination [address] [place] [address] Flora Ballard [facility] Saw Handle Assembler [address] [place], [place] [id number] [facility] Care Coordination Services Allergies Active Allergy Reactions Severity Noted Date Comments Pollen 01/31/2023 Grass pollen - rash documented as of this encounter (statuses as of 02/08/2023) Medications Medication Sig Dispensed Refills Start Date [...] as of this encounter (statuses as of 02/08/2023) Active Problems Problem Noted Date Hypokalemia 02/03/2023 [...] Depression 05/10/2012 Dyslipidemia, goal LDL below 100 04/16/2 010 Esophageal stricture documented as of this encounter (statuses as of 02/08/2023) Resolved Problems Problem Noted Date Resolved Date Prediabetes 03/18/2020 05/11/2022 Overview: Per Prediabetes protocol Metabolon Quantose IR Research Study*[id number] 02/06/2014 05/01/2014 Overview: METABOLON QUANTOSE IR STUDY. PROJECT: #[id number], TELEVISION NEWSCAST DIRECTOR: Hector Lundy MD/ Monty Guzman MD. SUMMARY: The Use of a Novel Insulin Resistance Test as a Monitoring Indicator of Glycemic Control in Prediabetics and Diabetics treated with metformin combined with lifestyle intervention. CONTACTS: During normal business hours, contact Medina Ruano RN, BSN at ; after hours Electrician Maintenance via the [facility] hospital projection welding machine operator Dyslipidemia, goal to be determined 06/26/2009 10/24/2009 Overview: Per Lipid Taxonomy. PURE HYPERCHOLESTEROLEM 06/26/20 Overview: Per Lipid Taxonomy. documented as of this encounter (statuses as of 02/08/2023) Immunizations Name Administration Dates Next Due COVID-19 mRNA, LNP-s, No Pre serve, 2-Dose Series (VIRIDAXIS) 06/17/2021,10/01/2020,09/10/2020 Covid-19, Mrna, Lnp-s, Pf, B ivalent, 30 Mcg, IM, 12 yrs and above (VIRIDAXIS) 05/26/2022 Seasonal Influenza Virus Vac cine, Unspecified [...] encounter Miscellaneous Notes * Telephone Encounter - Beryl Rodríguez Saw Handle Assembler - 02/08/2023 11:00 AM EDT PAULINO-A 1. Follow-up Post Discharge 2. Attempted Phone Call First Attempt 3. Call Outcome Left Voicemail/Message 4. Plan Wait for patient response/Follow in IVR. documented in this encounter Plan of Treatment Upcoming Encounters Date Type Specialty Care Team Description 03/25/2023 Office Visit Family Medicine Osiris Estrada CRNP [address] [place] [address] 04/05/2023 Hospital Encounter Endoscopy Diana Arboleda, [address] [place] [address] 04/05/2023 Surgery Endoscopy Diana Arboleda, DO [address] [place] [address] COLONOSCOPY FLEXIBLE PROXIMAL DIAGNOSTIC 08/09/2023 Office Visit Cardiology Cyndi Corbett CRNP [address] [place] [address] 01/05/2024 Office Visit Allergy & Immunology Ian Schilling MD [address] [place] [address] Scheduled Procedures Name Priority Associated Diagnoses Date/Ti [...] 11/23/2022, 090 03/2021, 02/22/2020, Additional history exists DTaP,Tdap,and Td [...] filedocumented as of this encounter Care Teams Jewel Bearing Polisher Relationship Specialty Start Date End Date Osiris Estrada CRNP [address] [place] [address] PCP - General Nurse Practitioner 12/03/21 documented as of this encounter
--- OUTSIDE RECORDS SUMMARY | 2023-05-24 21:33 | External Medical Summary | Summary of Care ---
Author Name Unknown Organization [facility] Address [address] [place] [address] Phone [phone] Care Team Providers Care Extractor Machine Operator Name Role Phone JonathanOsiris montanez Tawanna MENA Primary Care Provider Reason for Visit * Auth/Cert Specialty Diagnoses / Procedures Referred By Clementine sandoval Referred To Contact Diagnoses Special screening for malignant neoplasms, colon Special screening for malignant neoplasms, colon [Z12.11] Procedures COLONOSCOPY, DIAGNOSTIC (RECTUM) COLONOSCOPY FLEXIBLE PROXIMAL DIAGNOSTIC Referral ID Status Reason Start Date Expiration Date Visits Re quested Visits Authorized [id number] Encounter Details Date Type Department Care Team Description 04/05/2023 Hospital Encounter ENDO [facility], Endoscopy Room [facility] [address] [place] [address] Diana Arboleda, DO [address] [place] [id number] Colonoscopy Allergies Active Allergy Reactions Severity Noted Date Comments Pollen 01/31/2023 Grass pollen - rash Penicillins 05/25/2006 Father was allergic Other Reaction(s): PT'S FATHER HAD SEVERE REACTION documented as of this encounter (statuses as of 04/05/2023) Medications Medication Sig Dispensed Refills Start Date [...] 04/04/2023 Tamsulosin HCl 0.4 MG Oral Capsule (Flomax)Indication s:Urinary urgency,Weak urinary stream,Nocturia TAKE 1 CAPSULE BY MOUTH EVERY DAY IN THE MORNING 90 Capsule 3 06/23/2022 Active Additional Information Patient taking differently: HS, Reported on 04/04/2023 Pravastatin Sodium 10 MG Oral Tablet (Pravachol)Indicat [...] in am Take by mouth. 0 Active documented as of this encounter (statuses as of 04/05/2023) Active Problems Problem Noted Date Hypokalemia 02/03/2023 [...] as of this encounter (statuses as of 04/05/2023) Resolved Problems Problem Noted Date Resolved Date Hospital discharge follow-up 02/03/2023 Prediabetes 03/18/2020 05/11/2022 Overview: Per Prediabetes protocol Metabolon Quantose IR Research Study*[id number] 02/06/2014 05/01/2014 Overview: METABOLON QUANTOSE IR STUDY. PROJECT: #[id number], PAPERHANGER SUPERVISOR: Hector Lundy MD/ Monty Guzman MD. SUMMARY: The Use of a Novel Insulin Resistance Test as a Monitoring Indicator of Glycemic Control in Prediabetics and Diabetics treated with metformin combined with lifestyle intervention. CONTACTS: During normal business hours, contact Medina Ruano RN, BSN at ; after hours Differential Tester via the [facility] hospital blindstitch machine operator Dyslipidemia, goal to be determined 06/26/2009 10/24/2009 Overview: Per Lipid Taxonomy. PURE HYPERCHOLESTEROLEM 06/26/20 Overview: Per Lipid Taxonomy. documented as of this encounter (statuses as of 04/05/2023) Immunizations Name Administration Dates Next Due COVID-19 [...] Sign Reading Time Taken Comments Blood Pressure 135/77 04/05/2023 11:14 AM EDT Pulse 76 04/05/2023 11:14 AM EDT Temperature 36.4 C (97.6 F) 04/05/2023 11:14 AM E DT Respiratory Rate 16 04/05/2023 11:14 AM EDT Oxygen Saturation 100% 04/05/2023 11:14 AM EDT Inhaled Oxygen Concentration - - Weight 87.5 kg (193 lb) 04/05/2023 10:10 AM EDT Height 182.9 cm (6') 04/05/2023 10:10 AM EDT Body Mass Index 26.18 04/05/2023 10:10 AM EDT documented in this encounter H&P Notes * Diana Arboleda, DO - 04/05/2023 10:08 AM EDT Procedure(s): Colonoscopy; with Indication(s) of average risk screening Endoscopy Pre-Procedure Assessment: Prior to the procedure, the patient was identified. The patient's history, medications and allergies were reviewed as per the Anesthesia Assessment. The patient is competent. The risks and benefits of the proposed procedure and the planned sedation were discussed with the patient. All questions were answered and informed consent for the procedure was obtained. BP 152/96 | Pulse 76 | Temp (Src) 98.8 (Tympanic) | Resp 18 | Ht 5' 0" (1.524m) | Wt 165 lbs (74.844kg) | BMI 32.22 kg/m | BSA 1.78 m | SaO2 99% | LMP 07/22/2004 Prior to Admission medications Medication Sig Last Dose Discont. Centrum Silver 50+Men Oral Tablet Take by mouth. Past Week Propafenone HCl 150 MG Oral Tablet (Rythmol) TAKE 1 TABLET BY MOUTH IN THE MORNING AND 1 TABLET AT AT NOON AND 1 TABLET BEFORE BEDTIME 04/04/2023 Eliquis 5 MG Oral Tablet Take 1 Tablet by mouth in the morning and 1 Tablet before bedtime. 04/01/2023 Metoprolol Succinate ER 25 MG Oral Tablet Extended Release 24 Hour (toPROL XL) TAKE 1 TABLET BY MOUTH EVERY DAY Patient taking differently: at bedtime. 04/05/2023 Omeprazole 20 MG Oral Capsule Delayed Release (PriLOSEC) TAKE 1 CAPSULE BY MOUTH EVERY DAY Patient taking differently: at bedtime. 04/04/2023 Ciclopirox 8 % External Solution Apply over nail and surrounding skin. Apply daily over previous coat. After seven (7) days, may remove with alcohol and continue cycle. Past Week Sertraline HCl 100 MG Oral Tablet (Zoloft) Take 1.5 Tablets by mouth in the morning. Patient taking differently: Take 1.5 Tablets by mouth at bedtime. 04/03/2023 Pravastatin Sodium 10 MG Oral Tablet (Pravachol) TAKE ONE TABLET BY MOUTH EVERY DAY FOR CHOLESTEROL Patient taking differently: every evening. 04/04/2023 Tamsulosin HCl 0.4 MG Oral Capsule (Flomax) TAKE 1 CAPSULE BY MOUTH EVERY DAY IN THE MORNING Patient taking differently: at bedtime. 04/04/2023 metFORMIN HCl ER 500 MG Oral Tablet Extended Release 24 Hour (Glucophage XR) Take by mouth 1 Tabletin the morning. Patient taking differently: Take 1 Tablet by mouth at bedtime. Past Week Ibuprofen 200 MG Oral Tablet Take 1 Tablet by mouth every 4 hours as needed for Pain. Past Week Multiple Vitamins-Minerals (PRESERVISION AREDS 2) Capsule Take 1 Capsule by mouth at bedtime. 04/04/2023 diazePAM 5 MG Oral Tablet (Valium) Take 1 Tablet by mouth every 6 hours as needed for Anxiety. TAKE1 TABLET 30-60 MINUTES BEFORE PROCEDURE Patient not taking: Reported on 04/04/2023 Not Taking Zoster Vac Recomb Adjuvanted 50 MCG/0.5ML Intramuscular Suspension Reconstituted (Shingrix) Inject 0.5 mL into a large muscle now and repeat dose in 60 to 180 days Review of patient's allergies indicates: Allergen Reactions Environmental [Pollen] Grass pollen - rash Penicillins Father was allergic Other Reaction(s): PT'S FATHER HAD SEVERE REACTION Physical Exam: Mental Status Examination: alert and oriented. Airway Examination: normal oropharyngeal airway and neck mobility. Respiratory Examination: clear to auscultation. CV Examination: rrr, no murmurs, no S-3 or S-4. ASA Grade: II - A patient with mild systemic disease. After reviewing the risks and benefits, the patient was deemed in satisfactory condition to undergothe procedure. The anesthesia plan was to use general anesthesia. documented in this encounter Procedure Notes * TRINA Perdue - 04/05/2023 10:21 AM EDTAssociated Order(s): COLONOSCOPY [facility] Patient Name: Giovanni Puckett Procedure Date: 04/05/2023 10:21 AM Date of : 1960 Admit Type: Outpatient Note Status: Finalized Date of : 1960 Admit Type: Outpatient Age: 62 Room: Endo 3 Gender: Male Note Status: Finalized Procedure: Colonoscopy Indications: Screening for colorectal malignant neoplasm, Last colonoscopy 10 years ago Providers: Diana Arboleda DO (Doctor) Referring MD: Osiris Estrada MD (Referring MD) Medicines: Propofol per Anesthesia Complications: No immediate complications. Estimated blood loss: Minimal. Procedure: Pre-Anesthesia Assessment: - Prior to the procedure, a History and Physical was performed, and patient medications, allergies and sensitivities were reviewed. The patient's tolerance of previous anesthesia was reviewed. - The risks and benefits of the procedure and the sedation options and risks were discussed with the patient. All questions were answered and informed consent was obtained. - Patient identification and proposed procedure were verified prior to the procedure by the physician and the nurse. The procedure was verified in the pre-procedure area in the procedure room. - Mental Status Examination: alert and oriented. Airway Examination: normal oropharyngeal airway and neck mobility. Respiratory Examination: clear to auscultation. CV Examination: normal. Abdominal Examination: bowel sounds present, abdomen soft and non-tender, no masses or organomegaly noted. - ASA Grade Assessment: II - A patient with mild systemic disease. - The medication list for this patient has been reviewed prior to the procedure and has been determined that the patient may proceed with the planned study. Any medication changes made as a result of the findings of this procedure have been discussed with the patient and/or direct marketing representative at the time of discharge from the department. After I obtained informed consent, the scope was passed under direct vision. All instruments were visually inspected immediately before and after removal from the patient to ensure they are fully intact. Throughout the procedure, the patient's blood pressure, pulse, and oxygen saturations were monitored continuously. The [id number] Colonoscope ([id number]) was introduced through the anus and advanced to the cecum, identified by appendiceal orifice and ileocecal valve. The colonoscopy was performed without difficulty. The patient tolerated the procedure well. The quality of the bowel preparation was good. Findings & Specimens: The perianal and digital rectal examinations were normal. Pertinent negatives include normal sphincter tone and no palpable rectal lesions. The terminal ileum appeared normal. A 4 mm polyp was found in the transverse colon. The polyp was sessile. The polyp was removed with a cold snare. Resection and retrieval were complete. Verification of patient identification for the specimen was done by the physician and nurse using the patient's name and date. Estimated blood loss was minimal. The retroflexed view of the distal rectum and anal verge was normal and showed no anal or rectal abnormalities. Impression: - The examined portion of the ileum was normal. - One 4 mm polyp in the transverse colon, removed with a cold snare. Resected and retrieved. - The distal rectum and anal verge are normal on retroflexion view. Recommendation: - Await pathology results. - Repeat colonoscopy in 5 years for surveillance. - Return to primary care physician as previously scheduled. - Discharge patient to home. Diana Arboleda DO 04/05/2023 10:57:17 AM This report has been signed electronically. documented in this encounter Nursing Notes * Gretta Castaneda RN - 04/05/2023 11:37 AM EDT Patient is alert, pain free, passing flatus and tolerating po fluids prior to discharge. Patient has been visited by Dr. Arboleda. Patient has received and demonstrates understanding of discharge instructions. Patient is transported via ambulated to private auto accompanied by endo staff. * Gretta Castaneda RN - 04/05/2023 10:58 AM EDT Patient transferred to pacu 2 status post Colonoscopy. Patient quietly resting, responds to voice. Denies pain and nausea. Respirations are even and unlabored on room air. Abdomen soft and non distended. Vital signs stable. Report was received from JOLEEN. RN at bedside. Call llanos is available to thepatient. * Shilpa Bloom RN - 04/05/2023 10:54 AM EDT Specimen(s) and location(s) verified with physician post procedure 10:54 AM Shilpa Bloom RN Pt thu colonoscopy w/ polypectomy well. Abd pressure applied to assist w/ advancement of the scope.Abd soft post proc. To recovery lying on L side. Pre cleaning of scope at the bedside started by psychiatric tech. * Deja Gale RN - 04/05/2023 10:15 AM EDT The following pt discharge instructions reviewed with pt prior to prodedure: No driving today. No alcohol today. No signing of legal documents. Rest as much as possible today and can return to normal activities tomorrow. No operating any heavy equipment today. Diet as tolerated. Pt verbalized understanding. documented in this encounter Plan of Treatment Upcoming Encounters Date Type Specialty Care Team Description 05/05/2023 Imaging Radiology 06/24/2023 Office Visit Family Medicine Osiris Estrada CRNP [address] [facility] [place] [id number] 08/09/2023 Office Visit Cardiology Cyndi Corbett CRNP [address] [place] [address] 01/05/2024 Office Visit Allergy & Immunology [facility] [address] [facility] [address] Pending Results Name Type Priority Associated Diagnoses Date /Time SURGICAL PATHOLOGY Pathology Routine Special screening for malignant neoplasms, colon 04/05/2023 10:53 AM EDT Scheduled Orders Name Type Priority Associated Diagnoses Order Schedule GLUCOSE METER, POINT OF CARE (COMMUNICATION ORDER) Point of Care Testing Routine Perform Now for 1 Occurrences starting 04/05/2023 until 04/05/2023 SURGICAL PATHOLOGY Pathology Routine Special screening for malignant neoplasms, colon Release Upon Ordering for 1 Occurrences starting 04/05/2023, 1 completed Scheduled Procedures Name Priority Associated Diagnoses Date/Ti mn COLONOSCOPY FLEXIBLE PROXIMAL DIAGNOSTIC Special screening for malignant neoplasms, colon 04/05/2023 10:40 AM EDT Health Maintenance Due Date Last Done Comments Pneumococcal Vaccine: Pediatrics (0 to 5 Years) and At-Risk Patients (6 to 64 Years) (1 - PCV) 11/06/1967 Diabetic Foot Exam 11/06/1979 Cologuard 2006 Fecal Occult Blood Test 2006 Sigmoidoscopy 2006 Zoster Vaccines (2 of 3) 08/15/2015 06/20/2015 DIABETES-EYE EXAM 05/11/2023 05/11/2022 HbA1c 05/26/2023 11/23/2022, 09/0 03/2021, 02/22/2020, Additional history exists Albumin/Creatinine Ratio 11/24/2023 11/23/2022 Depression Screening 11/24/2023 11/23/2022, 10/22/19 15 GFR 02/04/2024 02/03/2023, 11/08, 03/19/2021, Additional history exists Lipid Panel 11/24/2027 11/23/2022, 09/0 03/2021, 02/22/2020, Additional history exists DTaP,Tdap,and Td Vaccines (3 - Td or Tdap) 05/11/2032 05/11/2022, 09/21/2011, 09/22/2001, Additional history exists Colonoscopy 04/05/2033 04/05/2023, 11/29/2011 Colorectal Cancer Screening 04/05/2033 COVID-19 Vaccine Completed 05/26/2022, 02/2021, 10/01/2020, Additional [...] Procedure Name Priority Date/Time Associated Diagnosis Comments COLONOSCOPY 04/05/2023 10:21 AM EDT GLUCOSE METER, POINT OF CARE ESTEFANIA 04/05/2023 10:18 AM EDT documented in this encounter Results * COLONOSCOPY (04/05/2023 10:21 AM EDT) 04/05/2023 10:2 1 AM EDT Procedure Note TRINA Perdue - 04/05/2023 10:21 AM EDT [facility] Patient Name: Giovanni Puckett Procedure Date: 04/05/2023 10:21 AM Date of : 1960 Admit Type: Outpatient Note Status:Finalized Date of : 1960 Admit Type: Outpatient Age: 62 Room: [facility] 3 Gender: Male Note Status: Finalized Procedure: Colonoscopy Indications: Screening for colorectal malignant neoplasm, Lastcolonoscopy 10 years ago Providers: Diana Arboleda DO (Doctor) Referring MD: Osiris Estrada MD (Referring MD) Medicines: Propofol per Anesthesia Complications: No immediate complications. Estimated blood loss:Minimal. Procedure: Pre-Anesthesia Assessment: - Prior to the procedure, a History and Physicalwas performed, and patient medications, allergies and sensitivities werereviewed. The patient's tolerance of previous anesthesia was reviewed. - The risks and benefits of the procedure and thesedation options and risks were discussed with the patient. All questions wereanswered and informed consent was obtained. - Patient identification and proposed procedurewere verified prior to the procedure by the physician and the nurse. The procedure wasverified in the pre-procedure area in the procedure room. - Mental Status Examination: alert and oriented.Airway Examination: normal oropharyngeal airway and neck mobility. RespiratoryExamination: clear to auscultation. CV Examination: normal. AbdominalExamination: bowel sounds present, abdomen soft and non-tender, no masses ororganomegaly noted. - ASA Grade Assessment: II - A patient with mildsystemic disease. - The medication list for this patient has beenreviewed prior to the procedure and has been determined that the patient may proceed with the plannedstudy. Any medication changes made as a result of the findings of this procedure have beendiscussed with the patient and/or direct marketing representative [facility] After I obtained informed consent, the scope waspassed under direct vision. All instruments were visually inspected immediatelybefore and after removal from the patient to ensure they are fully intact. Throughout the procedure, the patient's bloodpressure, pulse, and oxygen saturations were monitored continuously. The [id number] ([id number]) was introduced through the anus and advanced to the cecum,identified by appendiceal orifice and ileocecal valve. The colonoscopy was performedwithout difficulty. The patient tolerated the procedure well. The quality of thebowel preparation was good. Findings & Specimens: The perianal and digital rectal examinations were normal. Pertinentnegatives include normal sphincter tone and no palpable rectal lesions. The terminal ileum appeared normal. A 4 mm polyp was found in the transverse colon. The polyp wassessile. The polyp was removed with a cold snare. Resection and retrieval were complete. Verification ofpatient identification for the specimen was done by the physician and nurse using the patient's nameand date. Estimated blood loss was minimal. The retroflexed view of the distal rectum and anal verge was normaland showed no anal or rectal abnormalities. Impression: - The examined portion of the ileum was normal. - One 4 mm polyp in the transverse colon, removedwith a cold snare. Resected and retrieved. - The distal rectum and anal verge are normal onretroflexion view. Recommendation: - Await pathology results. - Repeat colonoscopy in 5 years for surveillance. - Return to primary care physician as previouslyscheduled. - Discharge patient to home. Diana Arboleda DO 04/05/2023 10:57:17 AM This report has been signed electronically. Osiris Estrada NATURAL GAS BASIS TRADER GASTRO LOWER * (ABNORMAL) GLUCOSE METER, POINT OF CARE (04/05/2023 10:18 AM EDT) Glucose Meter 169(H) 70 - 120 mg/dL 04/05/2023 10:23 AM EDT [facility] 57-00 Blood Whole blood specimen / Unknown 04/05/2023 10:18 AM EDT 04/05/2023 10:23 AM EDT Diana Sandoval Robles [facility] POINT OF CARE TE ST DOCKED DEVICE UNSOLICITED RESULTS [facility] 57-00 [address] [place] [address] documented in this encounter Visit Diagnoses Diagnosis Special screening for malignant neoplasms, colon documented in this encounter Administered Medications Inactive Administered Medications - up to 3 most recent administrations Medication Order MAR Action Action Date Dose Rate Site isolyte-S pH 7.4 infusion Intravenous, at 100 mL/hr, Plasma-LYTE 148, isolyte-S, and isolyte-S pH 7.4 are considered equivalent - including for MAR barcode scanning., CONTINUOUS, Starting on Tue04/05/23 at 1030, Until Tue04/05/23 at 1545, Pre-Op Continue from Pre-Op 04/05/2023 10:38 AM EDT 100 mL/hr New Bag 04/05/2023 10:21 AM EDT 100 mL/hr documented in this encounter Active and Recently Administered Medications Times are shown in EDT. Continuous Medication Order 04/03/2023 04/04/2023 04/05/2023 isolyte-S pH 7.4 infusion Intravenous, at 100 mL/hr, Plasma-LYTE 148, isolyte-S, and isolyte-S pH 7.4 are considered equivalent - including for MAR barcode scanning., CONTINUOUS, Starting on Tue04/05/23 at 1030, Until Tue04/05/23 at 1545, Pre-Op 1021 (New Bag - Prov ider: Deja Gale, KATIE)1038 (Continue from Pre-Op - Provider: Adria Mcbride CRNA)1053 (Anes Intra-Op Fluid - Provider: Adria Mcbride CRNA) documented in this encounter Care Teams Extractor Machine Operator Relationship Specialty Start Date End Date Osiris Estrada CRNP [address] [place] [address] PCP - General Nurse Practitioner 12/03/21 documented as of this encounter
--- OUTSIDE RECORDS SUMMARY | 2023-05-24 21:33 | External Medical Summary | Summary of Care ---
Author Name Unknown Organization [facility] Address [address] [place] [address] Phone [phone] Care Team Providers Care [employer] Barista Name Role Phone Osiris Parada Primary Care Provider Reason for Visit * Reason Comments eRx-Medication Refill Encounter Details Date Type Department Care Team Description 04/28/2023 Refill Family Practice [facility] [address] [place] [address] Osiris Parada CRNP [address] [place] [address] Dyslipidemia, goal LDL below 100 Allergies Active [...] 24 Hour (toPROL XL)Indications:PAF (paroxysmal atrial fibrillation) ([facility]) TAKE 1 TABLET BY MOUTH EVERY DAY 90 Tablet 3 3 Active Additional Information Patient taking differently: HS, Reported on 04/04/2023 Eliquis 5 MG Oral Tablet Take 1 Tablet by mouth in the morning and 1 Tablet before bedtime. 180 Tablet 1 3 Active Propafenone HCl 150 MG Oral Tablet (Rythmol)Indicatio ns:PAF (paroxysmal atrial fibrillation) ([facility]) TAKE 1 TABLET BY MOUTH IN THE MORNING AND 1 TABLET AT AT NOON AND 1 TABLET BEFORE BEDTIME 270 Tablet 3 3 Active diazePAM 5 MG Oral Tablet (Valium)Indication s:Memory loss,Balance disorder Take 1 Tablet by mouth every 6 hours as needed for Anxiety. TAKE 1 TABLET 30-60 MINUTES BEFORE PROCEDURE 1 Tablet 0 3 Active Additional Information Patient not taking.Reported on 04/04/2023 Zoster Vac Recomb Adjuvanted 50 MCG/0.5ML Intramuscular Suspension Reconstituted (Shingrix) Inject 0.5 mL into a large muscle now and repeat dose in 60 to 180 days 1 Each 1 3 Active Centrum Silver 50+Men Oral TabletIndications: [...] FOR CHOLESTEROL 90 Tablet 1 3 Active metFORMIN HCl ER 500 MG Oral Tablet Extended Release 24 Hour (Glucophage XR) Take by mouth 1 Tablet in the morning. 90 Tablet 3 2 04/29/20 23 Discontinued Pravastatin Sodium 10 MG Oral Tablet (Pravachol)Indicat ions:Dyslipidemia, goal LDL below 100 TAKE ONE TABLET BY MOUTH EVERY DAY FOR CHOLESTEROL 90 Tablet 1 3 04/29/20 23 Discontinued documented as of this encounter [...] Per Prediabetes protocol Metabolon Quantose IR Research Study*[id number] 02/06/2014 05/01/2014 Overview: METABOLON QUANTOSE IR STUDY. PROJECT: #[id number], FINANCIAL SERVICES PROFESSIONAL: Hector Lundy MD/ Monty Guzman MD. SUMMARY: The Use of a Novel Insulin Resistance Test as a Monitoring Indicator of Glycemic Control in Prediabetics and Diabetics treated with metformin combined with lifestyle intervention. CONTACTS: During normal business hours, contact Medina Ruano RN, BSN at ; after hours City Mail Carrier via the [facility] hospital reaming machine operator for plastic Dyslipidemia, goal to be determined 06/26/2009 10/24/2009 [...] encounter Miscellaneous Notes * Telephone Encounter - Sandy Kuhn RPh - 04/29/2023 7:34 AM EDTSigned Prescriptions: Disp Refills metFORMIN HCl ER 500 MG Oral Tablet Extend*90 Tab*1 Sig: TAKE 1 TABLET BY MOUTH EVERY DAY IN THE MORNINGAuthorizing Provider: OSIRIS PARADA User: SANDY KUHN Pravastatin Sodium 10 MG Oral Tablet (Prav*90 Tab*1 Sig: TAKE ONE TABLET BY MOUTH EVERY DAY FOR CHOLESTEROLAuthorizing Provider: OSIRIS PARADA User: SANDY KUHN documented in this encounter Plan of Treatment Upcoming Encounters Date Type Specialty Care Team Description 05/03/2023 Office Visit Family Medicine Osiris Parada CRNP [address] [place] [address] 05/05/2023 Imaging Radiology 05/31/2023 [facility] Visit [facility] [address] [facility] [place] [address] 06/24/2023 Office Visit Family Medicine Osiris Parada CRNP [address] [place] [address] 08/09/2023 Office Visit Cardiology Cyndi Corbett CRNP [address] [place] [address] 01/05/2024 Office Visit Allergy & Immunology [facility] [address] [facility] [address] Scheduled Procedures Name Priority Associated Diagnoses Date/Ti [...] hyperlipidemia documented in this encounter Care Teams [employer] Barista Relationship Specialty Start Date End Date Osiris Parada CRNP [address] [place] [address] PCP - General Nurse Practitioner 12/03/21 documented as of this encounter
--- OUTSIDE RECORDS SUMMARY | 2023-05-24 21:33 | External Medical Summary | Summary of Care ---
Author Name Unknown Organization [facility] Address [address] [place] [address] Phone [phone] Care Team Providers Care Junior Web Developer Name Role Phone Osiris Estrada Primary Care Provider Reason for Visit * Reason Onset Date Comments Med Request 03/04/2023 Encounter Details Date Type Department Care Team Description 03/04/2023 Telephone Family Practice [facility] [address] [facility] [place] [address] Osiris Estrada CRNP [address] [place] [address] Med Request Allergies Active Allergy Reactions Severity Noted Date Comments Pollen 01/31/2023 Grass pollen - rash documented as of this encounter (statuses as of 03/06/2023) Medications Medication Sig Dispensed Refills Start Date [...] as of this encounter (statuses as of 03/06/2023) Active Problems Problem Noted Date Hypokalemia 02/03/2023 [...] as of this encounter (statuses as of 03/06/2023) Resolved Problems Problem Noted Date Resolved Date Prediabetes 03/18/2020 05/11/2022 Overview: Per Prediabetes protocol Metabolon Quantose IR Research Study*[id number] 02/06/2014 05/01/2014 Overview: METABOLON QUANTOSE IR STUDY. PROJECT: #[id number], DIAGNOSTICS SALES DEVELOPER: Hector Lundy MD/ Monty Guzman MD. SUMMARY: The Use of a Novel Insulin Resistance Test as a Monitoring Indicator of Glycemic Control in Prediabetics and Diabetics treated with metformin combined with lifestyle intervention. CONTACTS: During normal business hours, contact Medina Ruano RN, BSN at ; after hours Deckhand via the [facility] hospital movie operator Dyslipidemia, goal to be determined 06/26/2009 10/24/2009 Overview: Per Lipid Taxonomy. PURE HYPERCHOLESTEROLEM 06/26/20 Overview: Per Lipid Taxonomy. documented as of this encounter (statuses as of 03/06/2023) Immunizations Name Administration Dates Next Due COVID-19 mRNA, LNP-s, No Pre serve, 2-Dose Series (Fortnox) 06/17/2021,10/01/2020,09/10/2020 Covid-19, Mrna, Lnp-s, Pf, B ivalent, 30 Mcg, IM, 12 yrs and above (Fortnox) 05/26/2022 Seasonal Influenza Virus Vac cine, Unspecified [...] encounter Miscellaneous Notes * Telephone Encounter - TRINA Perdue - 03/06/2023 2:15 PM EDT Noted. Jose, MSN, TRINA [facility] * Telephone Encounter - Brennen Eldridge MD - 03/04/2023 3:41 PM EDT Refill sent * Telephone Encounter - JAN Glover - 03/04/2023 3:17 PM EDT Medication pended w. Pharmacy. Per message patient needs sent in today. * Telephone Encounter - Nahomy Ramires CPhT - 03/04/2023 2:36 PM EDT Sophia from [facility] calling requesting the following medication below that is listed as "Historical". The following information was provided: PATIENT NEEDS ORDERED TODAY Medication Name: Eliquis Strength:5mg Directions: 1 tablet BID Preferred Quantity: 60 Previous Prescriber: Preferred Pharmacy: [facility] Please review and approve if appropriate. Thank you, Nahomy Ramires Dandy Tender II [facility] ([facility]) (formerly Telepharmacy) 03/04/2023 2:39 PM documented in this encounter Plan of Treatment Upcoming Encounters Date Type Specialty Care Team Description 03/25/2023 Office Visit Family Medicine Osiris Estrada CRNP [address] [place] [address] 04/05/2023 Hospital Encounter Endoscopy Diana Arboleda, DO [address] [place] [address] 04/05/2023 Surgery Endoscopy Diana Arboleda, [address] [place] [address] COLONOSCOPY FLEXIBLE PROXIMAL DIAGNOSTIC 08/09/2023 Office Visit Cardiology Cyndi Corbett CRNP [address] [place] [address] [place] [phone] 01/05/2024 Office Visit Allergy & Immunology Ian Schilling MD [address] [place] [address] Scheduled Procedures Name Priority Associated Diagnoses Date/Ti [...] DIABETES-EYE EXAM 05/11/2023 05/11/2022 HbA1c 05/26/2023 11/23/2022, 0903/2021, 02/22/2020, Additional history exists Albumin/Creatinine Ratio 11/24/2023 [...] filedocumented as of this encounter Care Teams Junior Web Developer Relationship Specialty Start Date End Date Osiris Estrada CRNP [address] [place] [address] PCP - General Nurse Practitioner 12/03/21 documented as of this encounter
--- OUTSIDE RECORDS SUMMARY | 2023-05-24 21:33 | External Medical Summary | Summary of Care ---
Author Name Unknown Organization [facility] Address [address] [place] [address] Phone [phone] Care Team Providers Care Roundhouse Firer/Fireman Name Role Phone Osiris Estrada Primary Care Provider Reason for Visit * Reason Comments Hospital Follow-Up Already saw cardiolo joselo on Tuesday. Pt was in hosp for afib. Had to be cardioverted Encounter Details Date Type Department Care Team Description 02/03/2023 Office Visit Family Practice [facility] [address] [place] [address] Osiris Estrada CRNP [address] [place] [address] Hospital discharge follow-up*; PAF (paroxysmal atrial fibrillation) ([facility]); Hypokalemia; Type 2 diabetes mellitus with diabetic mononeuropathy, without long-term current use of insulin ([facility]) Allergies Active Allergy Reactions Severity Noted [...] (toPROL XL)Indications:PAF (paroxysmal atrial fibrillation) ([facility]) TAKE 1 TABLET BY MOUTH EVERY [...] Per Prediabetes protocol Metabolon Quantose IR Research Study*[id number] 02/06/2014 05/01/2014 Overview: METABOLON QUANTOSE IR STUDY. PROJECT: #[id number], SOCIAL WELFARE ADMINISTRATOR: Hector Lundy MD/ Monty Guzman MD. SUMMARY: The Use of a Novel Insulin Resistance Test as a Monitoring Indicator of Glycemic Control in Prediabetics and Diabetics treated with metformin combined with lifestyle intervention. CONTACTS: During normal business hours, contact Medina Ruano RN, BSN at ; after hours Radio Script Writer via the [facility] hospital tractor crane operator Dyslipidemia, goal to be determined 06/26/2009 10/24/2009 Overview: Per Lipid Taxonomy. PURE HYPERCHOLESTEROLEM 06/26/20 Overview: Per Lipid Taxonomy. documented as of this encounter (statuses as of 02/03/2023) Immunizations Name Administration Dates Next Due COVID-19 mRNA, LNP-s, No Pre serve, 2-Dose Series (Video Recruit) 06/17/2021,10/01/2020,09/10/2020 Covid-19, Mrna, Lnp-s, Pf, B ivalent, 30 Mcg, IM, 12 yrs and above ([employer]) 05/26/2022 Seasonal Influenza Virus Vac cine, Unspecified [...] Sign Reading Time Taken Comments Blood Pressure 114/60 02/03/2023 3:03 PM EDT Pulse 72 02/03/2023 3:03 PM EDT Temperature - - Respiratory Rate - - Oxygen Saturation 98% 02/03/2023 3:03 PM EDT Inhaled Oxygen Concentration - - Weight 88.6 kg (195 lb 5 oz) 02/03/2023 3:03 PM EDT Height - - Body Mass Index 26.49 01/04/2023 8:59 AM EDT documented in this encounter Progress Notes * TRINA Perdue - 02/03/2023 3:09 PM EDT Hospital Follow up Family Medicine Visit CC: Chief Complaint Patient presents with Hospital Follow-Up Already saw cardiology on Tuesday. Pt was in hosp for afib. Had to be cardioverted History of Present Illness: Giovanni Puckett is a 62 year old male presenting today for hospital follow up. He was admitted to [facility] on 01/28/2023 for paroxysmal A fib with rvr and hypokalemia. He had successful cardioversion on the same day of admission. Started eliquis. Saw cardiology on Tuesday01/31/2023. Since discharge. Heart has been regular. Denies chest pain, sob. Overall, he has been feeling ok. Denies bleeding of any kind. Social History Socioeconomic History Marital status: Single Spouse name: Not on file Number of children: Not on file Years of education: Not on file Highest education level: Not on file Occupational History Occupation: [employer] Comment: [employer] Tobacco Use Smoking status: [...] stricture- Dr. Odonnell FLUORO ESOPHAGEAL DILATION 10/10 Schtzki's ring dilated FLUORO ESOPHAGEAL DILATION 08/14 dilation accomplished FLUORO UPPER GI W KUB 08/31/01 distal esophageal scarring and proximal nodularity Outpatient Medications Marked as Taking for the 02/03/23 encounter (Office Visit) with TRINA Perdue Medication Sig Eliquis 5 MG Oral Tablet Take 1 Tablet by mouth in the morning and 1 Tablet before bedtime. Metoprolol Succinate ER 25 MG Oral Tablet Extended Release 24 Hour (toPROL XL) TAKE 1 TABLET BYMOUTH EVERY DAY Omeprazole 20 MG Oral Capsule [...] by mouth 1 Tablet in the morning. Propafenone HCl 150 MG Oral Tablet (Rythmol) Take by mouth 1 Tablet in the morning AND 1 Tabletat noon AND 1 Tablet before bedtime. Ibuprofen 200 MG Oral Tablet Take 1 Tablet by mouth every 4 hours as needed for Pain. Multiple Vitamins-Minerals (PRESERVISION AREDS 2) Capsule Take 1 Capsule by mouth in the morning. Review of patient's allergies indicates: Allergen Reactions Environmental [Pollen] Grass pollen - rash Most Recent Immunizations Administered Date(s) Administered COVID-19 mRNA, LNP-s, No Preserve, 2-Dose Series (Pfizer) 06/17/2021 Covid-19, Mrna, Lnp-s, Pf, Bivalent, 30 Mcg, IM, 12 yrs and above (Pfizer) 05/26/2022 Seasonal Influenza Virus Vaccine, Unspecified Formulation 05/05/2022 Seasonal Influenza, Quadrivalent, No Preserve, 6 Mons & Above, IM 03/19/2021 Seasonal Influenza, Quadrivalent, No Preserve, IM 03/22/2017 Seasonal Influenza, Split, IIV3, With Preserve, Inj 03/20/2014 TD - Tetanus/Diptheria (ADULT) 09/22/2001 TD, Preservative Free 05/11/2022 TDAP (age 11 and older)(Adacel) 09/21/2011 Varicella Zoster Vaccine (Adult) 06/20/2015 Review of Systems: Review of Systems Constitutional: Negative for fatigue. Respiratory: Negative for shortness of breath. Cardiovascular: Negative for chest pain, palpitations and leg swelling. Gastrointestinal: Negative for abdominal pain. Neurological: Negative for dizziness and syncope. Psychiatric/Behavioral: Negative for sleep disturbance. The patient is nervous/anxious. Physical Exam: BP 114/60 | Pulse 72 | Wt 88.6 kg (195 lb 5 oz) | SpO2 98% | BMI 26.49 kg/m | BSA 2.12 m Physical Exam Vitals and nursing note reviewed. HENT: Head: Normocephalic. Eyes: Pupils: Pupils are equal, round, and reactive to light. Cardiovascular: Rate and Rhythm: Normal rate and [...] Assessment and Plan: 1. Hospital discharge follow-up S/p hospital admission 01/28/2023 Hospital records reviewed 2. PAF (paroxysmal atrial fibrillation) (HCC) S/p cardioversion On propafenone On eliquis On Metoprolol HR controlled and NSR today Continue follow up with cardiology 2. Hypokalemia Recheck today - BASIC METABOLIC PANEL; Future 3. Type 2 diabetes mellitus with diabetic mononeuropathy, without long-term current use of insulin (HCC) Stable on metformin Denies need for increased anxiety medication I have advised the patient to call our office incase of any worsening or new symptoms. I spent a total of 40-54 minutes (exact time 40 mins) on the date of service in preparation, delivery, and documentation of the care provided to Giovanni Puckett excluding any time spent in the performance of separately billed services. REYNA Garcia, TRINA [facility] documented in this encounter Plan of Treatment Upcoming Encounters Date Type Specialty Care Team Description 03/25/2023 Office Visit Family Medicine Osiris Estrada CRNP [address] [place] [address] 04/05/2023 Hospital Encounter Endoscopy Diana Arboleda, DO [address] [place] [address] 04/05/2023 Surgery Endoscopy Diana Arboleda, DO [address] [place] [address] COLONOSCOPY FLEXIBLE PROXIMAL DIAGNOSTIC 08/09/2023 Office Visit Cardiology Cyndi Corbett CRNP [address] [place] [phone] 01/05/2024 Office Visit Allergy & Immunology Ian Schilling MD [address] [place] [address] Pending Results Name Type Priority Associated Diagnoses Date /Time BASIC METABOLIC PANEL Lab Routine Hypokalemia 02/03/2023 3:43 PM EDT Scheduled Orders Name Type Priority Associated Diagnoses Orde r Schedule BASIC METABOLIC PANEL Lab Routine Hypokalemia Expected: 02/03/2023 (Approximate), Expires: 02/03/2024 Scheduled Procedures Name Priority Associated Diagnoses Date/Ti [...] as of this encounter Visit Diagnoses Diagnosis Hospital discharge follow-up- Primary Other follow-up examination PAF (paroxysmal atrial fibrillation) (HCC) Atrial fibrillation Hypokalemia Hypopotassemia Type 2 diabetes mellitus with diabetic mononeuropathy, without long-term current use of insulin (HCC) Special screening for malignant neoplasms, colon documented in this encounter Care Teams Roundhouse Firer/Fireman Relationship Specialty Start Date End Date Osiris Estrada CRNP [address] [place] [address] PCP - General Nurse Practitioner 12/03/21 documented as of this encounter"
--- OUTSIDE RECORDS SUMMARY | 2023-05-24 21:33 | External Medical Summary ---
Author Name Unknown Address Unknown Organization [id number]:[facility] [place] [address] - [address] [place] [address] Laboratory Report Ordering Provider Test Date Status TAL BOLAND 02/03/2023 15:43:36 Final Observation Date Value Abnormality Reference (Units ) Status BUN 02/03/2023 15:43:36 21 Above high normal 6-20 (mg/dL) Final Creatinine 02/03/2023 15:43:36 1.0 0.6-1.2 (mg/dL) Final Glomerular filtration rate/1.73 sq M.predicted [Volume Rate/Area] in Serum, Plasma or Blood by Creatinine-based formula (CKD-EPI) 02/03/2023 15:43:36 85 >=60 (mL/min) Final eGFR is calculated based on the CKD-EPI 2020 equation SODIUM 02/03/2023 15:43:36 140 135-146 (m mol/L) Final Potassium 02/03/2023 15:43:36 5.1 3.5-5.1 (m mol/L) Final Cl 02/03/2023 15:43:36 103 98-107 (mm ol/L) Final CO2 02/03/2023 15:43:36 28 22-32 (mmo l/L) Final Anion gap 02/03/2023 15:43:36 9 7-15 (mmol /L) Final Glucose 02/03/2023 15:43:36 150 Above high normal 70 -120 (mg/dL) Final Calcium 02/03/2023 15:43:36 9.9 8.4-10.2 ( mg/dL) Final Performing Location [facility] [place] [address] - [address] [place] [address]
--- OUTSIDE RECORDS SUMMARY | 2023-05-24 21:34 | External Medical Summary ---
Author Name Unknown Address Unknown Organization [id number][place] [place] [address] [facility] [address] Laboratory Report Ordering Provider Test Date Status RUDDY CAMPBELL 11/23/2022 15:49:11 Final Observation Date Value Abnormality Reference (Units ) Status Triglyceride 11/23/2022 15:49:11 379 Above high normal <=174 (mg/dL) Final Triglyceride Reference Range s (mg/dL):
<150 Acceptable
150-174 Borderline high
175-499 High
>=500 Very high Cholesterol 11/23/2022 15:49:11 231 Above high normal <200 (mg/dL) Final Total Cholesterol Reference Ranges (mg/dL):
<200 Desirable
200-239 Borderline high
>=240 High HDL 11/23/2022 15:49:11 37 Below low normal >39 (mg/dL) Final HDL Cholesterol Reference Ra nges (mg/dL):
>=60 High (Desirable)
<50 Low (Undesirable) For Females
<40 Low (Undesirable) For Males NON-HDL CHOLESTEROL 11/23/2022 15:49:11 194 Above high normal <=159 (mg/dL) Final Non-HDL Cholesterol Referenc e Range (mg/dL):
<100 Target level for high risk ASCVD patient
<130 Optimal for general population
130-159 Near optimal for general population
160-189 Borderline High
190-219 High
>=220 Very High LDL, (calculated) 11/23/2022 15:49:11 118 <= 129 (mg/dL) Final LDL Cholesterol Reference Ra nges (mg/dL):
<70 Target level for high risk ASCVD patient
<100 Optimal for general population
100-129 Near optimal for general population
130-159 Borderline high
160-189 High
>=190 Very high Performing Location [facility] [place] [address] [facility] [address]
--- OUTSIDE RECORDS SUMMARY | 2023-05-24 21:34 | External Medical Summary ---
Author Name Unknown Address Unknown Organization [id number]:[facility] [place] [facility] [place] [address] [place] [address] Laboratory Report Ordering Provider Test Date Status LUISA GONZALEZ 11/23/2022 15:49:11 Final Observation Date Value Abnormality Reference (Units ) Status Erythrocyte sedimentation rate by Photometric method 11/23/2022 15:49:11 18 <20 (mm/hour) Final Performing Location [facility] [place] - [address] [place] [address]
--- OUTSIDE RECORDS SUMMARY | 2023-05-24 21:34 | External Medical Summary ---
Author Name Unknown Address Unknown Organization K01:[facility] - [address] [facility] [address] Laboratory Report Ordering Provider Test Date Status RUDDY CAMPBELL 11/23/2022 15:49:11 Final Observation Date Value Abnormality Reference (Units ) Status BUN 11/23/2022 15:49:11 18 6-20 (mg/dL) Final Creatinine 11/23/2022 15:49:11 0.9 0.6-1.2 (mg/dL) Final Glomerular filtration rate/1.73 sq M.predicted [Volume Rate/Area] in Serum, Plasma or Blood by Creatinine-based formula (CKD-EPI) 11/23/2022 15:49:11 >90 >=60 (mL/min) Final eGFR is calculated based on the CKD-EPI 2020 equation SODIUM 11/23/2022 15:49:11 141 135-146 (m mol/L) Final Potassium 11/23/2022 15:49:11 4.9 3.5-5.1 (m mol/L) Final Cl 11/23/2022 15:49:11 103 98-107 (mm ol/L) Final CO2 11/23/2022 15:49:11 27 22-32 (mmo l/L) Final Anion gap 11/23/2022 15:49:11 11 7-15 (mmol /L) Final Glucose 11/23/2022 15:49:11 116 70-120 (mg /dL) Final Albumin 11/23/2022 15:49:11 5.2 Above high normal 3. 8-5.0 (g/dL) Final AST (Aspartate aminotransferase) 11/23/2022 15:49:11 28 10-50 (U/L) Fin al Alk Phos 11/23/2022 15:49:11 106 35-130 (U/ L) Final Bilirubin, Total 11/23/2022 15:49:11 0.6 <=1 .2 (mg/dL) Final Calcium 11/23/2022 15:49:11 9.8 8.4-10.2 ( mg/dL) Final Protein 11/23/2022 15:49:11 7.2 6.0-8.3 (g /dL) Final ALT (Alanine aminotransferase) 11/23/2022 15:49:11 37 10-50 (U/L) Vu ramírez Performing Location [facility]ORY [facility] - [address] [facility] [address]
--- OUTSIDE RECORDS SUMMARY | 2023-05-24 21:34 | External Medical Summary ---
Author Name Unknown Address Unknown Organization : Laboratory Report Ordering Provider Test Date Status LUISA GONZALEZ 11/23/2022 15:49:11 Final Observation Date Value Abnormality Reference (Units ) Status Anaplasma phagocytophilum DNA [Presence] in Blood by CLINT with probe detection 11/23/2022 15:49:11 Not Detected Not Detected Final This test was developed and its analytical performance
characteristics have been determined by [employer] [place], [place]. It has
not been cleared or approved by the U.S. Food and Drug
Administration. This assay has been validated pursuant
to the CLIA regulations and is used for clinical
purposes.

Test Performed at:
[facility]
[address] [facility] [place] [address]
Jan Farias M.D., Ph.D.,Director of Laboratories Performing Location
--- OUTSIDE RECORDS SUMMARY | 2023-05-24 21:34 | External Medical Summary | Summary of Care ---
Author Name Unknown Organization [facility] Address [address] [place] [address] Phone [phone] Care Team Providers Care Metal Door Assembler Name Role Phone Osiris Parada Primary Care Provider Reason for Visit * Reason Comments Allergy New Pt Encounter Details Date Type Department Care Team Description 01/04/2023 Office Visit Allergy/Immunology [facility] [address] [facility] [place] [address] Ian Schilling MD [address] [place] [id number] Seasonal allergic rhinitis due to pollen*; Nasal congestion; Allergic conjunctivitis, bilateral Allergies No known active allergiesdocumented as of this encounter (statuses as of 01/04/2023) Medications Medication Sig Dispensed Refills Start Date End Date Status aspirin enteric coated 81 MG TBECIndications:PSVT (paroxysmal supraventricular tachycardia) ([facility]) Take 1 Tablet by mouth in the morning. 100 Tab 3 10/04/2016 Active Multiple Vitamins-Minerals (PRESERVISION AREDS 2) Capsule Take 1 Capsule by mouth in the morning. 0 Active Ibuprofen 200 MG Oral Tablet Take 1 Tablet by mouth every 4 hours as needed for Pain. 0 Active Metoprolol Succinate ER 25 MG Oral Tablet Extended Release 24 Hour (toPROL XL)Indications:PAF (paroxysmal atrial fibrillation) ([facility]) TAKE 1 TABLET BY MOUTH EVERY DAY 90 Tablet 3 01/14/2022 Active Propafenone HCl 150 MG Oral Tablet (Rythmol)Indications:P AF (paroxysmal atrial fibrillation) ([facility]) Take by mouth 1 Tablet in the morning AND 1 Tablet at noon AND 1 Tablet before bedtime. 270 Tablet 3 03/24/2022 Active metFORMIN HCl ER 500 MG Oral Tablet Extended Release 24 Hour (Glucophage XR) Take by mouth 1 Tablet in the morning. 90 Tablet 3 05/11/2022 Active Zoster Vac Recomb Adjuvanted 50 MCG/0.5ML Intramuscular Suspension Reconstituted (Shingrix) Inject 0.5 mL into a large muscle now and repeat dose in 60 to 180 days 1 Each 1 05/11/2022 Active Additional Information Patient not taking.Reported on 12/23/2022 Tamsulosin HCl 0.4 MG Oral Capsule (Flomax)Indications:Ur inary urgency,Weak urinary stream,Nocturia TAKE 1 CAPSULE BY MOUTH EVERY DAY IN THE MORNING 90 Capsule 3 06/23/2022 Active Omeprazole 20 MG Oral Capsule Delayed Release (PriLOSEC)Indications: Esophageal stricture TAKE 1 CAPSULE BY MOUTH EVERY DAY 90 Capsule 1 07/16/2022 Active Pravastatin Sodium 10 MG Oral Tablet (Pravachol)Indications :Dyslipidemia, goal LDL below 100 TAKE ONE TABLET [...] the morning. 90 Tablet 3 12/23/2022 Active documented as of this encounter (statuses as of 01/04/2023) Active Problems Problem Noted Date Type 2 [...] as of this encounter (statuses as of 01/04/2023) Resolved Problems Problem Noted Date Resolved Date Prediabetes 03/18/2020 05/11/2022 Overview: Per Prediabetes protocol Metabolon Quantose IR Research Study*[id number] 02/06/2014 05/01/2014 Overview: METABOLON QUANTOSE IR STUDY. PROJECT: #[id number], RADIO TIME SALES SUPERVISOR: Hector Lundy MD/ Monty Guzman MD. SUMMARY: The Use of a Novel Insulin Resistance Test as a Monitoring Indicator of Glycemic Control in Prediabetics and Diabetics treated with metformin combined with lifestyle intervention. CONTACTS: During normal business hours, contact Medina Ruano RN, BSN at ; after hours Development Geologist via the [facility] hospital bottling line operator Dyslipidemia, goal to be determined 06/26/2009 10/24/2009 Overview: Per Lipid Taxonomy. PURE HYPERCHOLESTEROLEM 06/26/20 Overview: Per Lipid Taxonomy. documented as of this encounter (statuses as of 01/04/2023) Immunizations Name Administration Dates Next Due COVID-19 mRNA, LNP-s, No Pre serve, 2-Dose Series ([facility]) 06/17/2021,10/01/2020,09/10/2020 Covid-19, Mrna, Lnp-s, Pf, B ivalent, 30 Mcg, IM, 12 yrs and above ([facility]) 05/26/2022 Seasonal Influenza, Quadriva lent, No Preserve, 6 Mons & Above, IM 03/19/2021,04/12/2020,03/30/2019,2017 Seasonal Influenza, Quadriva lent, No Preserve, IM 03/22/2017,04/14/2016,04/22/2015 Seasonal Influenza, Split, I IV3, With Preserve, Inj 03/20/2014,08/13/2013,03/25/2012,2010,05/29/2007,05/25/2006 TD, Preservative Free 05/11/2022 TDAP (age 11 and older)(Adacel) 09/21/2011 Varicella Zoster Vaccine (Adult) 06/20/2015 documented as of this encounter Social History Tobacco Use Types Packs/Day Years Used Date Smoking Tobacco: Never Smokeless Tobacco: Never Tobacco Cessation:Counseling Given: Not Answered Alcohol Use Standard Drinks/Week Comments Yes 0 [...] Sign Reading Time Taken Comments Blood Pressure 130/82 01/04/2023 8:59 AM EDT Pulse 73 01/04/2023 8:59 AM EDT Temperature 35.7 C (96.2 F) 01/04/2023 8:59 AM ED T Respiratory Rate 16 01/04/2023 8:59 AM EDT Oxygen Saturation - - Inhaled Oxygen Concentration - - Weight 88.2 kg (194 lb 6.4 oz) 01/04/2023 8:59 A M EDT Height 182.9 cm (6') 01/04/2023 8:59 AM EDT Body Mass Index 26.37 01/04/2023 8:59 AM EDT documented in this encounter Patient Instructions * Patient Instructions* Ian Schilling MD - 01/04/2023 9:34 AM EDT Pollen Avoidance Measures: Keep windows, doors closed; use air conditioning; dry clothes in vented dryer, not outside on clothesline; shower/bathe and change clothes right after outdoor activity; avoid outdoor activity during high pollen counts; use HEPA type air filtration system. documented in this encounter Progress Notes * Ian Schilling MD - 01/04/2023 9:15 AM EDT REASON FOR VISIT: Chief Complaint Patient presents with Allergy New Pt HPI: Giovanni is a pleasant 62-year-old male who presents to our office as a new patient after being self-referred and being seen by TRINA Chaudhari for initial consultation of chronic rhinitis. The patient reports that for the past 2-3 years he has had increased symptoms from late spring to late summer. Generally he is asymptomatic in the fall, winter, and early spring. His symptoms include nasal congestion, rhinorrhea, excessive sneezing, and postnasal drip. He will occasionally have itchy eyes. Interestingly, he states that the majority of the symptoms occur in the evening after [place] andalso in the morning. He states that he is generally asymptomatic in the afternoon during these few months. He does have 1 cat that goes into his bedroom and sleeps on his bed but he is unsure if the cat is a trigger. Has had this cat for approximately 6 years. He is also unsure if pollen is a trigger. From a treatment standpoint, he states that he has taken Sudafed and this will occasionally helpbut he also states that there are days where the Sudafed will not help. On 1 other occasion he tried to take a half a pill of Tete but felt this was ineffective. He has not tried any other treatment modalities. The patient reports no history of asthma. He denies any shortness of breath, wheezing, nor chronic cough. He reports no nocturnal respiratory symptoms. He reports no urgent care visits nor ER visits from the pulmonary standpoint. He states that his primary care practitioner has discussed possibly eczema of the hands with him. He primarily uses topical emollients for proper hydration of his hands and this controls the dryness and the edge of the hands fairly well. REVIEW OF SYSTEMS Skin: dryness, eczema Eyes: itching Bilateral Ears/Nose/Throat: sneezing, nasal congestion, runny nose, post nasal drip Respiratory: No history of cough, wheezing, chest tightness or shortness of breath and No history of bronchial asthma Cardiovascular: hypertension and hyperlipidemia Gastrointestinal: Positive history of acid reflux disease. Genitourinary: negative and prostate enlargement Musculoskeletal: pt denies significant joint pain or stiffness Neurologic: negative Psychiatric: negative Hematologic/Lymphatic/Immunologic: negative Endocrine: negative and diabetes Constitutional: none Past Medical History: Diagnosis Date Esophageal stricture Herpes zoster 08/19 Past Surgical History: Procedure Laterality Date COLONOSCOPY 11/2011 normal-repeat in 10 years EXERCISE ECHO 10/14 Negative test FLUORO ESOPHAGEAL DILATION 1992, 1996 due to stricture- Dr. Odonnell FLUORO ESOPHAGEAL DILATION 10/10 Schtzki's ring dilated FLUORO ESOPHAGEAL DILATION 08/14 dilation accomplished FLUORO UPPER GI W KUB 08/31/01 distal esophageal scarring and proximal nodularity Current Outpatient Medications Medication Sig Dispense Refill aspirin enteric coated 81 MG TBEC Take 1 Tablet by mouth in the morning. 100 Tab 3 Multiple Vitamins-Minerals (PRESERVISION AREDS 2) Capsule Take 1 Capsule by mouth in the morning. Ibuprofen 200 MG Oral Tablet Take 1 Tablet by mouth every 4 hours as needed for Pain. Metoprolol Succinate ER 25 MG Oral Tablet Extended Release 24 Hour (toPROL XL) TAKE 1 TABLET BYMOUTH EVERY DAY 90 Tablet 3 Propafenone HCl 150 MG Oral Tablet (Rythmol) Take by mouth 1 Tablet in the morning AND 1 Tabletat noon AND 1 Tablet before bedtime. 270 Tablet 3 metFORMIN HCl ER 500 MG Oral Tablet Extended Release 24 Hour (Glucophage XR) Take by mouth 1 Tablet in the morning. 90 Tablet 3 Tamsulosin HCl 0.4 MG Oral Capsule (Flomax) TAKE 1 CAPSULE BY MOUTH EVERY DAY IN THE MORNING 90Capsule 3 Omeprazole 20 MG Oral Capsule Delayed Release (PriLOSEC) TAKE 1 CAPSULE BY MOUTH EVERY DAY 90 Capsule 1 Pravastatin Sodium 10 MG Oral Tablet (Pravachol) TAKE ONE TABLET BY MOUTH EVERY DAY FOR CHOLESTEROL 90 Tablet 1 Sertraline HCl 100 MG Oral Tablet (Zoloft) Take 1.5 Tablets by mouth in the morning. 90 Tablet 3 Zoster Vac Recomb Adjuvanted 50 MCG/0.5ML Intramuscular Suspension Reconstituted (Shingrix) Inject 0.5 mL into a large muscle now and repeat dose in 60 to 180 days (Patient not taking: Reported on 12/23/2022) 1 Each 1 Ciclopirox 8 % External Solution Apply over nail and surrounding skin. Apply daily over previous coat. After seven (7) days, may remove with alcohol and continue cycle. 6.6 mL 3 No current facility-administered medications for this visit. Allergies as of 01/04/2023 (No Known Allergies) Family History Problem Relation Age of Onset Musculo-skeletal Disorder Mother age 75- ostoeporosis Endocrine Disorder Mother Elevated cholesterol Mental Disorder Mother dementia diagnosed - age 89 Endocrine Disorder Father Elevated cholesterol No Past Hx Brother No Past Hx Sister Social History Socioeconomic History Marital status: Single Spouse name: Not on file Number of children: Not on file Years of education: Not on file Highest education level: Not on file Occupational History Occupation: [employer] Comment: [employer] Tobacco Use Smoking status: [...] on file Housing Stability: Not on file Social history: The patient currently lives in a two-story home that has a gas, hot water, and baseboard heating system without air conditioning. The home has a basement is unfinished and slightly damp. The home has no issues with cockroaches. There is 1 cat within the home the enters his bedroom and sleeps on his bed. The patient is currently unemployed. BP 130/82 | Pulse 73 | Temp 35.7 C (96.2 F) | Resp 16 | Ht 1.829 m (6') | Wt 88.2 kg (194 lb 6.4 oz) | BMI 26.37 kg/m | BSA 2.12 m PHYSICAL EXAM: GENERAL: No acute distress. HEAD AND FACE: No sinus tenderness noted EYES: EOMI, PERRLA; Conjunctiva- normal; Eyelids - normal EARS: TM's - clear NOSE:Pale mucosa; mild turbinate edema; no nasal polyps or mucopus; Septum - normal OROPHARYNX: Teeth and gums - normal; Mild erythema, mild cobblestoning; No lesions, exudates NECK: Supple; No thyroid enlargment or cervical adenopathy RESPIRATORY: Clear to A and P; No wheezes; Good air movement bilaterally; No intercostal retractions or accessory muscle use CARDIOVASCULAR: RRR; No gallops, rubs, clicks, or murmurs. GASTROINTESTINAL: Abdomen is soft and non-tender; BS - normal; No palpable masses or organomegaly LYMPHATIC: No significant adenopathy noted MUSCULOSKELETAL: No significant joint swelling, tenderness EXTREMITIES: No cyanosis, clubbing or peripheral edema SKIN: No evidence atopic dermatitis; no urticaria or angioedema; Normal skin quality NEUROLOGIC/PSYCHIATRIC: Mental status - Oriented x's 3; Mood and affect - normal OBJECTIVE DATA: 01/04/2023: Prick skin testing to common environmental aeroallergens was performed today and this revealed sensitizations to grass pollen only in the setting of a negative saline control and positive histamine control. ASSESSMENT AND PLAN: ICD-10-CM 1. Seasonal allergic rhinitis due to pollen J30.1 2. Nasal congestion R09.81 3. Allergic conjunctivitis, bilateral H10.13 In summary, Giovanni carries a diagnosis of chronic allergic rhinitis and allergic conjunctivitis with primary sensitization to grass pollen only given his clinical history and skin testing today. His clinical history and time course of increased symptoms from late spring 2 late summer is consistent with grass pollen season. Pollen avoidance measures were discussed with him extensively today and this includes changing his clothes and perhaps showering after being outside for an extended period oftime, keeping his windows closed on high pollen count days, and use of an air purifier with a HEPA filter. Informational materials were also given to him today. From a pharmacotherapy standpoint, we do recommend that he initiate Tete 180 mg once daily in addition to Flonase 2 sprays each nostril daily. Proper technique of a nasal spray which shown to him today. Given the lack of other allergies, we would recommend that he primarily uses this from late October until late February and then he may discontinue his regimen. In regards to his chronic allergic rhinitis, he may also use Zaditor or Pataday eyedrops on an as needed basis for any itchy eyes, teary eyes, or redness of the eyes. Should he have a persistence of uncontrolled nasal or ocular symptoms, consideration towards allergen immunotherapy may be warrantedin the future. Thank you very much for allowing myself to participate in the care of your patient. Please do not hesitate to contact our office should you have any questions or concerns. Ian Schilling MD Allergy/Immunology I spent a total of Greater than 55 mins (exact time 58 mins) on the date of service in preparation,delivery, and documentation of the care provided to Giovanni Puckett excluding any time spent in the performance of separately billed services. (This note was completed using the dictation program Fluency Direct. As such, there may be misspellings, word substitutions, or other variations that should not change the essence of the clinical content of this encounter note.If there is need for further clarification, please direct questions to the provider listed above.) PCP: OSIRIS PARADA [address] [place] [address] [phone] documented in this encounter Nursing Notes * Emely Schulz LPN - 01/04/2023 8:58 AM EDT The pt has been properly identified by confirmation of name and date of . Pt presents as a new patient for allergy symptoms. documented in this encounter Miscellaneous Notes * Pt Handout (on AVS) - Ian Schilling MD - 01/04/2023 9:35 AM EDT Images from the original note were not included. [id number] Controlling Allergens: Pollen Constant exposure to allergens means constant allergy symptoms. That?s why it's important to control or stay away from the allergens that cause your symptoms. If you are allergic to pollen, the tips below may help. The more you do to keep away from allergens, the better you?ll feel. Pollen allergy The pollen that causes allergies is often not the pollen carried from plant to plant by insects such as butterflies and bees. The types of pollen that most often cause allergies are made by plants (trees, grasses, and weeds) that don't have flores. These plants make small, light, dry pollen granules. These are easily spread by the wind. They may even spread to places that have few plants, such as urban areas. Controlling pollen Keep windows closed, especially when pollen counts are high, and use air conditioning instead. Below are some tips to help you limit your exposure to pollen: Check pollen counts and don't spend a lot of time outdoors when counts are high. Pollen counts tend to be higher during warm, dry weather. They also tend to be higher during county supervisor and lateafternoon hours. In some areas, daily pollen counts are reported in the paper and on the radio. Daily pollen tracking apps can also be downloaded to electronic devices. After spending time outdoors, bathe or shower, wash your hair, and change your clothes. Put these clothes in a part of the house near the door. This helps to reduce bringing pollen into the bedroom. Stay indoors as much as you can on windy days. Keep windows closed and air conditioning on, if possible, in your car and your home. Air conditioners filter air and also dehumidify. Change your air conditioning filters regularly. Have someone else do gardening, yard work, or other outdoor chores. Masks are available if you have to be outdoors. When your allergies are at their worst each year, try getting away to a place where your allergies won?t bother you as much. This might be a time to try to plan a vacation. Or to visit a friend orrelative. Talk with your healthcare provider about medicines that can help. Ask if it may be helpful to see an drive man. Pollen allergy is seasonal People have allergies only when the pollen to which they are allergic is in the air. Each plant pollinates more or less the same time from year to year. Exactly when a plant starts to pollinate depends on geographical location, not the weather. In mild areas, trees pollinate in the spring, grass inthe middle of the warm season, and weeds in the fall leading up to the first coffman. In warm places,pollination can occur any time of year. The National Allergy Ada (NAB) records pollen and mold levels from certified stations throughoutthe [place]. Track your geographic area by going to the NAB website at pollen.aaaai.org. Last Reviewed Date: 07/11/202119998139-7632 The [employer]. All rights reserved. This information is not intended as a substitute for professional medical care. Always follow your healthcare professional's instructions. documented in this encounter Plan of Treatment Upcoming Encounters Date Type Specialty Care Team Description 03/25/2023 Office Visit Family Medicine Osiris Parada CRNP [address] [place] [address] 04/05/2023 Hospital Encounter Endoscopy Diana Arboleda, DO [address] [place] [address] 04/05/2023 Surgery Endoscopy Diana Arboleda, DO [address] [place] [address] COLONOSCOPY FLEXIBLE PROXIMAL DIAGNOSTIC 01/05/2024 Office Visit Allergy & Immunology Ian Schilling MD [address] [place] [address], [place] [id number] Scheduled Orders Name Type Priority Associated Diagnoses Orde r Schedule ALLERGY SKIN TESTS, PERC W/PHYSICIAN INTERP Procedures Routine Seasonal allergic rhinitis due to pollen Nasal congestion Allergic conjunctivitis, bilateral Ordered: 01/04/2023 Scheduled Procedures Name Priority Associated Diagnoses Date/Ti [...] Over 11/24/2023 11/23/2022, 10/21/2014 GFR 11/24/2023 11/23/2022, 0 03/2021, 02/22/2020, Additional history exists Lipid Panel 11/24/2027 11/23/2022, 0 03/2021, 02/22/2020, Additional history exists DTaP,Tdap,and Td Vaccines (3 - Td or Tdap) 05/11/2032 05/11/2022, 09/21/2011, 09/22/2001 Influenza Vaccine (FLU shot) Completed , 03/19/2021, 03/19/2021, Additional history exists COVID-19 Vaccine Completed 05/26/2022, [...] as of this encounter Visit Diagnoses Diagnosis Seasonal allergic rhinitis due to pollen- Primary Nasal congestion Other diseases of nasal cavity and sinuses Allergic conjunctivitis, bilateral Other chronic allergic conjunctivitis Special screening for malignant neoplasms, colon documented in this encounter Care Teams Metal Door Assembler Relationship Specialty Start Date End Date Osiris Parada CRNP [address] [place] [address] PCP - General Nurse Practitioner 12/03/21 documented as of this encounter"
--- OUTSIDE RECORDS SUMMARY | 2023-05-24 21:34 | External Medical Summary ---
Author Name Unknown Address Unknown Organization [id number]:[facility] - [address] [place] [address] Laboratory Report Ordering Provider Test Date Status CATHIE,DURA 11/23/2022 15:49:11 Final Normal: <30 mg/g creatinine< br/>High: 30-300 mg/g creatinine
Very High: >300 mg/g creatinine
Nephrotic: >2200 mg/g creatinine Observation Date Value Abnormality Reference (Units ) Status Albumin, Urine 11/23/2022 15:49:11 2.46 (mg/dL) Final Creatinine, Urine 11/23/2022 15:49:11 134 (mg/dL) Final Albumin/Creatinine [Mass Ratio] in Urine 11/23/2022 15:49:11 18 <30 (mg/g Creat) Final Performing Location [facility] - [address] [place] [id number]
--- OUTSIDE RECORDS SUMMARY | 2023-05-24 21:34 | External Medical Summary | Summary of Care ---
Author Name Unknown Organization [facility] Address [address] [place] [address] Phone [phone] Care Team Providers Care Professor Of Literacy Name Role Phone Osiris Estrada Primary Care Provider Reason for Visit * Reason Comments eRx-Medication Refill Encounter Details Date Type Department Care Team Description 01/12/2023 Refill Cardiology, [facility] [address] [facility] [place] [address] Barbara Daniels, [address] [place] [address] PAF (paroxysmal atrial fibrillation) ([facility]) Allergies No known active allergiesdocumented as of this encounter (statuses as of 01/14/2023) Medications Medication Sig Dispensed Refills Start Date End Date Status aspirin enteric coated 81 MG TBECIndications:PSVT (paroxysmal supraventricular tachycardia) ([facility]) Take 1 Tablet by mouth in the morning. 100 Tab 3 7 Active Multiple Vitamins-Minerals (PRESERVISION AREDS 2) Capsule Take 1 Capsule by mouth in the morning. 0 Active Ibuprofen 200 MG Oral Tablet Take 1 Tablet by mouth every 4 hours as needed for Pain. 0 Active Propafenone HCl 150 MG Oral Tablet (Rythmol)Indications :PAF (paroxysmal atrial fibrillation) ([facility]) Take by mouth 1 Tablet in the morning AND 1 Tablet at noon AND 1 Tablet before bedtime. 270 Tablet 3 2 Active metFORMIN HCl ER 500 MG Oral Tablet Extended Release 24 Hour (Glucophage XR) Take by mouth 1 Tablet in the morning. 90 Tablet 3 2 Active Zoster Vac Recomb Adjuvanted 50 MCG/0.5ML Intramuscular Suspension Reconstituted (Shingrix) Inject 0.5 mL into a large muscle now and repeat dose in 60 to 180 days 1 Each 1 2 Active Additional Information Patient not taking.Reported on 12/23/2022 Tamsulosin HCl 0.4 MG Oral Capsule (Flomax)Indications: Urinary urgency,Weak urinary stream,Nocturia TAKE 1 CAPSULE BY MOUTH EVERY DAY IN THE MORNING 90 Capsule 3 2 Active Pravastatin Sodium 10 MG Oral Tablet (Pravachol)Indicatio ns:Dyslipidemia, goal LDL below 100 TAKE ONE TABLET BY MOUTH EVERY DAY FOR CHOLESTEROL 90 Tablet 1 3 Active Ciclopirox 8 % External Solution Apply over nail and surrounding skin. Apply daily over previous coat. After seven (7) days, may remove with alcohol and continue cycle. 6.6 mL 3 3 Active Sertraline HCl 100 MG Oral Tablet (Zoloft) Take 1.5 Tablets by mouth in the morning. 90 Tablet 3 3 Active Metoprolol Succinate ER 25 MG Oral Tablet Extended Release 24 Hour (toPROL XL)Indications:PAF (paroxysmal atrial fibrillation) ([facility]) TAKE 1 TABLET BY MOUTH EVERY DAY 90 Tablet 3 3 Active Metoprolol Succinate ER 25 MG Oral Tablet Extended Release 24 Hour (toPROL XL)Indications:PAF (paroxysmal atrial fibrillation) ([facility]) TAKE 1 TABLET BY MOUTH EVERY DAY 90 Tablet 3 2 023 Discontinued documented as of this encounter (statuses as of 01/14/2023) Active Problems Problem Noted Date Type 2 [...] as of this encounter (statuses as of 01/14/2023) Resolved Problems Problem Noted Date Resolved Date Prediabetes 03/18/2020 05/11/2022 Overview: Per Prediabetes protocol Metabolon Quantose IR Research Study*[id number] 02/06/2014 05/01/2014 Overview: METABOLON QUANTOSE IR STUDY. PROJECT: #[id number], FIELD MAP TECHNICIAN: Hector Lundy MD/ Monty Guzman MD. SUMMARY: The Use of a Novel Insulin Resistance Test as a Monitoring Indicator of Glycemic Control in Prediabetics and Diabetics treated with metformin combined with lifestyle intervention. CONTACTS: During normal business hours, contact Medina Ruano RN, BSN at ; after hours Ms Sql D[employer] via the [facility] hospital cable way operator Dyslipidemia, goal to be determined 06/26/2009 10/24/2009 Overview: Per Lipid Taxonomy. PURE HYPERCHOLESTEROLEM 06/26/20 Overview: Per Lipid Taxonomy. documented as of this encounter (statuses as of 01/14/2023) Immunizations Name Administration Dates Next Due COVID-19 mRNA, LNP-s, No Pre serve, 2-Dose Series ([employer]) 06/17/2021,10/01/2020,09/10/2020 Covid-19, Mrna, Lnp-s, Pf, B ivalent, 30 Mcg, IM, 12 yrs and above ([employer]) 05/26/2022 Seasonal Influenza, Quadriva lent, No Preserve, [...] encounter Miscellaneous Notes * Telephone Encounter - Barbara Daniels DO - 01/14/2023 4:58 PM EDTSigned Prescriptions: Disp Refills Metoprolol Succinate ER 25 MG Oral Tablet *90 Tab*3 Sig: TAKE 1 TABLET BY MOUTH EVERY DAY Authorizing Provider: BARBARA DANIELS * Telephone Encounter - Tima, E-Rx Ss Inbound - 01/14/2023 2:00 PM EDT Pending Prescriptions: Disp Refills Metoprolol Succinate ER 25 MG Oral Tablet *90 Tab*3 Sig: TAKE 1 TABLET BY MOUTH EVERY DAY * Telephone Encounter - Elena Valdez CMA - 01/12/2023 11:50 AM EDTPending Prescriptions: Disp Refills Metoprolol Succinate ER 25 MG Oral Tablet *90 Tab*3 Sig: TAKE 1 TABLET BY MOUTH EVERY DAY * Telephone Encounter - Elena Valdez CMA - 01/12/2023 11:42 AM EDT Did you pend patient's preferred pharmacy and medication before forwarding?yes Pharmacy: [id number] [place] [address] Pending Prescriptions: Disp Refills Metoprolol Succinate ER 25 MG Oral Tablet*90 Tab*3 Sig: TAKE 1 TABLET BY MOUTH EVERY DAY Last Visit: 01/08/2022 (in office), Visit date [...] Labs: Lab Results Component Value Date/Time CREAT 0.9 11/23/2022 03:49 PM CREAT 1.0 02/22/2020 08:08 AM POTASSIUM 4.9 11/23/2022 03:49 PM POTASSIUM 4.1 02/22/2020 08:08 AM TSH [...] Estrada CRNP [address] [place] [address] 04/05/2023 Hospital Encounter Endoscopy Diana Arboleda, DO [address] [place] [address] 04/05/2023 Surgery Endoscopy Diana Arboleda, DO [address] [place] [address] COLONOSCOPY FLEXIBLE PROXIMAL DIAGNOSTIC 01/05/2024 Office Visit Allergy & Immunology Ian Schilling MD [address] [place] [address] Scheduled Procedures Name Priority Associated Diagnoses Date/Ti [...] Td or Tdap) 05/11/2032 05/11/2022, 09/21/2011, 09/22/2001 COVID-19 Vaccine Completed 05/26/2022, 02/2021, 10/01/2020, Additional [...] colon documented in this encounter Care Teams Professor Of Literacy Relationship Specialty Start Date End Date Osiris Estrada CRNP [address] [place] [address] PCP - General Nurse Practitioner 12/03/21 documented as of this encounter
--- OUTSIDE RECORDS SUMMARY | 2023-05-24 21:34 | External Medical Summary | Summary of Care ---
Author Name Unknown Organization [facility] Address [address] [place] [address] Phone [phone] Care Team Providers Care Collection Systems Technician Name Role Phone Osiris Estrada Primary Care Provider Reason for Visit * Reason Comments Allergy New Pt Encounter Details Date Type Department Care Team Description 01/04/2023 Office Visit Allergy/Immunology [facility] [address] [facility] [place] [address] Ian Schilling MD [address] [place] [id number] Seasonal allergic rhinitis due to pollen*; Nasal congestion; Allergic conjunctivitis, bilateral Allergies No known active allergiesdocumented as of this encounter (statuses as of 01/04/2023) Medications Medication Sig Dispensed Refills Start Date End Date Status aspirin enteric coated 81 MG TBECIndications:PSVT (paroxysmal supraventricular tachycardia) ([facility]) Take 1 Tablet by mouth in [...] (toPROL XL)Indications:PAF (paroxysmal atrial fibrillation) ([facility]) TAKE 1 TABLET BY MOUTH EVERY [...] Per Prediabetes protocol Metabolon Quantose IR Research Study*[id number] 02/06/2014 05/01/2014 Overview: METABOLON QUANTOSE IR STUDY. PROJECT: #[id number], SUPERINTENDENT RECREATION: Hector Lundy MD/ Monty Guzman MD. SUMMARY: The Use of a Novel Insulin Resistance Test as a Monitoring Indicator of Glycemic Control in Prediabetics and Diabetics treated with metformin combined with lifestyle intervention. CONTACTS: During normal business hours, contact Medina Ruano RN, BSN at ; after hours Package Reinspector via the [facility] hospital ram car operator Dyslipidemia, goal to be determined 06/26/2009 10/24/2009 Overview: Per Lipid Taxonomy. PURE HYPERCHOLESTEROLEM 06/26/20 Overview: Per Lipid Taxonomy. documented as of this encounter (statuses as of 01/04/2023) Immunizations Name Administration Dates Next Due COVID-19 mRNA, LNP-s, No Pre serve, 2-Dose Series ([employer]) 06/17/2021,10/01/2020,09/10/2020 Covid-19, Mrna, Lnp-s, Pf, B ivalent, 30 Mcg, IM, 12 yrs and above ([employer]) 05/26/2022 Seasonal Influenza, Quadriva lent, No Preserve, [...] the symptoms occur in the evening after [place] andalso in the morning. He states that [...] level: Not on file Occupational History Occupation: [employer] Comment: [employer] Tobacco Use Smoking status: [...] to the provider listed above.) PCP: OSIRIS ESTRADA [address] [place] [address] [phone] documented in this encounter Nursing Notes * [...] from the original note were not included. [id number] Controlling Allergens: Pollen Constant exposure to allergens [...] They also tend to be higher during live study manager and lateafternoon hours. In some areas, daily [...] it may be helpful to see an senior analyst developer. Pollen allergy is seasonal People have allergies [...] any time of year. The National Allergy [employer] (NAB) records pollen and mold levels from certified stations throughoutthe [place]. Track your geographic area by going to the NAB website at pollen.aaaai.org. Last Reviewed Date: 07/11/202119999779-0889 The [employer]. All rights reserved. This information is not intended as a substitute for professional medical care. Always follow your healthcare professional's instructions. documented in this encounter Plan of Treatment Upcoming Encounters Date Type Specialty Care Team Description 03/25/2023 Office Visit Family Medicine Osiris Estrada CRNP [address] [place] [address] 04/05/2023 Hospital Encounter Endoscopy Diana Arboleda, DO [address] [place] [address] 04/05/2023 Surgery Endoscopy Diana Arboleda, [address] [place] [address] COLONOSCOPY FLEXIBLE PROXIMAL DIAGNOSTIC 01/05/2024 Office Visit Allergy & Immunology Ian Schilling MD [address] [place] [phone] Scheduled Procedures Name Priority Associated Diagnoses Date/Ti [...] Procedure Name Priority Date/Time Associated Diagnosis Comments ALLERGY SKIN TESTS, PERC W/PHYSICIAN INTERP Routine 01/04/2023 Seasonal allergic rhinitis due to pollen Nasal congestion Allergic conjunctivitis, bilateral documented in this encounter Results * ALLERGY SKIN TESTS, PERC W/PHYSICIAN INTERP (01/04/2023) mite mix skin test dog skin test 0/0 0 - 0 mm cat skin test 0/0 0 - 0 mm Alternaria SKin Test 0/0 0 - 0 mm Common Rex Mix Skin Test aspergillus Skin Test 0/0 0 - 0 mm AUREOB (PULLARIA) cladosporium Skin Test penicillium skin test 0/0 0 - 0 mm helminthosporium skin test 0/0 0 - 0 mm pigweed SKin Test fox's quarter Skin Test cocklebur skin test vietnamese plantain skin test 0/0 0 - 0 mm susy skin test ragweed skin test 0/0 0 - 0 mm Comment:ragweed short tree mix skin test 0/0 0 - 0 mm grass mix skin test negative control skin test 0/0 0 - 0 mm histamine skin test 5/20 0 - 0 mm maple skin test oak Skin test elm Skin Test birch SKin Test 0/0 0 - 0 mm hickory skin test OTHER 0/0 mm Comment:mountain cedar OTHER 0/0 mm Comment:mulberry mix OTHER 8/22 mm Comment:Vickie Grass OTHER 13/30 mm Comment:Rafita Grass OTHER 0/0 mm Comment:Rex mix 2630 OTHER 0/0 mm Comment:hormodendrum cladosp orioides OTHER 0/0 mm Comment:DF OTHER 0/0 mm Comment:DP Ian Schillign MD MEDICINE documented in this encounter Visit Diagnoses Diagnosis Seasonal allergic rhinitis due to pollen- Primary Nasal congestion Other diseases of nasal cavity and sinuses Allergic conjunctivitis, bilateral Other chronic allergic conjunctivitis Special screening for malignant neoplasms, colon documented in this encounter Care Teams Collection Systems Technician Relationship Specialty Start Date End Date Osiris Estrada CRNP [address] [facility] [address] PCP - General Nurse Practitioner 12/03/21 documented as of this encounter"
--- OUTSIDE RECORDS SUMMARY | 2023-05-24 21:34 | External Medical Summary | Summary of Care ---
Author Name Unknown Organization [facility] Address [address] [place] [address] Phone [phone] Care Team Providers Care Plaster Mold Maker Name Role Phone Osiris Estrada Primary Care Provider Encounter Details Date Type Department Care Team Description 01/28/2023 Result Scan Unspecified Department <No scans attached> Allergies No known active allergiesdocumented as of this encounter (statuses as of 01/28/2023) Medications Medication Sig Dispensed Refills Start Date End Date Status aspirin enteric coated 81 MG TBECIndications:PSVT (paroxysmal supraventricular tachycardia) ([facility]) Take 1 Tablet by mouth in the [...] EVERY DAY 90 Tablet 3 01/14/2023 Active documented as of this encounter (statuses as of 01/28/2023) Active Problems Problem Noted Date Type 2 [...] as of this encounter (statuses as of 01/28/2023) Resolved Problems Problem Noted Date Resolved Date Prediabetes 03/18/2020 05/11/2022 Overview: Per Prediabetes protocol Metabolon Quantose IR Research Study*[id number] 02/06/2014 05/01/2014 Overview: METABOLON QUANTOSE IR STUDY. PROJECT: #[id number], GERMAN TUTOR: Hector Lundy MD/ Monty Guzman MD. SUMMARY: The Use of a Novel Insulin Resistance Test as a Monitoring Indicator of Glycemic Control in Prediabetics and Diabetics treated with metformin combined with lifestyle intervention. CONTACTS: During normal business hours, contact Medina Ruano RN, BSN at ; after hours Associate Biological Sales via the [facility] hospital copy center operator Dyslipidemia, goal to be determined 06/26/2009 10/24/2009 Overview: Per Lipid Taxonomy. PURE HYPERCHOLESTEROLEM 06/26/20 Overview: Per Lipid Taxonomy. documented as of this encounter (statuses as of 01/28/2023) Immunizations Name Administration Dates Next Due COVID-19 mRNA, LNP-s, No Pre serve, 2-Dose Series ([employer]) 06/17/2021,10/01/2020,09/10/2020 Covid-19, Mrna, Lnp-s, Pf, B ivalent, 30 Mcg, IM, 12 yrs and above ([employer]) 05/26/2022 Seasonal Influenza, Quadriva lent, No Preserve, [...] Estrada CRNP [address] [place] [address] 03/25/2023 Office Visit Family Medicine Osiris Estrada CRNP [address] [place] [address] 04/05/2023 Hospital Encounter Endoscopy Diana Arboleda, DO [address] [place] [address] 04/05/2023 Surgery Endoscopy Diana Arboleda, DO [address] [place] [address] COLONOSCOPY FLEXIBLE PROXIMAL DIAGNOSTIC 01/05/2024 Office Visit Allergy & Immunology Ian Schilling MD [address] [facility], [place] [address] Scheduled Procedures Name Priority Associated Diagnoses Date/Ti [...] Procedure Name Priority Date/Time Associated Diagnosis Comments CARDIOLOGY SCANNED RESULT 01/28/2023 documented in this encounter Results * CARDIOLOGY SCANNED RESULT (01/28/2023) 01/28/2023 No Physician Data Unknown OTHER documented in this encounter Care Teams Plaster Mold Maker Relationship Specialty Start Date End Date Osiris Estrada CRNP [address] [place] [address] PCP - General Nurse Practitioner 12/03/21 documented as of this encounter
--- OUTSIDE RECORDS SUMMARY | 2023-05-24 21:34 | External Medical Summary | Summary of Care ---
Author Name Unknown Organization [facility] Address [address] [place] [address] Phone [phone] Care Team Providers Care Fitter/Welder Name Role Phone Osiris Estrada Primary Care Provider Reason for Referral * Ancillary Services (Within 30 days (routine)) - Authorized Specialty Diagnoses / Procedures Referred By Contabi t Referred To Contact Gastroenterology Diagnoses Special screening for malignant neoplasms, colon Maria M Ochoa DO [address] [place] [address] Referral ID Status Reason Start Date Expiration Date Visits Requested Visits Authorized [id number] Authorized Ancillary Services Required 11/23/2022 999 999 Question Answer Referral Priority Within 30 days (routine) Comments ALERT: Do not order for pediatric patients (18 years or younger). Cancel off screen and order PEDS GASTROENTEROLOGY CONSULT (Type: 1 visit only-Evaluate and Treat) The following Pt. Instructions are available: - Gastro Colonoscopy Prep Instructions [[id number]] - Gastro Colonoscopy Prep Instructions ([place] Version) [[id number]] Go to the Pt. Instructions section within the Visit Navigator to access. Colonoscopy ASGE Guidelines: Average risk screening (begin at age 50, 10 year intervals) ADDITIONAL INFORMATION 1. Is the patient on Coumadin? No 2. Is the patient on Pradaxa? No Reason for Visit * Reason Comments Re-Check C/o fatigue, muscle aches, joint aches had rash on inner thighs and neck a couple of wks ago, ruled out lymes and uti, Encounter Details Date Type Department Care Team Description 11/23/2022 Office Visit Family Practice [facility] [address] [place] [address] Maria M Ochoa DO [address] [place] [address] Arthralgia, unspecified joint*; Myalgia; Type 2 diabetes mellitus with diabetic mononeuropathy, without long-term current use of insulin (HCC); BPH with obstruction/lower urinary tract symptoms; PAF (paroxysmal atrial fibrillation) ([facility]); Type 2 diabetes mellitus without complication, unspecified whether shelter insulin use ([facility]); Gastroesophageal reflux disease without esophagitis; Severe episode of recurrent major depressive disorder, without psychotic features ([facility]); Special screening for malignant neoplasms, colon; Essential (primary) hypertension Allergies No known active allergiesdocumented as of this encounter (statuses as of 11/24/2022) Medications Medication Sig Dispensed Refills Start Date End Date Status aspirin enteric coated 81 MG TBECIndications:PSVT (paroxysmal supraventricular tachycardia) ([facility]) Take 1 Tablet by mouth in [...] Hour (toPROL XL)Indications:PAF (paroxysmal atrial fibrillation) ([facility]) TAKE 1 TABLET BY MOUTH EVERY DAY 90 Tablet 3 01/14/2022 Active Propafenone HCl 150 MG Oral Tablet (Rythmol)Indications:P AF (paroxysmal atrial fibrillation) ([facility]) Take by mouth 1 Tablet in [...] 180 days 1 Each 1 05/11/2022 Active Tamsulosin HCl 0.4 MG Oral Capsule (Flomax)Indications:Ur inary urgency,Weak urinary stream,Nocturia TAKE 1 CAPSULE BY MOUTH EVERY DAY IN THE MORNING 90 Capsule 3 06/23/2022 Active Omeprazole 20 MG Oral Capsule Delayed Release (PriLOSEC)Indications: Esophageal stricture TAKE 1 CAPSULE BY MOUTH EVERY DAY 90 Capsule 1 07/16/2022 Active Sertraline HCl 100 MG Oral Tablet (Zoloft) TAKE 1 TABLET BY MOUTH EVERYDAY AT BEDTIME 90 Tablet 3 08/31/2022 Active Pravastatin Sodium 10 MG Oral Tablet (Pravachol)Indications :Dyslipidemia, goal LDL below 100 TAKE ONE TABLET BY MOUTH EVERY DAY FOR CHOLESTEROL 30 Tablet 0 10/31/2022 Active documented as of this encounter (statuses as of 11/24/2022) Active Problems Problem Noted Date Type 2 [...] as of this encounter (statuses as of 11/24/2022) Resolved Problems Problem Noted Date Resolved Date Prediabetes 03/18/2020 05/11/2022 Overview: Per Prediabetes protocol Metabolon Quantose IR Research Study*[id number] 02/06/2014 05/01/2014 Overview: METABOLON QUANTOSE IR STUDY. PROJECT: #[id number], [place]ARK ATTENDANT: Hector Lundy MD/ Monty Guzman MD. SUMMARY: The Use of a Novel Insulin Resistance Test as a Monitoring Indicator of Glycemic Control in Prediabetics and Diabetics treated with metformin combined with lifestyle intervention. CONTACTS: During normal business hours, contact Medina Ruano RN, BSN at ; after hours Vending Supervisor via the [facility] hospital automatic vulcanizing operator Dyslipidemia, goal to be determined 06/26/2009 10/24/2009 Overview: Per Lipid Taxonomy. PURE HYPERCHOLESTEROLEM 06/26/20 Overview: Per Lipid Taxonomy. documented as of this encounter (statuses as of 11/24/2022) Immunizations Name Administration Dates Next Due COVID-19 mRNA, LNP-s, No Pre serve, 2-Dose Series ([employer]) 06/17/2021,10/01/2020,09/10/2020 Covid-19, Mrna, Lnp-s, Pf, B ivalent Booster, 30 Mcg, IM, 12 yrs and above [...] got money to buy more. Never true 05/09/2022 Within the past 12 months, t he food you bought just didn't last and you didn't have money to get more. Never true 05/09/2022 Sex Assigned at Date Recorded Male 03/18/2021 12:55 PM EDT Job Start Date Occupation Industry Not on file Not on file Not on file documented as of this encounter Last Filed Vital Signs Vital Sign Reading Time Taken Comments Blood Pressure 132/64 11/23/2022 2:59 PM EDT Pulse 76 11/23/2022 2:59 PM EDT Temperature 36.2 C (97.1 F) 11/23/2022 2:59 PM ED T Respiratory Rate 16 11/23/2022 2:59 PM EDT Oxygen Saturation - - Inhaled Oxygen Concentration - - Weight 89.4 kg (197 lb) 11/23/2022 2:59 PM EDT Height - - Body Mass Index 26.72 11/19/2022 2:11 PM EDT documented in this encounter Progress Notes * Maria M Ochoa, DO - 11/23/2022 3:15 PM EDT Subjective: Giovanni Puckett is a 62 year old male. Chief Complaint Patient presents with Re-Check C/o fatigue, muscle aches, joint aches had rash on inner thighs and neck a couple of wks ago, ruledout lymes and uti, HPI: Pt c/o sx of muscle, joint aches, fatigue and drowsiness for the past 3 weeks. He noticed a rash in his b/l medial thighs and neck. Rash resolved on its own but he still has somehyperpigmentation of inner thighs. Since rash has fatigue and joint pain. Pain is mostly in his low back and hips. He was seen at urgent care, lyme test was negative. PHM: Patient Active Problem List Diagnosis Code Esophageal stricture K22.2 Dyslipidemia, goal LDL below 100 E78.5 Depression F32.A PAF (paroxysmal atrial fibrillation) ([facility]) I48.0 Bradycardia, sinus R00.1 Incomplete RBBB I45.10 BPH with obstruction/lower urinary tract symptoms N40.1, N13.8 ASHISH (generalized anxiety disorder) F41.1 Need for prophylactic vaccination and inoculation against influenza Z23 Gastroesophageal reflux disease without esophagitis K21.9 Moderate episode of recurrent major depressive disorder ([facility]) F33.1 Type 2 diabetes mellitus with diabetic mononeuropathy, without long-term current use of insulin(HCC) E11.41 Current Outpatient Medications Medication Sig Dispense Refill [...] Tablet in the morning. 90 Tablet 3 Zoster Vac Recomb Adjuvanted 50 MCG/0.5ML Intramuscular Suspension Reconstituted (Shingrix) Inject 0.5 mL into a large muscle now and repeat dose in 60 to 180 days 1 Each 1 Tamsulosin HCl 0.4 MG Oral Capsule (Flomax) TAKE 1 CAPSULE BY MOUTH EVERY DAY IN THE MORNING 90Capsule 3 Omeprazole 20 MG Oral Capsule Delayed Release (PriLOSEC) TAKE 1 CAPSULE BY MOUTH EVERY DAY 90 Capsule 1 Sertraline HCl 100 MG Oral Tablet (Zoloft) TAKE 1 TABLET BY MOUTH EVERYDAY AT BEDTIME 90 Tablet3 Pravastatin Sodium 10 MG Oral Tablet (Pravachol) TAKE ONE TABLET BY MOUTH EVERY DAY FOR CHOLESTEROL 30 Tablet 0 No current facility-administered medications for this visit. [...] 08/31/01 distal esophageal scarring and proximal nodularity Review of patient's allergies indicates: No Known Allergies Objective: BP 132/64 (BP Site: Left Arm, BP Position: Sitting, BP Cuff Size: Regular) | Pulse 76 | Temp 36.2 C (97.1 F) (Tympanic) | Resp 16 | Wt 89.4 kg (197 lb) | BMI 26.72 kg/m | BSA 2.13 m Review of Systems: As per HPI, all other ROS neg. Physical Exam: General: alert, healthy, no distress, well nourished and well developed Head: Normocephalic, No masses, lesions, tenderness or abnormalities Ears: External ears normal, Canals clear, TM's Normal Nose: no mucosal erythema, no mucosal edema, no purulent discharge, no septal hematoma Oropharynx: no exudate, no erythema, lips, buccal mucosa, and tongue normal and mucous membranes are moist Neck: supple, no adenopathy, thyroid normal size, non-tender, without nodularity Heart: regular rate & rhythm, no murmurs and no gallops Lungs: chest symmetric with normal AP diameter, no chest deformities noted, lungs clear to auscultation Abdomen: abdomen soft, non-tender, normal bowel sounds and no masses or organomegaly Extremities: no joint deformities, effusion, or inflammation, no edema, no clubbing, no cyanosis Arthralgia, unspecified joint (Primary) - COMPREHENSIVE METABOLIC PANEL; Future; Expected date: 11/23/2022 - CBC WITH WBC DIFFERENTIAL; Future; Expected date: 11/23/2022 - ANAPLASMA PHAGOCYTOPHILUM DNA, QL REAL-TIME PCR; Future; Expected date: 11/23/2022 - ANTINUCLEAR ANTIBODY (BIMAL) EIA SCREEN WITH REFLEX AB QUANT; Future; Expected date: 11/23/2022 - ERYTHROCYTE SEDIMENTATION RATE (ESR); Future; Expected date: 11/23/2022 Check add'l labs Lyme neg ddx msk v. PMR Myalgia - COMPREHENSIVE METABOLIC PANEL; Future; Expected date: 11/23/2022 - CBC WITH WBC DIFFERENTIAL; Future; Expected date: 11/23/2022 - ANAPLASMA PHAGOCYTOPHILUM DNA, QL REAL-TIME PCR; Future; Expected date: 11/23/2022 - ANTINUCLEAR ANTIBODY (BIMAL) EIA SCREEN WITH REFLEX AB QUANT; Future; Expected date: 11/23/2022 - ERYTHROCYTE SEDIMENTATION RATE (ESR); Future; Expected date: 11/23/2022 Type 2 diabetes mellitus with diabetic mononeuropathy, without long-term current use of insulin ([facility]) - HEMOGLOBIN A1C; Future; Expected date: 11/23/2022 BPH with obstruction/lower urinary tract symptoms PAF (paroxysmal atrial fibrillation) (HCC) Type 2 diabetes mellitus without complication, unspecified whether shelter insulin use (HCC) Gastroesophageal reflux disease without esophagitis Severe episode of recurrent major depressive disorder, without psychotic features (HCC) Special screening for malignant neoplasms, colon - COLONOSCOPY, GI REFERRAL OP Essential (primary) hypertension All above chronic problems stable Follow up: as needed. Maria M Ochoa DO documented in this encounter Plan of Treatment Upcoming Encounters Date Type Specialty Care Team Description 12/23/2022 Office Visit Family Medicine Osiris Estrada CRNP [address] [place] [address] 04/05/2023 Hospital Encounter Endoscopy Diana Arboleda DO [address] [place] [address] 04/05/2023 Surgery Endoscopy Diana Arboleda DO [address] [place] [address] COLONOSCOPY FLEXIBLE PROXIMAL DIAGNOSTIC Pending Results Name Type Priority Associated Diagnoses Date /Time CBC WITH WBC DIFFERENTIAL Lab Routine Arthralgia, unspecified joint Myalgia 11/23/2022 3:49 PM EDT ANAPLASMA PHAGOCYTOPHILUM DNA, QL REAL-TIME PCR Lab Routine Arthralgia, unspecified joint Myalgia 11/23/2022 3:49 PM EDT ANTINUCLEAR ANTIBODY (BIMAL) EIA SCREEN WITH REFLEX AB QUANT Lab Routine Arthralgia, unspecified joint Myalgia 11/23/2022 3:49 PM EDT Scheduled Orders Name Type Priority Associated Diagnoses Orde r Schedule CBC WITH WBC DIFFERENTIAL Lab Routine Arthralgia, unspecified joint Myalgia Expected: 11/23/2022 (Approximate), Expires: 11/24/2023 ANAPLASMA PHAGOCYTOPHILUM DNA, QL REAL-TIME PCR Lab Routine Arthralgia, unspecified joint Myalgia Expected: 11/23/2022, Expires: 11/24/2023 ANTINUCLEAR ANTIBODY (BIMAL) EIA SCREEN WITH REFLEX AB QUANT Lab Routine Arthralgia, unspecified joint Myalgia Expected: 11/23/2022 (Approximate), Expires: 11/23/2023 Scheduled Procedures Name Priority Associated Diagnoses Date/Ti me COLONOSCOPY FLEXIBLE PROXIMAL DIAGNOSTIC Special screening for malignant neoplasms, colon 04/05/2023 10:45 AM EDT Scheduled Referrals Name Type Priority Associated Diagnoses Orde r Schedule COLONOSCOPY, GI REFERRAL OP Referral Within 30 days (routine) Special screening for malignant neoplasms, colon Ordered: 11/23/2022 Health Maintenance Due Date Last Done Comments Pneumococcal Vaccine: Pediatrics (0 to 5 Years) and At-Risk Patients (6 to 64 Years) (1 - PCV) 11/06/1967 DIABETES-FOOT EXAM 11/06/1979 Cologuard 2006 Fecal Occult Blood Test 2006 Sigmoidoscopy 2006 Zoster Vaccines (2 of 3) 08/15/2015 06/20/2015 Colonoscopy 11/28/2021 11/29/2011 Colorectal Cancer Screening 11/28/2021 DIABETES-EYE EXAM 05/11/2023 05/11/2022 HgA1C 05/26/2023 11/23/2022, 09/0 03/2021, 02/22/2020, Additional history exists Albumin/Creatinine Ratio 11/24/2023 11/23/2022 Depression Screening, Annual for Pts 12 and Over 11/24/2023 11/23/2022, 10/21/2014 GFR - Renal Function 11/24/2023 11/23/2022, 03/19/2021, 02/22/2020, Additional history exists Lipid Panel 11/24/2027 [...] Not on filedocumented as of this encounter Results * ERYTHROCYTE SEDIMENTATION RATE (ESR) (11/23/2022 3:49 PM EDT) ESR 18 <20 mm/hour 11/24/2022 12:22 AM EDT [facility] Blood Venous blood specimen / Unknown Venipuncture / Unknown 11/23/2022 3:49 PM EDT 11/23/2022 3:49 PM EDT Maria M Ochoa DO LAB BLOOD ORDERABLE S [facility] [address] [place] [address] documented in this encounter Visit Diagnoses Diagnosis Arthralgia, unspecified joint- Primary Myalgia Mylagia and myositis, unspecified Type 2 diabetes mellitus with diabetic mononeuropathy, without long-term current use of insulin (HCC) BPH with obstruction/lower urinary tract symptoms Hypertrophy of prostate with urinary obstruction and other lower urinary tract symptoms (LUTS) PAF (paroxysmal atrial fibrillation) (HCC) Atrial fibrillation Type 2 diabetes mellitus without complication, unspecified whether it infrastructure consultant insulin use (HCC) Gastroesophageal reflux disease without esophagitis Esophageal reflux Severe episode of recurrent major depressive disorder, without psychotic features (HCC) Special screening for malignant neoplasms, colon Essential (primary) hypertension Unspecified essential hypertension Special screening for malignant neoplasms, colon documented in this encounter Care Teams Fitter/Welder Relationship Specialty Start Date End Date Osiris Estrada CRNP [address] [place] [address] PCP - General Nurse Practitioner 12/03/21 documented as of this encounter"
--- OUTSIDE RECORDS SUMMARY | 2023-05-24 21:34 | External Medical Summary ---
Author Name Unknown Address Unknown Organization [id number]:LABORATORY [facility] - [address] [facility] [address] Laboratory Report Ordering Provider Test Date Status RUDDY CAMPBELL 11/23/2022 15:49:11 Final Observation Date Value Abnormality Reference (Units ) Status HbA1C 11/23/2022 15:49:11 6.6 Above high normal 4. 0-5.6 (%) Final The use of HbA1c to monitor glycemic status is based on normal hemoglobin and HbA composition. This test should not be used in patients with abnormal hemoglobin that affects the half life of the red blood cell or the in vivo glycation rates. Glucose, estimated average 11/23/2022 15:49:11 143 Above high normal <126 (mg/dL) Vu ramírez Performing Location LABORATORY [facility] - [address] [facility] [address]
--- OUTSIDE RECORDS SUMMARY | 2023-05-24 21:34 | External Medical Summary | Summary of Care ---
Author Name Unknown Organization [facility] Address [address] [place] [address] Phone [phone] Care Team Providers Care Dealership General Manager Name Role Phone Osiris Parada Primary Care Provider Reason for Visit * Reason Comments eRx-Medication Refill Encounter Details Date Type Department Care Team Description 12/07/2022 Refill Family Practice [facility] [address] [place] [id number] [facility] [address] [facility] [address] Dyslipidemia, goal LDL below 100 Allergies No known active allergiesdocumented as of this encounter (statuses as of 12/08/2022) Medications Medication Sig Dispensed Refills Start Date [...] MOUTH EVERY DAY 90 Tablet 3 2 Active Propafenone HCl 150 MG Oral Tablet [...] 180 days 1 Each 1 2 Active Tamsulosin HCl 0.4 MG Oral Capsule (Flomax)Indications: Urinary urgency,Weak urinary stream,Nocturia TAKE 1 CAPSULE BY MOUTH EVERY DAY IN THE MORNING 90 Capsule 3 2 Active Omeprazole 20 MG Oral Capsule Delayed Release (PriLOSEC)Indication s:Esophageal stricture TAKE 1 CAPSULE BY MOUTH EVERY DAY 90 Capsule 1 3 Active Sertraline HCl 100 MG Oral Tablet (Zoloft) TAKE 1 TABLET BY MOUTH EVERYDAY AT BEDTIME 90 Tablet 3 3 Active Pravastatin Sodium 10 MG Oral Tablet (Pravachol)Indicatio ns:Dyslipidemia, goal LDL below 100 TAKE ONE TABLET BY MOUTH EVERY DAY FOR CHOLESTEROL 90 Tablet 1 3 Active Pravastatin Sodium 10 MG Oral Tablet (Pravachol)Indicatio ns:Dyslipidemia, goal LDL below 100 TAKE ONE TABLET BY MOUTH EVERY DAY FOR CHOLESTEROL 30 Tablet 0 3 023 Discontinued documented as of this encounter (statuses as of 12/08/2022) Active Problems Problem Noted Date Type 2 [...] as of this encounter (statuses as of 12/08/2022) Resolved Problems Problem Noted Date Resolved Date Prediabetes 03/18/2020 05/11/2022 Overview: Per Prediabetes protocol Metabolon Quantose IR Research Study*[id number] 02/06/2014 05/01/2014 Overview: METABOLON QUANTOSE IR STUDY. PROJECT: #[id number], POULTRY FEED SUPERVISOR: Hector Lundy MD/ Monty Guzman MD. SUMMARY: The Use of a Novel Insulin Resistance Test as a Monitoring Indicator of Glycemic Control in Prediabetics and Diabetics treated with metformin combined with lifestyle intervention. CONTACTS: During normal business hours, contact Medina Ruano RN, BSN at ; after hours Director Of Loss Prevention via the [facility] hospital filtration plant operator Dyslipidemia, goal to be determined 06/26/2009 10/24/2009 Overview: Per Lipid Taxonomy. PURE HYPERCHOLESTEROLEM 06/26/20 Overview: Per Lipid Taxonomy. documented as of this encounter (statuses as of 12/08/2022) Immunizations Name Administration Dates Next Due COVID-19 mRNA, LNP-s, No Pre serve, 2-Dose Series ([employer]) 06/17/2021,10/01/2020,09/10/2020 Covid-19, Mrna, Lnp-s, Pf, B ivalent, 30 Mcg, IM, 12 yrs and above ([employer]) 05/26/2022 Seasonal Influenza, Quadriva lent, No Preserve, [...] encounter Miscellaneous Notes * Telephone Encounter - Shannan Arnold [facility] - 12/08/2022 9:58 AM EDTSigned Prescriptions: Disp Refills Pravastatin Sodium 10 MG Oral Tablet (Prav*90 Tab*1 Sig: TAKE ONE TABLET BY MOUTH EVERY DAY FOR CHOLESTEROLAuthorizing Provider: OSIRIS PARADA User:SHANNAN ARNOLD * Telephone Encounter - Shannan Arnold [facility] - 12/08/2022 9:52 AM EDT Last lipid panel elevated. Per 11/25/22 patient message: Lets recheck in 6 months fasting. See you in December at your follow up. Rx sent until next lipid panel due. Thanks, Shannan Arnold, PharmD Clinical Pharmacist [facility] [phone] 12/08/2022 9:53 AM documented in this encounter Plan of Treatment Upcoming Encounters Date Type Specialty Care Team Description 12/23/2022 Office Visit Family Medicine Osiris Parada CRNP [address] [place] [address] 04/05/2023 Hospital Encounter Endoscopy Diana Arboleda, DO [address] [place] [address] 04/05/2023 Surgery Endoscopy Diana Arboleda, [address] [place] [address] COLONOSCOPY FLEXIBLE PROXIMAL DIAGNOSTIC Scheduled Procedures Name Priority Associated Diagnoses Date/Ti [...] LDL below 100 Other and unspecified hyperlipidemia Special screening for malignant neoplasms, colon documented in this encounter Care Teams Dealership General Manager Relationship Specialty Start Date End Date Osiris Parada CRNP [address] [place] [address] PCP - General Nurse Practitioner 12/03/21 documented as of this encounter
--- OUTSIDE RECORDS SUMMARY | 2023-05-24 21:34 | External Medical Summary ---
Author Name Unknown Address Unknown Organization K01:LABORATORY [facility] - [address] [facility] [address] Laboratory Report Ordering Provider Test Date Status LUISA GONZALEZ 11/23/2022 15:49:00 Final Observation Date Value Abnormality Reference (Units ) Status WBC, Total 11/23/2022 15:49:00 5.81 4.00-10.80 (K/uL) Final RBC 11/23/2022 15:49:00 5.05 4.50-5.25 (M/uL) Final Hemoglobin 11/23/2022 15:49:00 15.2 14.0-16.8 (g/dL) Final HCT 11/23/2022 15:49:00 46.5 40.0-48.4 (%) Final MCV 11/23/2022 15:49:00 92.1 82.0-99.5 (fL) Final MCH 11/23/2022 15:49:00 30.1 27.0-34.0 (pg) Final MCHC 11/23/2022 15:49:00 32.7 32.0-36.0 (g/dL) Final RDW 11/23/2022 15:49:00 13.2 11.5-15.5 (%) Final Platelets 11/23/2022 15:49:00 231 140-400 (K/uL) Final MPV 11/23/2022 15:49:00 10.4 6.6-11.1 (fL) Final Nucleated erythrocytes/100 leukocytes [Ratio] in Blood by Automated count 11/23/2022 15:49:00 0 <=0 (/100 WBCs) Final Performing Location LABORATORY [facility] - [address] [place] [address]
--- OUTSIDE RECORDS SUMMARY | 2023-05-24 21:34 | External Medical Summary | Summary of Care ---
Author Name Unknown Organization [facility] Address [address] [place] [address] Phone [phone] Care Team Providers Care Label Sewer Name Role Phone Osiris Parada Primary Care Provider Reason for Visit * Reason Comments eRx-Medication Refill Encounter Details Date Type Department Care Team Description 01/12/2023 Refill Family Practice [facility] [address] [place] [address] Osiris Parada CRNP [address] [place] [facility] [place] [address] Esophageal stricture Allergies No known active allergiesdocumented as of this encounter (statuses as of 01/12/2023) Medications Medication Sig Dispensed Refills Start Date [...] the morning. 90 Tablet 3 3 Active Omeprazole 20 MG Oral Capsule Delayed Release (PriLOSEC)Indication s:Esophageal stricture TAKE 1 CAPSULE BY MOUTH EVERY DAY 90 Capsule 3 3 Active Omeprazole 20 MG Oral Capsule Delayed Release (PriLOSEC)Indication s:Esophageal stricture TAKE 1 CAPSULE BY MOUTH EVERY DAY 90 Capsule 1 3 023 Discontinued documented as of this encounter (statuses as of 01/12/2023) Active Problems Problem Noted Date Type 2 [...] as of this encounter (statuses as of 01/12/2023) Resolved Problems Problem Noted Date Resolved Date Prediabetes 03/18/2020 05/11/2022 Overview: Per Prediabetes protocol Metabolon Quantose IR Research Study*[id number] 02/06/2014 05/01/2014 Overview: METABOLON QUANTOSE IR STUDY. PROJECT: #[id number], MAILHOUSE OPERATOR: Hector Lundy MD/ Monty Guzman MD. SUMMARY: The Use of a Novel Insulin Resistance Test as a Monitoring Indicator of Glycemic Control in Prediabetics and Diabetics treated with metformin combined with lifestyle intervention. CONTACTS: During normal business hours, contact Medina Ruano RN, BSN at ; after hours Head Char Filter Tank Tender via the [facility] hospital hopper operator Dyslipidemia, goal to be determined 06/26/2009 10/24/2009 Overview: Per Lipid Taxonomy. PURE HYPERCHOLESTEROLEM 06/26/20 Overview: Per Lipid Taxonomy. documented as of this encounter (statuses as of 01/12/2023) Immunizations Name Administration Dates Next Due COVID-19 mRNA, LNP-s, No Pre serve, 2-Dose Series ([employer]) 06/17/2021,10/01/2020,09/10/2020 Covid-19, Mrna, Lnp-s, Pf, B ivalent, [...] encounter Miscellaneous Notes * Telephone Encounter - Hernan Verde RPh - 01/12/2023 2:12 PM EDTSigned Prescriptions: Disp Refills Omeprazole 20 MG Oral Capsule Delayed Rele*90 Cap*3 Sig: TAKE 1 CAPSULE BY MOUTH EVERY DAYAuthorizing Provider: OSIRIS PARADAOrderdania User: HERNAN VERDE documented in this encounter Plan of Treatment Upcoming Encounters Date Type Specialty Care Team Description 03/25/2023 Office Visit Family Medicine Osiris Parada CRNP [address] [facility] [place] [address] 04/05/2023 Hospital Encounter Endoscopy Diana Arboleda, DO [address] [place] [address] 04/05/2023 Surgery Endoscopy Diana Arboleda, DO [address] [place] [address] COLONOSCOPY FLEXIBLE PROXIMAL DIAGNOSTIC 01/05/2024 Office Visit Allergy & Immunology Ian Schilling MD [address] [place] [address] Scheduled Procedures Name Priority Associated Diagnoses Date/Ti [...] as of this encounter Visit Diagnoses Diagnosis Esophageal stricture Stricture and stenosis of esophagus Special screening for malignant neoplasms, colon documented in this encounter Care Teams Label Sewer Relationship Specialty Start Date End Date Osiris Parada CRNP [address] [place] [address] PCP - General Nurse Practitioner 12/03/21 documented as of this encounter
--- OUTSIDE RECORDS SUMMARY | 2023-05-24 21:34 | External Medical Summary | Summary of Care ---
Author Name Unknown Organization [facility] Address [address] [place] [address] Phone [phone] Care Team Providers Care It Support Specialist Name Role Phone Osiris Estrada Primary Care Provider Reason for Visit * Reason Comments Emergency Department Follow-Up Encounter Details Date Type Department Care Team Description 01/31/2023 [facility] [place] [id number] Ashly Gray, [address] [facility] [place] [id number] PAF (paroxysmal atrial fibrillation) (HCC)*; Incomplete RBBB; ASHISH (generalized anxiety disorder); Type 2 diabetes mellitus with hemoglobin A1c goal of less than 7.0% (HCC); At increased risk for stress; Hyperlipidemia, unspecified hyperlipidemia type Allergies Active Allergy Reactions Severity Noted Date Comments Pollen 01/31/2023 Grass pollen - rash documented as of this encounter (statuses as of 02/02/2023) Medications Medication Sig Dispensed Refills Start Date End Date Status Multiple Vitamins-Minerals (PRESERVISION AREDS 2) Capsule Take 1 Capsule by mouth in the morning. 0 Active Ibuprofen 200 MG Oral Tablet Take 1 Tablet by mouth every 4 hours as needed for Pain. 0 Active Propafenone HCl 150 MG Oral Tablet (Rythmol)Indications: PAF (paroxysmal atrial fibrillation) (HCC) Take by mouth 1 Tablet in the morning AND 1 Tablet at noon AND 1 Tablet before bedtime. 270 Tablet 3 2 Active metFORMIN HCl ER 500 MG Oral Tablet Extended Release 24 Hour (Glucophage XR) Take by mouth 1 Tablet in the morning. 90 Tablet 3 2 Active Tamsulosin HCl 0.4 MG Oral Capsule (Flomax)Indications:U rinary urgency,Weak urinary stream,Nocturia TAKE 1 CAPSULE BY MOUTH EVERY DAY IN THE MORNING 90 Capsule 3 2 Active Pravastatin Sodium 10 MG Oral Tablet (Pravachol)Indication s:Dyslipidemia, goal LDL below 100 TAKE ONE TABLET [...] Omeprazole 20 MG Oral Capsule Delayed Release (PriLOSEC)Indications :Esophageal stricture TAKE 1 CAPSULE BY MOUTH EVERY DAY 90 Capsule 3 3 Active Metoprolol Succinate ER 25 MG Oral Tablet Extended Release 24 Hour (toPROL XL)Indications:PAF (paroxysmal atrial fibrillation) ([facility]) TAKE 1 TABLET BY MOUTH EVERY DAY 90 Tablet 3 3 Active Eliquis 5 MG Oral Tablet Take 1 Tablet by mouth in the morning and 1 Tablet before bedtime. 0 3 Active aspirin enteric coated 81 MG TBECIndications:PSVT (paroxysmal supraventricular tachycardia) (HCC) Take 1 Tablet by mouth in the morning. 100 Tab 3 7 02/01/20 23 Discontinu ed(Medicat ion/Dose Changed) Zoster Vac Recomb Adjuvanted 50 MCG/0.5ML Intramuscular Suspension Reconstituted (Shingrix) Inject 0.5 mL into a large muscle now and repeat dose in 60 to 180 days 1 Each 1 2 02/01/20 23 Discontinu ed(Medicat ion List Clean Up) documented as of this encounter (statuses as of 02/02/2023) Active Problems Problem Noted Date Type 2 [...] as of this encounter (statuses as of 02/02/2023) Resolved Problems Problem Noted Date Resolved Date Prediabetes 03/18/2020 05/11/2022 Overview: Per Prediabetes protocol Metabolon Quantose IR Research Study*[id number] 02/06/2014 05/01/2014 Overview: METABOLON QUANTOSE IR STUDY. PROJECT: #[id number], MASTER MOTORCYCLE TECHNICIAN: Hector Lundy MD/ Monty Guzman MD. SUMMARY: The Use of a Novel Insulin Resistance Test as a Monitoring Indicator of Glycemic Control in Prediabetics and Diabetics treated with metformin combined with lifestyle intervention. 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 PURE HYPERCHOLESTEROLEM 06/26/20 09 Overview: Per Lipid Taxonomy. documented as of this encounter (statuses as of 02/02/2023) Immunizations Name Administration Dates Next Due COVID-19 mRNA, LNP-s, No Pre serve, 2-Dose Series ([employer]) 06/17/2021,10/01/2020,09/10/2020 Covid-19, Mrna, Lnp-s, Pf, B ivalent, 30 Mcg, IM, 12 yrs and above ([employer]) 05/26/2022 Seasonal Influenza Virus Vac cine, Unspecified [...] Sign Reading Time Taken Comments Blood Pressure 118/62 01/31/2023 3:25 PM EDT Pulse 78 01/31/2023 3:25 PM EDT Temperature - - Respiratory Rate - - Oxygen Saturation - - Inhaled Oxygen Concentration - - Weight 89.5 kg (197 lb 4.8 oz) 01/31/2023 3:25 P M EDT Height - - Body Mass Index 26.76 01/04/2023 8:59 AM EDT documented in this encounter Progress Notes * Ashly Gray DO - 02/02/2023 8:15 PM EDT I have reviewed the advanced practitioner documentation and agree. I saw and evaluated the patient on date of service referenced in note and have performed the following medically appropriate historyand/or exam: Pt seen in EP f/u after hospitalization for pAF; pt has not had pAF in over a year; hehad an episode last week due to stressful event-he tried to take an extra propafenone but it did not break the AF so he went to [facility]. My partner there did a [facility] guided DCCV and he was discharged homeon eliquis plus he was instructed to take the propafenone TID. Since discharge he is feeling better again I think he needs to continue the eliquis at this juncture I think it is ok to continue with propafenone for now I would like to see him back in 6 months Ashly Gray DO Department of Cardiology [facility] [place] [address] * TRINA Camacho - 01/31/2023 3:30 PM EDT Subjective Giovanni Puckett is a 62 year old male. Chief Complaint Patient presents with Emergency Department Follow-Up Cardiac Problems pAF, newly diagnosed 10/02/2016;started on metoprolol [id number] 1 (DM II); recurrent episode 11/12/2016 went to [facility] ED had 3.5 second conversion pause with IV bolus of cardizem; started on Rythmol 11/2016, again 01/28/23 at [facility] treated with DCCV HLD HPI: 62 year old male presents for ER and EP Follow up. Last seen in the clinic 1 year ago. Has had someincreased stressors over the past few months. His father in the fall and he is still working on zerobound the [employer]. The night of the worsening event there were more severe thunderstorms possibly increasing his stress at the time. Intermittent fluttering over the past few weeks. But Tuesday01/28/23 at 3 am it was persistent despite metoprolol and Rythmol. Also did not realize he was to be taking the propafenone three times per day, so was only taking twice per day. Denies chest pain, SOB, palpitations, dizziness, syncope, edema, orthopnea and PND. No change in activity tolerance. Reports compliance with medications without any untoward side effects, or difficulty with affordability. PMH: Patient Active Problem List Diagnosis Code Esophageal stricture K22.2 Dyslipidemia, goal LDL below 100 E78.5 Depression F32.A PAF (paroxysmal atrial fibrillation) ([facility]) I48.0 Bradycardia, sinus R00.1 Incomplete RBBB I45.10 BPH with obstruction/lower urinary tract symptoms N40.1, N13.8 ASHISH (generalized anxiety disorder) F41.1 Need for prophylactic vaccination and inoculation against influenza Z23 Gastroesophageal reflux disease without esophagitis K21.9 Moderate episode of recurrent major depressive disorder ([facility]) F33.1 Type 2 diabetes mellitus with diabetic mononeuropathy, without long-term current use of insulin([facility]) E11.41 Type 2 diabetes mellitus without complication ([facility]) E11.9 Severe episode of recurrent major depressive disorder, without psychotic features ([facility]) F33.2 Essential (primary) hypertension I10 Current Outpatient Medications Medication Sig Dispense Refill aspirin enteric coated 81 MG TBEC Take 1 Tablet by mouth in the morning. 100 Tab 3 Multiple Vitamins-Minerals (PRESERVISION AREDS 2) Capsule Take 1 Capsule by mouth in the morning. Propafenone HCl 150 MG [...] EVERY DAY IN THE MORNING 90Capsule 3 Pravastatin Sodium 10 MG Oral Tablet (Pravachol) TAKE ONE TABLET BY MOUTH EVERY DAY FOR CHOLESTEROL 90 Tablet 1 Sertraline HCl 100 MG Oral Tablet (Zoloft) Take 1.5 Tablets by mouth in the morning. 90 Tablet 3 Omeprazole 20 MG Oral Capsule Delayed Release (PriLOSEC) TAKE 1 CAPSULE BY MOUTH EVERY DAY 90 Capsule 3 Metoprolol Succinate ER 25 MG Oral Tablet Extended Release 24 Hour (toPROL XL) TAKE 1 TABLET BYMOUTH EVERY DAY 90 Tablet 3 Eliquis 5 MG Oral Tablet Take 1 Tablet by mouth in the morning and 1 Tablet before bedtime. Ibuprofen 200 MG Oral Tablet Take 1 Tablet by mouth every 4 hours as needed for Pain. Ciclopirox 8 % External Solution Apply over [...] Reactions Environmental [Pollen] Grass pollen - rash Family History Problem Relation Age of Onset [...] level: Not on file Occupational History Occupation: [employer] Comment: [employer] Tobacco Use Smoking status: Never Smokeless tobacco: Never Vaping Use Vaping Use: Never used Substance and Sexual Activity Alcohol use: Yes Comment: ish wine Drug use: No Sexual activity: Not [...] Not on file Review of Systems Constitutional: Negative for activity change, fatigue and unexpected weight change. Eyes: Negative for visual disturbance. Respiratory: Negative for shortness of breath and wheezing. Cardiovascular: Negative for chest pain, palpitations and leg swelling. Gastrointestinal: Negative for blood in stool, constipation, diarrhea, nausea and vomiting. Genitourinary: Negative for hematuria. Musculoskeletal: Negative for arthralgias and gait problem. Skin: Negative for wound. Neurological: Negative for dizziness and syncope. Objective BP 118/62 | Pulse 78 | Wt 89.5 kg (197 lb 4.8 oz) | BMI 26.76 kg/m | BSA 2.13 m Physical Exam [...] Behavior: Behavior is cooperative. Judgment: Judgment normal. . Results ECGs: 01/28/23 - post cardioversion 1548 NSR 78 [...] QRS 108ms QTc 379ms 11/13/2016 at [facility]: SR 68bpm Incomplete RBBB QRS 96ms QTc 380ms 11/13/2016 at [facility] AF 80bpm 11/13/2016 at [facility] AF 129bpm Telemetry Strips [facility] 11/13/2016: 3.5 second conversion pause pt asymptomatic 10/02/2016 at [facility]: AF 144bpm QRS 88ms QTc 393ms 10/02/2016 at [facility] after metoprolol IV: SR 89bpm QTc 403ms QRS 88ms 10/2011: SR Incomplete RBBB Telemetry Strip from [facility] 10/02/2016: AF RVR 150bpm [facility] at [facility] 01/28/23 The left ventricle was normal in [...] of exercise. Laboratory Data Review: From [facility] 01/28/23 Na 140 K 4 BUN 21 Cr 0.91 Ca 9.2 Glucose 146 A1c 6.5% Mg 1.9 T Bili 0.7 AST 23 ALT 26 AlkPhos 93 WBC 7.62 Hgb 15.7 Hct 43.5 Plt 218 Latest Reference Range & Units 11/23/22 15:49 [...] Negative dsDNA Antibody Value <20 IU/mL 0.9 MY Antibodies Screen Interpretation Negative Negative MY Antibodies Screen Value <0.7 Ratio 0.1 Impression PAF, [id number] 1 (DM II) DM II HLD Increased Stressors Anxiety Plan: -HR and BP well controlled -I reviewed their most recent notes from admission to [facility] -sounds to be in normal rhythm today and post cardioversion ECG was obtained at the time indicatingnormal sinus rhythm with normal intervals -thankfully he is had no recurrent atrial fibrillation since cardioversion -continue propafenone, metoprolol, and apixaban -can stop ASA, no indication for dual antiplatelet therapy -Educated patient on caution with change in positions to minimize symptomatic orthostatic hypotension -Discussed importance of diet & exercise with the patient. -Discussed with patient subtle changes in how they are feeling or completing daily activities to contact us sooner; don't wait days or weeks. Patient care discussed and coordinated with Dr. Gray. Please refer to Dr. Zazzali's notes for further recommendations. DISPOSITION: Follow up 6 months or if symptoms worsen/fail to improve. All questions were answered to the patients satisfaction. Patient advised to report to ED with any and all emergencies. The patient agrees to the above plan and will call with additional questions or concerns. TRINA Thomas Cardiology [place] [address] [place] [facility] [address] This chart was completed in part utilizing [employer] Speech Voice Recognition Software. Grammatical errors, random [...] documented in this encounter Nursing Notes * Deja Kurtz LPN - 01/31/2023 3:25 PM EDT Patient was identified by name and date of . Name: Giovanni Puckett Date of : (1960). Examination Room: 5 Reason for Visit: Chief Complaint Patient presents with Emergency Department Follow-Up Interim Hospitalization(s): NO Interim Emergency room visit(s): YES [facility] Afib Chest Pain: No SOB: No Problems/Concerns: No Medications reviewed and are up to date via: Patient's memory Would you like to sign up for [facility]? ALREADY ACTIVE Patient was instructed to not get up on the exam table/exam chair until directed and assisted by their provider; patient is to remain seated in the chair/ wheelchair/ exam table/ exam chair for fall prevention and safety reasons. Patient is aware to have assistance to step down off exam table/exam chair with personnel. Patient voiced full comprehension of instructions. Deja Kurtz LPN 3:25 PM 01/31/2023 documented in this encounter Plan of Treatment Upcoming Encounters Date Type Specialty Care Team Description 02/03/2023 Office Visit Family Medicine Osiris Estrada CRNP [address] [place] [address] 03/25/2023 Office Visit Family Medicine Osiris Estrada CRNP [address] [place] [address] 04/05/2023 Hospital Encounter Endoscopy Diana Arboleda, DO [address] [place] [address] 04/05/2023 Surgery Endoscopy Diana Arboleda, DO [address] [place] [address] COLONOSCOPY FLEXIBLE PROXIMAL DIAGNOSTIC 08/09/2023 Office Visit Cardiology Cyndi Corbett CRNP [address] [place] [id number] 01/05/2024 Office Visit Allergy & Immunology Ian Schilling MD [address] [place] [address] Scheduled Procedures Name Priority Associated Diagnoses Date/Ti [...] fibrillation Incomplete RBBB Right bundle branch block ASHISH (generalized anxiety disorder) Generalized anxiety disorder Type 2 diabetes mellitus with hemoglobin A1c goal of less than 7.0% (HCC) At increased risk for stress Hyperlipidemia, unspecified hyperlipidemia type Special screening for malignant neoplasms, colon documented in this encounter Care Teams It Support Specialist Relationship Specialty Start Date End Date Osiris Estrada CRNP [address] [place] [address] PCP - General Nurse Practitioner 12/03/21 documented as of this encounter"
--- OUTSIDE RECORDS SUMMARY | 2023-05-24 21:34 | External Medical Summary ---
Author Name Unknown Address Unknown Organization K01:[facility] [place] [address] [facility] [address] Laboratory Report Ordering Provider Test Date Status LUISA GONZALEZ 11/23/2022 15:49:11 Final Observation Date Value Abnormality Reference (Units ) Status Nuclear IgG Ab [Ratio] in Serum by Immunoassay 11/23/2022 15:49:11 Negative Negative Final DNA double strand Ab [Presence] in Serum 11/23/2022 15:49:11 Negative Negative Final DOUBLE STRANDED DNA VALUE - [facility] 11/23/2022 15:49:11 0.9 <20 (IU/mL) Final Extractable nuclear Ab [Presence] in Serum 11/23/2022 15:49:11 Negative Negative Final Nuclear IgG Ab [Ratio] in Serum by Immunoassay 11/23/2022 15:49:11 0.1 <0.7 (Ratio) Final Screening is based on detect ion of the following antibodies: dsDNA, U1-CENTRIFUGAL CHILLER TECHNICIAN (RNP70, A, C), SS-A/Ro, SS-B / La, Mary-1, Scl-70, Centromere B proteins and Sm proteins. In conjunction with clinical findings, this can aid in the diagnosis of systemic lupus erythematosous (SLE), mixed connective tissue disease (MCTD), Sjogren's syndrome, scleroderma and polymyositis/dermatomyositis.
However, a negative result does not rule out systemic rheumatic or other autoimmune disease. If clinically suspected, further evaluation and testing may be necessary. Please consult with Rheumatology Department.
Methodology: Fluorescent Enzyme Immunoassay. Performing Location LABORATORY [address] [facility] [address]
--- OUTSIDE RECORDS SUMMARY | 2023-05-24 21:34 | External Medical Summary | Summary of Care ---
Author Name Unknown Organization [facility] Address [address] [place] [address] Phone [phone] Care Team Providers Care Pourer Crane Ladle Name Role Phone Osiris Estrada Primary Care Provider Reason for Visit * Reason Comments Re-Check X 1 month return, manuela Ochoa. Pain in back/pelvic area. Gone now. Encounter Details Date Type Department Care Team Description 12/23/2022 Office Visit Family Practice [facility] [address] [place] [address] Osiris Estrada CRNP [address] [place] [address] Type 2 diabetes mellitus with diabetic mononeuropathy, without long-term current use of insulin ([facility]; Essential (primary) hypertension; Severe episode of recurrent major depressive disorder, without psychotic features ([facility]); ASHISH (generalized anxiety disorder); Toenail fungus; Dyslipidemia, goal LDL below 100; PAF (paroxysmal atrial fibrillation) ([facility]); Gastroesophageal reflux disease without esophagitis Allergies No known active allergiesdocumented as of this encounter (statuses as of 12/23/2022) Medications Medication Sig Dispensed Refills Start Date End Date Status aspirin enteric coated 81 MG TBECIndications:PSVT (paroxysmal supraventricular tachycardia) ([facility]) Take 1 Tablet by mouth in the [...] 12/23/2022 Tamsulosin HCl 0.4 MG Oral Capsule (Flomax)Indications:U rinary urgency,Weak urinary stream,Nocturia TAKE 1 CAPSULE BY MOUTH EVERY DAY IN THE MORNING 90 Capsule 3 2 Active Omeprazole 20 MG Oral Capsule Delayed Release (PriLOSEC)Indications :Esophageal stricture TAKE 1 CAPSULE BY MOUTH EVERY DAY 90 Capsule 1 3 Active Pravastatin Sodium 10 MG [...] the morning. 90 Tablet 3 3 Active Sertraline HCl 100 MG Oral Tablet (Zoloft) TAKE 1 TABLET BY MOUTH EVERYDAY AT BEDTIME 90 Tablet 3 3 12/24/19 23 Discontinu ed(Refill) documented as of this encounter (statuses as of 12/23/2022) Active Problems Problem Noted Date Type 2 [...] as of this encounter (statuses as of 12/23/2022) Resolved Problems Problem Noted Date Resolved Date Prediabetes 03/18/2020 05/11/2022 Overview: Per Prediabetes protocol Metabolon Quantose IR Research Study*[id number] 02/06/2014 05/01/2014 Overview: METABOLON QUANTOSE IR STUDY. PROJECT: #[id number], ASSISTANT PLANT CONTROLLER: Hector Lundy MD/ Monty Guzman MD. SUMMARY: The Use of a Novel Insulin Resistance Test as a Monitoring Indicator of Glycemic Control in Prediabetics and Diabetics treated with metformin combined with lifestyle intervention. CONTACTS: During normal business hours, contact Medina Ruano RN, BSN at ; after hours Oil Expeller Operator via the [facility] [place] hospital cloth mercerizer operator Dyslipidemia, goal to be determined 06/26/2009 10/24/2009 Overview: Per Lipid Taxonomy. PURE HYPERCHOLESTEROLEM 06/26/20 Overview: Per Lipid Taxonomy. documented as of this encounter (statuses as of 12/23/2022) Immunizations Name Administration Dates Next Due COVID-19 mRNA, LNP-s, No Pre serve, 2-Dose Series ([employer]) 06/17/2021,10/01/2020,09/10/2020 Covid-19, Mrna, Lnp-s, Pf, B ivalent, [...] Sign Reading Time Taken Comments Blood Pressure 124/60 12/23/2022 2:19 PM EDT Pulse 60 12/23/2022 2:19 PM EDT Temperature - - Respiratory Rate - - Oxygen Saturation - - Inhaled Oxygen Concentration - - Weight 88.3 kg (194 lb 9 oz) 12/23/2022 2:19 PM EDT Height - - Body Mass Index 26.39 11/19/2022 2:11 PM EDT documented in this encounter Progress Notes * TRINA Perdue - 12/23/2022 2:25 PM EDT Images from the original note were not included. Follow up Family Medicine Visit CC: Chief Complaint Patient presents with Re-Check X 1 month return, from Dr. Ochoa. Pain in back/pelvic area. Gone now. History of Present Illness: Giovanni Puckett is a 62 year old male presenting today for follow up. DM: A1C at 6.1. Denies low blood sugars. Weight is somewhat stable. Mood: Mood is stable and down. Sleeping ok. Gets tired around noon to 2 pm and takes Nap. Denies si/hi Finalized father's estate. C/o nail thicken right great toe. It is also yellowing. Present for years. Social History Socioeconomic History Marital status: Single Spouse name: Not on file Number of children: Not on file Years of education: Not on file Highest education level: Not on file Occupational History Occupation: [employer] Comment: [employer] Tobacco Use Smoking status: [...] Outpatient Medications Marked as Taking for the 12/23/22 encounter (Office Visit) with TRINA Perdue Medication Sig Pravastatin Sodium 10 MG Oral Tablet (Pravachol) TAKE ONE TABLET BY MOUTH EVERY DAY FOR CHOLESTEROL Sertraline HCl 100 MG Oral Tablet (Zoloft) TAKE 1 TABLET BY MOUTH EVERYDAY AT BEDTIME Omeprazole 20 MG Oral Capsule Delayed Release (PriLOSEC) TAKE 1 CAPSULE BY MOUTH EVERY DAY Tamsulosin HCl 0.4 MG Oral Capsule (Flomax) TAKE 1 CAPSULE BY MOUTH EVERY DAY IN THE MORNING metFORMIN HCl ER 500 MG Oral Tablet Extended Release 24 Hour (Glucophage XR) Take by mouth 1 Tablet in the morning. Propafenone HCl 150 MG Oral Tablet (Rythmol) Take by mouth 1 Tablet in the morning AND 1 Tabletat noon AND 1 Tablet before bedtime. Metoprolol Succinate ER 25 MG Oral Tablet Extended Release 24 Hour (toPROL XL) TAKE 1 TABLET BYMOUTH EVERY DAY Ibuprofen 200 MG Oral Tablet Take 1 Tablet by mouth every 4 hours as needed for Pain. Multiple Vitamins-Minerals (PRESERVISION AREDS 2) Capsule Take 1 Capsule by mouth in the morning. aspirin enteric coated 81 MG TBEC Take 1 Tablet by mouth in the morning. Review of patient's allergies indicates: No Known Allergies Most Recent Immunizations Administered Date(s) Administered COVID-19 mRNA, LNP-s, No Preserve, 2-Dose Series ([employer]) 06/17/2021 Covid-19, Mrna, Lnp-s, Pf, Bivalent, 30 Mcg, IM, 12 yrs and above (Pfizer) 05/26/2022 Seasonal Influenza, Quadrivalent, No Preserve, 6 Mons & Above, IM 03/19/2021 Seasonal Influenza, Quadrivalent, No Preserve, IM 03/22/2017 Seasonal Influenza, Split, IIV3, With Preserve, Inj 03/20/2014 TD - Tetanus/Diptheria (ADULT) 09/22/2001 TD, Preservative Free 05/11/2022 TDAP (age 11 and older)(Adacel) 09/21/2011 Varicella Zoster Vaccine (Adult) 06/20/2015 Review of Systems: Review of Systems Constitutional: Positive for fatigue. Respiratory: Negative for cough, shortness of breath and wheezing. Cardiovascular: Positive for palpitations. Negative for chest pain and leg swelling. Gastrointestinal: Negative for abdominal pain, nausea and vomiting. Neurological: Negative for dizziness and syncope. Psychiatric/Behavioral: Positive for dysphoric mood and sleep disturbance. The patient is nervous/anxious. Physical Exam: BP 124/60 | Pulse 60 | Wt 88.3 kg (194 lb 9 oz) | BMI 26.39 kg/m | BSA 2.12 m Physical Exam HENT: Head: Normocephalic. Mouth/Throat: Tonsils: No tonsillar exudate. Cardiovascular: Rate and Rhythm: Normal rate and regular rhythm. Pulmonary: Effort: Pulmonary effort is normal. Breath sounds: Normal breath sounds. Musculoskeletal: Cervical back: Normal range of motion. Feet: Feet: Left foot: Toenail Condition: Left toenails are abnormally thick. Comments: Yellow discoloration, brittle Lymphadenopathy: Cervical: No cervical adenopathy. Neurological: Mental Status: He is alert and oriented to person, place, and time. Psychiatric: Attention and Perception: Attention normal. Mood and Affect: Mood normal. Speech: Speech normal. Behavior: Behavior normal. Behavior is cooperative. Thought Content: Thought content normal. Cognition and Memory: Cognition and memory normal. Judgment: Judgment normal. Assessment and Plan: 1. Type 2 diabetes mellitus with diabetic mononeuropathy, without long-term current use of insulin (HCC) Stable with A1C at 6.6 Continue metformin 2. Essential (primary) hypertension stable 3. Severe episode of recurrent major depressive disorder, without psychotic features (HCC) Not controlled Denies si/hi Increase sertraline to 150 mg po daily 4. ASHISH (generalized anxiety disorder) 5. Toenail fungus RIGHT GREAT TOENAIL Only use toenail clippers on that nail and no others Add penlac 6. Dyslipidemia, goal LDL below 100 7. PAF (paroxysmal atrial fibrillation) (HCC) Rate controlled NSR toay 8. Gastroesophageal reflux disease without esophagitis stable I have advised the patient to call our office incase of any worsening or new symptoms. I spent a total of 30-39 minutes (exact time 30 mins) on the date of service in preparation, delivery, and documentation of the care provided to Giovanni Puckett excluding any time spent in the performance of separately billed services. Jose, REYNA, TRINA [facility] documented in this encounter Plan of Treatment Upcoming Encounters Date Type Specialty Care Team Description 03/25/2023 Office Visit Family Medicine Osiris Estrada, TRINA [address] [place] [address] 04/05/2023 Hospital Encounter Endoscopy Diana Arboleda, DO [address] [place] [address] 04/05/2023 Surgery Endoscopy Diana Arboleda, DO [address] [place] [address] COLONOSCOPY FLEXIBLE PROXIMAL DIAGNOSTIC Scheduled Procedures Name [...] DIABETES-EYE EXAM 05/11/2023 05/11/2022 HbA1c 05/26/2023 11/23/2022, 090 03/2021, 02/22/2020, Additional history exists Albumin/Creatinine Ratio 11/24/2023 11/23/2022 Depression Screening, Annual for Pts 12 and Over 11/24/2023 11/23/2022, 10/21/2014 GFR 11/24/2023 11/23/2022, 090 03/2021, 02/22/2020, Additional history exists Lipid Panel [...] as of this encounter Visit Diagnoses Diagnosis Type 2 diabetes mellitus with diabetic mononeuropathy, without long-term current use of insulin (HCC)- Primary Essential (primary) hypertension Unspecified essential hypertension Severe episode of recurrent major depressive disorder, without psychotic features (HCC) ASHISH (generalized anxiety disorder) Generalized anxiety disorder Toenail fungus Dermatophytosis of nail Dyslipidemia, goal LDL below 100 Other and unspecified hyperlipidemia PAF (paroxysmal atrial fibrillation) (HCC) Atrial fibrillation Gastroesophageal reflux disease without esophagitis Esophageal reflux Special screening for malignant neoplasms, colon documented in this encounter Care Teams Pourer Crane Ladle Relationship Specialty Start Date End Date Osiris Estrada CRNP [address] [place] [address] PCP - General Nurse Practitioner 12/03/21 documented as of this encounter"
--- OUTSIDE RECORDS SUMMARY | 2023-05-24 21:34 | External Medical Summary ---
Author Name Unknown Address Unknown Organization [id number]:[facility] [place] [address] [facility] [address] Laboratory Report Ordering Provider Test Date Status LUISA GONZALEZ 11/23/2022 15:49:00 Final Observation Date Value Abnormality Reference (Units ) Status SYNC LEUKOCYTES IN BLOOD BY AUTOMATED COUNT 11/23/2022 15:49:00 5.81 4.00-10.80 (K/uL) Final Segs 11/23/2022 15:49:00 60.8 40.0-75.0 (%) Final Lymphs % 11/23/2022 15:49:00 26.9 18.0-42.0 (%) Final Monos 11/23/2022 15:49:00 8.8 1.0-11.0 (%) Final Eosinophils 11/23/2022 15:49:00 2.6 0.0-6.0 (%) Final Basos 11/23/2022 15:49:00 0.2 0.0-2.0 (%) Final Immature Granulocyte, Percent 11/23/2022 15:49:00 0.7 0.0-2.0 (%) Final Absolute Segs 11/23/2022 15:49:00 3.54 1.80-7.70 (K/uL) Final Lymphs, absolute 11/23/2022 15:49:00 1.56 1.00-4.80 (K/ul) Final Monos, Abs 11/23/2022 15:49:00 0.51 0.00-1.10 (K/uL) Final Eos, Abs 11/23/2022 15:49:00 0.15 0.00-0.70 (K/uL) Final Basos, Abs 11/23/2022 15:49:00 0.01 0.00-0.20 (K/uL) Final Immature Granulocytes, Number 11/23/2022 15:49:00 0.04 0.00-0.20 (K/uL) Final Performing Location [facility] [place] [address] [facility] [address]
--- OUTSIDE RECORDS SUMMARY | 2023-05-24 21:34 | External Medical Summary | Summary of Care ---
Author Name Unknown Organization [facility] Address [address] [place] [address] Phone [phone] Care Team Providers Care [employer] Law Clerk Name Role Phone Osiris Estrada Primary Care Provider Reason for Visit * Reason Onset Date Comments case management 02/01/2023 Encounter Details Date Type Department Care Team Description 02/01/2023 Telephone Care Coordination [address] [place], [place] [id number] Renee Yusuf LPN [address], [place] [id number] case management Allergies Active Allergy Reactions Severity Noted Date Comments Pollen 01/31/2023 Grass pollen - rash documented as of this encounter (statuses as of 02/01/2023) Medications Medication Sig Dispensed Refills Start Date [...] 24 Hour (toPROL XL)Indications:PAF (paroxysmal atrial fibrillation) ([facility]) TAKE 1 TABLET BY MOUTH EVERY DAY 90 Tablet 3 01/14/2023 Active Eliquis 5 MG Oral Tablet Take 1 Tablet by mouth in the morning and 1 Tablet before bedtime. 0 01/28/2023 Active documented as of this encounter (statuses as of 02/01/2023) Active Problems Problem Noted Date Type 2 [...] as of this encounter (statuses as of 02/01/2023) Resolved Problems Problem Noted Date Resolved Date Prediabetes 03/18/2020 05/11/2022 Overview: Per Prediabetes protocol Metabolon Quantose IR Research Study*[id number] 02/06/2014 05/01/2014 Overview: METABOLON QUANTOSE IR STUDY. PROJECT: #[id number], DIRECTOR LOSS PREVENTION: Hector Lundy MD/ Monty Guzman MD. SUMMARY: The Use of a Novel Insulin Resistance Test as a Monitoring Indicator of Glycemic Control in Prediabetics and Diabetics treated with metformin combined with lifestyle intervention. CONTACTS: During normal business hours, contact Medina Ruano RN, BSN at ; after hours Software Tester via the [facility] hospital drawing machine operator Dyslipidemia, goal to be determined 06/26/2009 10/24/2009 Overview: Per Lipid Taxonomy. PURE HYPERCHOLESTEROLEM 06/26/20 Overview: Per Lipid Taxonomy. documented as of this encounter (statuses as of 02/01/2023) Immunizations Name Administration Dates Next Due COVID-19 mRNA, LNP-s, No Pre serve, 2-Dose Series ([employer]) 06/17/2021,10/01/2020,09/10/2020 Covid-19, Mrna, Lnp-s, Pf, B ivalent, 30 Mcg, IM, 12 yrs and above ([employer]) 05/26/2022 Seasonal Influenza Virus Vac cine, Unspecified [...] encounter Miscellaneous Notes * Telephone Encounter - Renee Yusuf LPN - 02/01/2023 11:51 AM EDT 1. Follow-up Post Discharge 2. Attempted Phone Call First Attempt 3. Call Outcome Left Voicemail/Message 4. Plan To attempt another outreach documented in this encounter Plan of Treatment Upcoming Encounters Date Type Specialty Care Team Description 02/03/2023 Office Visit Family Medicine Osiris Estrada CRNP [address] [place] [address] 03/25/2023 Office Visit Family Medicine Osiris Estrada CRNP [address] [place] [address] 04/05/2023 Hospital Encounter Endoscopy Diana Arboleda, DO [address] [place] [address] 04/05/2023 Surgery Endoscopy Diana Arboleda, DO [address] [place] [address] COLONOSCOPY FLEXIBLE PROXIMAL DIAGNOSTIC 08/09/2023 Office Visit Cardiology Cyndi Corbett CRNP [address] [facility] [place] [address] 01/05/2024 Office Visit Allergy & Immunology Ian Schilling MD [address] [place] [address] Scheduled Procedures Name Priority Associated Diagnoses Date/Ti [...] filedocumented as of this encounter Care Teams [employer] Law Clerk Relationship Specialty Start Date End Date Osiris Estrada CRNP [address] [place] [address] PCP - General Nurse Practitioner 12/03/21 documented as of this encounter
--- OUTSIDE RECORDS SUMMARY | 2023-05-24 21:34 | External Medical Summary ---
Author Name Unknown Address Unknown Organization K01:[facility] - [address] [place] [address] Laboratory Report Ordering Provider Test Date Status CATHIEDURA 11/23/2022 15:49:11 Final Observation Date Value Abnormality Reference (Units ) Status Vitamin B12 11/23/2022 15:49:11 [phone] (pg/mL) Final Performing Location [facility] - [address] [place] [address]
--- OUTSIDE RECORDS SUMMARY | 2023-05-24 21:34 | External Medical Summary | Summary of Care ---
Author Name Unknown Organization [facility] Address [address] [place] [address] Phone [phone] Care Team Providers Care Scrap Stripper Hand Name Role Phone Osiris Estrada Primary Care Provider Reason for Visit * Reason Comments Outpatient Testing Encounter Details Date Type Department Care Team Description 11/23/2022 Laboratory Laboratory, [facility] [address] [place] [address] [facility] [address] [place] [address] Dyslipidemia, goal LDL below 100; Encounter for long-term (current) use of medications; Prediabetes; Type 2 diabetes mellitus with diabetic mononeuropathy, without long-term current use of insulin ([facility]); Arthralgia, unspecified joint; Myalgia Allergies No known active allergiesdocumented as of this encounter (statuses as of 11/23/2022) Medications Medication Sig Dispensed Refills Start Date End Date Status aspirin enteric coated 81 MG TBECIndications:PSVT (paroxysmal supraventricular tachycardia) ([facility]) Take 1 Tablet by mouth in the [...] 24 Hour (toPROL XL)Indications:PAF (paroxysmal atrial fibrillation) ([facility]) TAKE 1 TABLET BY MOUTH EVERY DAY [...] as of this encounter (statuses as of 11/23/2022) Active Problems Problem Noted Date Type 2 [...] as of this encounter (statuses as of 11/23/2022) Resolved Problems Problem Noted Date Resolved Date Prediabetes 03/18/2020 05/11/2022 Overview: Per Prediabetes protocol Metabolon Quantose IR Research Study*[id number] 02/06/2014 05/01/2014 Overview: [employer] [facility] [place] QUANT[facility] IR STUDY. PROJECT: #[id number], PEWTER FABRICATOR: Hector Lundy MD/ Monty Guzman MD. SUMMARY: The Use of a Novel Insulin Resistance Test as a Monitoring Indicator of Glycemic Control in Prediabetics and Diabetics treated with metformin combined with lifestyle intervention. CONTACTS: During normal business hours, contact Medina Ruano RN, BSN at ; after hours Field Pipelines Supervisor via the [facility] hospital track car operator Dyslipidemia, goal to be determined 06/26/2009 10/24/2009 Overview: Per Lipid Taxonomy. PURE HYPERCHOLESTEROLEM 06/26/20 Overview: Per Lipid Taxonomy. documented as of this encounter (statuses as of 11/23/2022) Immunizations Name Administration Dates Next Due COVID-19 mRNA, LNP-s, No Pre serve, 2-Dose Series ([employer]) 06/17/2021,10/01/2020,09/10/2020 Covid-19, Mrna, Lnp-s, Pf, B ivalent Booster, 30 Mcg, IM, 12 yrs and above ([employer]) 05/26/2022 Seasonal Influenza, Quadriva lent, No Preserve, [...] Estrada CRNP [address] [place] [address] 04/05/2023 Hospital Encounter Endoscopy Diana Arboleda, [address] [place] [address] 04/05/2023 Surgery Endoscopy Diana Arboleda, [address] [place] [address] COLONOSCOPY FLEXIBLE PROXIMAL DIAGNOSTIC Pending Results Name Type Priority Associated Diagnoses Date /Time LIPID PANEL WITH DIRECT LDL IF TG IS HIGH Lab Routine Dyslipidemia, goal LDL below 100 11/23/2022 3:49 PM EDT COMPREHENSIVE METABOLIC PANEL Lab Routine Dyslipidemia, goal LDL below 100 Encounter for long-term (current) use of medications 11/23/2022 3:49 PM EDT HEMOGLOBIN A1C Lab Routine Prediabetes 11/23/2022 3:49 PM EDT VITAMIN B12 Lab Routine Encounter for long-term (current) use of medications 11/23/2022 3:49 PM EDT MAGNESIUM Lab Routine Encounter for long-term (current) use of medications 11/23/2022 3:49 PM EDT ALBUMIN / CREATININE RATIO, URINE Lab Routine Encounter for long-term (current) use of medications 11/23/2022 3:49 PM EDT CBC WITH WBC DIFFERENTIAL Lab Routine Arthralgia, unspecified joint Myalgia 11/23/2022 3:49 PM EDT ANAPLASMA PHAGOCYTOPHILUM DNA, QL REAL-TIME PCR Lab Routine Arthralgia, unspecified joint Myalgia 11/23/2022 3:49 PM EDT ANTINUCLEAR ANTIBODY (BIMAL) EIA SCREEN WITH REFLEX AB QUANT Lab Routine Arthralgia, unspecified joint Myalgia 11/23/2022 3:49 PM EDT ERYTHROCYTE SEDIMENTATION RATE (ESR) Lab Routine Arthralgia, unspecified joint Myalgia 11/23/2022 3:49 PM EDT CBC Lab Routine Arthralgia, unspecified joint Myalgia 11/23/2022 3:49 PM EDT DIFFERENTIAL, AUTOMATED Lab Routine Arthralgia, unspecified joint Myalgia 11/23/2022 3:49 PM EDT ANTINUCLEAR ANTIBODY (BIMAL) SCREEN, TESSY Lab Routine Arthralgia, unspecified joint Myalgia 11/23/2022 3:49 PM EDT Scheduled Procedures Name Priority Associated Diagnoses Date/Ti me COLONOSCOPY FLEXIBLE PROXIMAL DIAGNOSTIC Special screening for malignant neoplasms, colon 04/05/2023 10:45 AM EDT Health Maintenance Due Date Last Done Comments Pneumococcal Vaccine: Pediatrics (0 to 5 Years) and At-Risk Patients (6 to 64 Years) (1 - PCV) 11/06/1967 Albumin/Creatinine Ratio 11/06/1979 DIABETES-FOOT EXAM 11/06/1979 Cologuard 2006 Fecal Occult Blood Test 2006 Sigmoidoscopy 2006 Zoster Vaccines (2 of 3) 08/15/2015 06/20/2015 HgA1C 09/16/2021 03/19/2021, 02/08, 05/12/2019, Additional history exists Colonoscopy 11/28/2021 11/29/2011 Colorectal Cancer Screening 11/28/2021 Depression Screening, Annual for Pts 12 and Over 02/19/2022 02/19/2021, 10/21/2014 GFR - Renal Function 03/19/2022 03/19/2021, 02/22/2020, 05/12/2019, Additional history exists DIABETES-EYE EXAM 05/11/2023 05/11/2022 Lipid Panel 03/19/2026 03/19/2021, 02/08, 05/12/2019, Additional history exists DTaP,Tdap,and Td Vaccines (3 [...] LDL below 100 Other and unspecified hyperlipidemia Encounter for long-term (current) use of medications Encounter for long-term (current) use of other medications Prediabetes Other abnormal glucose Type 2 diabetes mellitus with diabetic mononeuropathy, without long-term current use of insulin (HCC) Arthralgia, unspecified joint Myalgia Mylagia and myositis, unspecified Special screening for malignant neoplasms, colon documented in this encounter Care Teams Scrap Stripper Hand Relationship Specialty Start Date End Date Osiris Estrada CRNP [address] [place] [address] PCP - General Nurse Practitioner 12/03/21 documented as of this encounter
--- OUTSIDE RECORDS SUMMARY | 2023-05-24 21:34 | External Medical Summary ---
Author Name Unknown Address Unknown Organization K01:[facility] - [address] [facility] [address] Laboratory Report Ordering Provider Test Date Status CATHIE,DURA 11/23/2022 15:49:11 Final Observation Date Value Abnormality Reference (Units ) Status Magnesium 11/23/2022 15:49:11 2.2 1.5-2.6 (m g/dL) Final Performing Location [facility] - [address] [place] [address]
--- OUTSIDE RECORDS SUMMARY | 2023-05-24 21:34 | External Medical Summary | Summary of Care ---
Author Name Unknown Organization [facility] Address [address] [place] [address] Phone [phone] Care Team Providers Care Chemistry Quality Control Analyst Name Role Phone Osiris Estrada Primary Care Provider Reason for Referral * Ancillary Services (Within 30 days (routine)) - Authorized Specialty Diagnoses / Procedures Referred By Contabi t Referred To Contact Gastroenterology Diagnoses Special screening for malignant neoplasms, colon Maria M Ochoa DO [address] [place] [address] Referral ID Status Reason Start Date Expiration Date Visits Requested Visits Authorized [id number] Authorized Ancillary Services Required 11/23/[phone] Question Answer Referral Priority Within 30 days (routine) Comments ALERT: Do not order for pediatric patients (18 years or younger). Cancel off screen and order PEDS GASTROENTEROLOGY CONSULT (Type: 1 visit only-Evaluate and Treat) The following Pt. Instructions are available: - Gastro Colonoscopy Prep Instructions [[id number]] - Gastro Colonoscopy Prep Instructions (Faroese Version) [[id number]] Go to the Pt. Instructions section within [...] Team Description 11/23/2022 Office Visit Family Practice [facility] [address] [place] [id number] Maria M Ochoa DO [address] [place] [address] Arthralgia, unspecified joint*; Myalgia; Type 2 diabetes mellitus with diabetic mononeuropathy, without long-term current use of insulin (HCC); BPH with obstruction/lower urinary tract symptoms; PAF (paroxysmal atrial fibrillation) ([facility]); Type 2 diabetes mellitus without complication, unspecified whether senior care insulin use ([facility]); Gastroesophageal reflux disease without esophagitis; Severe episode of recurrent major depressive disorder, without psychotic features ([facility]); Special screening for malignant neoplasms, colon; Essential [...] Oral Tablet (Rythmol)Indications:P AF (paroxysmal atrial fibrillation) ([facility]) Take by mouth 1 Tablet in the [...] Per Prediabetes protocol Metabolon Quantose IR Research Study*[id number] 02/06/2014 05/01/2014 Overview: METABOLON QUANTOSE IR STUDY. PROJECT: #[id number], LPN RN HOSPICE: Hector Lundy MD/ Monty Guzman MD. SUMMARY: The Use of a Novel Insulin Resistance Test as a Monitoring Indicator of Glycemic Control in Prediabetics and Diabetics treated with metformin combined with lifestyle intervention. CONTACTS: During normal business hours, contact Medina Ruano RN, BSN at ; after hours Cost Control Analyst via the [facility] hospital assistant operator Dyslipidemia, goal to be determined 06/26/2009 [...] E78.5 Depression F32.A PAF (paroxysmal atrial fibrillation) ([facility]) I48.0 Bradycardia, sinus R00.1 Incomplete RBBB I45.10 BPH with obstruction/lower urinary tract symptoms N40.1, N13.8 ASHISH (generalized anxiety disorder) F41.1 Need for prophylactic vaccination and inoculation against influenza Z23 Gastroesophageal reflux disease without esophagitis K21.9 Moderate episode of recurrent major depressive disorder ([facility]) F33.1 Type 2 diabetes mellitus with diabetic [...] mononeuropathy, without long-term current use of insulin ([facility]) - HEMOGLOBIN A1C; Future; Expected date: 11/23/2022 BPH with obstruction/lower urinary tract symptoms PAF (paroxysmal atrial fibrillation) (HCC) Type 2 diabetes mellitus without complication, unspecified whether senior care insulin use (HCC) Gastroesophageal reflux disease without [...] Estrada CRNP [address] [place] [address] 04/05/2023 Hospital Encounter Endoscopy Diana Arboleda DO [address] [place] [address] 04/05/2023 Surgery Endoscopy Diana Arboleda DO [address] [place] [address] COLONOSCOPY FLEXIBLE PROXIMAL DIAGNOSTIC Pending Results Name [...] joint Myalgia Expected: 11/23/2022 (Approximate), Expires: 11/23/2023 ERYTHROCYTE SEDIMENTATION RATE (ESR) Lab Routine Arthralgia, unspecified joint Myalgia Expected: [...] as of this encounter Visit Diagnoses Diagnosis Arthralgia, unspecified joint- Primary Myalgia Mylagia and myositis, unspecified Type 2 diabetes mellitus with diabetic mononeuropathy, without long-term current use of insulin (HCC) BPH with obstruction/lower urinary tract symptoms Hypertrophy of prostate with urinary obstruction and other lower urinary tract symptoms (LUTS) PAF (paroxysmal atrial fibrillation) (HCC) Atrial fibrillation Type 2 diabetes mellitus without complication, unspecified whether terminal makeup operator insulin use (HCC) Gastroesophageal reflux disease without esophagitis Esophageal reflux Severe episode of recurrent major depressive disorder, without psychotic features (HCC) Special screening for malignant neoplasms, colon Essential (primary) hypertension Unspecified essential hypertension Special screening for malignant neoplasms, colon documented in this encounter Care Teams Chemistry Quality Control Analyst Relationship Specialty Start Date End Date Osiris Estrada CRNP [address] [place] [address] PCP - General Nurse Practitioner 12/03/21 documented as of this encounter"
== END 2023-05-22 17:30 | disposition home or self-care (01) ==
LOC: ED 20:08 → SUATTDRO 05-22 01:07 → EDINP 05-22 01:07 → INTOOBSV 05-22 01:07 → EDINP 05-22 03:31